=== PATIENT | female | born 1940 | race African-American/Black ===

== ENCOUNTER 2017-11-21 08:14 | Inpatient (IN) | payer MEDICARE, OTHER ==
[~2017-11-21] VITALS: Ht 167.6 cm; Wt 84.0 kg
[~2017-11-21 08:14] MED LIST: 1-ME1LIQ PO; AMLO10 PO; ARIC5TAB PO; ARIP1TAB13 PO; ATOR20TA42 PO; DIPH50TA PO; FLUTI110I INH; K-TA10TA5 PO; LIPI20TA PO; LORA-474 PO; METO25 PO; NAME10TA PO; NOVOLOGSS SQ; PANT20 PO; QUET100 PO; RISPERDAL IM; SERO100T PO; SERT-132 PO; ZOLO50TA PO
[2017-11-21 08:16] VITALS: BP 248/118; PULSE 152; RESP 22; TEMP 98.5; O2SAT 96
[2017-11-21] MEDS ORDERED: LAMO25 PO (08:42)
[2017-11-21] MEDS ORDERED: LORazepam 2 MG/ML VIAL IM ONE ×2 (08:45→10:00)
[2017-11-21] MEDS ORDERED: ZIPRASIDONE MESYLATE 20 MG VIAL IM ONE ×2 (08:45→10:00)
[2017-11-21] MEDS ORDERED: diphenhydrAMINE HCL 50 MG/ML VIAL IM ONE (08:45)
--- NOTE | 2017-11-21 08:59 | PD ---
HPI Chief Complaint: Psychiatric Symptoms Time Seen by Provider: 08:42 Travel History International Travel<30 days: No Contact w/Intl Traveler<30days: No Traveled to known affect area: No History of Present Illness HPI 77-year-old female with a history of schizoaffective disorder, bipolar disorder , who presents today with complaints of severe agitation and aggressive behavior. According to the son she has been like this over the weekend. It is escalated. Report was that she was recently admitted at [facility]. The patient has a history of dementia as well. She reportedly is taking her antipsychotic medication however is extremely agitated. There is been no reported recent illnesses. There are no other complaints. The patient is uncooperative and aggressive toward staff. PFSH Past Medical History Arthritis: Yes (KNEES) Asthma: Yes Depression: Yes Cancer: No (See EMR) Cardiovascular Problems: Yes (See EMR) Cerebrovascular Accident: No Diabetes: No (See EMR) Endocrine: No Genitourinary: No Immune Disorder: No Kidney Stones: No Musculoskeletal: Yes Neurologic: Yes Psychiatric: Yes (Schizoaffective Disorder, See EMR) Reproductive: No Respiratory: Yes Migraines: No Renal Failure: No Seizures: No (See EMR) Thyroid Disease: No Past Surgical History Abdominal Surgery: No Cardiac Surgery: No Ear Surgery: No Endocrine Surgery: No Eye Surgery: Yes (BILAT CATARACT REMOVAL) Genitourinary Surgery: No Gynecologic Surgery: No Joint Replacement: Yes (BI-LAT KNEES) Oral Surgery: No Thoracic Surgery: No Social History Tobacco Use: No Substance Use: No Allergies-Medications (Allergen,Severity, Reaction): Coded Allergies: apple (Unverified Allergy, Severe, Swelling, 03/08/17) Reported Meds & Prescriptions Reported Meds & Active Scripts Active Zoloft (Sertraline HCl) 50 Mg Tab 50 Mg PO DAILY Namenda (Memantine) 10 Mg Tab 10 Mg PO BID Reported Lamictal (Lamotrigine) 25 Mg Tab 25 Mg PO BID Review of Systems ROS Limitations: Psychotic (Unable to obtain review of systems secondary to patient's psychosis.) Physical Exam Narrative GENERAL: Well-nourished, well-developed patient, acutely agitated and psychotic. SKIN: Focused skin assessment warm/dry. HEAD: Normocephalic/atraumatic. EYES: No scleral icterus. No injection or drainage. NECK: Supple, trachea midline. CARDIOVASCULAR: Regular rate and rhythm without murmurs, gallops, or rubs. RESPIRATORY: Breath sounds equal bilaterally. No accessory muscle use. GASTROINTESTINAL: Abdomen soft, non-tender, nondistended. MUSCULOSKELETAL: No cyanosis, or edema. NEUROLOGICAL: Awake and alert and agitated. Cranial nerves II through XII intact. Motor and sensory grossly within normal limits. Five out of 5 muscle strength in all muscle groups. Normal speech. Data Data Last Documented VS Vital Signs Date Time Temp Pulse Resp B/P (MAP) Pulse Ox O2 Delivery O2 Flow Rate FiO2 11/21/17 08:16 98.5 152 22 248/118 (161) 96 Orders Orders Ziprasidone Inj (Geodon Inj) (11/21/17 08:45) Lorazepam Inj (Ativan Inj) (11/21/17 08:45) Diphenhydramine Inj (Benadryl Inj) (11/21/17 08:45) Ziprasidone Inj (Geodon Inj) (11/21/17 10:00) Lorazepam Inj (Ativan Inj) (11/21/17 10:00) Psych Screen (11/21/17 10:45) Admit Order (Ed Use Only) (11/21/17 ) MDM Medical Decision Making Medical Screen Exam Complete: Yes Emergency Medical Condition: Yes Medical Record Reviewed: Yes Differential Diagnosis Acute psychosis versus metabolic derangement versus medication noncompliance Narrative Course 77-year-old female with history of schizoaffective disorder, bipolar disorder, dementia, presents today for an acute psychotic episode. Patient is extremely agitated and threatening to staff and family members. The patient will be medically cleared to be admitted to psychiatry. I discussed the patient with a psychiatrist and until informed him that she would be best served going directly to the floor. He is arranged for her to be admitted directly to the psychiatric unit. Diagnosis Primary Impression: Acute psychosis Additional Impressions: Bipolar disorder, manic Dementia Medically cleared Admitting Information Admitting Physician Requests: Admit Aleksey Henriquez MD Nov 21, 2017 08:58
[2017-11-21 11:39] VITALS: BP 198/98; PULSE 66; RESP 18; O2SAT 96
[2017-11-21] MEDS: REMOVE OLD PATCH T-DERMAL SCH (12:00)
[2017-11-21] MEDS ORDERED: ALUMINUM/MAGNESIUM/SIMETH 30 ML CUP PO PRN (12:00)
[2017-11-21] MEDS ORDERED: NICOTINE 21 MG/24 HR PATCH T-DERMAL PRN (12:00)
[2017-11-21] MEDS ORDERED: MAGNESIUM HYDROXIDE SUSP 30 ML CUP PO PRN (12:00)
[2017-11-21] MEDS ORDERED: HALOPERIDOL LACTATE 5 MG/ML AMP IM STA (12:08)
[2017-11-21] MEDS ORDERED: diphenhydrAMINE HCL 50 MG/ML VIAL IM STA (12:08)
--- NOTE | 2017-11-21 13:36 | HHI.HP ---
Provisional Diagnosis Admission Date Nov 21, 2017 at 11:15 Leary I. 1. Schizoaffective disorder, bipolar type 2. Dementia, rule out with behavioral disturbance Leary II. Deferred Certification of Person's Competence To Provide Express and Informed Consent I have personally examined Jackelyn Gonzalez , a person being served at [facility] [[email or web address]] on, Nov 21, 2017 13:36. Express and informed consent means consent voluntarily given in writing, by a competent person, after sufficient explanation and disclosure of the subject matter involved to enable the person to make a knowing and willful decision without any element of force, fraud, deceit, duress, or other form of constraint or coercion. This person is 18 years of age or older, is not now known to be incompetent to consent to treatment with a guardian advocate, and does not have a health care surrogate or proxy currently making medical treatment decisions. I have found this person to be one of the following: [] Competent to provide express and informed consent, as defined above, for voluntary admission to this facility and is competent to provide express and informed consent for treatment. He/she has the consistent capacity to make well reasoned, willful, and knowing decisions concerning his or her medical or mental health treatment. The person fully and consistently understands the purpose of the admission for examination/placement and is fully capable of personally exercising all rights assured [place] [x] Incompetent to provide express and informed consent to voluntary admission, and this is incompetent to provide express and informed consent to treatment. The person must be transferred to involuntary status and a petition for a guardian advocate filed with the Circuit Court. [] Refusing to provide express and informed consent to voluntary admission but is competent to provide express and informed consent for treatment. The person must be discharged or transferred to involuntary status. Form shall be completed within 24 hours of a person's arrival at the receiving facility and filed in the clinical record of each person: 1. Admitted on a voluntary basis 2. Permitted to provide express and informed consent to his/her own treatment 3. Allowed to transfer from involuntary to voluntary status 4. Prior to permitting a person to consent to his or her own treatment after having been previously found incompetent to consent to treatment. History of Present Illness Capacity: Lacks Capacity Psych Chief Complaint: Agitation HPI Ms. Gonzalez is a 77-year-old female with a history of schizoaffective disorder and dementia who presented to the emergency department, brought in by family for severe agitation. She was evaluated by Dr. Henriquez in the ED who reached out to me to discuss the case. Dr. Henriquez reported that despite receiving ETOs of Geodon and Ativan x 2, patient remained severely agitated and unredirectable. He has placed the patient under a Munson act. He appropriately did not wish to restrain this elderly patient, and I have elected to admit the patient to the inpatient unit for management of her psychiatric symptoms. On arrival on the unit, patient remained aggressive per nursing staff, and I ordered the patient further medicated with Haldol and Benadryl IM ETO. Patient seen and examined. Chart reviewed. Case discussed with nursing staff. Since receiving the Haldol ETO, patient has calmed. She is dozing at the time of my evaluation, and our interaction is limited for this reason. She appears to be in no acute distress and is breathing easily. She does open her eyes briefly to loud verbal stimuli but lapses back into sleep. I do observe her on the unit later, and she is more alert but remains calm. No evident ill effects from ETOs. No physical complaints verbalized. I am unable to obtain any past psychiatric, family, chemical dependency or social history from the patient because of her current mental status. I obtained collateral information from the patient's sister Shaunna Mike at the number listed in the EMR. She notes that the patient has been agitated and has not slept since Tuesday. She notes the patient has been hyperverbal. She believes that the patient has been medication compliant. She refers to the patient's daughter Joanie for further collateral information and for medication consents. Spoke with patient's daughter Joanie Wilde at [phone]. She notes that patient had been having issues with agitation last week and so family took patient to [facility] Tuesday night, at which encounter Lamictal was added to current regimen of Seroquel 200mg BID. Addition of Lamictal did not help and patient continued to be aggressive with family. She did not sleep hardly at all over the weekend. Visiting psychiatric nurse recommended family seek further assistance for patient's behaviors. Joanie also does not suspect med non-adherence as a cause for patient's symptoms. She is willing to serve as HCS. She is in agreement with ongoing hospitalization for psychiatric stabilization, and we did discuss the potential risks of such in someone of patient's age, such as the risk of fall, infection or other misadventure. Daughter likewise is in agreement with treatment plan as outlined below. We reviewed the R/B/A for medications, and I have highlighted the potential antipsychotic side effects as well as the FDA blackbox warning for increased risk of in the demented elderly. We discussed patient's legal status. Review of Systems ROS Limitations: Poor Historian, Other (Sedated) Other Limited ROS secondary to above. Past Family Social History Coded Allergies: apple (Unverified Allergy, Severe, Swelling, 03/08/17) Past Medical History See EMR Active Scripts Sertraline (Zoloft) 50 Mg Tab, 50 MG PO DAILY for health, #30 TAB 0 Refills Prov:Louie Morales MD 06/30/16 Memantine (Namenda) 10 Mg Tab, 10 MG PO BID for health, #60 TAB 0 Refills Prov:Louie Morales MD 06/30/16 Reported Medications Lamotrigine (Lamictal) 25 Mg Tab, 25 MG PO BID for Control Seizures, #60 TAB 0 Refills 11/21/17 Discontinued Scripts Quetiapine (Seroquel) 100 Mg Tab, 150 MG PO 1 1/2 daily for health, #45 TAB 0 Refills Prov:Louie Morales MD 06/30/16 Pantoprazole (Protonix) 20 Mg Tab, 20 MG PO DAILY for health, #30 TAB 0 Refills Prov:Louie Morales MD 06/30/16 Insulin Aspart Inj (Novolog Inj) 100 Unit/Ml Inj, 1 UNITS SQ BID for health, #1 INJECTION 0 Refills Prov:Louie Morales MD 06/30/16 Fluticasone 12 GM Inh (Flovent Hfa 12 GM Inh) 110 Mcg/Act Inh, 2 PUFF INH BID for health, #1 INHALER 0 Refills Prov:Louie Morales MD 06/30/16 Atorvastatin (Lipitor) 20 Mg Tab, 20 MG PO DAILY for health, #30 TAB 0 Refills Prov:Louie Morales MD 06/30/16 Aripiprazole (Aripiprazole) 15 Mg Tab, 15 MG PO DAILY@10,16 for health, #30 TAB 0 Refills Prov:Louie Morales MD 06/30/16 Amlodipine (Norvasc) 10 Mg Tab, 10 MG PO DAILY for blood pressure for 30 Days, TAB 0 Refills Prov:Tequila Dey 06/07/16 Current Medications Medications (Trade) Dose Ordered Sig/Karyna Route Start Time Stop Time Status Last Admin (Tylenol) 650 mg Q4H PRN PO 11/21/17 12:00 (Milk Of Magnesia Liq) 30 ml DAILY PRN PO 11/21/17 12:00 (Mag-Al Plus Susp Liq) 30 ml Q6H PRN PO 11/21/17 12:00 (Habitrol 21 Mg Patch.24 Hr) 1 patch DAILY PRN T-DERMAL 11/21/17 12:00 Miscellaneous Information 1 DAILY T-DERMAL 11/21/17 12:00 Patient's Strengths (min. 2) In a monitored setting. Supportive family. Physical Exam Physical exam completed by ED provider. On my examination today, the patient appears to be in no acute physical distress. No motor abnormalities noted. Vital signs reviewed. Vital Signs Vital Signs Date Time Temp Pulse Resp B/P (MAP) Pulse Ox O2 Delivery O2 Flow Rate FiO2 11/21/17 12:02 11/21/17 11:39 66 18 96 Room Air 11/21/17 08:16 98.5 Lab Results Patient was too agitated in the ED for labs to be obtained and refused laboratories on arrival to the floor. I have obtained permission from patient' s daughter/healthcare surrogate to temporarily restrain the patient in order to obtain needed lab work. EKG reviewed. This reveals sinus rhythm with QTC within normal limits. Mental Status Examination Appearance: Disheveled Consciousness: Asleep Orientation: Person (Arouses to name being called) Motor Activity: Other (No motor abnormalities noted) Speech: Other (Mumbles a few sounds) Language: Other (Sample too limited to assess) Mood: Other (Limited sample) Affect: Flat Thought Process & Associations: Other (Limited sample) Thought Content: Other (Limited sample) Mental Status Exam Remarks No SI or HI verbalized. Insight and judgment are unclear but suspect poor. Assessment & Plan Problem List: (1) Schizoaffective disorder, bipolar type ICD Codes: F25.0 - Schizoaffective disorder, bipolar type Status: Chronic (2) Dementia ICD Codes: F03.90 - Unspecified dementia without behavioral disturbance Status: Acute Assessment & Plan 77-year-old female with psychiatric history as detailed above Munson acted by ED provider for acute agitation. Family gives collateral information to suggest that the patient has been agitated and sleeping poorly over the weekend and had been having problems of less severity last week despite reported medication adherence. Unclear whether the patient is experiencing psychotic decompensation as part of her schizoaffective disorder or an episode of dementia with behavioral disturbance or some other issue. I will plan to admit the patient to the inpatient psychiatric unit for safety, observation and stabilization. Admit inpatient. Involuntary status. I have completed first opinion. Consult for second opinion. Request healthcare surrogate and guardian advocate. Titrate Seroquel to 250 mg twice daily to try to stabilize behavior. Haldol IM as needed for severe agitation, Benadryl as needed for EPS, melatonin as needed for sleep. Blood pressure was quite elevated on initial presentation, possibly secondary in part to agitation, and I will consult the hospitalist for further management. PT eval. Fall precautions. Vitals every shift. Counselor to see. Disposition planning. Estimated length of stay: Presently unclear, >2 days. Discharge Planning Pending psychiatric stabilization Request HC Surrog/Guard Advoc?: Yes Hunter Pérez MD Nov 21, 2017 13:36
[2017-11-21 13:52] VITALS: BP 136/63; PULSE 104
--- NOTE | 2017-11-21 16:29 | EKG ---
Date Performed: 11/21/2017 Time Performed: 15:43:03 PTAGE: 77 years EKG: Sinus rhythm BORDERLINE LEFT AXIS DEVIATION MODERATE VOLTAGE CRITERIA FOR LVH, CONSIDER NORMAL VARIANT NONSPECIFI C T-WAVE ABNORMALITY BORDERLINE ECG No significant change from prior electrocardiogram. PREVIOUS TRACING : 06/04/2016 05.19 DOCTOR: Marcio Hidalgo Interpretating Date/Time 11/21/2017 16:27:51
[2017-11-21] MEDS ORDERED: cloNIDine HCL 0.1 MG TAB PO PRN (16:45)
--- NOTE | 2017-11-21 17:07 | PD.CONS ---
HPI Service [facility] Consult Requested By Primary Care Physician Sky Veras M.D. Diagnoses: History of Present Illness 77-year-old female who was admitted for behavioral disturbances in the context of dementia. On arrival to the ED she had an elevated blood pressure with systolics as high as 248 and diastolic as high as 119. She also exhibited tachycardia with heart rates into the 140s. She is a poor historian due to dementia and hoarse voice. She did not complain of headaches, chest pain or visual changes, but it is unclear whether she would be able to have insight enough to relate that. Review of Systems ROS Limitations: Altered Mental Status, Uncooperative, Poor Historian Constitutional: DENIES: Fever Cardiovascular: DENIES: Chest pain, Palpitations, Syncope Integumentary: DENIES: Abnormal pigmentation, Pruritus, Rash Neurologic: DENIES: Abnormal gait, Localized weakness, Seizures Psychiatric: COMPLAINS OF: Confusion, Mood changes Past Family Social History Allergies: Coded Allergies: apple (Unverified Allergy, Severe, Swelling, 03/08/17) Past Medical History Arthritis, asthma, schizoaffective disorder Past Surgical History Bilateral cataracts, bilateral knee replacement Family History Unknown Social History Denies any substance use Physical Exam Vital Signs Vital Signs Date Time Temp Pulse Resp B/P (MAP) Pulse Ox O2 Delivery O2 Flow Rate FiO2 11/21/17 13:52 104 136/63 (87) 11/21/17 12:02 11/21/17 11:39 66 18 198/98 (131) 96 Room Air 11/21/17 08:16 98.5 152 22 248/118 (161) 96 Physical Exam GENERAL: This is a semi-sedated woman who is sleepy but mostly uncooperative with history and exam SKIN: No rashes, ecchymoses or lesions. Cool and dry. HEAD: Atraumatic. Normocephalic. No temporal or scalp tenderness. EYES: Pupils equal round and reactive. Extraocular motions intact. No scleral icterus. No injection or drainage. ENT: Nose without bleeding, Airway patent. NECK: Trachea midline. No JVD . Supple, nontender, no meningeal signs. CARDIOVASCULAR: Sinus tachycardia without murmurs, gallops, or rubs. RESPIRATORY: Clear to auscultation. Breath sounds equal bilaterally. No wheezes , rales, or rhonchi. GASTROINTESTINAL: Abdomen soft, non-tender, nondistended. No hepato-splenomegaly , or palpable masses. No guarding. MUSCULOSKELETAL: Extremities without clubbing, cyanosis, or edema. No joint tenderness, effusion, or edema noted. NEUROLOGICAL: Awake, not well oriented. Cranial nerves II through XII intact. Motor and sensory grossly within normal limits. Five out of 5 muscle strength in all muscle groups. Hoarse speech. Assessment and Plan Problem List: (1) Hypertension ICD Code: I10 - Essential (primary) hypertension Status: Chronic (2) Schizoaffective disorder, bipolar type ICD Code: F25.0 - Schizoaffective disorder, bipolar type Status: Chronic (3) Dementia ICD Code: F03.90 - Unspecified dementia without behavioral disturbance Status: Acute Assessment and Plan Hypertensive urgency Blood pressure as high as 248/119 in the ER Patient became more calm following Haldol Blood pressure during visit was 136 systolic with heart rate down to 107 Continue with Haldol treatment Clonidine added for as needed use, systolics greater than 165 Behavioral disturbance Patient admitted for abnormal behavior related to dementia and/or schizoaffective disorder She will be managed by psych in this regard Consider possibility of urinary tract infection as exacerbating factor in an elderly woman Urinalysis ordered Norm Del Toro MD Nov 21, 2017 17:07
[2017-11-21] MEDS: HALOPERIDOL LACTATE 5 MG/ML AMP IM PRN (17:48)
[2017-11-21] MEDS: QUEtiapine FUMARATE 25 MG TAB PO SCH (20:56)
[2017-11-21] MEDS: QUEtiapine FUMARATE 200 MG TAB PO SCH (20:56)
[2017-11-22 06:11] VITALS: BP 142/63; PULSE 88; RESP 18; TEMP 98.2; O2SAT 96
[2017-11-22 07:35] LABS: CHOLESTEROL 208 MG/DL (120-200); TRIGLYCERIDES 50 MG/DL (42-150)
[2017-11-22 07:37] LABS: CHOLESTEROL/ HDL RATIO 2.83 RATIO; HDL CHOLESTEROL 73.4 MG/DL (40.0-60.0); LDL CHOLESTEROL 125 MG/DL (0-99)
[2017-11-22] MEDS: REMOVE OLD PATCH T-DERMAL SCH (08:00)
[2017-11-22] MEDS: QUEtiapine FUMARATE 25 MG TAB PO SCH (08:00)
[2017-11-22] MEDS: QUEtiapine FUMARATE 200 MG TAB PO SCH (08:00)
[2017-11-22 08:39] LABS: ALBUMIN 3.9 GM/DL (3.4-5.0); AST (GOT) 28 U/L (15-37); AUTOMATED NEUTROPHIL # 2.5 TH/MM3 (1.8-7.7); BASOPHIL % 0.4 % (0.0-2.0); BLOOD UREA NITROGEN 24 MG/DL (7-18); CALCIUM 9.5 MG/DL (8.5-10.1); CHLORIDE 106 MEQ/L (98-107); CREATININE 1.08 MG/DL (0.50-1.00); EOSINOPHIL # 0.1 TH/MM3 (0-0.4); EOSINOPHIL % 3.1 % (0.0-4.0); GLOMERULAR FILTRATION RATE 59 ML/MIN (>89); GLUCOSE,RANDOM 82 MG/DL (74-106); HEMATOCRIT 35.8 % (35.0-46.0); HEMOGLOBIN 11.8 GM/DL (11.6-15.3); LYMPH % 32.2 % (9.0-44.0); LYMPHOCYTE # 1.5 TH/MM3 (1.0-4.8); MEAN CELL VOLUME 94.4 FL (80.0-100.0); MEAN CORPUSCULAR HEMOGLOBIN 31.1 PG (27.0-34.0); MEAN PLATELET VOLUME 9.8 FL (7.0-11.0); MONO % 11.3 % (0.0-8.0); MONOCYTE # 0.5 TH/MM3 (0-0.9); PLATELET COUNT 206 TH/MM3 (150-450); RED BLOOD COUNT 3.79 MIL/MM3 (4.00-5.30); RED CELL DISTRIBUTION WIDTH 13.5 % (11.6-17.2); SODIUM (NA) 142 MEQ/L (136-145); WHITE BLOOD COUNT 4.7 TH/MM3 (4.0-11.0)
[2017-11-22 08:40] LABS: ALT (GPT) 18 U/L (10-53)
[2017-11-22 08:42] LABS: ALKALINE PHOSPHATASE 115 U/L (45-117); TOTAL BILIRUBIN ADULT 0.7 MG/DL (0.2-1.0); TOTAL PROTEIN 8.6 GM/DL (6.4-8.2)
[2017-11-22] MEDS: diphenhydrAMINE HCL 50 MG/ML VIAL IM PRN (09:15)
[2017-11-22] MEDS: HALOPERIDOL LACTATE 5 MG/ML AMP IM PRN (09:15)
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
[2017-11-22] MEDS ORDERED: HALOPERIDOL LACTATE 5 MG/ML AMP IM STA (10:54)
[2017-11-22] MEDS ORDERED: diphenhydrAMINE HCL 50 MG/ML VIAL IM ONE (11:00)
--- NOTE | 2017-11-22 13:23 | PD.PSY.CON ---
Provisional Diagnosis Admission Date Nov 21, 2017 at 11:15 Moro I. 1. Schizoaffective disorder, bipolar type 2. Dementia, rule out with behavioral disturbance Moro II. Deferred History of Present Illness Service Psychiatry Consult Requested By Psychiatry Reason for Consult Second opinion Primary Care Physician Sky Veras M.D. HPI Ms. Gonzalez is a 77-year-old female with a history of schizoaffective disorder and dementia who presented to the emergency department, brought in by family for severe agitation. She was evaluated by Dr. Henriquez in the ED who reached out to me to discuss the case. Dr. Henriquze reported that despite receiving ETOs of Geodon and Ativan x 2, patient remained severely agitated and unredirectable. He has placed the patient under a [place] act. He appropriately did not wish to restrain this elderly patient, and I have elected to admit the patient to the inpatient unit for management of her psychiatric symptoms. On arrival on the unit, patient remained aggressive per nursing staff, and I ordered the patient further medicated with Haldol and Benadryl IM ETO. The patient is a 77-year-old -[place] woman domiciled in [facility] with her daughter, with psychiatric history of schizoaffective disorder, major neurocognitive disorder, was brought to the hospital by her family due to aggressive behavior and agitation. The patient was consulted to me for second opinion. On psychiatric evaluation the patient is found sitting in the recreational area of the unit. The patient is irritable, oppositional, verbally hostile. The patient says that she is furious "because I have to be in this f.... place with his f.. people". Patient reports that nurses here has been disrespectful with her, "no giving me any food". The patient is fully oriented 3. When I tried to persist in the psychiatric assessment, the patient became quite agitated and stated that she does not have to talk to me and we are over. Past Family Social History Coded Allergies: apple (Unverified Allergy, Severe, Swelling, 03/08/17) Active Scripts Sertraline (Zoloft) 50 Mg Tab, 50 MG PO DAILY for health, #30 TAB 0 Refills Prov:Louie Morales MD 06/30/16 Memantine (Namenda) 10 Mg Tab, 10 MG PO BID for health, #60 TAB 0 Refills Prov:Louie Morales MD 06/30/16 Reported Medications Lamotrigine (Lamictal) 25 Mg Tab, 25 MG PO BID for Control Seizures, #60 TAB 0 Refills 11/21/17 Discontinued Scripts Quetiapine (Seroquel) 100 Mg Tab, 150 MG PO 1 1/2 daily for health, #45 TAB 0 Refills Prov:Louie Morales MD 06/30/16 Pantoprazole (Protonix) 20 Mg Tab, 20 MG PO DAILY for health, #30 TAB 0 Refills Prov:Louie Morales MD 06/30/16 Insulin Aspart Inj (Novolog Inj) 100 Unit/Ml Inj, 1 UNITS SQ BID for health, #1 INJECTION 0 Refills Prov:Louie Morales MD 06/30/16 Fluticasone 12 GM Inh (Flovent Hfa 12 GM Inh) 110 Mcg/Act Inh, 2 PUFF INH BID for health, #1 INHALER 0 Refills Prov:Louie Morales MD 06/30/16 Atorvastatin (Lipitor) 20 Mg Tab, 20 MG PO DAILY for health, #30 TAB 0 Refills Prov:Louie Morales MD 06/30/16 Aripiprazole (Aripiprazole) 15 Mg Tab, 15 MG PO DAILY@10,16 for health, #30 TAB 0 Refills Prov:Luoie Morales MD 06/30/16 Amlodipine (Norvasc) 10 Mg Tab, 10 MG PO DAILY for blood pressure for 30 Days, TAB 0 Refills Prov:Tequila Dey 06/07/16 Current Medications Medications (Trade) Dose Ordered Sig/Karyna Route Start Time Stop Time Status Last Admin (Tylenol) 650 mg Q4H PRN PO 11/21/17 12:00 (Milk Of Magnesia Liq) 30 ml DAILY PRN PO 11/21/17 12:00 (Mag-Al Plus Susp Liq) 30 ml Q6H PRN PO 11/21/17 12:00 (Habitrol 21 Mg Patch.24 Hr) 1 patch DAILY PRN T-DERMAL 11/21/17 12:00 Miscellaneous Information 1 DAILY T-DERMAL 11/21/17 12:00 (Haldol Inj) 5 mg Q6H PRN IM 11/21/17 14:00 5/1/18 09:15 (Benadryl Inj) 25 mg Q6H PRN IM 11/21/17 14:00 11/22/17 09:15 (Benadryl) 25 mg Q6H PRN PO 11/21/17 14:00 (Melatonin) 5 mg HS PRN PO 11/21/17 14:00 (Catapres) 0.1 mg Q6H PRN PO 11/21/17 16:45 (SEROquel) 300 mg BID PO 11/22/17 21:00 UNV Patient's Strengths (min. 2) In a monitored setting. Supportive family. Physical Exam Vital Signs Vital Signs Date Time Temp Pulse Resp B/P (MAP) Pulse Ox O2 Delivery O2 Flow Rate FiO2 11/22/17 06:11 98.2 88 18 142/63 (89) 96 11/21/17 11:39 Room Air Lab Results Test 11/22/17 06:10 White Blood Count 4.7 TH/MM3 Red Blood Count 3.79 MIL/MM3 Hemoglobin 11.8 GM/DL Hematocrit 35.8 % Mean Corpuscular Volume 94.4 FL Mean Corpuscular Hemoglobin 31.1 PG Mean Corpuscular Hemoglobin Concent 33.0 % Red Cell Distribution Width 13.5 % Platelet Count 206 TH/MM3 Mean Platelet Volume 9.8 FL Neutrophils (%) (Auto) 53.0 % Lymphocytes (%) (Auto) 32.2 % Monocytes (%) (Auto) 11.3 % Eosinophils (%) (Auto) 3.1 % Basophils (%) (Auto) 0.4 % Neutrophils # (Auto) 2.5 TH/MM3 Lymphocytes # (Auto) 1.5 TH/MM3 Monocytes # (Auto) 0.5 TH/MM3 Eosinophils # (Auto) 0.1 TH/MM3 Basophils # (Auto) 0.0 TH/MM3 CBC Comment DIFF FINAL Differential Comment Blood Urea Nitrogen 24 MG/DL Creatinine 1.08 MG/DL Random Glucose 82 MG/DL Total Protein 8.6 GM/DL Albumin 3.9 GM/DL Calcium Level 9.5 MG/DL Alkaline Phosphatase 115 U/L Aspartate Amino Transf (AST/SGOT) 28 U/L Alanine Aminotransferase (ALT/SGPT) 18 U/L Total Bilirubin 0.7 MG/DL Sodium Level 142 MEQ/L Potassium Level 3.7 MEQ/L Chloride Level 106 MEQ/L Carbon Dioxide Level 28.0 MEQ/L Anion Gap 8 MEQ/L Estimat Glomerular Filtration Rate 59 ML/MIN Triglycerides Level 50 MG/DL Cholesterol Level 208 MG/DL LDL Cholesterol 125 MG/DL HDL Cholesterol 73.4 MG/DL Cholesterol/HDL Ratio 2.83 RATIO Ethyl Alcohol Level LESS THAN 3 MG/DL Mental Status Examination Appearance: Disheveled Consciousness: Asleep Orientation: Person (Arouses to name being called) Motor Activity: Other (No motor abnormalities noted) Speech: Other (Mumbles a few sounds) Language: Other (Sample too limited to assess) Mood: Other (Limited sample) Affect: Flat Thought Process & Associations: Other (Limited sample) Thought Content: Other (Limited sample) Assessment & Plan Problem List: (1) Schizoaffective disorder, bipolar type ICD Codes: F25.0 - Schizoaffective disorder, bipolar type Status: Chronic (2) Dementia ICD Codes: F03.90 - Unspecified dementia without behavioral disturbance Status: Acute Assessment & Plan: I have seen and examined this patient, reviewed documentation, I agree and concur with Dr. Pérez assessment and plan. Consult appreciated Assessment & Plan Estimated LOS: days Request HC Surrog/Guard Advoc?: Yes Jason Coombs MD November 22, 2017 13:23
[2017-11-22] MEDS ORDERED: OLANZapine IM 10 MG VIAL IM STA (15:12)
[2017-11-22 17:55] VITALS: BP 141/80; PULSE 100; RESP 18; TEMP 98.1; O2SAT 100
[2017-11-22 18:32] LABS: HEMOGLOBIN A1C 4.7 % (4.3-6.0)
[2017-11-22] MEDS: QUEtiapine FUMARATE 300 MG TAB PO SCH (20:46)
[2017-11-23] MEDS: HALOPERIDOL LACTATE 5 MG/ML AMP IM PRN ×2 (00:54→10:23)
[2017-11-23] MEDS: diphenhydrAMINE HCL 25 MG CAP PO PRN (00:54)
[2017-11-23] MEDS: MELATONIN 5 MG TAB PO PRN (00:54)
[2017-11-23 05:54] VITALS: BP 95/51; PULSE 80; RESP 17; TEMP 97.4; O2SAT 97
[2017-11-23] MEDS: REMOVE OLD PATCH T-DERMAL SCH (07:52)
[2017-11-23] MEDS: QUEtiapine FUMARATE 300 MG TAB PO SCH (07:52)
[2017-11-23 09:18] LABS: BICARBONATE 25.1 MEQ/L (21.0-32.0); CALCIUM 9.7 MG/DL (8.5-10.1); CREATININE 0.98 MG/DL (0.50-1.00)
--- NOTE | 2017-11-23 13:32 | HHI.PYPN ---
Subjective Chief Complaint: Agitation Remarks Patient seen and examined. Chart reviewed. Case discussed with nursing staff. Patient noted to have PEG tube but is taking fair PO. Counselor reports family noted patient had had poor PO intake in the past and PEG was utilized then. I have instructed RN to notify hospitalist about PEG tube in case maintenance orders are required. Ongoing issues with agitation. Case discussed in treatment team. For me today, patient is sitting in the day room. She is speaking in a rambling fashion and is difficult to interrupt. No signs of sedation or other side effects from medications. No physical complaints. Following my departure from the unit, nursing notifies me that patient has become acutely agitated and is disrobing on the unit. I have ordered the patient medicated with Zyprexa IM ETO. Review of Systems ROS Limitations: Poor Historian Except as stated in HPI: all other systems reviewed are Neg Mental Status Examination Appearance: Disheveled Consciousness: Asleep Orientation: Person Motor Activity: Other (No hand tremor, no cogwheeling, no dystonias, no dyskinesia is noted.) Speech: Unremarkable Language: Other (Rambling) Fund of Knowledge: Inadequate Attention and Concentration: Inadequate Memory: Impaired Mood: Irritable Affect: Irritable, Labile Thought Process & Associations: Disorganized Thought Content: Preoccupations Hallucination Type: None Delusion Type: None Suicidal Ideation: No Homicidal Ideation: No Insight: Poor Judgment: Poor Results Labs Test 11/23/17 07:44 Blood Urea Nitrogen 17 MG/DL Creatinine 0.98 MG/DL Random Glucose 94 MG/DL Calcium Level 9.7 MG/DL Sodium Level 140 MEQ/L Potassium Level 3.8 MEQ/L Chloride Level 105 MEQ/L Carbon Dioxide Level 25.1 MEQ/L Anion Gap 10 MEQ/L Estimat Glomerular Filtration Rate 66 ML/MIN Labs reviewed. GFR improved. Vitals/IOs Vital Signs Date Time Temp Pulse Resp B/P (MAP) Pulse Ox O2 Delivery O2 Flow Rate FiO2 11/23/17 05:54 97.4 80 17 95/51 (66) 97 11/21/17 11:39 Room Air Intake and Output 11/23/17 11/23/17 11/24/17 08:00 16:00 00:00 Intake Total 75 ml 360 ml Balance 75 ml 360 ml Assessment & Plan Problem List: (1) Schizoaffective disorder, bipolar type ICD Codes: F25.0 - Schizoaffective disorder, bipolar type Status: Chronic (2) Dementia ICD Codes: F03.90 - Unspecified dementia without behavioral disturbance Status: Acute Assessment & Plan Inadequate response to current therapy. Titrate Seroquel to 400 mg twice daily. Continue to monitor on the inpatient unit. Continue other medications and care as ordered. Justification for Cont. Inpt. Impairment in reality construction. Ongoing issues with agitation. Med changes. High risk for decompensation in less restrictive environment. Discharge Planning Pending psychiatric stabilization. [place] tomorrow. Request HC Surrog/Guard Advoc?: Yes Hunter Pérez MD November 23, 2017 13:32
[2017-11-23] MEDS ORDERED: OLANZapine IM 10 MG VIAL IM STA (13:46)
--- NOTE | 2017-11-23 16:25 | PD.TTN ---
Patient Problems 1. Discharge planning 2. Medication compliance 3. Knowledge deficit 4. Lack of coping skills Progress Toward Goals Provider Present: Dr. Mandi Pérez Provider Input: 11/22/17 pt needs med adjustment/increased and further stabilization, still paranoid Psychiatric Counselors Present: Fara Keene LCSW Psych Therapist Input: 11/22/17 no insight, uncooperative, psychotic, has niece can return home when better Group Spec/RT/OT/ORTEGA Present: Juan Shearer OT Group Spec/RT/OT/ORTEGA Input: 11/22/17 new to OT appears not able to engage at this time Fara Keene LCSW November 23, 2017 16:25
[2017-11-23 18:00] VITALS: BP 116/89; PULSE 106; RESP 16; TEMP 97.5; O2SAT 95
[2017-11-23] MEDS: QUEtiapine FUMARATE 200 MG TAB PO SCH (20:37)
[2017-11-24] MEDS: diphenhydrAMINE HCL 25 MG CAP PO PRN (03:42)
[2017-11-24] MEDS: MELATONIN 5 MG TAB PO PRN ×2 (03:42→20:09)
[2017-11-24] MEDS: HALOPERIDOL LACTATE 5 MG/ML AMP IM PRN (03:42)
[2017-11-24 06:09] VITALS: BP 172/59; PULSE 125; RESP 19; TEMP 98; O2SAT 96
[2017-11-24 06:34] VITALS: BP 136/84; PULSE 100; RESP 20
[2017-11-24] MEDS: QUEtiapine FUMARATE 200 MG TAB PO SCH ×2 (08:44→20:09)
[2017-11-24] MEDS: REMOVE OLD PATCH T-DERMAL SCH (08:45)
--- NOTE | 2017-11-24 11:14 | HHI.PYPN ---
Subjective Chief Complaint: Agitation Remarks Patient seen and case discussed with nursing staff. Chart reviewed. Per nursing, patient continues to have episodes of agitation and combativeness. She received Haldol p.r.n. overnight. For me today, patient is hyperverbal. Thought process remains quite disorganized. She appears less disorganized and hostile today, even smiling at times. No evident side effects from medications. No physical complaints. I endeavored to reach patient's health care surrogate Joanie Wilde at the number in EMR but voicemail box was not accepting new messages. Review of Systems ROS Limitations: Poor Historian Other limited ROS Mental Status Examination Appearance: Disheveled Consciousness: Asleep Orientation: Person Motor Activity: Other (No motor abnormalities noted) Speech: Unremarkable Language: Other (Rambling) Fund of Knowledge: Inadequate Attention and Concentration: Inadequate Memory: Impaired Mood: Other (Less dysphoric) Affect: Labile Thought Process & Associations: Disorganized Thought Content: Preoccupations Hallucination Type: None Delusion Type: None Suicidal Ideation: No (No SI voiced) Homicidal Ideation: No (No HI voiced) Insight: Poor Judgment: Poor Results Labs Labs reviewed. Still awaiting UA. D/w nursing, unlikely to get clean catch sample given patient's mental state. I will request catheter sample. Vitals/IOs Vital Signs Date Time Temp Pulse Resp B/P (MAP) Pulse Ox O2 Delivery O2 Flow Rate FiO2 11/24/17 06:34 100 20 136/84 (101) 11/24/17 06:09 98.0 96 11/21/17 11:39 Room Air Intake and Output 11/24/17 11/24/17 11/25/17 08:00 16:00 00:00 Intake Total 240 ml 120 ml Balance 240 ml 120 ml Assessment & Plan Problem List: (1) Schizoaffective disorder, bipolar type ICD Codes: F25.0 - Schizoaffective disorder, bipolar type Status: Chronic (2) Dementia ICD Codes: F03.90 - Unspecified dementia without behavioral disturbance Status: Acute Assessment & Plan Continue Seroquel as ordered for now with plan to discuss med changes with HCS once I can get a hold of her. Patient is already on a robust dose of Seroquel with at most minimal improvement. On the other hand, she is tolerating this agent well without evidence of any sedation or other ill effects. I am inclined therefore to endeavor to titrate Seroquel still further, although we might consider replacing this with a different antipsychotic. The patient might also benefit from a mood stabilizer as there may be some degree of affective component. I will follow up UA. Continue other medications and care as ordered. Justification for Cont. Inpt. Anticipate medication changes. Impairment in reality construction. High risk for decompensation in less restrictive environment. Discharge Planning Pending psychiatric stabilization. Case discussed with counselor. Request HC Surrog/Guard Advoc?: Yes Hunter Pérez MD November 24, 2017 11:14
--- NOTE | 2017-11-24 12:07 | HHI.PR ---
Subjective Remarks Follow-up visit for hypertension and UTI. Patient is seen and examined in the day room eating lunch this afternoon. She is continuously talking but thoughts are very disorganized and she does not make much sense. She denies any pain but I am not able to ask any further questionings as she continues to speak once again without direction or making sense. Spoke with nurse who does not report any acute complaints or concerns per Objective Vitals Vital Signs Date Time Temp Pulse Resp B/P (MAP) Pulse Ox O2 Delivery O2 Flow Rate FiO2 11/24/17 06:34 100 20 136/84 (101) 11/24/17 06:09 98.0 125 19 172/59 (96) 96 11/23/17 18:00 97.5 106 16 116/89 (98) 95 I/O 11/23/17 11/23/17 11/23/17 11/24/17 11/24/17 11/24/17 07:00 15:00 23:00 07:00 15:00 23:00 Intake Total 870 ml 720 ml 240 ml 120 ml Balance 870 ml 720 ml 240 ml 120 ml Intake Oral 870 ml 720 ml 240 ml 120 ml # Voids 1 2 Result Diagram: 11/22/17 0610 11/23/17 0744 Objective Remarks GENERAL: Well-developed female in no acute distress per EYES: Pupils equal round and reactive. No scleral icterus. No injection or drainage. ENT: Nose without bleeding, Airway patent. NECK: Trachea midline. No JVD . CARDIOVASCULAR: Regular rate and rhythm without murmurs, gallops, or rubs. RESPIRATORY: Clear to auscultation. Breath sounds equal bilaterally. No wheezes , rales, or rhonchi. GASTROINTESTINAL: Abdomen soft, non-tender, nondistended. No palpable masses. No guarding. MUSCULOSKELETAL: Extremities without clubbing, cyanosis, or edema. No joint tenderness, effusion, or edema noted. NEUROLOGICAL: Awake and alert. Cranial nerves II through XII grossly intact. Motor and sensory grossly within normal limits. Moves bilateral upper and lower extremities spontaneously. No facial droop, speech is clear but random. A/P Problem List: (1) Hypertension ICD Code: I10 - Essential (primary) hypertension Status: Chronic (2) Schizoaffective disorder, bipolar type ICD Code: F25.0 - Schizoaffective disorder, bipolar type Status: Chronic (3) Dementia ICD Code: F03.90 - Unspecified dementia without behavioral disturbance Status: Acute Assessment and Plan 69-year-old female with behavioral disturbances in the context of dementia with hypertension. Behavioral disturbance - Patient admitted for abnormal behavior related to dementia and/or schizoaffective disorder -Treatment per primary team, greatly appreciated Hypertensive urgency -Blood pressure as high as 248/119 in the ER - Patient became more calm following Haldol -Blood pressure during her stay in inpatient psychiatry will fluctuate however stable - Clonidine added for as needed use, systolics greater than 165 +UA -Difficult to fully assess for symptoms as patient is not a good historian -UA positive protein, leukocytes esterase, and rare bacteria -Afebrile with no leukocytosis -Will await final urine culture results for treatment DVT prophylaxis-ambulation Discussed with nurse. Gail Webster November 24, 2017 12:07
[2017-11-24 13:59] LABS: BACTERIA, URINE RARE /hpf; BILIRUBIN, URINE NEG (NEG); BLOOD, URINE NEG (NEG); GLUCOSE,URINE NEG (NEG); HYALINE CAST, URINE 2 /lpf (RARE); KETONE, URINE NEG (NEG); NITRITE,URINE NEG (NEG); SQUAMOUS EPITHELIAL CELL URINE 21 /hpf (0-5); TRANSITIONAL EPI CELLS, URINE <1 /hpf; URINE COLOR YELLOW (YELLW/STRAW); URINE LEUKOCYTE ESTERASE MOD (NEG)
[2017-11-24 18:17] VITALS: BP 157/85; PULSE 56; RESP 17; TEMP 97.7; O2SAT 98
[2017-11-25 06:00] VITALS: BP 152/84; PULSE 100
[2017-11-25] MEDS: QUEtiapine FUMARATE 200 MG TAB PO SCH ×2 (08:40→21:29)
[2017-11-25] MEDS: REMOVE OLD PATCH T-DERMAL SCH (09:00)
[2017-11-25] MEDS: HALOPERIDOL LACTATE 5 MG/ML AMP IM PRN (09:18)
--- NOTE | 2017-11-25 11:27 | HHI.PYPN ---
Subjective Chief Complaint: Agitation Remarks Patient seen and examined. Chart reviewed. Oral intake somewhat spotty. Case discussed with nursing staff who reports patient is struggling with ongoing high levels of agitation. Shortly before I arrived on the unit, the patient threw her walker. She again threw her walker after my examination. Speech remains fairly disorganized and pressured. No evident sedation or other side effects from medications. No physical complaints. Discussed treatment plan with patient's daughter. She reports that patient has been on Depakote in the past, possibly to good effect and provides consent for this medication. Review of Systems ROS Limitations: Poor Historian Except as stated in HPI: all other systems reviewed are Neg Mental Status Examination Appearance: Disheveled Consciousness: Asleep Orientation: Person Motor Activity: Other (No abnormal motor movements noted) Speech: Pressured Language: Other (Remains quite rambling) Fund of Knowledge: Inadequate Attention and Concentration: Inadequate Memory: Impaired Mood: Oppositional, Irritable Affect: Labile Thought Process & Associations: Disorganized Thought Content: Preoccupations Hallucination Type: None Delusion Type: None Suicidal Ideation: No (No SI voiced) Homicidal Ideation: No (No HI voiced) Insight: Poor Judgment: Poor Results Labs Test 11/24/17 13:35 Urine Color YELLOW Urine Turbidity HAZY Urine pH 5.0 Urine Specific Flushing 1.022 Urine Protein 30 mg/dL Urine Glucose (UA) NEG mg/dL Urine Ketones NEG mg/dL Urine Occult Blood NEG Urine Nitrite NEG Urine Bilirubin NEG Urine Urobilinogen LESS THAN 2.0 MG/DL Urine Leukocyte Esterase MOD Urine RBC 2 /hpf Urine WBC 4 /hpf Urine Squamous Epithelial Cells 21 /hpf Urine Transitional Epithelial Cells <1 /hpf Urine Bacteria RARE /hpf Urine Hyaline Casts 2 /lpf Microscopic Urinalysis Comment CATH-CULTURE IND Date/Time Source Procedure Growth Status 11/24/17 13:35 Urine Catheterized Urine Urine Culture Pending Received Labs reviewed Vitals/IOs Vital Signs Date Time Temp Pulse Resp B/P (MAP) Pulse Ox O2 Delivery O2 Flow Rate FiO2 11/25/17 06:00 100 152/84 (106) 11/24/17 18:17 97.7 17 98 11/21/17 11:39 Room Air Intake and Output 11/25/17 11/25/17 11/26/17 08:00 16:00 00:00 Intake Total 120 ml Balance 120 ml Assessment & Plan Problem List: (1) Schizoaffective disorder, bipolar type ICD Codes: F25.0 - Schizoaffective disorder, bipolar type Status: Chronic (2) Dementia ICD Codes: F03.90 - Unspecified dementia without behavioral disturbance Status: Acute Assessment & Plan Add Depakote 250 mg twice daily to try to control behaviors in the setting of dementia and schizoaffective disorder. LFTs and platelets okay. Plan to check a level after the weekend. Continue Seroquel as ordered. I will titrate the patient's Haldol p.r.n. as current dose seems to be at best marginally helpful with patient's episodic severe agitation. Continue to monitor on the inpatient unit. Continue other medications and care as ordered. Justification for Cont. Inpt. Medication changes. Impairment in safety. High risk for decompensation in less restrictive environment. Discharge Planning Pending psychiatric stabilization Request HC Surrog/Guard Advoc?: Yes Hunter Pérez MD November 25, 2017 11:26
[2017-11-25] MEDS: DIVALPROEX SODIUM DELAYED RELEASE 250 MG TAB PO SCH ×2 (12:00→21:29)
--- NOTE | 2017-11-25 14:42 | HHI.PR ---
Subjective Remarks Follow-up visit for HTN and suspected UTI. Spoke with nursing staff who reports patient has now been moved to 2700 unit as she has been aggressive and was throwing walker when she was in 2600 unit. She is seen and examined in the bird, continues to have pressured speech with disorganized thoughts. She denies any pain or dysuria. Objective Vitals Vital Signs Date Time Temp Pulse Resp B/P (MAP) Pulse Ox O2 Delivery O2 Flow Rate FiO2 11/25/17 06:00 100 152/84 (106) 11/24/17 18:17 97.7 56 17 157/85 (109) 98 I/O 11/24/17 11/24/17 11/24/17 11/25/17 11/25/17 11/25/17 07:00 15:00 23:00 07:00 15:00 23:00 Intake Total 240 ml 240 ml 90 ml 120 ml Balance 240 ml 240 ml 90 ml 120 ml Intake Oral 240 ml 240 ml 90 ml Oral Supplement 120 ml # Voids 2 Result Diagram: 11/22/17 0610 11/23/17 0744 Objective Remarks GENERAL: Well-developed -[place] female in no acute distress per. NECK: Trachea midline. CARDIOVASCULAR: Regular rate and rhythm without murmurs, gallops, or rubs. RESPIRATORY: Clear as far as I can hear although difficult to auscultate properly as patient continues with pressured speech and does not follow instructions appropriately. GASTROINTESTINAL: Abdomen soft. No guarding. MUSCULOSKELETAL: Extremities without clubbing, cyanosis, or edema. NEUROLOGICAL: Awake and alert. Motor and sensory grossly within normal limits. Moves bilateral upper and lower extremities spontaneously. No facial droop, speech is clear but pressured with disorganized thoughts. A/P Problem List: (1) Hypertension ICD Code: I10 - Essential (primary) hypertension Status: Chronic (2) Schizoaffective disorder, bipolar type ICD Code: F25.0 - Schizoaffective disorder, bipolar type Status: Chronic (3) Dementia ICD Code: F03.90 - Unspecified dementia without behavioral disturbance Status: Acute Assessment and Plan 69-year-old female with behavioral disturbances in the context of dementia with hypertension. Behavioral disturbance - Patient admitted for abnormal behavior related to dementia and/or schizoaffective disorder -Treatment per primary team, greatly appreciated Hypertensive urgency, resolved Tachycardia -Blood pressure as high as 248/119 in the ER - Patient became more calm following Haldol -Blood pressure during her stay in inpatient psychiatry will fluctuate however stable - Clonidine added for as needed use, systolics greater than 165 -Suspect tachycardia along with hypertension is due to agitation +UA -Difficult to fully assess for symptoms as patient is not a good historian, today does deny any dysuria. -UA positive protein, leukocytes esterase, and rare bacteria -Afebrile with no leukocytosis -Urine culture and sensitivity positive for 50-100,000 mixed gram tony, likely contaminated -Patient is asymptomatic, no treatment at this moment DVT prophylaxis-ambulation Discussed with nurse. [facility] will sign off, please reconsult if needed. Thank you. Gail Webster November 25, 2017 14:42
[2017-11-25 16:34] VITALS: BP 132/72; PULSE 145; RESP 16; TEMP 97.6; O2SAT 99
[2017-11-25] MEDS: diphenhydrAMINE HCL 25 MG CAP PO PRN (21:29)
[2017-11-26 06:28] VITALS: BP 135/90; PULSE 118; RESP 22; TEMP 97.8; O2SAT 100
[2017-11-26] MEDS: DIVALPROEX SODIUM DELAYED RELEASE 250 MG TAB PO SCH ×2 (08:03→20:41)
[2017-11-26] MEDS: QUEtiapine FUMARATE 200 MG TAB PO SCH ×2 (08:03→20:41)
[2017-11-26] MEDS: REMOVE OLD PATCH T-DERMAL SCH ×2 (09:00→20:41)
--- NOTE | 2017-11-26 16:09 | HHI.PYPN ---
Subjective Chief Complaint: Agitation Remarks Patient was seen and case discussed with nursing. Patient has word salad and cannot participate in the interview appropriately. Internally preoccupied. Sleep is poor. However has not had any oppositional behaviors such as biting or spitting Mental Status Examination Appearance: Disheveled Consciousness: Asleep Orientation: Person Motor Activity: Other (No abnormal motor movements noted) Speech: Pressured Language: Other (Remains quite rambling) Fund of Knowledge: Inadequate Attention and Concentration: Inadequate Memory: Impaired Mood: Oppositional, Irritable Affect: Labile Thought Process & Associations: Disorganized Thought Content: Preoccupations Hallucination Type: None Delusion Type: None Suicidal Ideation: No (No SI voiced) Homicidal Ideation: No (No HI voiced) Insight: Poor Judgment: Poor Results Labs Date/Time Source Procedure Growth Status 11/24/17 13:35 Urine Catheterized Urine Urine Culture - Final 50-100,000 CFU/ML MIXED GRAM POSITIVE... Complete Vitals/IOs Vital Signs Date Time Temp Pulse Resp B/P (MAP) Pulse Ox O2 Delivery O2 Flow Rate FiO2 11/26/17 06:28 97.8 118 22 135/90 (105) 100 Intake and Output 11/26/17 11/26/17 11/27/17 08:00 16:00 00:00 Intake Total 240 ml Balance 240 ml Assessment & Plan Problem List: (1) Schizoaffective disorder, bipolar type ICD Codes: F25.0 - Schizoaffective disorder, bipolar type Status: Chronic (2) Dementia ICD Codes: F03.90 - Unspecified dementia without behavioral disturbance Status: Acute Assessment & Plan Continue current treatment plan Justification for Cont. Inpt. Patient would decompensate in a less restrictive setting Request HC Surrog/Guard Advoc?: Yes Yaakov Moreno DO November 26, 2017 16:09
[2017-11-26 18:00] VITALS: BP 176/77; PULSE 104; RESP 17; TEMP 97.6; O2SAT 97
[2017-11-26] MEDS: MELATONIN 5 MG TAB PO PRN (20:41)
[2017-11-26] MEDS: diphenhydrAMINE HCL 50 MG/ML VIAL IM PRN (22:37)
[2017-11-27 06:00] VITALS: BP 108/52; PULSE 88; RESP 16; TEMP 98.9; O2SAT 100
[2017-11-27] MEDS: DIVALPROEX SODIUM DELAYED RELEASE 250 MG TAB PO SCH ×2 (08:36→20:10)
[2017-11-27] MEDS: QUEtiapine FUMARATE 200 MG TAB PO SCH ×2 (08:36→20:11)
[2017-11-27] MEDS: HALOPERIDOL LACTATE 5 MG/ML AMP IM PRN (11:04)
--- NOTE | 2017-11-27 15:28 | HHI.PYPN ---
Subjective Chief Complaint: Agitation Remarks Patient was seen and case discussed with nursing. For this interview, patient was sleeping. Patient had an outburst this morning where she was oppositional and aggressive and used to get off the floor. She was given an ETO of Haldol. Remains disorganized with very poor insight Mental Status Examination Appearance: Disheveled Consciousness: Asleep Orientation: Person Motor Activity: Other (No abnormal motor movements noted) Speech: Pressured Language: Other (Remains quite rambling) Fund of Knowledge: Inadequate Attention and Concentration: Inadequate Memory: Impaired Mood: Oppositional, Irritable Affect: Labile Thought Process & Associations: Disorganized Thought Content: Preoccupations Hallucination Type: None Delusion Type: None Suicidal Ideation: No (No SI voiced) Homicidal Ideation: No (No HI voiced) Insight: Poor Judgment: Poor Results Labs Date/Time Source Procedure Growth Status 11/24/17 13:35 Urine Catheterized Urine Urine Culture - Final 50-100,000 CFU/ML MIXED GRAM POSITIVE... Complete Vitals/IOs Vital Signs Date Time Temp Pulse Resp B/P (MAP) Pulse Ox O2 Delivery O2 Flow Rate FiO2 11/27/17 06:00 98.9 88 16 108/52 (70) 100 Intake and Output 11/27/17 11/27/17 11/28/17 08:00 16:00 00:00 Intake Total 500 ml Balance 500 ml Assessment & Plan Problem List: (1) Schizoaffective disorder, bipolar type ICD Codes: F25.0 - Schizoaffective disorder, bipolar type Status: Chronic (2) Dementia ICD Codes: F03.90 - Unspecified dementia without behavioral disturbance Status: Acute Assessment & Plan Continue current treatment plan Justification for Cont. Inpt. Patient would decompensate in a less restrictive setting Request HC Surrog/Guard Advoc?: Yes Yaakov Moreno DO November 27, 2017 15:28
[2017-11-27 18:11] VITALS: BP 129/59; PULSE 89; RESP 16; TEMP 97.7; O2SAT 92
[2017-11-28 06:10] VITALS: BP 149/68; PULSE 63; RESP 18; TEMP 97.1
[2017-11-28] MEDS: DIVALPROEX SODIUM DELAYED RELEASE 250 MG TAB PO SCH ×2 (08:19→20:40)
[2017-11-28] MEDS: REMOVE OLD PATCH T-DERMAL SCH ×2 (08:19→20:41)
[2017-11-28] MEDS: QUEtiapine FUMARATE 200 MG TAB PO SCH ×2 (08:19→20:40)
[2017-11-28] MEDS: HALOPERIDOL LACTATE 5 MG/ML AMP IM PRN ×2 (08:36→19:49)
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
[2017-11-28] MEDS: chlorproMAZINE HCL 25 MG TAB PO SCH ×2 (13:28→20:40)
[2017-11-28 17:04] VITALS: BP 130/70; PULSE 74; RESP 20; TEMP 97.4; O2SAT 96
[2017-11-28] MEDS: diphenhydrAMINE HCL 50 MG/ML VIAL IM PRN (21:50)
[2017-11-29] MEDS: HALOPERIDOL LACTATE 5 MG/ML AMP IM PRN (00:58)
[2017-11-29] MEDS: chlorproMAZINE HCL 25 MG TAB PO SCH (05:30)
[2017-11-29 06:08] VITALS: BP 126/73; PULSE 100; RESP 18; TEMP 96.7; O2SAT 95
[2017-11-29 06:29] LABS: BICARBONATE 30.7 MEQ/L (21.0-32.0); CALCIUM 9.9 MG/DL (8.5-10.1); CREATININE 1.16 MG/DL (0.50-1.00); MAGNESIUM 2.3 MG/DL (1.5-2.5)
[2017-11-29 06:30] LABS: PHOSPHORUS 3.2 MG/DL (2.5-4.9)
[2017-11-29] MEDS: DIVALPROEX SODIUM DELAYED RELEASE 250 MG TAB PO SCH ×2 (08:40→21:16)
[2017-11-29] MEDS: QUEtiapine FUMARATE 200 MG TAB PO SCH ×2 (08:40→21:15)
--- NOTE | 2017-11-29 09:45 | HHI.PYPN ---
Subjective Chief Complaint: Agitation Remarks Patient seen and examined with nurse and counselor. Chart reviewed. Oral intake remains poor with patient taking only 25% of dinner last night. I have instructed the nurse to have the dietitian return to assess the patient's oral intake and make further recommendations. Sleep is poor. Case discussed with nursing staff who reports ongoing issues with intermittent severe agitation, and the patient required 2 doses of IM Haldol overnight. On my examination today, the patient is sitting in day area in rica-chair. She remains hyperverbal with rambling speech, essentially word salad. There is no evidence of sedation or other side effects from medications. She has no complaints of pain and does not appear to be in any acute physical distress. Review of Systems ROS Limitations: Psychotic, Poor Historian Except as stated in HPI: all other systems reviewed are Neg Mental Status Examination Appearance: Disheveled Consciousness: Alert Orientation: Person Motor Activity: Other (No abnormal motor movements noted) Speech: Pressured Language: Other (Rambling, word salad) Fund of Knowledge: Inadequate Attention and Concentration: Inadequate Memory: Impaired Mood: Other (Presently,) Affect: Labile Thought Process & Associations: Disorganized Thought Content: Preoccupations Hallucination Type: None Delusion Type: None Suicidal Ideation: No (No SI voiced) Homicidal Ideation: No (No HI voiced) Insight: Poor Judgment: Poor Results Labs Test 11/28/17 11:38 11/29/17 05:42 Ammonia LESS THAN 10 MCMOL/L LESS THAN 10 MCMOL/L Valproic Acid (Depakene) Level 62 MCG/ML 56 MCG/ML Blood Urea Nitrogen 12 MG/DL Creatinine 1.16 MG/DL Random Glucose 96 MG/DL Calcium Level 9.9 MG/DL Phosphorus Level 3.2 MG/DL Magnesium Level 2.3 MG/DL Sodium Level 140 MEQ/L Potassium Level 3.7 MEQ/L Chloride Level 103 MEQ/L Carbon Dioxide Level 30.7 MEQ/L Anion Gap 6 MEQ/L Estimat Glomerular Filtration Rate 55 ML/MIN Date/Time Source Procedure Growth Status 11/24/17 13:35 Urine Catheterized Urine Urine Culture - Final 50-100,000 CFU/ML MIXED GRAM POSITIVE... Complete Labs reviewed. No electrolyte abnormalities noted. GFR slightly decreased and creatinine slightly increased versus previous assessment. Depakote level within the therapeutic range. Ammonia level not elevated. Vitals/IOs Vital Signs Date Time Temp Pulse Resp B/P (MAP) Pulse Ox O2 Delivery O2 Flow Rate FiO2 11/29/17 06:08 96.7 100 18 126/73 (90) 95 Manual Cuff/Auscultation Assessment & Plan Problem List: (1) Schizoaffective disorder, bipolar type ICD Codes: F25.0 - Schizoaffective disorder, bipolar type Status: Chronic (2) Dementia ICD Codes: F03.90 - Unspecified dementia without behavioral disturbance Status: Acute Assessment & Plan Titrate Thorazine to 50 mg every 8 hours to try to manage behaviors. Continue Seroquel as ordered. Continue Depakote as ordered, although we might consider titrating this agent as well to raise the level to the higher end of the therapeutic range. Continue to trend BMP for GFR. Await further input from the dietitian regarding patient's poor oral intake. Continue to monitor on the high acuity unit. Continue other medications and care as ordered. Justification for Cont. Inpt. Medication changes. Impairment in reality construction. High risk for decompensation in less restrictive environment. Discharge Planning Pending psychiatric stabilization. Request HC Surrog/Guard Advoc?: Yes Hunter Pérez MD November 29, 2017 09:45
[2017-11-29 18:28] VITALS: BP 136/82; PULSE 121; RESP 19; TEMP 97; O2SAT 95
[2017-11-29] MEDS: diphenhydrAMINE HCL 25 MG CAP PO PRN (21:14)
[2017-11-29] MEDS: MELATONIN 5 MG TAB PO PRN (21:15)
[2017-11-30 06:17] VITALS: BP 122/76; PULSE 100; RESP 16; TEMP 97.5; O2SAT 100
[2017-11-30] MEDS: REMOVE OLD PATCH T-DERMAL SCH (09:00)
--- NOTE | 2017-11-30 09:19 | HHI.PYPN ---
Subjective Chief Complaint: Agitation Remarks Patient seen and examined. Chart reviewed. Patient did not require any Haldol p.r.n. overnight. Case discussed with nursing staff. Oral intake remains fairly poor, and nurse conjectures that this is because the patient remained so hyperverbal that she cannot stop speaking long enough to eat. She does take her medications well, though. On my exam, patient's speech seems a little less pressured. She is less irritable than in previous evaluations. Thought process remains fairly disorganized. No evident side effects from medications. Mucous membranes look a little dry, and I have tried to encourage her to drink ample fluids. No physical complaints. Review of Systems ROS Limitations: Psychotic, Poor Historian Except as stated in HPI: all other systems reviewed are Neg Mental Status Examination Appearance: Disheveled Consciousness: Alert Orientation: Person Motor Activity: Other (No motor abnormalities noted) Speech: Pressured Language: Other (Rambling, word salad) Fund of Knowledge: Inadequate Attention and Concentration: Inadequate Memory: Impaired Mood: Other (less dysphoric today) Affect: Euthymic Thought Process & Associations: Disorganized Thought Content: Preoccupations Hallucination Type: None Delusion Type: None Suicidal Ideation: No (No SI voiced) Homicidal Ideation: No (No HI voiced) Insight: Poor Judgment: Poor Results Labs Date/Time Source Procedure Growth Status 11/24/17 13:35 Urine Catheterized Urine Urine Culture - Final 50-100,000 CFU/ML MIXED GRAM POSITIVE... Complete Labs reviewed. Vitals/IOs Vital Signs Date Time Temp Pulse Resp B/P (MAP) Pulse Ox O2 Delivery O2 Flow Rate FiO2 11/30/17 06:17 97.5 100 16 122/76 (91) 100 Assessment & Plan Problem List: (1) Schizoaffective disorder, bipolar type ICD Codes: F25.0 - Schizoaffective disorder, bipolar type Status: Chronic (2) Dementia ICD Codes: F03.90 - Unspecified dementia without behavioral disturbance Status: Acute Assessment & Plan Patient does seem a little less agitated and hyperverbal today with titration of Thorazine. I will continue Thorazine titration to 75mg q8h. Continue Seroquel and Depakote as ordered. PO intake remains poor. Dietitian is pursuing calorie count with recs to follow tomorrow. Patient does seem a little dry today, and I will request the hospitalist return to reassess patient in case e.g. IVF or tube feeds are required to maintain hydration and nutrition. Encourage fluids. Oral care. Continue to monitor on inpatient unit. Continue other meds and care as ordered. Justification for Cont. Inpt. Medication changes. Impairment in self-care. High risk for decompensation in less restrictive environment. Discharge Planning Pending psychiatric stabilization Request HC Surrog/Guard Advoc?: Yes Hunter Pérez MD November 30, 2017 09:19
[2017-11-30] MEDS: DIVALPROEX SODIUM DELAYED RELEASE 250 MG TAB PO SCH ×2 (09:31→20:47)
[2017-11-30] MEDS: QUEtiapine FUMARATE 200 MG TAB PO SCH ×2 (09:31→20:47)
[2017-11-30 17:00] VITALS: BP 123/63; PULSE 101; RESP 17; TEMP 96.9; O2SAT 99
--- NOTE | 2017-11-30 18:03 | HHI.PR ---
Subjective Remarks Reconsult for possible displacement of J tube. Patient seen and examined. Patient has unintelligible speech. She will not follow commands. Discussed with nursing staff, concern that patients j tube is dislodged. Patient has had poor oral intake and steam drier tender is following, calorie count is in progress. Objective Vitals Vital Signs Date Time Temp Pulse Resp B/P (MAP) Pulse Ox O2 Delivery O2 Flow Rate FiO2 11/30/17 17:00 96.9 101 17 123/63 (83) 99 11/30/17 06:17 97.5 100 16 122/76 (91) 100 11/29/17 18:28 97.0 121 19 136/82 (100) 95 I/O 11/29/17 11/29/17 11/29/17 11/30/17 11/30/17 11/30/17 07:00 15:00 23:00 07:00 15:00 23:00 Intake Total 265 ml 0 ml Balance 265 ml 0 ml Intake Oral 265 ml Oral Supplement 0 ml # Voids 1 Result Diagram: 11/29/17 0542 Objective Remarks GENERAL: Well-developed -[place] female in no acute distress. Awake and alert. Disorganized thought process, hyperverbal but unintelligible speech. Does not follow commands. HEENT: NC/AT. EOMI. Sclera anicteric. No nasal drainage or bleeding. Airway patent. NECK: Trachea midline. CARDIOVASCULAR: Regular rate and rhythm without murmurs, gallops, or rubs. RESPIRATORY: Nonlabored. CTA bilaterally. GASTROINTESTINAL: Abdomen soft, nontender to palpation. No guarding. J tube appears to be dislodged with excessive amount of tubing between the skin and the hub. MUSCULOSKELETAL: Extremities without clubbing, cyanosis, or edema. NEUROLOGICAL: Awake and alert. Motor and sensory grossly within normal limits. Moves bilateral upper and lower extremities spontaneously. PSYCHIATRIC: Agitated. Medications and IVs Current Medications Medications (Trade) Dose Ordered Sig/Karyna Route Start Time Stop Time Status Last Admin (Tylenol) 650 mg Q4H PRN PO 11/21/17 12:00 (Milk Of Magnesia Liq) 30 ml DAILY PRN PO 11/21/17 12:00 (Mag-Al Plus Susp Liq) 30 ml Q6H PRN PO 11/21/17 12:00 (Habitrol 21 Mg Patch.24 Hr) 1 patch DAILY PRN T-DERMAL 11/21/17 12:00 Miscellaneous Information 1 DAILY T-DERMAL 11/21/17 12:00 (Benadryl Inj) 25 mg Q6H PRN IM 11/21/17 14:00 11/28/17 21:50 (Benadryl) 25 mg Q6H PRN PO 11/21/17 14:00 11/29/17 21:14 (Melatonin) 5 mg HS PRN PO 11/21/17 14:00 11/29/17 21:15 (Catapres) 0.1 mg Q6H PRN PO 11/21/17 16:45 (SEROquel) 400 mg BID PO 11/23/17 21:00 11/30/17 09:31 (Haldol Inj) 7.5 mg Q6H PRN IM 11/25/17 14:00 11/29/17 00:58 (Depakote Dr) 250 mg BID PO 11/25/17 12:00 11/30/17 09:31 (Thorazine) 75 mg Q8HR PO 11/30/17 14:00 11/30/17 15:36 A/P Problem List: (1) Hypertension ICD Code: I10 - Essential (primary) hypertension Status: Chronic (2) Schizoaffective disorder, bipolar type ICD Code: F25.0 - Schizoaffective disorder, bipolar type Status: Chronic (3) Dementia ICD Code: F03.90 - Unspecified dementia without behavioral disturbance Status: Acute Assessment and Plan 69-year-old female with behavioral disturbances in the context of dementia with hypertension. Dementia with behavioral disturbance Schizoaffective disorder - Patient admitted for abnormal behavior related to dementia and/or schizoaffective disorder -Treatment per primary team, greatly appreciated Hypertensive urgency, resolved Tachycardia Blood pressure as high as 248/119 in the ER, much improved -Clonidine added for as needed use, systolics greater than 165 -Suspect tachycardia along with hypertension is due to agitation Poor po intake s/p J tube placement, ?dislodged -steam drier tender following, calorie count in progress -continue with Ensure supplements -Consult GI NITHIN, suspect secondary to poor po intake -encourage fluids -repeat BMP in am -if kidney function worsens, patient may need to be transferred to med/psych for IVF DVT prophylaxis -ambulation Carol Martinez November 30, 2017 18:03
[2017-12-01] MEDS: chlorproMAZINE HCL 25 MG TAB PO SCH ×3 (06:02→22:06)
[2017-12-01 06:09] VITALS: BP 114/57; PULSE 95; RESP 15; TEMP 99.6; O2SAT 97
[2017-12-01 08:46] LABS: BICARBONATE 30.8 MEQ/L (21.0-32.0); CALCIUM 9.6 MG/DL (8.5-10.1); CREATININE 1.05 MG/DL (0.50-1.00); MAGNESIUM 2.3 MG/DL (1.5-2.5); PHOSPHORUS 2.6 MG/DL (2.5-4.9)
[2017-12-01] MEDS: DIVALPROEX SODIUM DELAYED RELEASE 250 MG TAB PO SCH ×2 (09:00→21:02)
[2017-12-01] MEDS: REMOVE OLD PATCH T-DERMAL SCH (09:00)
[2017-12-01] MEDS: QUEtiapine FUMARATE 200 MG TAB PO SCH ×2 (09:00→21:02)
--- NOTE | 2017-12-01 12:27 | PD.CONS ---
HPI History of Present Illness This is a 77 year old female with schizoaffective disorder, dementia who presented with agitation and behavioral disturbances. GI is consulted for possible J tube dislodgement. Review of records yields no notes or info regarding type of tube or who placed it. limited hx, pt noncontributory. (Alyssa Palma) PFSH Past Medical History schizoaffective disorder dementia Past Surgical History feeding tube placement (Alyssa Palma) Coded Allergies: apple (Unverified Allergy, Severe, Swelling, 03/08/17) Family History unk Social History unk (Alyssa Palma) Review of Systems noncontributory (Alyssa Palma) GI Exam Vitals I&O Vital Signs Date Time Temp Pulse Resp B/P (MAP) Pulse Ox O2 Delivery O2 Flow Rate FiO2 12/01/17 06:09 99.6 95 15 114/57 (76) 97 11/30/17 17:00 96.9 101 17 123/63 (83) 99 I/O 11/30/17 11/30/17 11/30/17 12/01/17 12/01/17 12/01/17 07:00 15:00 23:00 07:00 15:00 23:00 Intake Total 240 ml 340 ml Balance 240 ml 340 ml Intake Oral 240 ml 340 ml Laboratory Test 12/01/17 06:58 Blood Urea Nitrogen 20 MG/DL Creatinine 1.05 MG/DL Random Glucose 131 MG/DL Calcium Level 9.6 MG/DL Phosphorus Level 2.6 MG/DL Magnesium Level 2.3 MG/DL Sodium Level 139 MEQ/L Potassium Level 4.0 MEQ/L Chloride Level 100 MEQ/L Carbon Dioxide Level 30.8 MEQ/L Anion Gap 8 MEQ/L Estimat Glomerular Filtration Rate 61 ML/MIN Date/Time Source Procedure Growth Status 11/24/17 13:35 Urine Catheterized Urine Urine Culture - Final 50-100,000 CFU/ML MIXED GRAM POSITIVE... Complete Physical Examination HEENT: PERRL; normocephalic; atraumatic; no jaundice. CHEST: CTA CARDIAC: RRR ABDOMEN: Soft, obese, nontender; no hepatosplenomegaly; bowel sounds are present in all four quadrants. feeding tube present, no blood or drainage EXTREMITIES: No clubbing, cyanosis, or edema. SKIN: Normal; no rash; no jaundice. TRANSIT PLANNING DIRECTOR: cooperative. nonverbal. (Alyssa Palma) Assessment and Plan Plan ASSESSMENT - questionable dislodged j tube - unclear what type tube, is in epigastrium. small caliber. no records in EMR of placement PLAN - PO intake per DIALYSIS CHIEF EQUIPMENT TECHNICIAN - g tube removed by Dr Wiggins pt seen by myself and Dr Wiggins and this note is on his behalf (Alyssa Palma) Physician Comments Seen and examined with SEAN, G tube clogged but has not been used for weeks per nursing staff. Yesterday tried to flush and was found to be clogged. Pt. eating by mouth. G tube removed by traction at the bedside. Site covered with 4 x 4 dressing. Will sign off, reconsult as needed. Thank you (Юлия Wiggins MD) Alyssa Palma December 01, 2017 12:27 Юлия Wiggins MD December 01, 2017 14:48
--- NOTE | 2017-12-01 12:42 | HHI.PYPN ---
Subjective Chief Complaint: Agitation Remarks Patient seen and examined with nurse and counselor. Chart reviewed. Case discussed with nursing staff. On my examination today, patient is noted to be calmer. She is sitting in a [place] chair eating lunch with staff assistance. Speech is significantly less hyperverbal, and she is able to make some sensible remarks. She asks me, "do I know you?" No evident side effects from medications. No physical complaints. Review of Systems ROS Limitations: Poor Historian Except as stated in HPI: all other systems reviewed are Neg Mental Status Examination Appearance: Disheveled Consciousness: Alert Orientation: Person Motor Activity: Other (No abnormal motor movements noted) Speech: Unremarkable Language: Other (More coherent today) Fund of Knowledge: Inadequate Attention and Concentration: Inadequate Memory: Impaired Mood: Other (Calm) Affect: Blunt Thought Process & Associations: Tangential Thought Content: Other (Some poverty of thought) Hallucination Type: None Delusion Type: None Suicidal Ideation: No (No SI voiced) Homicidal Ideation: No (No HI voiced) Insight: Poor Judgment: Poor Results Labs Test 12/01/17 06:58 Blood Urea Nitrogen 20 MG/DL Creatinine 1.05 MG/DL Random Glucose 131 MG/DL Calcium Level 9.6 MG/DL Phosphorus Level 2.6 MG/DL Magnesium Level 2.3 MG/DL Sodium Level 139 MEQ/L Potassium Level 4.0 MEQ/L Chloride Level 100 MEQ/L Carbon Dioxide Level 30.8 MEQ/L Anion Gap 8 MEQ/L Estimat Glomerular Filtration Rate 61 ML/MIN Date/Time Source Procedure Growth Status 11/24/17 13:35 Urine Catheterized Urine Urine Culture - Final 50-100,000 CFU/ML MIXED GRAM POSITIVE... Complete Labs reviewed. Vitals/IOs Vital Signs Date Time Temp Pulse Resp B/P (MAP) Pulse Ox O2 Delivery O2 Flow Rate FiO2 12/01/17 06:09 99.6 95 15 114/57 (76) 97 Intake and Output 12/01/17 12/01/17 12/02/17 08:00 16:00 00:00 Intake Total 340 ml Balance 340 ml Assessment & Plan Problem List: (1) Schizoaffective disorder, bipolar type ICD Codes: F25.0 - Schizoaffective disorder, bipolar type Status: Chronic (2) Dementia ICD Codes: F03.90 - Unspecified dementia without behavioral disturbance Status: Acute Assessment & Plan Patient seems to be much improved with titration of Thorazine. I will hold off on further titration of this agent for now to avoid excessive sedation. To consider ongoing antipsychotic polypharmacy versus cross taper from Seroquel to Thorazine. Hospitalist and GI input noted and appreciated. Speech therapy input noted and appreciated. Continue to monitor on inpatient unit. Continue other medications and care as ordered. Justification for Cont. Inpt. Risk for decompensation in less restrictive environment. Discharge Planning Pending psychiatric stabilization. If behavior remains improved and oral intake improves, we might consider discharge after the weekend. Request HC Surrog/Guard Advoc?: Yes Hunter Pérez MD December 01, 2017 12:42
[2017-12-01 18:25] VITALS: BP 137/65; PULSE 88; RESP 17; TEMP 96.9; O2SAT 97
[2017-12-02] MEDS: chlorproMAZINE HCL 25 MG TAB PO SCH ×2 (06:03→23:43)
[2017-12-02] MEDS: QUEtiapine FUMARATE 200 MG TAB PO SCH ×2 (08:15→20:57)
[2017-12-02] MEDS: DIVALPROEX SODIUM DELAYED RELEASE 250 MG TAB PO SCH ×2 (08:15→20:57)
[2017-12-02] MEDS: REMOVE OLD PATCH T-DERMAL SCH (09:00)
--- NOTE | 2017-12-02 12:25 | HHI.PYPN ---
Subjective Chief Complaint: Agitation Remarks Patient is seen today in coverage for Dr. Pérez, patient seen with nurse Cassidy, chart reviewed, patient compliant medications. Patient seen in [place] chair she is alert and tense agitated slamming on her food tray. At that to reach and grab in a staff or patients that wanders to close. Unable to answer any of my questions intelligibly. I will continue treatment Review of Systems Except as stated in HPI: all other systems reviewed are Neg Mental Status Examination Appearance: Disheveled Consciousness: Alert Orientation: Person Motor Activity: Other (No abnormal motor movements noted) Speech: Unremarkable Language: Other (More coherent today) Fund of Knowledge: Inadequate Attention and Concentration: Inadequate Memory: Impaired Mood: Other (Calm) Affect: Blunt Thought Process & Associations: Tangential Thought Content: Other (Some poverty of thought) Hallucination Type: None Delusion Type: None Suicidal Ideation: No (No SI voiced) Homicidal Ideation: No (No HI voiced) Insight: Poor Judgment: Poor Results Labs Date/Time Source Procedure Growth Status 11/24/17 13:35 Urine Catheterized Urine Urine Culture - Final 50-100,000 CFU/ML MIXED GRAM POSITIVE... Complete Vitals/IOs Vital Signs Date Time Temp Pulse Resp B/P (MAP) Pulse Ox O2 Delivery O2 Flow Rate FiO2 12/01/17 18:25 96.9 88 17 137/65 (89) 97 Intake and Output 12/02/17 12/02/17 12/03/17 08:00 16:00 00:00 Intake Total 100 ml Balance 100 ml Assessment & Plan Problem List: (1) Schizoaffective disorder, bipolar type ICD Codes: F25.0 - Schizoaffective disorder, bipolar type Status: Chronic (2) Dementia ICD Codes: F03.90 - Unspecified dementia without behavioral disturbance Status: Acute Assessment & Plan Estimated LOS: days patient continues confused somewhat psychotic with significant behavioral issues, though complaint medications. He has had no extra Haldol in the past 24 hours. For now continue treatment Justification for Cont. Inpt. At this time patient would decompensate a place to the lower level of care Discharge Planning To be determined Request HC Surrog/Guard Advoc?: Yes Louie Morales MD December 02, 2017 12:25
[2017-12-02] MEDS ORDERED: chlorproMAZINE HCL 10 MG TAB PO STA (13:32)
[2017-12-02] MEDS ORDERED: chlorproMAZINE HCL 25 MG TAB PO ONE (15:15)
[2017-12-03] MEDS: diphenhydrAMINE HCL 25 MG CAP PO PRN (04:01)
[2017-12-03] MEDS: chlorproMAZINE HCL 25 MG TAB PO SCH ×3 (05:54→18:00)
[2017-12-03 06:02] VITALS: BP 147/92; PULSE 125; RESP 16; TEMP 98.4; O2SAT 97
[2017-12-03] MEDS: DIVALPROEX SODIUM DELAYED RELEASE 250 MG TAB PO SCH ×2 (08:27→20:47)
[2017-12-03] MEDS: QUEtiapine FUMARATE 200 MG TAB PO SCH ×2 (08:28→20:46)
[2017-12-03] MEDS: REMOVE OLD PATCH T-DERMAL SCH (09:00)
--- NOTE | 2017-12-03 14:23 | HHI.PYPN ---
Subjective Chief Complaint: Agitation Remarks Patient was seen and case discussed with nursing. Patient remains internally preoccupied. Speech is mumbling and difficult to understand. At times agitated , slamming her tray. Compliant with medications. Mental Status Examination Appearance: Disheveled Consciousness: Alert Orientation: Person Motor Activity: Other (No abnormal motor movements noted) Speech: Unremarkable Language: Other (More coherent today) Fund of Knowledge: Inadequate Attention and Concentration: Inadequate Memory: Impaired Mood: Other (Calm) Affect: Blunt Thought Process & Associations: Tangential Thought Content: Other (Some poverty of thought) Hallucination Type: None Delusion Type: None Suicidal Ideation: No (No SI voiced) Homicidal Ideation: No (No HI voiced) Insight: Poor Judgment: Poor Results Labs Date/Time Source Procedure Growth Status 11/24/17 13:35 Urine Catheterized Urine Urine Culture - Final 50-100,000 CFU/ML MIXED GRAM POSITIVE... Complete Vitals/IOs Vital Signs Date Time Temp Pulse Resp B/P (MAP) Pulse Ox O2 Delivery O2 Flow Rate FiO2 12/03/17 06:02 98.4 125 16 147/92 (110) 97 Intake and Output 12/03/17 12/03/17 12/04/17 08:00 16:00 00:00 Intake Total 250 ml Balance 250 ml Assessment & Plan Problem List: (1) Schizoaffective disorder, bipolar type ICD Codes: F25.0 - Schizoaffective disorder, bipolar type Status: Chronic (2) Dementia ICD Codes: F03.90 - Unspecified dementia without behavioral disturbance Status: Acute Assessment & Plan Continue current treatment plan Justification for Cont. Inpt. Patient would decompensate in a less restrictive setting Request HC Surrog/Guard Advoc?: Yes Yaakov Moreno DO December 03, 2017 14:23
[2017-12-03 18:44] VITALS: BP 134/72; PULSE 82; RESP 17; TEMP 97.2; O2SAT 98
[2017-12-03] MEDS: MELATONIN 5 MG TAB PO PRN (20:46)
[2017-12-04] MEDS: chlorproMAZINE HCL 25 MG TAB PO SCH ×4 (00:02→17:52)
[2017-12-04 05:36] VITALS: BP 113/57; PULSE 88; RESP 20; TEMP 96.5; O2SAT 94
[2017-12-04] MEDS: REMOVE OLD PATCH T-DERMAL SCH (09:00)
[2017-12-04] MEDS: DIVALPROEX SODIUM DELAYED RELEASE 250 MG TAB PO SCH ×2 (09:10→21:00)
[2017-12-04] MEDS: QUEtiapine FUMARATE 200 MG TAB PO SCH ×2 (09:11→21:00)
--- NOTE | 2017-12-04 13:03 | RADRPT ---
EXAM DATE/TIME: 12/04/2017 13:20 [facility] COMPARISON: CHEST SINGLE AP, February 04, 2016, 20:37. INDICATIONS : Cough MEDICAL HISTORY : None. SURGICAL HISTORY : None. ENCOUNTER: Initial ACUITY: 3 days PAIN SCORE: Non-responsive. LOCATION: chest FINDINGS: Minimal new parenchymal changes left base. Right lung clear. The heart and pulmonary vascularity are normal. Degenerative changes right shoulder CONCLUSION: New minimal parenchymal changes left base. Bryce Ortiz MD FACR on December 04, 2017 at 13:00 Board Certified Radiologist. This report was verified electronically.
--- NOTE | 2017-12-04 14:35 | HHI.PYPN ---
Subjective Chief Complaint: Agitation Remarks Patient was seen and case discussed with nursing. Patient is not able to cooperate with the interview. She is disorganized with word salad and garbled speech. The medical team believes she may have pneumonia in her following Mental Status Examination Appearance: Disheveled Consciousness: Alert Orientation: Person Motor Activity: Other (No abnormal motor movements noted) Speech: Unremarkable Language: Other (More coherent today) Fund of Knowledge: Inadequate Attention and Concentration: Inadequate Memory: Impaired Mood: Other (Calm) Affect: Blunt Thought Process & Associations: Tangential Thought Content: Other (Some poverty of thought) Hallucination Type: None Delusion Type: None Suicidal Ideation: No (No SI voiced) Homicidal Ideation: No (No HI voiced) Insight: Poor Judgment: Poor Results Labs Date/Time Source Procedure Growth Status 11/24/17 13:35 Urine Catheterized Urine Urine Culture - Final 50-100,000 CFU/ML MIXED GRAM POSITIVE... Complete Vitals/IOs Vital Signs Date Time Temp Pulse Resp B/P (MAP) Pulse Ox O2 Delivery O2 Flow Rate FiO2 12/04/17 05:36 96.5 88 20 113/57 (75) 94 Intake and Output 12/04/17 12/04/17 12/05/17 08:00 16:00 00:00 Intake Total 240 ml Balance 240 ml Assessment & Plan Problem List: (1) Schizoaffective disorder, bipolar type ICD Codes: F25.0 - Schizoaffective disorder, bipolar type Status: Chronic (2) Dementia ICD Codes: F03.90 - Unspecified dementia without behavioral disturbance Status: Acute Assessment & Plan Continue current treatment plan Justification for Cont. Inpt. Patient would decompensate in a less restrictive setting Request HC Surrog/Guard Advoc?: Yes Yaakov Moreno DO December 04, 2017 14:35
[2017-12-04] MEDS ORDERED: PIPERACIL-TAZO 4.5 GM PREMIX 100 ML IV SCH (15:00)
--- NOTE | 2017-12-04 15:46 | HHI.PR ---
Subjective Remarks Follow up on patient with G tube dislodged. Patient seen and examined. Discussed with Cassidy GUNN - patient with new cough and blood tinged mucus discharge found in brief. Patient coughing occasionally with liquids. No fevers. Patient unable to provide me with any history. Objective Vitals Vital Signs Date Time Temp Pulse Resp B/P (MAP) Pulse Ox O2 Delivery O2 Flow Rate FiO2 12/04/17 05:36 96.5 88 20 113/57 (75) 94 12/03/17 18:44 97.2 82 17 134/72 (92) 98 I/O 12/03/17 12/03/17 12/03/17 12/04/17 12/04/17 12/04/17 07:00 15:00 23:00 07:00 15:00 23:00 Intake Total 250 ml 60 ml 240 ml Balance 250 ml 60 ml 240 ml Intake Oral 150 ml 60 ml 240 ml Oral Supplement 100 ml # Voids 2 Result Diagram: 12/01/17 0658 Imaging Last Impressions Chest X-Ray 12/04/17 0000 Signed Impressions: Service Date/Time: Monday, December 04, 2017 13:20 - CONCLUSION: New minimal parenchymal changes left base. Bryce Ortiz MD FACR Objective Remarks GENERAL: Well-developed -Danish female in no acute distress. Awake and alert. Disorganized thought process, hyperverbal but unintelligible speech. Follow simple commands. HEENT: NC/AT. EOMI. Sclera anicteric. No nasal drainage or bleeding. Airway patent. MMM. NECK: Trachea midline. CARDIOVASCULAR: Regular rate and rhythm without murmurs, gallops, or rubs. RESPIRATORY: Nonlabored. Diminished but poor effort noted. No wheezing or rhonchi noted. GASTROINTESTINAL: Abdomen soft, nontender to palpation. No guarding. G tube removed, site appears to be healing well MUSCULOSKELETAL: Extremities without clubbing, cyanosis, or edema. Bilateral calves supple. NEUROLOGICAL: Awake and alert. Motor and sensory grossly within normal limits. Moves bilateral upper and lower extremities spontaneously. Garbled speech. PSYCHIATRIC: Calm and cooperative A/P Problem List: (1) Hypertension ICD Code: I10 - Essential (primary) hypertension Status: Chronic (2) Schizoaffective disorder, bipolar type ICD Code: F25.0 - Schizoaffective disorder, bipolar type Status: Chronic (3) Dementia ICD Code: F03.90 - Unspecified dementia without behavioral disturbance Status: Acute Assessment and Plan 69-year-old female with behavioral disturbances in the context of dementia with hypertension. Dementia with behavioral disturbance Schizoaffective disorder - Patient admitted for abnormal behavior related to dementia and/or schizoaffective disorder - management per primary team New cough Cough with liquids CXR new parenchymal changes in left base Concern for HAP or aspiration PNA - NPO on IVF - ST swallow evaluation - Begin IV Zosyn, Zyvox and Levaquin - monitor respiratory status - supplemental oxygen as needed to maintain O2 sats>92% - aspiration precautions Hypertensive urgency, resolved Tachycardia Blood pressure as high as 248/119 in the ER, much improved -Clonidine added for as needed use, systolics greater than 165 -Suspect tachycardia along with hypertension is due to agitation Poor po intake s/p G tube placement, ?dislodged. GI removed. -rotary engine assembler following, calorie count in progress NITHIN, suspect secondary to poor po intake -encourage fluids -creatinine trending down -if kidney function worsens, patient may need to be transferred to med/psych for IVF ?blood tinged mucus/discharge in brief -Obtain UA -hemoccult stool ordered DVT prophylaxis -ambulation Discussed with patient, nursing staff and Carol Garay December 04, 2017 15:46
[2017-12-04] MEDS ORDERED: SODIUM CHLOR 0.9% 1000 ML INJ 1,000 ML IV SCH (16:00)
[2017-12-04 16:41] LABS: BILIRUBIN, URINE NEG (NEG); BLOOD, URINE NEG (NEG); GLUCOSE,URINE NEG (NEG); KETONE, URINE NEG (NEG); NITRITE,URINE NEG (NEG); SQUAMOUS EPITHELIAL CELL URINE <1 /hpf (0-5); URINE COLOR YELLOW (YELLW/STRAW); URINE LEUKOCYTE ESTERASE NEG (NEG)
[2017-12-04] MEDS ORDERED: LEVOFLOXACIN 750 MG PREMIX INJ 150 ML IV SCH (17:00)
[2017-12-04] MEDS: LINEZOLID 600 MG PREMIX 300 ML IV SCH (18:00)
[2017-12-04] MEDS: RESP: ALBUTEROL 2.5 MG/IPRATROPIUM 0.5 MG NEB (SCH) NEB (20:00)
[2017-12-04] MEDS: PIPERACIL-TAZO 4.5 GM PREMIX 100 ML IV SCH (20:00)
[2017-12-04 21:33] LABS: AUTOMATED NEUTROPHIL # 3.6 TH/MM3 (1.8-7.7); BASOPHIL % 0.3 % (0.0-2.0); EOSINOPHIL # 0.2 TH/MM3 (0-0.4); EOSINOPHIL % 3.2 % (0.0-4.0); HEMATOCRIT 38.1 % (35.0-46.0); HEMOGLOBIN 12.6 GM/DL (11.6-15.3); LYMPH % 21.4 % (9.0-44.0); LYMPHOCYTE # 1.2 TH/MM3 (1.0-4.8); MEAN CELL VOLUME 93.2 FL (80.0-100.0); MEAN CORPUSCULAR HEMOGLOBIN 30.7 PG (27.0-34.0); MEAN CORPUSCULAR HGB CONC 32.9 % (32.0-36.0); MEAN PLATELET VOLUME 9.6 FL (7.0-11.0); MONO % 8.2 % (0.0-8.0); MONOCYTE # 0.4 TH/MM3 (0-0.9); NEUT % 66.9 % (16.0-70.0); PLATELET COUNT 197 TH/MM3 (150-450); RED BLOOD COUNT 4.09 MIL/MM3 (4.00-5.30); RED CELL DISTRIBUTION WIDTH 13.5 % (11.6-17.2); WHITE BLOOD COUNT 5.4 TH/MM3 (4.0-11.0)
[2017-12-04 21:55] LABS: CALCIUM 9.6 MG/DL (8.5-10.1); CREATININE 0.98 MG/DL (0.50-1.00)
[2017-12-05] MEDS: diphenhydrAMINE HCL 50 MG/ML VIAL IM PRN (00:33)
[2017-12-05] MEDS: HALOPERIDOL LACTATE 5 MG/ML AMP IM PRN ×2 (00:33→21:09)
[2017-12-05] MEDS: PIPERACIL-TAZO 4.5 GM PREMIX 100 ML IV SCH ×2 (01:47→09:17)
[2017-12-05 05:34] VITALS: BP 123/72; PULSE 91; RESP 17
[2017-12-05] MEDS: LINEZOLID 600 MG PREMIX 300 ML IV SCH (05:38)
[2017-12-05] MEDS: chlorproMAZINE HCL 25 MG TAB PO SCH ×4 (05:38→21:00)
[2017-12-05 06:00] VITALS: O2SAT 93
[2017-12-05] MEDS: RESP: ALBUTEROL 2.5 MG/IPRATROPIUM 0.5 MG NEB (SCH) NEB ×5 (08:00→20:56)
[2017-12-05 08:26] VITALS: O2SAT 98
--- NOTE | 2017-12-05 08:28 | HHI.PYPN ---
Subjective Chief Complaint: Agitation Remarks Patient seen and examined with nurse. Chart reviewed. Patient NPO pending swallow eval out of concern for possible aspiration. She is not receiving scheduled psychotropics for this reason. She did require Haldol IM overnight after an almost week-long hiatus from needing p.r.n. Haldol. She is also on IV antibiotics out of concern for possible PNA. Case discussed with nursing staff. On my exam, patient is sitting in her room with eyes closed. She alerts readily to verbal stimuli and begins speaking in a pressured, rambling fashion. She gestures as if praying. She tries to grab the nurse. Thought process is too disorganized for mental status testing. No physical complaints. Review of Systems ROS Limitations: Psychotic, Poor Historian Other ROS limited secondary to above. Mental Status Examination Appearance: Disheveled Consciousness: Alert Orientation: Person Motor Activity: Other (No motor abnormalities noted) Speech: Rapid Language: Other (Rambling) Fund of Knowledge: Inadequate Attention and Concentration: Inadequate Memory: Impaired Mood: Anxious Affect: Blunt Thought Process & Associations: Disorganized Thought Content: Other (Some poverty of thought) Hallucination Type: None Delusion Type: None Suicidal Ideation: No (No SI voiced) Homicidal Ideation: No (No HI voiced) Insight: Poor Judgment: Poor Results Labs Test 12/04/17 16:15 12/04/17 20:42 Urine Color YELLOW Urine Turbidity CLEAR Urine pH 6.0 Urine Specific [place] 1.013 Urine Protein NEG mg/dL Urine Glucose (UA) NEG mg/dL Urine Ketones NEG mg/dL Urine Occult Blood NEG Urine Nitrite NEG Urine Bilirubin NEG Urine Urobilinogen LESS THAN 2.0 MG/DL Urine Leukocyte Esterase NEG Urine RBC 1 /hpf Urine WBC 1 /hpf Urine Squamous Epithelial Cells <1 /hpf Microscopic Urinalysis Comment CULT NOT INDICATED White Blood Count 5.4 TH/MM3 Red Blood Count 4.09 MIL/MM3 Hemoglobin 12.6 GM/DL Hematocrit 38.1 % Mean Corpuscular Volume 93.2 FL Mean Corpuscular Hemoglobin 30.7 PG Mean Corpuscular Hemoglobin Concent 32.9 % Red Cell Distribution Width 13.5 % Platelet Count 197 TH/MM3 Mean Platelet Volume 9.6 FL Neutrophils (%) (Auto) 66.9 % Lymphocytes (%) (Auto) 21.4 % Monocytes (%) (Auto) 8.2 % Eosinophils (%) (Auto) 3.2 % Basophils (%) (Auto) 0.3 % Neutrophils # (Auto) 3.6 TH/MM3 Lymphocytes # (Auto) 1.2 TH/MM3 Monocytes # (Auto) 0.4 TH/MM3 Eosinophils # (Auto) 0.2 TH/MM3 Basophils # (Auto) 0.0 TH/MM3 CBC Comment DIFF FINAL Differential Comment Blood Urea Nitrogen 14 MG/DL Creatinine 0.98 MG/DL Random Glucose 111 MG/DL Calcium Level 9.6 MG/DL Sodium Level 137 MEQ/L Potassium Level 3.9 MEQ/L Chloride Level 99 MEQ/L Carbon Dioxide Level 31.0 MEQ/L Anion Gap 7 MEQ/L Estimat Glomerular Filtration Rate 66 ML/MIN Date/Time Source Procedure Growth Status 11/24/17 13:35 Urine Catheterized Urine Urine Culture - Final 50-100,000 CFU/ML MIXED GRAM POSITIVE... Complete Labs reviewed Last Impressions Chest X-Ray 12/04/17 0000 Signed Impressions: Service Date/Time: Monday, December 04, 2017 13:20 - CONCLUSION: New minimal parenchymal changes left base. Bryce Ortiz MD FACR Vitals/IOs Vital Signs Date Time Temp Pulse Resp B/P (MAP) Pulse Ox O2 Delivery O2 Flow Rate FiO2 12/05/17 06:00 93 12/05/17 05:34 91 17 123/72 (89) 12/04/17 05:36 96.5 Intake and Output 12/05/17 12/05/17 12/06/17 08:00 16:00 00:00 Intake Total 300 ml Balance 300 ml Assessment & Plan Problem List: (1) Schizoaffective disorder, bipolar type ICD Codes: F25.0 - Schizoaffective disorder, bipolar type Status: Chronic (2) Dementia ICD Codes: F03.90 - Unspecified dementia without behavioral disturbance Status: Acute Assessment & Plan Thought disorder worse today with holding of psychotropics secondary to NPO status. ST has evaluated patient and cleared her for a diet. Psychotropics have been resumed. I will adjust Thorazine dosing to 100mg TID. Continue other psychotropics as ordered. Hospitalist input noted and appreciated. Continue other meds and care as ordered. Justification for Cont. Inpt. Risk for decompensation in less restrictive environment Discharge Planning Pending psychiatric stabilization Request HC Surrog/Guard Advoc?: Yes Hunter Pérez MD December 05, 2017 08:28
[2017-12-05] MEDS: REMOVE OLD PATCH T-DERMAL SCH (09:00)
[2017-12-05] MEDS: DIVALPROEX SODIUM DELAYED RELEASE 250 MG TAB PO SCH ×2 (09:17→21:00)
[2017-12-05] MEDS: QUEtiapine FUMARATE 200 MG TAB PO SCH ×2 (09:17→21:00)
--- NOTE | 2017-12-05 11:05 | HHI.PR ---
Subjective Remarks Follow up on patient with G tube dislodged, cough. Patient seen and examined. Discussed with nursing staff. No acute issues noted. Patient passed swallow evaluation with recommendations for pured consistency and thin liquids. Patient is afebrile. Vital signs are stable. Objective Vitals Vital Signs Date Time Temp Pulse Resp B/P (MAP) Pulse Ox O2 Delivery O2 Flow Rate FiO2 12/05/17 08:26 98 12/05/17 06:00 93 12/05/17 05:34 91 17 123/72 (89) I/O 12/04/17 12/04/17 12/04/17 12/05/17 12/05/17 12/05/17 07:00 15:00 23:00 07:00 15:00 23:00 Intake Total 240 ml 120 ml 0 ml 400 ml Balance 240 ml 120 ml 0 ml 400 ml Intake Oral 240 ml 120 ml 0 ml IV Total 400 ml # Voids 2 3 Result Diagram: 12/04/17204112/04/172041 Imaging Last Impressions Chest X-Ray 12/04/17 0000 Signed Impressions: Service Date/Time: Monday, December 04, 2017 13:20 - CONCLUSION: New minimal parenchymal changes left base. Bryce Ortiz MD FACR Objective Remarks GENERAL: Well-developed -Guyanese female in no acute distress. Sleeping in bedside recliner. Easily awakens to voice. Appears comfortable. Follows simple commands. Extremely hard of hearing. HEENT: NC/AT. EOMI. Sclera anicteric. No nasal drainage or bleeding. Airway patent. MMM. NECK: Trachea midline. CARDIOVASCULAR: Regular rate and rhythm without murmurs, gallops, or rubs. RESPIRATORY: Nonlabored. Diminished but poor effort noted. No wheezing or rhonchi noted. GASTROINTESTINAL: Abdomen soft, nontender to palpation. No guarding. G tube removed, site appears to be healing well MUSCULOSKELETAL: Extremities without clubbing, cyanosis, or edema. Bilateral calves supple. NEUROLOGICAL: Awake and alert. Motor and sensory grossly within normal limits. Moves bilateral upper and lower extremities spontaneously. Garbled speech. PSYCHIATRIC: Calm and cooperative A/P Problem List: (1) Hypertension ICD Code: I10 - Essential (primary) hypertension Status: Chronic (2) Schizoaffective disorder, bipolar type ICD Code: F25.0 - Schizoaffective disorder, bipolar type Status: Chronic (3) Dementia ICD Code: F03.90 - Unspecified dementia without behavioral disturbance Status: Acute Assessment and Plan 69-year-old female with behavioral disturbances in the context of dementia with hypertension. Dementia with behavioral disturbance Schizoaffective disorder - Patient admitted for abnormal behavior related to dementia and/or schizoaffective disorder - management per primary team New cough Cough with liquids CXR new parenchymal changes in left base Concern for HAP or aspiration PNA Past swallow evaluation with recommendations for pured diet with thin liquids - Patient is afebrile. No leukocytosis. Satting well on room air. De- escalate antibiotics, DC IV antibiotic treatment, continue with oral Levaquin. - monitor respiratory status - supplemental oxygen as needed to maintain O2 sats>92% - aspiration precautions Hypertensive urgency, resolved Tachycardia Blood pressure as high as 248/119 in the ER, much improved - Clonidine added for as needed use, systolics greater than 165 - Suspect tachycardia along with hypertension is due to agitation Poor po intake s/p G tube placement, ?dislodged. GI removed. - nerve specialist following, calorie count in progress NITHIN, suspect secondary to poor po intake. Creatinine improved, now 0.98 - encourage fluids - avoid nephrotoxic agents - Monitor kidney function as indicated ?blood tinged mucus/discharge in brief. Discussed with LEAD LEVEL DESIGNER today, no evidence of blood with brief changes this morning. - UA unremarkable - hemoccult stool ordered - monitor DVT prophylaxis -ambulation Discussed with patient, nursing staff and Carol Maurer December 05, 2017 11:05
[2017-12-05] MEDS ORDERED: chlorproMAZINE HCL 25 MG TAB PO SCH ×2 (15:00→16:00)
[2017-12-05 18:20] VITALS: BP 126/82; PULSE 94; RESP 18
--- NOTE | 2017-12-05 18:41 | EKG ---
Date Performed: 12/04/2017 Time Performed: 17:17:03 PTAGE: 77 years EKG: SINUS TACHYCARDIA WITH OCCASIONAL VENTRICULAR PREMATURE COMPLEXES WITH FREQUENT SUPRAVENTRI CULAR PREMATURE COMPLEXES NONSPECIFIC T-WAVE ABNORMALITY ABNORMAL ECG Since the PREVIOUS TRACING , no significant change noted PREVIOUS TRACIN11/21/2017 15.43 DOCTOR: Ankur Castaneda Interpretating Date/Time 12/05/2017 18:41:13
[2017-12-06 05:43] VITALS: BP 140/84; PULSE 92; RESP 17
--- NOTE | 2017-12-06 08:08 | HHI.PR ---
Subjective Remarks Follow-up for dislodged G-tube, HTN, and pneumonia. Patient seen and examined sitting up in geriatric chair in her room in no acute distress. She is awake, alert, talkative with disorganized thought process. She will follow simple commands, discussed with nurse who does not report any acute concerns. Objective Vitals Vital Signs Date Time Temp Pulse Resp B/P (MAP) Pulse Ox O2 Delivery O2 Flow Rate FiO2 12/06/17 05:43 92 17 140/84 (102) 12/05/17 18:20 94 18 126/82 (97) 12/05/17 08:26 98 I/O 12/05/17 12/05/17 12/05/17 12/06/17 12/06/17 12/06/17 07:00 15:00 23:00 07:00 15:00 23:00 Intake Total 0 ml 570 ml 300 ml 120 ml Balance 0 ml 570 ml 300 ml 120 ml Intake Oral 0 ml 300 ml 120 ml IV Total 570 ml # Voids 3 3 3 Result Diagram: 12/04/17204112/04/172041 Imaging Last Impressions Chest X-Ray 12/04/17 0000 Signed Impressions: Service Date/Time: Monday, December 04, 2017 13:20 - CONCLUSION: New minimal parenchymal changes left base. Bryce Ortiz MD FACR Objective Remarks GENERAL: Well-developed -French female in no acute distress. NECK: Trachea midline. CARDIOVASCULAR: Regular rate and rhythm without murmurs, gallops, or rubs. RESPIRATORY: Nonlabored breathing, clear lung sounds although difficult to assess secondary to poor effort. No wheezing or rhonchi noted. GASTROINTESTINAL: Abdomen soft. No guarding. G-tube site healing. Normal active bowel sounds. MUSCULOSKELETAL: Extremities without clubbing, cyanosis, or edema. NEUROLOGICAL: Awake and alert. Motor and sensory grossly within normal limits. Moves bilateral upper and lower extremities spontaneously. No facial droop, speech is garbled/pressured with disorganized thoughts. A/P Problem List: (1) Hypertension ICD Code: I10 - Essential (primary) hypertension Status: Chronic (2) Schizoaffective disorder, bipolar type ICD Code: F25.0 - Schizoaffective disorder, bipolar type Status: Chronic (3) Dementia ICD Code: F03.90 - Unspecified dementia without behavioral disturbance Status: Acute Assessment and Plan 69-year-old female with behavioral disturbances in the context of dementia with hypertension. Dementia with behavioral disturbance Schizoaffective disorder - Patient admitted for abnormal behavior related to dementia and/or schizoaffective disorder - management per primary team New cough Cough with liquids CXR new parenchymal changes in left base Concern for HAP or aspiration PNA Past swallow evaluation with recommendations for pured diet with thin liquids - Patient is afebrile. No leukocytosis. Satting well on room air. De- escalate antibiotics, DC IV antibiotic treatment, continue with oral Levaquin. - monitor respiratory status - supplemental oxygen as needed to maintain O2 sats>92% - aspiration precautions Hypertensive urgency, resolved Tachycardia Blood pressure as high as 248/119 in the ER, much improved - Clonidine added for as needed use, systolics greater than 165 - Suspect tachycardia along with hypertension is due to agitation -Heart rate and BP have been stable, continue monitoring. Poor po intake s/p G tube placement, ?dislodged. GI removed. -Diet downgraded to pure per speech therapy recommendations. -Evaluated by dietitian with inadequate p.o. intake, ongoing inadequate intake. Recommendations 12/06 for NGT or new feeding tube for TF'ings. - Discussed with , NTG will likely be challenging to keep in and will be temporary. She has continued to have poor PO intake. - GI consulted for Peg tube placement. - Once peg in urban sociologist recommends Jevity 1.5@25ml/hr increase 10ml/hr Q4hrs until goal rate 45ml/hr - Will also try Megace for appetite stimulant -Continue Ensure Enlive TID, add Ensure pudding TID - Need actual weight, order placed to be recorded by nurse. NITHIN, suspect secondary to poor po intake. Creatinine improved, now 0.98 - encourage fluids - avoid nephrotoxic agents - Monitor kidney function as indicated ?blood tinged mucus/discharge in brief. - UA unremarkable - hemoccult stool ordered, yet to be collected - monitor DVT prophylaxis -ambulation Discussed with nurse and Gail Sargent December 06, 2017 08:08
[2017-12-06] MEDS: RESP: ALBUTEROL 2.5 MG/IPRATROPIUM 0.5 MG NEB (SCH) NEB ×5 (08:26→23:00)
[2017-12-06] MEDS: chlorproMAZINE HCL 25 MG TAB PO SCH ×3 (09:00→21:00)
[2017-12-06] MEDS: REMOVE OLD PATCH T-DERMAL SCH (09:00)
[2017-12-06] MEDS: QUEtiapine FUMARATE 200 MG TAB PO SCH ×2 (09:37→21:00)
[2017-12-06] MEDS: DIVALPROEX SODIUM DELAYED RELEASE 250 MG TAB PO SCH (09:37)
[2017-12-06] MEDS: LEVOFLOXACIN 750 MG TAB PO SCH (09:37)
--- NOTE | 2017-12-06 12:26 | HHI.PYPN ---
Subjective Chief Complaint: Agitation Remarks Patient seen and examined. Chart reviewed. Dietitian recs to consider resumption of tube feeds. Case discussed with nursing staff. Case discussed in treatment team. On my exam, patient is disorganized. Speech is rapid and rambling, essentially word salad. She has disrobed and is naked except for a diaper. She is oppositional and negativistic and shakes her head 'no' when I ask her to follow a simple command. No sign of sedation or other side effects from medications. No physical complaints. Review of Systems ROS Limitations: Psychotic, Poor Historian Except as stated in HPI: all other systems reviewed are Neg Mental Status Examination Appearance: Disheveled Consciousness: Alert Orientation: Person Motor Activity: Other (No abnormal motor movements noted) Speech: Rapid Language: Other (Rambling) Fund of Knowledge: Inadequate Attention and Concentration: Inadequate Memory: Impaired Mood: Oppositional Affect: Irritable Thought Process & Associations: Disorganized Thought Content: Other (Poverty of thought) Hallucination Type: None Delusion Type: None Suicidal Ideation: No (No SI voiced) Homicidal Ideation: No (No HI voiced) Insight: Poor Judgment: Poor Results Labs Date/Time Source Procedure Growth Status 11/24/17 13:35 Urine Catheterized Urine Urine Culture - Final 50-100,000 CFU/ML MIXED GRAM POSITIVE... Complete Labs reviewed Vitals/IOs Vital Signs Date Time Temp Pulse Resp B/P (MAP) Pulse Ox O2 Delivery O2 Flow Rate FiO2 12/06/17 05:43 92 17 140/84 (102) 12/05/17 08:26 98 12/04/17 05:36 96.5 Intake and Output 12/06/17 12/06/17 12/06/17 07:59 15:59 23:59 Intake Total 120 ml 120 ml Balance 120 ml 120 ml Assessment & Plan Problem List: (1) Schizoaffective disorder, bipolar type ICD Codes: F25.0 - Schizoaffective disorder, bipolar type Status: Chronic (2) Dementia ICD Codes: F03.90 - Unspecified dementia without behavioral disturbance Status: Acute Assessment & Plan Titrate Depakote to 325mg BID for additional mood stabilization. Plan to check a Depakote level later in the week. Continue other psychotropics as ordered. Case d/w CELINA Webster from the hospitalist service. I will reconsult GI to re- insert feeding tube to provide patient with adequate nutrition. Continue to monitor on the medical psychiatric unit. Continue other medications and care as ordered. Justification for Cont. Inpt. Risk for decompensation in less restrictive environment. Discharge Planning Pending psychiatric stabilization. Request HC Surrog/Guard Advoc?: Yes Hunter Pérez MD December 06, 2017 12:26
--- NOTE | 2017-12-06 15:38 | PD.TTN ---
Patient Problems 1. Discharge planning 2. Medication compliance 3. Knowledge deficit 4. Lack of coping skills Progress Toward Goals Provider Present: Dr. Mandi Pérez Provider Input: 12/06/2017; patient medication has been restarted, with some improvement with her mood/behavior 11/22/17 pt needs med adjustment/increased and further stabilization, still paranoid Nurse(s) Present: VELIA Castro Nurse(s) Input: 12/06/2017 Patient is eating and taking her medication, requires coaching and redirection Psychiatric Counselors Present: Fara Keene LCSW, Meg Spencer [facility] Psych Therapist Input: 12/06/2017; counselor will contact family to discuss dc needs 11/22/17 no insight, uncooperative, psychotic, has niece can return home when better Group Spec/RT/OT/ORTEGA Present: Juan Shearer OT Group Spec/RT/OT/ORTEGA Input: 12/06/2017; patient is unable to attend or participate with groups 11/22/17 new to OT appears not able to engage at this time Documentation Scribe: Meg Del Rio [facility] December 06, 2017 15:38
--- NOTE | 2017-12-06 17:05 | PD.CONS ---
HPI History of Present Illness This is a 77 year old F who is currently admitted on the inpatient psych unit at [facility]. Pt has schizoaffective disorder and dementia and is unable to provide any history for us, therefore all history has been obtained through chart review and by the nurses. Patient seen by our service on December 01 and G- tube was discontinued at bedside by Dr. Wiggins because it was reportedly clogged. Per RN G-tube has not been used since admission. RN states that patients PO intake is dependent on her psych status, states that when patient is more stabilized she eats more of her meals. No previous GI records, unsure of who placed this or where it was placed. (Kamala Steele) PFSH Past Medical History schizoaffective disorder dementia Past Surgical History feeding tube placement (Kamala Steele) Coded Allergies: apple (Unverified Allergy, Severe, Swelling, 03/08/17) Family History unk Social History unk (Kamala Steele) Review of Systems Unable to obtain (Kamala Steele) GI Exam Vitals I&O Vital Signs Date Time Temp Pulse Resp B/P (MAP) Pulse Ox O2 Delivery O2 Flow Rate FiO2 12/06/17 05:43 92 17 140/84 (102) 12/05/17 18:20 94 18 126/82 (97) I/O 12/05/17 12/05/17 12/05/17 12/06/17 12/06/17 12/06/17 07:00 15:00 23:00 07:00 15:00 23:00 Intake Total 0 ml 570 ml 300 ml 120 ml 120 ml Balance 0 ml 570 ml 300 ml 120 ml 120 ml Intake Oral 0 ml 300 ml 120 ml 120 ml IV Total 570 ml # Voids 3 3 3 Imaging Last Impressions Chest X-Ray 12/04/17 0000 Signed Impressions: Service Date/Time: Monday, December 04, 2017 13:20 - CONCLUSION: New minimal parenchymal changes left base. Bryce Ortiz MD FACR Laboratory Date/Time Source Procedure Growth Status 11/24/17 13:35 Urine Catheterized Urine Urine Culture - Final 50-100,000 CFU/ML MIXED GRAM POSITIVE... Complete Physical Examination HEENT: Normocephalic; atraumatic CHEST: Even/unlabored ABDOMEN: Unable to examined PRINCIPAL STRATEGIST: Awake, not oriented (Kamala Steele) Assessment and Plan Plan ASSESSMENT - PEG tube removed by our service on December 01. Unsure who placed initial G tube or when it was placed. Per record pts G tube was clogged at that time, and was discontinued at bedside by Dr. Wiggins, pt has recently failed calorie count. According to RN her PO intake is dependent on her psych status states she is able to eat OK when her mentation is better. Plan: Nutrition following Recommend Ensure shakes TID Will continue to follow- no plans for PEG at this time Further recommendations based on clinical course Pt has been seen and examined by myself and Dr. Ching and this note is written on her behalf (Kamala Steele) Physician Comments seen agree with above we will monitor for the next few days if no improvement we will schedule peg (Chayito Ching MD) Kamala Steele December 06, 2017 17:05 Chayito Ching MD December 06, 2017 17:31
[2017-12-06] MEDS: DIVALPROEX SODIUM DELAYED RELEASE 125 MG TAB PO SCH (21:00)
[2017-12-06] MEDS: diphenhydrAMINE HCL 50 MG/ML VIAL IM PRN (21:13)
[2017-12-06] MEDS: HALOPERIDOL LACTATE 5 MG/ML AMP IM PRN (21:17)
[2017-12-07 06:00] VITALS: BP 161/76; PULSE 130; RESP 20; O2SAT 97
[2017-12-07] MEDS: RESP: ALBUTEROL 2.5 MG/IPRATROPIUM 0.5 MG NEB (SCH) NEB ×4 (08:00→20:33)
[2017-12-07 08:11] VITALS: O2SAT 100
--- NOTE | 2017-12-07 08:46 | HHI.PR ---
Subjective Remarks Follow-up visit for dislodged G-tube, poor p.o. intake, HTN and pneumonia. Spoke with nurse who reports patient refused medications last night, increased agitation this morning. Patient is also not been ambulating for the past 2 days. Nurse has also noted that patient's p.o. intake will depend on whether she is compliant with psychiatric medications or level of agitation. Patient is seen and examined sitting up in geriatric chair in her room, visibly agitated this morning. Continuous nonsensical speech, following simple directions on and off. Objective Vitals Vital Signs Date Time Temp Pulse Resp B/P (MAP) Pulse Ox O2 Delivery O2 Flow Rate FiO2 12/07/17 08:11 100 12/07/17 06:00 130 20 161/76 (104) 97 I/O 12/06/17 12/06/17 12/06/17 12/07/17 12/07/17 12/07/17 07:00 15:00 23:00 07:00 15:00 23:00 Intake Total 120 ml 120 ml 480 ml Balance 120 ml 120 ml 480 ml Intake Oral 120 ml 120 ml 480 ml # Voids 3 4 0 Result Diagram: 12/04/17204112/04/172041 Imaging Last Impressions Chest X-Ray 12/04/17 0000 Signed Impressions: Service Date/Time: Monday, December 04, 2017 13:20 - CONCLUSION: New minimal parenchymal changes left base. Bryce Ortiz MD FACR Objective Remarks GENERAL: Well-developed -[place]ian female in no acute distress. Visible agitation. NECK: Trachea midline. CARDIOVASCULAR: Tachycardia noted, no murmurs, gallops, or rubs. RESPIRATORY: Nonlabored breathing, clear lung sounds. No wheezing or rhonchi noted. GASTROINTESTINAL: Abdomen soft. No guarding. G-tube site healing. Normal active bowel sounds. MUSCULOSKELETAL: Extremities without clubbing, cyanosis, or edema. NEUROLOGICAL: Awake and alert. Motor and sensory grossly within normal limits. Moves bilateral upper and lower extremities spontaneously. No facial droop, speech is garbled/pressured with disorganized thoughts. A/P Problem List: (1) Hypertension ICD Code: I10 - Essential (primary) hypertension Status: Chronic (2) Schizoaffective disorder, bipolar type ICD Code: F25.0 - Schizoaffective disorder, bipolar type Status: Chronic (3) Dementia ICD Code: F03.90 - Unspecified dementia without behavioral disturbance Status: Acute Assessment and Plan 69-year-old female with behavioral disturbances in the context of dementia with hypertension. Dementia with behavioral disturbance Schizoaffective disorder - Patient admitted for abnormal behavior related to dementia and/or schizoaffective disorder - management per primary team - Decreased ambulation PT eval. and treat ordered by primary New cough Cough with liquids CXR new parenchymal changes in left base Concern for HAP or aspiration PNA Past swallow evaluation with recommendations for pured diet with thin liquids - Patient is afebrile. No leukocytosis. Satting well on room air. De- escalate antibiotics, DC IV antibiotic treatment, continue with oral Levaquin, end date 12/11 to complete 7 day course - monitor respiratory status - supplemental oxygen as needed to maintain O2 sats>92% - aspiration precautions Hypertensive urgency, resolved Tachycardia Blood pressure as high as 248/119 in the ER, much improved - Clonidine added for as needed use, systolics greater than 165 - Suspect tachycardia along with hypertension is due to agitation -Heart rate and BP elevated this AM she is agitated today. Poor po intake s/p G tube placement, ?dislodged. GI removed. -Diet downgraded to pure per speech therapy recommendations. -Evaluated by dietitian with inadequate p.o. intake, ongoing inadequate intake. Recommendations 12/06 for NGT or new feeding tube for TF'ings ( recommendations for Jevity 1.5@25ml/hr increase 10ml/hr Q4hrs until goal rate 45ml/hr). - GI saw for possible peg placement, will hold off for the moment. - Started on Megace for appetite stimulant -Continue Ensure Enlive TID, add Ensure pudding TID - Need actual weight, order placed to be recorded by nurse. - PO intake may fluctuate due to refusal of agitation and refusal of psych medications. - Will continue to follow by locomotive firer and if no improvement on Megace consider peg once again. NITHIN, suspect secondary to poor po intake. Creatinine improved, now 0.98 - encourage fluids - avoid nephrotoxic agents - Monitor kidney function as indicated ?blood tinged mucus/discharge in brief. - UA unremarkable - hemoccult stool ordered, not collected - No further repots of blood DVT prophylaxis -Start Subq heparin due to poor mobility. Discussed with nurse. Gail Webster December 07, 2017 08:45
[2017-12-07] MEDS: MEGESTROL ACETATE SUSP 400 MG/10 ML CUP PO SCH (09:00)
[2017-12-07] MEDS: REMOVE OLD PATCH T-DERMAL SCH (09:00)
[2017-12-07] MEDS: QUEtiapine FUMARATE 200 MG TAB PO SCH ×2 (09:49→21:00)
[2017-12-07] MEDS: LEVOFLOXACIN 750 MG TAB PO SCH (09:49)
[2017-12-07] MEDS: DIVALPROEX SODIUM DELAYED RELEASE 125 MG TAB PO SCH ×2 (09:50→21:00)
--- NOTE | 2017-12-07 13:51 | HHI.GIFU ---
Subjective Remarks Pt OOB to chair, speaking unintelligibly. Per aide she ate alot today. Most of her breakfast and an entire ensure. (Alyssa Palma) Objective Vitals I&O Vital Signs Date Time Temp Pulse Resp B/P (MAP) Pulse Ox O2 Delivery O2 Flow Rate FiO2 12/07/17 08:11 100 12/07/17 06:00 130 20 161/76 (104) 97 I/O 12/06/17 12/06/17 12/06/17 12/07/17 12/07/17 12/07/17 06:59 14:59 22:59 06:59 14:59 22:59 Intake Total 120 ml 120 ml 480 ml 600 ml Balance 120 ml 120 ml 480 ml 600 ml Intake Oral 120 ml 120 ml 480 ml 600 ml # Voids 3 4 0 Laboratory Date/Time Source Procedure Growth Status 11/24/17 13:35 Urine Catheterized Urine Urine Culture - Final 50-100,000 CFU/ML MIXED GRAM POSITIVE... Complete Imaging Last Impressions Chest X-Ray 12/04/17 0000 Signed Impressions: Service Date/Time: Monday, December 04, 2017 13:20 - CONCLUSION: New minimal parenchymal changes left base. Bryce Ortiz MD FACR Physical Exam HEENT: normocephalic; atraumatic; no jaundice. CHEST: CTA CARDIAC: RRR ABDOMEN: Soft, obese, nontender; no hepatosplenomegaly; bowel sounds are present in all four quadrants. old peg site no bleeding or purulence EXTREMITIES: No clubbing, cyanosis, or edema. SKIN: Normal; no rash; no jaundice. HVAC TECHNICIAN: alert, pleasantly confused, unintellible speech (Alyssa Palma) Assessment and Plan Plan ASSESSMENT - PEG tube removed by our service on December 01. Unsure who placed initial G tube or when it was placed. Per record pts G tube was clogged at that time, and was discontinued at bedside by Dr. Wiggins, pt has recently failed calorie count. According to RN her PO intake is dependent on her psych status states she is able to eat OK when her mentation is better. 12/07/17 pt eating well today. Plan: Nutrition following continue ensure if she stops eating will consider PEG supportive care Pt has been seen and examined by myself and Dr. Ching and this note is written on her behalf (Alyssa Palma) Alyssa Palma December 07, 2017 13:51 Chayito Ching MD December 07, 2017 15:30
--- NOTE | 2017-12-07 13:57 | HHI.PYPN ---
Subjective Chief Complaint: Agitation Remarks Patient seen and examined with nurse. Chart reviewed. Oral intake remains poor. Case discussed with nursing staff. Patient medication compliant but remains quite labile. On my examination today, now that the patient is back on her psychotropics, she seems less agitated and marginally more organized. Although her speech remains extremely rambling, I can discern small bits of coherent material. She remains oppositional and negativistic and will not follow commands. No evident sedation or other side effects from medications. No physical complaints. Review of Systems ROS Limitations: Uncooperative, Psychotic, Poor Historian Other Limited ROS secondary to above Mental Status Examination Appearance: Disheveled Consciousness: Alert Orientation: Person Motor Activity: Other (No motor abnormalities noted) Speech: Rapid Language: Other (Remains fairly rambling) Fund of Knowledge: Inadequate Attention and Concentration: Inadequate Memory: Impaired Mood: Oppositional Affect: Irritable Thought Process & Associations: Disorganized Thought Content: Other (Ongoing poverty of thought) Hallucination Type: None Delusion Type: None Suicidal Ideation: No (No SI voiced) Homicidal Ideation: No (No HI voiced) Insight: Poor Judgment: Poor Results Labs Date/Time Source Procedure Growth Status 11/24/17 13:35 Urine Catheterized Urine Urine Culture - Final 50-100,000 CFU/ML MIXED GRAM POSITIVE... Complete Labs reviewed Vitals/IOs Vital Signs Date Time Temp Pulse Resp B/P (MAP) Pulse Ox O2 Delivery O2 Flow Rate FiO2 12/07/17 08:11 100 12/07/17 06:00 130 20 161/76 (104) 12/04/17 05:36 96.5 Intake and Output 12/07/17 12/07/17 12/08/17 08:00 16:00 00:00 Intake Total 600 ml Balance 600 ml Assessment & Plan Problem List: (1) Schizoaffective disorder, bipolar type ICD Codes: F25.0 - Schizoaffective disorder, bipolar type Status: Chronic (2) Dementia ICD Codes: F03.90 - Unspecified dementia without behavioral disturbance Status: Acute Assessment & Plan Titrate Thorazine to 125mg TID to target psychosis. Continue Seroquel as ordered. Continue Depakote as ordered with plans for a Depakote level later in the week. Hospitalist and GI input noted and appreciated. Nurse expresses concern that the patient is not mobilizing much, and I will ask PT to return to work with patient. Continue to monitor on the medical psychiatric unit. Continue other medications and care as ordered. Justification for Cont. Inpt. Medication changes. Impairment in self-care. Risk for decompensation in less restrictive environment. Discharge Planning Pending psychiatric stabilization Request HC Surrog/Guard Advoc?: Yes Hunter Pérez MD December 07, 2017 13:57
[2017-12-07] MEDS: chlorproMAZINE HCL 25 MG TAB PO SCH ×2 (16:10→21:00)
[2017-12-07 16:51] VITALS: BP 119/85; PULSE 64; RESP 18; O2SAT 98
[2017-12-07] MEDS: HEPARIN SODIUM - SQ 10,000 UNITS/ML VIAL SQ SCH (21:00)
[2017-12-08 06:00] VITALS: BP 156/63; PULSE 54; RESP 18; TEMP 98.1; O2SAT 98
[2017-12-08] MEDS: RESP: ALBUTEROL 2.5 MG/IPRATROPIUM 0.5 MG NEB (SCH) NEB ×4 (08:00→19:43)
--- NOTE | 2017-12-08 08:19 | HHI.PR ---
Subjective Remarks Follow-up visit for dislodged G-tube, poor p.o. intake, HTN and pneumonia. Spoke with nurse who reports patient did ambulate with physical therapy yesterday and did well but continues to need frequent redirection. She is also mostly eating just one of her meals, did not have breakfast yesterday or this morning. Uneventful night per nursing. Patient is seen and examined this morning in her room washing her face with the assistance of tach at side. She is able to ambulate from the bathroom to the chair without assistive devices with supervision. She is more calm today but continues to have nonsensical speech. Objective Vitals Vital Signs Date Time Temp Pulse Resp B/P (MAP) Pulse Ox O2 Delivery O2 Flow Rate FiO2 12/08/17 06:00 98.1 54 18 156/63 (94) 98 12/07/17 16:51 64 18 119/85 (96) 98 I/O 12/07/17 12/07/17 12/07/17 12/08/17 12/08/17 12/08/17 07:00 15:00 23:00 07:00 15:00 23:00 Intake Total 240 ml 840 ml 1080 ml 360 ml Balance 240 ml 840 ml 1080 ml 360 ml Intake Oral 240 ml 840 ml 1080 ml Oral Supplement 360 ml # Voids 0 2 Result Diagram: 12/04/17204112/04/172041 Imaging Last Impressions Chest X-Ray 12/04/17 0000 Signed Impressions: Service Date/Time: Monday, December 04, 2017 13:20 - CONCLUSION: New minimal parenchymal changes left base. Bryce Ortiz MD FACR Objective Remarks GENERAL: Well-developed -[place]arshallese female in no acute distress. Visible agitation. NECK: Trachea midline. ENT: No nasal drainage noted. White patches noted on tongue, no throat erythema or exudate. CARDIOVASCULAR: Regular rhythm and rate, no murmurs, gallops, or rubs. RESPIRATORY: Nonlabored breathing, clear lung sounds. No wheezing or rhonchi noted. GASTROINTESTINAL: Abdomen soft. No guarding. G-tube site healing. Normal active bowel sounds. MUSCULOSKELETAL: Extremities without clubbing, cyanosis, or edema. NEUROLOGICAL: Awake and alert. Motor and sensory grossly within normal limits. Moves bilateral upper and lower extremities spontaneously. No facial droop, speech is garbled/pressured with disorganized thoughts. A/P Problem List: (1) Hypertension ICD Code: I10 - Essential (primary) hypertension Status: Chronic (2) Schizoaffective disorder, bipolar type ICD Code: F25.0 - Schizoaffective disorder, bipolar type Status: Chronic (3) Dementia ICD Code: F03.90 - Unspecified dementia without behavioral disturbance Status: Acute Assessment and Plan 69-year-old female with behavioral disturbances in the context of dementia with hypertension. Dementia with behavioral disturbance Schizoaffective disorder - Patient admitted for abnormal behavior related to dementia and/or schizoaffective disorder - management per primary team - Decreased ambulation PT cell and evaluated patient on 12/07. No assistive devices recommended, functioning at optimal status. Continued skilled physical therapy services not indicated. Will ask OT to follow patient. Discussed with nursing staff as well as techs, patient is to be helped out of chair to ambulate daily. New cough Cough with liquids CXR new parenchymal changes in left base Concern for HAP or aspiration PNA Past swallow evaluation with recommendations for pured diet with thin liquids - Patient is afebrile. No leukocytosis. Satting well on room air. De- escalate antibiotics, DC IV antibiotic treatment, continue with oral Levaquin, end date 12/11 to complete 7 day course - monitor respiratory status - supplemental oxygen as needed to maintain O2 sats>92% - aspiration precautions Hypertensive urgency, resolved Tachycardia Blood pressure as high as 248/119 in the ER, much improved - Clonidine added for as needed use, systolics greater than 165 - Suspect tachycardia along with hypertension is due to agitation Poor po intake s/p G tube placement, ?dislodged. GI removed. -Diet downgraded to pure per speech therapy recommendations. -Evaluated by dietitian with inadequate p.o. intake, ongoing inadequate intake. Recommendations 12/06 for NGT or new feeding tube for TF'ings ( recommendations for Jevity 1.5@25ml/hr increase 10ml/hr Q4hrs until goal rate 45ml/hr). - GI saw for possible peg placement, will hold off for the moment. -Continue Megace for appetite stimulant -Continue Ensure Enlive TID, add Ensure pudding TID -Actual documented weight today 84 kg, prior weight to compare from was in 2010 -Patient is really only eating one whole meal a day, and as noted by dietary with inadequate intake. Discussed with , GI with plans for peg possibly Tuesday or Tuesday. NITHIN, suspect secondary to poor po intake. - Worsening renal function likely secondary to dehydration from poor PO intake. Creatinine 1.44, BUN 25, GFR 43 - No history of CHF documented. Nurse with concerns for pedal edema previously. Discussed likely dependent, discussed TIFFANIE vancee, monitor for fluid overload. - start IV hydration NS@84/hr, recheck BMP in the AM - avoid nephrotoxic agents, discussed with pharmacist, hold off on adjusting Levaquin, recheck BMP in the am Oral Leonor -Magic mouthwash 4 times daily, frequent oral care, discussed with nurse. ?blood tinged mucus/discharge in brief. - UA unremarkable - hemoccult stool ordered, not collected - No further repots of blood DVT prophylaxis -Start Subq heparin due to poor mobility. Discussed with nurse, and . Gail Webster December 08, 2017 08:19
--- NOTE | 2017-12-08 08:46 | HHI.PYPN ---
Subjective Chief Complaint: Agitation Remarks Patient seen and examined with nurse. Chart reviewed. Patient did eat all of her breakfast this morning. Case discussed with nursing staff. On my exam, patient is sitting calmly in her room. She appears to be praying. She remains oppositional in our interaction, for example actively opposing my efforts to examine her for EPS. Speech remains rambling, but as with yesterday there are bits of speech that are more coherent. No evident side effects from medications. No physical complaints. Review of Systems ROS Limitations: Poor Historian Except as stated in HPI: all other systems reviewed are Neg Mental Status Examination Appearance: Disheveled Consciousness: Alert Orientation: Person Motor Activity: Other (No motor abnormalities noted) Speech: Rapid Language: Other (Somewhat rambling) Fund of Knowledge: Inadequate Attention and Concentration: Inadequate Memory: Impaired Mood: Oppositional Affect: Irritable Thought Process & Associations: Disorganized Thought Content: Other (Ongoing poverty of thought) Hallucination Type: None Delusion Type: None Suicidal Ideation: No (No SI voiced) Homicidal Ideation: No (No HI voiced) Insight: Poor Judgment: Poor Results Labs Item Value Date Time Sodium Level 138 MEQ/L 12/08/17 0930 Potassium Level 3.8 MEQ/L 12/08/17 0930 Chloride Level 100 MEQ/L 12/08/17 0930 Carbon Dioxide Level 28.9 MEQ/L 12/08/17 0930 Blood Urea Nitrogen 25 MG/DL H # 12/08/17 0930 Creatinine 1.44 MG/DL H 12/08/17 0930 Estimat Glomerular Filtration Rate 43 ML/MIN L 12/08/17 09 Random Glucose 99 MG/DL 12/08/17 09 Labs reviewed. Decreased GFR noted. Vitals/IOs Vital Signs Date Time Temp Pulse Resp B/P (MAP) Pulse Ox O2 Delivery O2 Flow Rate FiO2 12/08/17 06:00 98.1 54 18 156/63 (94) 98 Intake and Output 12/08/17 12/08/17 12/09/17 08:00 16:00 00:00 Intake Total 360 ml Balance 360 ml Assessment & Plan Problem List: (1) Schizoaffective disorder, bipolar type ICD Codes: F25.0 - Schizoaffective disorder, bipolar type Status: Chronic (2) Dementia ICD Codes: F03.90 - Unspecified dementia without behavioral disturbance Status: Acute Assessment & Plan Patient seems to be improving with increased dose of Thorazine. I will continue titration of this agent to 150mg TID. Continue other psychotropics as ordered. Continue to monitor on the inpatient unit. Case discussed with hospitalist. Continue other meds and care as ordered. Justification for Cont. Inpt. Med changes. Risk for decompensation in less restrictive setting. Impairment in self-care. Discharge Planning I have instructed the counselor to have the family come out of make a visit to apprise us of their sense of patient's progress. I also want to make sure that family is still committed to taking the patient home, especially if she is at or near her new baseline Request HC Surrog/Guard Advoc?: Yes Hunter Pérez MD December 08, 2017 08:45
[2017-12-08] MEDS: DIVALPROEX SODIUM DELAYED RELEASE 125 MG TAB PO SCH ×2 (10:18→20:57)
[2017-12-08] MEDS: LEVOFLOXACIN 750 MG TAB PO SCH (10:18)
[2017-12-08] MEDS: chlorproMAZINE HCL 25 MG TAB PO SCH (10:18)
[2017-12-08] MEDS: QUEtiapine FUMARATE 200 MG TAB PO SCH ×2 (10:19→20:57)
[2017-12-08] MEDS: MEGESTROL ACETATE SUSP 400 MG/10 ML CUP PO SCH (10:19)
[2017-12-08] MEDS: HEPARIN SODIUM - SQ 10,000 UNITS/ML VIAL SQ SCH ×2 (10:21→20:57)
[2017-12-08] MEDS: REMOVE OLD PATCH T-DERMAL SCH (10:21)
[2017-12-08] MEDS: NYSTAT/DIPHENHY/LIDO MOUTHWASH (Adult) 120ML SWISH-SWAL SCH ×4 (10:32→20:58)
[2017-12-08 11:10] LABS: BICARBONATE 28.9 MEQ/L (21.0-32.0); CALCIUM 9.8 MG/DL (8.5-10.1); CREATININE 1.44 MG/DL (0.50-1.00)
--- NOTE | 2017-12-08 11:26 | HHI.GIFU ---
Subjective Remarks Pt OOB to chair. She appears to be eating well during certain meals. Ate all lunch yesterday, part of a snack, and all breakfast today. (Alyssa Palma) Objective Vitals I&O Vital Signs Date Time Temp Pulse Resp B/P (MAP) Pulse Ox O2 Delivery O2 Flow Rate FiO2 12/08/17 06:00 98.1 54 18 156/63 (94) 98 12/07/17 16:51 64 18 119/85 (96) 98 I/O 12/07/17 12/07/17 12/07/17 12/08/17 12/08/17 12/08/17 07:00 15:00 23:00 07:00 15:00 23:00 Intake Total 240 ml 840 ml 1080 ml 360 ml 360 ml Balance 240 ml 840 ml 1080 ml 360 ml 360 ml Intake Oral 240 ml 840 ml 1080 ml 360 ml Oral Supplement 360 ml # Voids 0 2 Laboratory Laboratory Tests Test 12/08/17 09:30 Blood Urea Nitrogen 25 Creatinine 1.44 Random Glucose 99 Calcium Level 9.8 Sodium Level 138 Potassium Level 3.8 Chloride Level 100 Carbon Dioxide Level 28.9 Anion Gap 9 Estimat Glomerular Filtration Rate 43 Date/Time Source Procedure Growth Status 11/24/17 13:35 Urine Catheterized Urine Urine Culture - Final 50-100,000 CFU/ML MIXED GRAM POSITIVE... Complete Imaging Last Impressions Chest X-Ray 12/04/17 0000 Signed Impressions: Service Date/Time: Monday, December 04, 2017 13:20 - CONCLUSION: New minimal parenchymal changes left base. Bryce Ortiz MD FACR Physical Exam HEENT: normocephalic; atraumatic; no jaundice. CHEST: CTA CARDIAC: RRR ABDOMEN: Soft, obese, nontender; no hepatosplenomegaly; bowel sounds are present in all four quadrants. old peg site no bleeding or purulence EXTREMITIES: No clubbing, cyanosis, or edema. SKIN: Normal; no rash; no jaundice. 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 Unsure who placed initial G tube or when it was placed. Per record pts G tube was clogged at that time, and was discontinued at bedside by Dr. Wiggins, pt has recently failed calorie count. According to RN her PO intake is dependent on her psych status states she is able to eat OK when her mentation is better. 12/07/17 pt eating well today per [employer] 12/08/17 pt ate lunch yesterday, ate breakfast today. prior to dietary intake was insufficient and they recommended Jevity 1.5 @ 25ml/hr, increase 10ml/hr Q 4-hr to goal rate 45ml/hr. Plan: consider PEG tuesday vs Tuesday Nutrition following continue ensure, pudding supportive care Pt has been seen and examined by myself and Dr. Ching and this note is written on her behalf (Alyssa Palma) Physician Comments we will observe over weekend if not better-peg Tuesday (Chayito Ching MD) Alyssa Palma December 08, 2017 11:26 Chayito Ching MD December 08, 2017 16:01
[2017-12-08] MEDS: SODIUM CHLOR 0.9% 1000 ML INJ 1,000 ML IV SCH ×2 (17:19→17:41)
[2017-12-08 18:12] VITALS: BP 105/60; PULSE 64; RESP 16; TEMP 97.3; O2SAT 98
[2017-12-09] MEDS: SODIUM CHLOR 0.9% 1000 ML INJ 1,000 ML IV SCH (01:40)
[2017-12-09 06:19] VITALS: BP 129/68; PULSE 102; RESP 16; TEMP 97.2; O2SAT 99
--- NOTE | 2017-12-09 08:07 | HHI.PR ---
Subjective Remarks Follow-up visit for dislodged G-tube, poor p.o. intake, HTN, pneumonia, and NITHIN. Spoke with nurse reports patient has been sleepy this morning and slept throughout the night. Patient is seen and examined in her room asleep in bed, arouses easily to light touch but goes right back to sleep. Nurse called me later around 1020 regarding concerns for patient's ability to swallow. Patient coughing with sip of Ensure. Objective Vitals Vital Signs Date Time Temp Pulse Resp B/P (MAP) Pulse Ox O2 Delivery O2 Flow Rate FiO2 12/09/17 06:19 97.2 102 16 129/68 (88) 99 12/08/17 18:12 97.3 64 16 105/60 (75) 98 I/O 12/08/17 12/08/17 12/08/17 12/09/17 12/09/17 12/09/17 07:00 15:00 23:00 07:00 15:00 23:00 Intake Total 360 ml 360 ml 2280 ml 0 ml Balance 360 ml 360 ml 2280 ml 0 ml Intake Oral 360 ml 2280 ml 0 ml Oral Supplement 360 ml # Voids 0 2 Result Diagram: 12/08/17 0930 Imaging Last Impressions Chest X-Ray 12/04/17 0000 Signed Impressions: Service Date/Time: Monday, December 04, 2017 13:20 - CONCLUSION: New minimal parenchymal changes left base. Bryce Ortiz MD FACR Objective Remarks GENERAL: Well-developed -[place] female in no acute distress. Asleep in bed. NECK: Trachea midline. ENT: No nasal drainage noted. Airway patent. CARDIOVASCULAR: Regular rhythm and rate, no murmurs, gallops, or rubs. RESPIRATORY: Nonlabored breathing, clear lung sounds. No wheezing or rhonchi noted. GASTROINTESTINAL: Abdomen soft. No guarding. G-tube site healing. Normal active bowel sounds. MUSCULOSKELETAL: Extremities without clubbing, cyanosis, or edema. NEUROLOGICAL: Awake and alert. Motor and sensory grossly within normal limits. Moves bilateral upper and lower extremities spontaneously. No facial droop. A/P Problem List: (1) Hypertension ICD Code: I10 - Essential (primary) hypertension Status: Chronic (2) Schizoaffective disorder, bipolar type ICD Code: F25.0 - Schizoaffective disorder, bipolar type Status: Chronic (3) Dementia ICD Code: F03.90 - Unspecified dementia without behavioral disturbance Status: Acute Assessment and Plan 69-year-old female with behavioral disturbances in the context of dementia with hypertension. Dementia with behavioral disturbance Schizoaffective disorder - Patient admitted for abnormal behavior related to dementia and/or schizoaffective disorder - management per primary team - Decreased ambulation PT cell and evaluated patient on 12/07. No assistive devices recommended, functioning at optimal status. Continued skilled physical therapy services not indicated, consult OT. Staff to help patient OOB to for mobilization. -Patient more sleepy this morning, ? Possibly due to Thorazine. New cough Cough with liquids CXR new parenchymal changes in left base Concern for HAP or aspiration PNA Past swallow evaluation with recommendations for pured diet with thin liquids - Patient is afebrile. No leukocytosis. Satting well on room air. De- escalate antibiotics, DC IV antibiotic treatment, continue with oral Levaquin, end date 12/11 to complete 7 day course - monitor respiratory status - supplemental oxygen as needed to maintain O2 sats>92% - aspiration precautions -Concern for dysphasia, speech evaluation ordered. Hypertensive urgency, resolved Tachycardia Blood pressure as high as 248/119 in the ER, much improved - Clonidine added for as needed use, systolics greater than 165 - Suspect tachycardia along with hypertension is due to agitation -Blood pressure stable. Poor po intake s/p G tube placement, ?dislodged. GI removed. -Diet downgraded to pure per speech therapy recommendations. -Evaluated by dietitian with inadequate p.o. intake, ongoing inadequate intake. Recommendations 12/06 for NGT or new feeding tube for TF'ings ( recommendations for Jevity 1.5@25ml/hr increase 10ml/hr Q4hrs until goal rate 45ml/hr). - GI saw for possible peg placement, will hold off for the moment. -Continue Megace for appetite stimulant -Continue Ensure Enlive TID, add Ensure pudding TID -Actual documented weight today 84 kg, prior weight to compare from was in 2010 -Continue IV hydration for the moment due to poor p.o. intake. GI with plans for peg possibly Tuesday or Tuesday. NITHIN, suspect secondary to poor po intake. - Worsening renal function likely secondary to dehydration from poor PO intake. Creatinine 1.44, BUN 25, GFR 43 - No history of CHF documented. - started on IV hydration NS@84/hr, renal from this morning improved. BUN 16, creatinine 0.86, GFR 77 -Although renal function has improved patient is very sleepy and with poor p.o. intake, will continue IV hydration fluids changed to D5 NS. Monitor closely for fluid overload. TIFFANIE hose in place, no leg edema noted, lungs clear. Oral Leonor -Magic mouthwash 4 times daily, frequent oral care. Low BS -Blood sugar with labs this morning 74, likely due to poor p.o. intake. -Accu-Cheks, change IV fluids to D5NS, swallow evaluation ordered. DVT prophylaxis -Start Subq heparin due to poor mobility. Discussed with nurse. Gail Webster December 09, 2017 08:07
[2017-12-09 09:00] LABS: BICARBONATE 26.8 MEQ/L (21.0-32.0); CALCIUM 9.2 MG/DL (8.5-10.1); CREATININE 0.86 MG/DL (0.50-1.00)
[2017-12-09] MEDS: REMOVE OLD PATCH T-DERMAL SCH (09:00)
[2017-12-09] MEDS: NYSTAT/DIPHENHY/LIDO MOUTHWASH (Adult) 120ML SWISH-SWAL SCH ×4 (09:00→21:00)
[2017-12-09] MEDS: DIVALPROEX SODIUM DELAYED RELEASE 125 MG TAB PO SCH ×4 (09:00→21:12)
[2017-12-09] MEDS: QUEtiapine FUMARATE 200 MG TAB PO SCH ×4 (09:00→21:12)
[2017-12-09] MEDS: MEGESTROL ACETATE SUSP 400 MG/10 ML CUP PO SCH ×2 (09:00→09:36)
[2017-12-09] MEDS: LEVOFLOXACIN 750 MG TAB PO SCH ×2 (09:00→09:36)
--- NOTE | 2017-12-09 09:35 | PD.TTN ---
Patient Problems 1. Discharge planning 2. Medication compliance 3. Knowledge deficit 4. Lack of coping skills Progress Toward Goals Provider Present: Dr. Mandi Pérez Provider Input: 12/09/2017; Patient's medication contiues to be adjusted, to increase her meals, and manage her mood. Patient is less anxious and agitated, medical is being consulted about whether or not the feeding tube is neccessary 12/06/2017; patient medication has been restarted, with some improvement with her mood/behavior 11/22/17 pt needs med adjustment/increased and further stabilization, still paranoid Nurse(s) Present: VELIA Canada Nurse(s) Input: 12/09/2017; patient is eating better, taking her medication and is less anxious with fewer verbal outburst. 12/06/2017 Patient is eating and taking her medication, requires coaching and redirection Psychiatric Counselors Present: Fara Keene LCSW, ALEXANDER Wells Psych Therapist Input: 12/09/2017; counselor will continue trying to notify patient's family regarding treatment, and dc planning 12/06/2017; counselor will contact family to discuss dc needs 11/22/17 no insight, uncooperative, psychotic, has niece can return home when better Group Spec/RT/OT/ORTEGA Present: Juan Shearer, KAMI Group Spec/RT/OT/ORTEGA Input: 12/09/2017; patient is unable to attend or participate with groups 12/06/2017; patient is unable to attend or participate with groups 11/22/17 new to OT appears not able to engage at this time Documentation Scribe: Meg Del Rio December 09, 2017 09:35
[2017-12-09] MEDS: HEPARIN SODIUM - SQ 10,000 UNITS/ML VIAL SQ SCH ×3 (09:37→21:13)
[2017-12-09] MEDS ORDERED: DEXT 5%-NACL 0.9% 1000 ML INJ 1,000 ML IV SCH (11:00)
--- NOTE | 2017-12-09 11:18 | HHI.GIFU ---
Subjective Remarks Pt resting in bed No complaints Spoke with RN he states pts eating fluctuates She did not eat breakfast and refused snack last night but ate 100% of her dinner last night (Kamala Steele) Objective Vitals I&O Vital Signs Date Time Temp Pulse Resp B/P (MAP) Pulse Ox O2 Delivery O2 Flow Rate FiO2 12/09/17 06:19 97.2 102 16 129/68 (88) 99 12/08/17 18:12 97.3 64 16 105/60 (75) 98 I/O 12/08/17 12/08/17 12/08/17 12/09/17 12/09/17 12/09/17 07:00 15:00 23:00 07:00 15:00 23:00 Intake Total 360 ml 360 ml 2280 ml 0 ml 0 ml Balance 360 ml 360 ml 2280 ml 0 ml 0 ml Intake Oral 360 ml 2280 ml 0 ml 0 ml Oral Supplement 360 ml # Voids 0 2 Laboratory Laboratory Tests Test 12/09/17 07:40 Blood Urea Nitrogen 16 Creatinine 0.86 Random Glucose 74 Calcium Level 9.2 Sodium Level 140 Potassium Level 4.1 Chloride Level 106 Carbon Dioxide Level 26.8 Anion Gap 7 Estimat Glomerular Filtration Rate 77 Valproic Acid (Depakene) Level 34 Date/Time Source Procedure Growth Status 11/24/17 13:35 Urine Catheterized Urine Urine Culture - Final 50-100,000 CFU/ML MIXED GRAM POSITIVE... Complete Imaging Last Impressions Chest X-Ray 12/04/17 0000 Signed Impressions: Service Date/Time: Monday, December 04, 2017 13:20 - CONCLUSION: New minimal parenchymal changes left base. Bryce Ortiz MD FACR Physical Exam HEENT: Normocephalic; atraumatic CHEST: Even/unlabored CARDIAC: RRR ABDOMEN: Soft, nontender, bowel sounds active EXTREMITIES: No clubbing, cyanosis, or edema. SKIN: Normal; no rash; no jaundice. SADDLE STITCHER: Sleeping (Kamala Steele) Assessment and Plan Plan ASSESSMENT - PEG tube removed by our service on December 01. Unsure who placed initial G tube or when it was placed. Per record pts G tube was clogged at that time, and was discontinued at bedside by Dr. Wiggins, pt has recently failed calorie count. According to RN her PO intake is dependent on her psych status states she is able to eat OK when her mentation is better. (12/09) Spoke with RN who states that pts eating has fluctuated. She did not eat breakfast this morning or snack last night, ate 100% of dinner and breakfast yesterday but only 10% of lunch. Would likely benefit from PEG to supplement meals that pt will not eat. Plan: EGD with PEG Tuesday Obtain consent NPO after MN Tuesday Hold Heparin Tuesday morning Nutrition following Further recommendations based on clinical course Pt has been seen and examined by myself and Dr. Ching and this note is written on her behalf (Kamala Steele) Kamala Steele December 09, 2017 11:18 Chayito Ching MD December 09, 2017 17:58
--- NOTE | 2017-12-09 12:24 | HHI.PYPN ---
Subjective Chief Complaint: Agitation Remarks Patient seen and examined with nurse. Chart reviewed. Case discussed with nursing staff. Oral intake remains fairly poor, although she did eat somewhat better yesterday. Plan is for PEG after the weekend. Diet was held as were medications this morning out of concern for ongoing aspiration and follow-up speech therapy consultation has been ordered. Case discussed in treatment team. On my examination today, the patient is calm and lying in her bed. She is much more lucid than in previous days and tells me "I am ready to go home now." When I try to ask her follow-up questions she will only repeat "I had like something in my stomach." No side effects from medications. No physical complaints. Review of Systems ROS Limitations: Poor Historian Except as stated in HPI: all other systems reviewed are Neg Mental Status Examination Appearance: Disheveled Consciousness: Alert Orientation: Person Motor Activity: Other (No abnormal motor movements noted) Speech: Unremarkable Language: Other (Much more coherent today) Fund of Knowledge: Inadequate Attention and Concentration: Inadequate Memory: Impaired Mood: Appropriate Affect: Appropriate Thought Process & Associations: Circumstantial Thought Content: Other (Ongoing poverty of thought) Hallucination Type: None Delusion Type: None Suicidal Ideation: No (No SI voiced) Homicidal Ideation: No (No HI voiced) Insight: Poor Judgment: Poor Results Labs Test 12/09/17 07:40 Blood Urea Nitrogen 16 MG/DL Creatinine 0.86 MG/DL Random Glucose 74 MG/DL Calcium Level 9.2 MG/DL Sodium Level 140 MEQ/L Potassium Level 4.1 MEQ/L Chloride Level 106 MEQ/L Carbon Dioxide Level 26.8 MEQ/L Anion Gap 7 MEQ/L Estimat Glomerular Filtration Rate 77 ML/MIN Valproic Acid (Depakene) Level 34 MCG/ML Date/Time Source Procedure Growth Status 11/24/17 13:35 Urine Catheterized Urine Urine Culture - Final 50-100,000 CFU/ML MIXED GRAM POSITIVE... Complete Labs reviewed. Renal function improved. Depakote level subtherapeutic. Vitals/IOs Vital Signs Date Time Temp Pulse Resp B/P (MAP) Pulse Ox O2 Delivery O2 Flow Rate FiO2 12/09/17 06:19 97.2 102 16 129/68 (88) 99 Intake and Output 12/09/17 12/09/17 12/10/17 08:00 16:00 00:00 Intake Total 0 ml 0 ml Balance 0 ml 0 ml Assessment & Plan Problem List: (1) Schizoaffective disorder, bipolar type ICD Codes: F25.0 - Schizoaffective disorder, bipolar type Status: Chronic (2) Dementia ICD Codes: F03.90 - Unspecified dementia without behavioral disturbance Status: Acute Assessment & Plan Patient's mental status is very much improved today. Continue current psychotropics as ordered. We could consider titrating patient's Depakote to bring the level into the therapeutic range, although it is unclear if this is spuriously low. Probably the best course of action is to recheck a level after several days of adherence, once patient is again taking PO. Operations Plant Attendant input noted and appreciated. Continue to monitor on inpatient unit. Continue other medications and care as ordered. Justification for Cont. Inpt. Risk for decompensation in less restrictive environment. Discharge Planning Plan is for discharge home into family's care. Request HC Surrog/Guard Advoc?: Yes Hunter Pérez MD December 09, 2017 12:24
[2017-12-09 18:10] VITALS: BP 116/56; PULSE 99; RESP 16; TEMP 98.1; O2SAT 97
[2017-12-09] MEDS: diphenhydrAMINE HCL 50 MG/ML VIAL IM PRN (21:49)
[2017-12-09] MEDS: HALOPERIDOL LACTATE 5 MG/ML AMP IM PRN (21:49)
[2017-12-10] MEDS ORDERED: HALOPERIDOL LACTATE 5 MG/ML AMP IM ONE ×2 (03:15→15:00)
[2017-12-10] MEDS ORDERED: diphenhydrAMINE HCL 50 MG/ML VIAL IM ONE (03:15)
[2017-12-10 06:00] VITALS: BP 124/71; PULSE 99; RESP 18; O2SAT 94
--- NOTE | 2017-12-10 08:19 | HHI.PR ---
Subjective Remarks Follow-up visit for poor p.o. intake, HTN, pneumonia, and NITHIN. Spoke with nurse reports patient did not get much sleep overnight, has been refusing medications on and off as well as refusing Accu-Cheks on and off. She is seen and examined sitting up in geriatric chair in her room. She is awake, alert, with nonsensical speech. Not following simple commands, becomes agitated at moments during my visit. Objective Vitals Vital Signs Date Time Temp Pulse Resp B/P (MAP) Pulse Ox O2 Delivery O2 Flow Rate FiO2 12/10/17 06:00 99 18 124/71 (88) 94 12/09/17 18:10 98.1 99 16 116/56 (76) 97 I/O 12/09/17 12/09/17 12/09/17 12/10/17 12/10/17 12/10/17 07:00 15:00 23:00 07:00 15:00 23:00 Intake Total 0 ml 600 ml 720 ml Balance 0 ml 600 ml 720 ml Intake Oral 0 ml 600 ml 720 ml # Voids 2 Result Diagram: 12/09/17 0740 Imaging Last Impressions Chest X-Ray 12/04/17 0000 Signed Impressions: Service Date/Time: Monday, December 04, 2017 13:20 - CONCLUSION: New minimal parenchymal changes left base. Bryce Ortiz MD FACR Objective Remarks GENERAL: Well-developed -[place] female in no acute distress. Awake, alert. NECK: Trachea midline. ENT: No nasal drainage noted. Airway patent. CARDIOVASCULAR: Regular rhythm and rate, no murmurs, gallops, or rubs. RESPIRATORY: Nonlabored breathing, clear lung sounds. No wheezing or rhonchi noted. GASTROINTESTINAL: Abdomen soft. No guarding. G-tube site healing. Normal active bowel sounds. MUSCULOSKELETAL: Extremities without clubbing, cyanosis, or edema. NEUROLOGICAL: Awake and alert. Motor and sensory grossly within normal limits. Moves bilateral upper and lower extremities spontaneously. No facial droop. Nonsensical speech. A/P Problem List: (1) Hypertension ICD Code: I10 - Essential (primary) hypertension Status: Chronic (2) Schizoaffective disorder, bipolar type ICD Code: F25.0 - Schizoaffective disorder, bipolar type Status: Chronic (3) Dementia ICD Code: F03.90 - Unspecified dementia without behavioral disturbance Status: Acute Assessment and Plan 69-year-old female with behavioral disturbances in the context of dementia with hypertension. Dementia with behavioral disturbance Schizoaffective disorder - Patient admitted for abnormal behavior related to dementia and/or schizoaffective disorder - management per primary team - Decreased ambulation PT cell and evaluated patient on 12/07. No assistive devices recommended, functioning at optimal status. Continued skilled physical therapy services not indicated, consult OT. Staff to help patient OOB to for mobilization. -Patient did not sleep overnight per nursing, awake, alert, somewhat agitated at moments. Refusing medications on and off. New cough Cough with liquids CXR new parenchymal changes in left base Concern for HAP or aspiration PNA Past swallow evaluation with recommendations for pured diet with thin liquids - Patient is afebrile. No leukocytosis. Satting well on room air. De- escalate antibiotics, DC IV antibiotic treatment, continue with oral Levaquin, end date 12/11 to complete 7 day course - monitor respiratory status - supplemental oxygen as needed to maintain O2 sats>92% - aspiration precautions -Concern for aspiration from nurse on 12/09 due to coughing with food and fluid. Speech evaluated patient on 12/09 and recommendations to continue pure with thin liquids. Patient is much more awake today. Hypertensive urgency, resolved Tachycardia Blood pressure as high as 248/119 in the ER, much improved - Clonidine added for as needed use, systolics greater than 165 - Suspect tachycardia along with hypertension is due to agitation - Blood pressure stable. Poor po intake s/p G tube placement, ?dislodged. GI removed. -Diet downgraded to pure per speech therapy recommendations. -Evaluated by dietitian with inadequate p.o. intake, ongoing inadequate intake. Recommendations 12/06 for NGT or new feeding tube for TF'ings ( recommendations for Jevity 1.5@25ml/hr increase 10ml/hr Q4hrs until goal rate 45ml/hr). - GI saw for possible peg placement, will hold off for the moment. -Continue Megace for appetite stimulant -Continue Ensure Enlive TID, add Ensure pudding TID -Last recorded weight 84 kg -Patient much more awake overnight and this morning, pulled out IV. Discontinue IV fluids, continue encouraging p.o. intake, Accu-Cheks every 4 hours to monitor for hypoglycemia. GI with plans for peg possibly Tuesday. -N.p.o. tomorrow after midnight, hold morning dose of heparin. NITHIN, suspect secondary to poor po intake, resolved - Worsening renal function likely secondary to dehydration from poor PO intake. Creatinine 1.44, BUN 25, GFR 43 - No history of CHF documented. -s/p IV hydration renal function improved. BUN 16, creatinine 0.86, GFR 77 -Continue encouraging p.o. and Oral Leonor -Magic mouthwash 4 times daily, frequent oral care. Low BS -Secondary to poor p.o. intake. Patient is more awake and alert today, pulled out IV. IV fluids discontinued, discussed with nurse to continue encouraging p.o. intake. Accu-Cheks every 4 hours with hypoglycemic protocol. DVT prophylaxis -Subcu heparin Discussed with Dr. Munoz and nurse. Gail Webster December 10, 2017 08:19
[2017-12-10] MEDS ORDERED: GLUCAGON 1 MG/ML VIAL IM PRN (08:30)
[2017-12-10] MEDS ORDERED: DEXTROSE 50% IN WATER 50 ML VIAL(D50) IV PUSH PRN (08:30)
[2017-12-10] MEDS: NYSTAT/DIPHENHY/LIDO MOUTHWASH (Adult) 120ML SWISH-SWAL SCH ×4 (09:00→20:23)
[2017-12-10] MEDS: HEPARIN SODIUM - SQ 10,000 UNITS/ML VIAL SQ SCH ×2 (09:00→21:45)
[2017-12-10] MEDS: REMOVE OLD PATCH T-DERMAL SCH (09:00)
[2017-12-10] MEDS: DIVALPROEX SODIUM DELAYED RELEASE 125 MG TAB PO SCH ×3 (09:00→20:23)
[2017-12-10] MEDS: QUEtiapine FUMARATE 200 MG TAB PO SCH ×3 (09:00→20:23)
[2017-12-10] MEDS: MEGESTROL ACETATE SUSP 400 MG/10 ML CUP PO SCH (09:00)
[2017-12-10] MEDS: LEVOFLOXACIN 750 MG TAB PO SCH (09:00)
[2017-12-10 14:22] LABS: BICARBONATE 27.7 MEQ/L (21.0-32.0); CALCIUM 9.1 MG/DL (8.5-10.1); CREATININE 1.02 MG/DL (0.50-1.00)
--- NOTE | 2017-12-10 15:20 | HHI.PYPN ---
Subjective Chief Complaint: Agitation Remarks Reviewed electronic medical records and discussed case with staff. Follow-up was conducted in the hallway with staff present. Nurse reports patient has been aggressive with material handler 2nd shift and had to receive 2 emergency treatment orders last night to manage her behaviors. She states that they reported she did not sleep and wondered the halls. She kept letting herself into the nurses station. She advises that the patient has been refusing some of her medications in particular her Depakote every approximately 2 out of 3 doses. Upon examination she appears extremely confused and disorganized. Her speech is nonsensical and disorganized. While I was on the unit patient became agitated and began throwing the trash can on the bird. She became aggressive with staff. I ordered another ETO of Haldol 10 mg IM. Mental Status Examination Appearance: Disheveled Consciousness: Alert Orientation: Person Motor Activity: Other (No abnormal motor movements noted) Speech: Unremarkable Language: Other (Much more coherent today) Fund of Knowledge: Inadequate Attention and Concentration: Inadequate Memory: Impaired Mood: Appropriate Affect: Appropriate Thought Process & Associations: Circumstantial Thought Content: Other (Ongoing poverty of thought) Hallucination Type: None Delusion Type: None Suicidal Ideation: No (No SI voiced) Homicidal Ideation: No (No HI voiced) Insight: Poor Judgment: Poor Results Labs Test 12/10/17 12:53 Blood Urea Nitrogen 12 MG/DL Creatinine 1.02 MG/DL Random Glucose 73 MG/DL Calcium Level 9.1 MG/DL Sodium Level 141 MEQ/L Potassium Level 3.9 MEQ/L Chloride Level 106 MEQ/L Carbon Dioxide Level 27.7 MEQ/L Anion Gap 7 MEQ/L Estimat Glomerular Filtration Rate 63 ML/MIN Date/Time Source Procedure Growth Status 11/24/17 13:35 Urine Catheterized Urine Urine Culture - Final 50-100,000 CFU/ML MIXED GRAM POSITIVE... Complete Vitals/IOs Vital Signs Date Time Temp Pulse Resp B/P (MAP) Pulse Ox O2 Delivery O2 Flow Rate FiO2 12/10/17 06:00 99 18 124/71 (88) 94 12/09/17 18:10 98.1 Intake and Output 12/10/17 12/10/17 12/11/17 08:00 16:00 00:00 Intake Total 1200 ml Balance 1200 ml Assessment & Plan Problem List: (1) Schizoaffective disorder, bipolar type ICD Codes: F25.0 - Schizoaffective disorder, bipolar type Status: Chronic (2) Dementia ICD Codes: F03.90 - Unspecified dementia without behavioral disturbance Status: Acute Assessment & Plan Estimated LOS: Continue with treatment plan as directed. Discussed patient's ongoing behaviors with her attending. He advised to continue with the medication as ordered at this time. Patient has been made n.p.o. on several occasions and has not had a respectable trial of the medications in which to reach therapeutic level as of yet. Days Justification for Cont. Inpt. Moving this patient to a lower level of care would result in decompensation. Request HC Surrog/Guard Advoc?: Yes Antoinette Arauz December 10, 2017 15:20
[2017-12-10 17:47] VITALS: BP 118/58; PULSE 97; RESP 20
[2017-12-10 18:10] VITALS: TEMP 97.9
[2017-12-10] MEDS: diphenhydrAMINE HCL 25 MG CAP PO PRN (20:11)
[2017-12-10] MEDS: diphenhydrAMINE HCL 50 MG/ML VIAL IM PRN (21:45)
[2017-12-10] MEDS: HALOPERIDOL LACTATE 5 MG/ML AMP IM PRN (21:45)
[2017-12-11 06:00] VITALS: BP 135/86; PULSE 86; RESP 19
[2017-12-11] MEDS ORDERED: ceFAZolin 2 GM PREMIX 50 ML IV SCH (06:00)
[2017-12-11] MEDS: QUEtiapine FUMARATE 200 MG TAB PO SCH ×2 (07:30→21:14)
[2017-12-11] MEDS: LEVOFLOXACIN 750 MG TAB PO SCH (07:30)
[2017-12-11] MEDS: DIVALPROEX SODIUM DELAYED RELEASE 125 MG TAB PO SCH ×2 (07:30→21:00)
[2017-12-11] MEDS: NYSTAT/DIPHENHY/LIDO MOUTHWASH (Adult) 120ML SWISH-SWAL SCH ×4 (07:31→21:00)
[2017-12-11] MEDS: MEGESTROL ACETATE SUSP 400 MG/10 ML CUP PO SCH (07:31)
[2017-12-11] MEDS: HEPARIN SODIUM - SQ 10,000 UNITS/ML VIAL SQ SCH ×2 (07:33→21:14)
[2017-12-11] MEDS: REMOVE OLD PATCH T-DERMAL SCH (08:04)
--- NOTE | 2017-12-11 08:30 | HHI.PR ---
Subjective Remarks Follow-up visit for poor p.o. intake, HTN, pneumonia, and NITHIN. Spoke with nurse reports that patient was very agitated yesterday walking around the nurses station and ended up going inside of the nurses station throwing a trash can and spilling drinks. Nurse also reports that patient has not slept for the past 2 days. She has been refusing medications on and off, not eating much but is drinking. Patient is seen and examined in the bird in geriatric chair, appears very agitated with nonsensical speech. Objective Vitals Vital Signs Date Time Temp Pulse Resp B/P (MAP) Pulse Ox O2 Delivery O2 Flow Rate FiO2 12/11/17 06:00 86 19 135/86 (102) 12/10/17 18:10 97.9 12/10/17 17:47 97 20 118/58 (78) I/O 12/10/17 12/10/17 12/10/17 12/11/17 12/11/17 12/11/17 07:00 15:00 23:00 07:00 15:00 23:00 Intake Total 1200 ml 0 ml Balance 1200 ml 0 ml Intake Oral 1200 ml 0 ml # Voids 0 Result Diagram: 12/10/17 1253 Imaging Last Impressions Chest X-Ray 12/04/17 0000 Signed Impressions: Service Date/Time: Monday, December 04, 2017 13:20 - CONCLUSION: New minimal parenchymal changes left base. Bryce Ortiz MD FACR Objective Remarks GENERAL: Well-developed -Honduran female. Awake, alert, agitated but in no acute distress.. NECK: Trachea midline. ENT: No nasal drainage noted. Airway patent. CARDIOVASCULAR: Regular rhythm and rate, no murmurs, gallops, or rubs. RESPIRATORY: Nonlabored breathing, clear lung sounds. No wheezing or rhonchi noted. GASTROINTESTINAL: Abdomen soft. No guarding. Normal active bowel sounds. MUSCULOSKELETAL: Extremities without clubbing, cyanosis, or edema. NEUROLOGICAL: Awake and alert. Motor and sensory grossly within normal limits. Moves bilateral upper and lower extremities spontaneously, not following directions. No facial droop. Nonsensical speech. A/P Problem List: (1) Hypertension ICD Code: I10 - Essential (primary) hypertension Status: Chronic (2) Schizoaffective disorder, bipolar type ICD Code: F25.0 - Schizoaffective disorder, bipolar type Status: Chronic (3) Dementia ICD Code: F03.90 - Unspecified dementia without behavioral disturbance Status: Acute Assessment and Plan 69-year-old female with behavioral disturbances in the context of dementia with hypertension. Dementia with behavioral disturbance Schizoaffective disorder - Patient admitted for abnormal behavior related to dementia and/or schizoaffective disorder - management per primary team - Decreased ambulation PT cell and evaluated patient on 12/07. No assistive devices recommended, functioning at optimal status. Continued skilled physical therapy services not indicated, consult OT. Staff to help patient OOB to for mobilization. -Continues to refuse medications on and off, has not slept in 2 days. New cough Cough with liquids CXR new parenchymal changes in left base Concern for HAP or aspiration PNA Past swallow evaluation with recommendations for pured diet with thin liquids - Patient is afebrile. No leukocytosis. Satting well on room air. De- escalate antibiotics, DC IV antibiotic treatment, continue with oral Levaquin, end date 12/11 to complete 7 day course - monitor respiratory status - supplemental oxygen as needed to maintain O2 sats>92% - aspiration precautions -Concern for aspiration from nurse on 12/09 due to coughing with food and fluid. Speech evaluated patient on 12/09 and recommendations to continue pure with thin liquids. -Patient afebrile appears to be in no acute respiratory distress. Hypertensive urgency, resolved Tachycardia Blood pressure as high as 248/119 in the ER, much improved - Clonidine added for as needed use, systolics greater than 165 - Suspect tachycardia along with hypertension is due to agitation - Blood pressure stable. Poor po intake s/p G tube placement, ?dislodged. GI removed. -Diet downgraded to pure per speech therapy recommendations. -Evaluated by dietitian with inadequate p.o. intake, ongoing inadequate intake. Recommendations 12/06 for NGT or new feeding tube for TF'ings ( recommendations for Jevity 1.5@25ml/hr increase 10ml/hr Q4hrs until goal rate 45ml/hr). - GI saw for possible peg placement, will hold off for the moment. -Continue Megace for appetite stimulant -Continue Ensure Enlive TID, add Ensure pudding TID -Last recorded weight 84 kg -Patient much more awake overnight and this morning, pulled out IV. Discontinue IV fluids, continue encouraging p.o. intake, Accu-Cheks every 4 hours to monitor for hypoglycemia. GI plans for PEG tomorrow. -N.p.o. tonight after midnight, hold morning dose of heparin. NITHIN, suspect secondary to poor po intake, resolved - Worsening renal function likely secondary to dehydration from poor PO intake. Creatinine 1.44, BUN 25, GFR 43 - No history of CHF documented. -s/p IV hydration IV hydration, creatinine--> 1.02 -Continue encouraging p.o., peg placement tomorrow Oral Leonor -Magic mouthwash 4 times daily, frequent oral care. Low BS -Secondary to poor p.o. intake, nurse reports patient is drinking fluids. -One episode of hypoglycemia 12/10, blood sugar 59 with recheck 78. -Continue Accu-Cheks every 4 hours with hypoglycemic protocol. DVT prophylaxis -Subcu heparin Discussed with nurse. Gail Webster December 11, 2017 08:30
[2017-12-11 08:51] VITALS: TEMP 96.9
--- NOTE | 2017-12-11 09:35 | HHI.PYPN ---
Subjective Chief Complaint: Agitation Remarks Chart reviewed and discussed with VELIA Brooks. Patient is in the hallway in a chair by the nurse's station. Patient has been awake all night , very agitated and keeping other patients awake. Staff reports that she gained access to the nurse's station and threw a garbage can. Staff reports that she refuses to eat and therefore has missed some of her medications. Cecilia was able to get her to take her morning medications in yogurt. Case discussed with Dr. Pérez and will change her Thorazine from 150 mg tid to Thorazine 100 mg at 0800 & noon and 300 mg qhs. Mental Status Examination Appearance: Appropriate Consciousness: Alert, Other (loud and anxious ) Orientation: Person Motor Activity: Other (No abnormal motor movements noted) Speech: Unremarkable Language: Perseveration Fund of Knowledge: Inadequate Attention and Concentration: Inadequate Memory: Impaired Mood: Anxious Affect: Irritable Thought Process & Associations: Disorganized Thought Content: Other (Ongoing poverty of thought) Hallucination Type: None Delusion Type: None Suicidal Ideation: No Homicidal Ideation: No Insight: Poor Judgment: Poor Results Labs Test 12/10/17 12:53 Blood Urea Nitrogen 12 MG/DL Creatinine 1.02 MG/DL Random Glucose 73 MG/DL Calcium Level 9.1 MG/DL Sodium Level 141 MEQ/L Potassium Level 3.9 MEQ/L Chloride Level 106 MEQ/L Carbon Dioxide Level 27.7 MEQ/L Anion Gap 7 MEQ/L Estimat Glomerular Filtration Rate 63 ML/MIN Date/Time Source Procedure Growth Status 11/24/17 13:35 Urine Catheterized Urine Urine Culture - Final 50-100,000 CFU/ML MIXED GRAM POSITIVE... Complete Vitals/IOs Vital Signs Date Time Temp Pulse Resp B/P (MAP) Pulse Ox O2 Delivery O2 Flow Rate FiO2 12/11/17 08:51 96.9 12/11/17 06:00 86 19 135/86 (102) 12/10/17 06:00 94 Intake and Output 12/11/17 12/11/17 12/12/17 08:00 16:00 00:00 Intake Total 240 ml Balance 240 ml Assessment & Plan Problem List: (1) Schizoaffective disorder, bipolar type ICD Codes: F25.0 - Schizoaffective disorder, bipolar type Status: Chronic (2) Dementia ICD Codes: F03.90 - Unspecified dementia without behavioral disturbance Status: Acute Assessment & Plan Estimated LOS: days Justification for Cont. Inpt. Moving this patient to a lower level of care may result in decompensation. Discharge planning in progress. Request HC Surrog/Guard Advoc?: Yes Clarisa Hopper December 11, 2017 09:35
[2017-12-11 12:18] LABS: INTERNATIONAL NORMALIZED RATIO 1.1 RATIO; PROTHROMBIN TIME - PATIENT 10.9 SEC (9.8-11.6)
[2017-12-11 17:33] VITALS: BP 129/87; PULSE 110; RESP 18; TEMP 96.4; O2SAT 97
[2017-12-11] MEDS: diphenhydrAMINE HCL 25 MG CAP PO PRN (21:13)
[2017-12-11] MEDS: MELATONIN 5 MG TAB PO PRN (21:14)
[2017-12-12] MEDS ORDERED: LACTATED RINGER'S 1000 ML IV PRN (02:30)
[2017-12-12] MEDS ORDERED: POVIDONE IODINE 5% (ANTISEPSIS KIT) 4 APPLICATIONS EACH NARE PRN (02:30)
[2017-12-12] MEDS ORDERED: CHLORHEXIDINE GLUCONATE 2 % 1 PACK (2 CLOTHS) TOPICAL PRN (02:30)
[2017-12-12] MEDS ORDERED: SODIUM CHLORID 0.9% 500 ML IV PRN (02:30)
[2017-12-12 06:25] VITALS: BP 157/94; PULSE 92; RESP 20; TEMP 96; O2SAT 97
[2017-12-12] MEDS: DIVALPROEX SODIUM DELAYED RELEASE 125 MG TAB PO SCH (07:33)
[2017-12-12] MEDS: QUEtiapine FUMARATE 200 MG TAB PO SCH (07:35)
[2017-12-12] MEDS: MEGESTROL ACETATE SUSP 400 MG/10 ML CUP PO SCH (07:37)
[2017-12-12] MEDS: NYSTAT/DIPHENHY/LIDO MOUTHWASH (Adult) 120ML SWISH-SWAL SCH ×4 (07:37→21:56)
[2017-12-12] MEDS: REMOVE OLD PATCH T-DERMAL SCH (07:56)
--- NOTE | 2017-12-12 08:06 | HHI.PR ---
Subjective Remarks Follow-up visit for poor p.o. intake, HTN, pneumonia, and NITHIN. Spoke with nurse who reports patient has continued to be agitated. Patient is seen and examined sitting up in geriatric chair in her room with nurse and tech at bedside. Nonsensical speech continues however no understandable words. She is agitated and difficult to follow directions or commands. PEG planned for today. Objective Vitals Vital Signs Date Time Temp Pulse Resp B/P (MAP) Pulse Ox O2 Delivery O2 Flow Rate FiO2 12/12/17 06:25 96.0 92 20 157/94 (115) 97 12/11/17 17:33 96.4 110 18 129/87 (101) 97 12/11/17 08:51 96.9 I/O 12/11/17 12/11/17 12/11/17 12/12/17 12/12/17 12/12/17 07:00 15:00 23:00 07:00 15:00 23:00 Intake Total 240 ml 720 ml 0 ml Balance 240 ml 720 ml 0 ml Intake Oral 240 ml 720 ml Oral Supplement 0 ml # Voids 2 2 Result Diagram: 12/10/17 1253 Imaging Last Impressions Chest X-Ray 12/04/17 0000 Signed Impressions: Service Date/Time: Monday, December 04, 2017 13:20 - CONCLUSION: New minimal parenchymal changes left base. Bryce Ortiz MD FACR Objective Remarks GENERAL: Well-developed -Turkish female. Awake, alert, agitated but in no acute distress.. NECK: Trachea midline. ENT: No nasal drainage noted. Airway patent. CARDIOVASCULAR: Regular rhythm and rate, no murmurs, gallops, or rubs. RESPIRATORY: Nonlabored breathing, clear lung sounds. No wheezing or rhonchi noted. GASTROINTESTINAL: Abdomen soft. No guarding. Normal active bowel sounds. MUSCULOSKELETAL: Extremities without clubbing, cyanosis, or edema. NEUROLOGICAL: Awake and alert. Motor and sensory grossly within normal limits. Moves bilateral upper and lower extremities spontaneously, not following directions. No facial droop. Nonsensical speech. A/P Problem List: (1) Hypertension ICD Code: I10 - Essential (primary) hypertension Status: Chronic (2) Schizoaffective disorder, bipolar type ICD Code: F25.0 - Schizoaffective disorder, bipolar type Status: Chronic (3) Dementia ICD Code: F03.90 - Unspecified dementia without behavioral disturbance Status: Acute Assessment and Plan 69-year-old female with behavioral disturbances in the context of dementia with hypertension. Dementia with behavioral disturbance Schizoaffective disorder - Patient admitted for abnormal behavior related to dementia and/or schizoaffective disorder - management per primary team - Decreased ambulation, PT has evaluated patient on 12/07. No assistive devices recommended, functioning at optimal status. Continued skilled physical therapy services not indicated, consult OT. Staff to help patient OOB to for mobilization. -PEG planned for today, hopefully will be able to consistently administer medications. New cough Cough with liquids CXR new parenchymal changes in left base Concern for HAP or aspiration PNA Past swallow evaluation with recommendations for pured diet with thin liquids - Patient is afebrile. No leukocytosis. Satting well on room air. De- escalate antibiotics, DC IV antibiotic treatment, continue with oral Levaquin, end date 12/11 to complete 7 day course - monitor respiratory status - supplemental oxygen as needed to maintain O2 sats>92% - aspiration precautions -Concern for aspiration from nurse on 12/09 due to coughing with food and fluid. Speech evaluated patient on 12/09 and recommendations to continue pure with thin liquids. -Patient afebrile appears to be in no acute respiratory distress. Hypertensive urgency, resolved Tachycardia Blood pressure as high as 248/119 in the ER, much improved - Clonidine added for as needed use, systolics greater than 165 - Suspect tachycardia along with hypertension is due to agitation - Blood pressure stable fluctuates, likely secondary to agitation however stable. Poor po intake s/p G tube placement, ?dislodged. GI removed. -Diet downgraded to pure per speech therapy recommendations. -Evaluated by dietitian with inadequate p.o. intake, ongoing inadequate intake. Recommendations 12/06 for NGT or new feeding tube for TF'ings ( recommendations for Jevity 1.5@25ml/hr increase 10ml/hr Q4hrs until goal rate 45ml/hr). - GI saw for possible peg placement, will hold off for the moment. -Continue Megace for appetite stimulant -Continue Ensure Enlive TID, add Ensure pudding TID -Last recorded weight 84 kg -Patient much more awake overnight and this morning, pulled out IV. Discontinue IV fluids, continue encouraging p.o. intake, Accu-Cheks every 4 hours to monitor for hypoglycemia. GI plans for PEG tomorrow. -N.p.o. tonight after midnight, hold morning dose of heparin. NITHIN, suspect secondary to poor po intake, resolved - Worsening renal function likely secondary to dehydration from poor PO intake. Creatinine 1.44, BUN 25, GFR 43 - No history of CHF documented. -s/p IV hydration IV hydration, creatinine--> 1.02 -PEG placement for today Oral Leonor -Magic mouthwash 4 times daily, frequent oral care. Low BS -Secondary to poor p.o. intake, nurse reports patient is drinking fluids. -One episode of hypoglycemia 12/10, blood sugar 59 with recheck 78. -Continue Accu-Cheks every 4 hours with hypoglycemic protocol, blood sugar stable. DVT prophylaxis -Subcu heparin Discussed with nurse. Gail Webster December 12, 2017 08:06
--- NOTE | 2017-12-12 08:54 | HHI.PYPN ---
Subjective Chief Complaint: Agitation Remarks Patient seen and examined. Chart reviewed. Case discussed with nursing staff. Ongoing issues with medication adherence and poor PO intake. Plan is for PEG today. On my exam, patient is disorganized. She is banging on the tray in front of her chair saying "[id number]" and concluding a string of these verbalizations with an inspiratory whoop. Affect is labile. No physical complaints. No evident side effects from medications. Review of Systems ROS Limitations: Uncooperative, Psychotic, Poor Historian Other Limited ROS Mental Status Examination Appearance: Appropriate Consciousness: Alert, Other (loud and anxious ) Orientation: Person Motor Activity: Other (No abnormal motor movements noted) Speech: Unremarkable Language: Perseveration Fund of Knowledge: Inadequate Attention and Concentration: Inadequate Memory: Impaired Mood: Anxious Affect: Irritable Thought Process & Associations: Disorganized Thought Content: Other (Ongoing poverty of thought) Hallucination Type: None Delusion Type: None Suicidal Ideation: No Homicidal Ideation: No Insight: Poor Judgment: Poor Results Labs Test 12/11/17 11:49 Prothrombin Time 10.9 SEC Prothromb Time International Ratio 1.1 RATIO Date/Time Source Procedure Growth Status 11/24/17 13:35 Urine Catheterized Urine Urine Culture - Final 50-100,000 CFU/ML MIXED GRAM POSITIVE... Complete Vitals/IOs Vital Signs Date Time Temp Pulse Resp B/P (MAP) Pulse Ox O2 Delivery O2 Flow Rate FiO2 12/12/17 06:25 96.0 92 20 157/94 (115) 97 Assessment & Plan Problem List: (1) Schizoaffective disorder, bipolar type ICD Codes: F25.0 - Schizoaffective disorder, bipolar type Status: Chronic (2) Dementia ICD Codes: F03.90 - Unspecified dementia without behavioral disturbance Status: Acute Assessment & Plan Continue psychotropics as ordered for now. Once PEG is in place and functioning , will administer these per PEG as able. Patient seemed to be doing well on current doses of meds when she was receiving them consistently, and hopefully we will be able to administer them consistently per PEG. Continue to monitor on the inpatient unit. Continue other medications and care as ordered. Justification for Cont. Inpt. High risk for decompensation in less restrictive environment. Discharge Planning Pending psychiatric stabilization. Plan is for home with family with outpatient follow-up. Request HC Surrog/Guard Advoc?: Yes Hunter Pérez MD December 12, 2017 08:54
[2017-12-12] MEDS ORDERED: PROPOFOL 200 MG/20 ML AMP IV ONE (12:00)
[2017-12-12] MEDS ORDERED: LIDOCAINE HCL 1% PF 5 ML SYRINGE OTHER ONE (12:00)
[2017-12-12] MEDS ORDERED: MIDAZOLAM HCL 2 MG/2 ML VIAL ONE (15:05)
[2017-12-12] MEDS ORDERED: DO NOT ADM ANY ANTICOAGULANT DRUGS PRN (15:10)
--- NOTE | 2017-12-12 15:10 | PD.PROCEDR ---
GI Procedure PROCEDURE PERFORMED EGD with PEG placement INDICATION FOR PROCEDURE Poor oral intake PROCEDURE: The procedure, risks and benefits were discussed with Patient/POA and informed consent was obtained. Anesthesia sedated Patient with Diprivan. Patient was placed in the left lateral decubitus position. EGD: The Pentax videoscope was introduced through the oropharynx and advanced to the second portion of the duodenum under direct visualization. Retroflexion was performed in the stomach. FINDINGS: The esophagus this was normal The stomach there was patchy erythema in the antrum but no ulcerations no erosions no blood or bleeding the rest of the stomach was unremarkable the old PEG site was noted The duodenum this was normal Following the evaluation of the stomach and the duodenum the stomach was insufflated with air and the area of PEG placement was identified through indentation and transillumination the area was prepped and draped in usual fashion 5 cc of lidocaine were injected locally a small incision was made then an Angiocath was passed into the stomach through which a guidewire was passed this was retrieved with the scope into that a PEG tube was attached and pulled into place and thereafter secured in usual fashion we used the old PEG site as an entrance point The patient tolerated procedure well and there are no immediate complications ESTIMATED BLOOD LOSS: None SPECIMENS REMOVED: None COMPLICATIONS: None IMPRESSION: Mild gastritis Successful PEG placement PLAN: 1. May use PEG tube for medications today 2. May start feeding tomorrow 3. May obtain nutritional consult for tube feeding 4. Flush tube with 50 cc of water every 4-6 hours 5. Always flush tube after feedings 6. Apply abdominal binder as necessary 7. Clamp G-tube after use and flush. No much to add from a GI standpoint we will sign off Stan Carter MD December 12, 2017 15:10
[2017-12-12] MEDS ORDERED: cloNIDine HCL 0.1 MG TAB PEG PRN (16:45)
[2017-12-12 17:41] VITALS: BP 141/65; PULSE 75; RESP 16; TEMP 97.4; O2SAT 97
[2017-12-12] MEDS: MELATONIN 5 MG TAB PO PRN (21:43)
[2017-12-12] MEDS: QUEtiapine FUMARATE 200 MG TAB PEG SCH (21:43)
[2017-12-12] MEDS: VALPROIC ACID SYRUP 250 MG/5 ML UDC PEG SCH (21:56)
[2017-12-13 06:00] VITALS: BP 166/77; PULSE 85; RESP 19; O2SAT 97
--- NOTE | 2017-12-13 08:14 | HHI.PYPN ---
Subjective Chief Complaint: Agitation Remarks Patient seen and examined. Chart reviewed. Case discussed with nursing staff. We are now giving meds by PEG. Per RN, patient is calmer since we have begun giving meds by this route. She slept better overnight (6hrs) and has been no behavioral problem this morning. On my exam, patient is sitting calmly in her room. She does get somewhat animated when I engage her in conversation, and her speech remains largely incomprehensible. She tries to grab at my hand and ID badge, perhaps representing utilization behavior. No sedation or other evident side effects from medications. No physical distress noted. Review of Systems ROS Limitations: Poor Historian Other Limited ROS because of above. Mental Status Examination Appearance: Disheveled Consciousness: Alert Orientation: Person Motor Activity: Other (No motor abnormalities noted) Speech: Incoherent Language: Other (Rambling) Fund of Knowledge: Inadequate Attention and Concentration: Inadequate Memory: Impaired Mood: Other (Calm) Affect: Other (Much less labile today) Thought Process & Associations: Disorganized Thought Content: Other (Unable to assess due to thought process) Hallucination Type: Other (Unable to assess due to thought process) Delusion Type: Other (Unable to assess due to thought process) Suicidal Ideation: No (No SI voiced) Homicidal Ideation: No (No HI voiced) Insight: Poor Judgment: Poor Results Labs Date/Time Source Procedure Growth Status 11/24/17 13:35 Urine Catheterized Urine Urine Culture - Final 50-100,000 CFU/ML MIXED GRAM POSITIVE... Complete Labs reviewed. Vitals/IOs Vital Signs Date Time Temp Pulse Resp B/P (MAP) Pulse Ox O2 Delivery O2 Flow Rate FiO2 12/13/17 06:00 85 19 166/77 (106) 97 12/12/17 17:41 97.4 12/12/17 15:42 Room Air 12/12/17 15:15 4 Assessment & Plan Problem List: (1) Schizoaffective disorder, bipolar type ICD Codes: F25.0 - Schizoaffective disorder, bipolar type Status: Chronic (2) Dementia ICD Codes: F03.90 - Unspecified dementia without behavioral disturbance Status: Acute Assessment & Plan Patient calmer today now that meds can be reliably given per PEG. I will continue meds as ordered and have cautioned nurse to remain vigilant for possible sedation or medication side effects. It is possible that current doses of meds are too high as they were titrated when adherence was poor. Continue to monitor on inpatient unit. Continue other meds and care as ordered. Justification for Cont. Inpt. Risk for decompensation in less restrictive environment. Discharge Planning Home with family once stable. Request HC Surrog/Guard Advoc?: Yes Hunter Pérez MD December 13, 2017 08:14
[2017-12-13] MEDS: NYSTAT/DIPHENHY/LIDO MOUTHWASH (Adult) 120ML SWISH-SWAL SCH ×4 (09:00→21:00)
[2017-12-13] MEDS: REMOVE OLD PATCH T-DERMAL SCH (09:00)
--- NOTE | 2017-12-13 09:05 | PD.TTN ---
Patient Problems 1. Discharge planning 2. Medication compliance 3. Knowledge deficit 4. Lack of coping skills Progress Toward Goals Provider Present: Dr. Mandi Pérez Provider Input: 12/09/2017; Patient's medication contiues to be adjusted, to increase her meals, and manage her mood. Patient is less anxious and agitated, medical is being consulted about whether or not the feeding tube is neccessary 12/06/2017; patient medication has been restarted, with some improvement with her mood/behavior 11/22/17 pt needs med adjustment/increased and further stabilization, still paranoid Nurse(s) Present: VELIA Canada Nurse(s) Input: 12/09/2017; patient is eating better, taking her medication and is less anxious with fewer verbal outburst. 12/06/2017 Patient is eating and taking her medication, requires coaching and redirection Psychiatric Counselors Present: Fara Keene LCSW, eMg Spencer, [facility] Psych Therapist Input: 12/09/2017; counselor will continue trying to notify patient's family regarding treatment, and dc planning 12/06/2017; counselor will contact family to discuss dc needs 11/22/17 no insight, uncooperative, psychotic, has niece can return home when better Group Spec/RT/OT/ORTEGA Present: Juan Shearer OT Group Spec/RT/OT/ORTEGA Input: 12/09/2017; patient is unable to attend or participate with groups 12/06/2017; patient is unable to attend or participate with groups 11/22/17 new to OT appears not able to engage at this time Documentation Scribe: Juan Johnson OTR December 13, 2017 09:05
--- NOTE | 2017-12-13 09:16 | PD.TTN ---
Patient Problems 1. Discharge planning 2. Medication compliance 3. Knowledge deficit 4. Lack of coping skills Progress Toward Goals Provider Present: Dr. Mandi Pérez Provider Input: 12/13/17; Pt has PEG tube placed, medication and pt behaviors/responses continue to be monitored, expected discharge end of week based on pt progress. 12/09/2017; Patient's medication contiues to be adjusted, to increase her meals, and manage her mood. Patient is less anxious and agitated, medical is being consulted about whether or not the feeding tube is neccessary 12/06/2017; patient medication has been restarted, with some improvement with her mood/behavior 11/22/17 pt needs med adjustment/increased and further stabilization, still paranoid Nurse(s) Present: VELIA Canada Nurse(s) Input: 12/09/2017; patient is eating better, taking her medication and is less anxious with fewer verbal outburst. 12/06/2017 Patient is eating and taking her medication, requires coaching and redirection Psychiatric Counselors Present: Fara Keene LCSW, Meg Spencer, [facility] Psych Therapist Input: 12/09/2017; counselor will continue trying to notify patient's family regarding treatment, and dc planning 12/06/2017; counselor will contact family to discuss dc needs 12/13/17; plan to return pt to family when pt is stable. 11/22/17 no insight, uncooperative, psychotic, has niece can return home when better Group Spec/RT/OT/ORTEGA Present: Juan Shearer OT, JORDAN Dempsey Group Spec/RT/OT/ORTEGA Input: 12/13/17; pt is unable to tolerate groups. 12/09/2017; patient is unable to attend or participate with groups 12/06/2017; patient is unable to attend or participate with groups 11/22/17 new to OT appears not able to engage at this time Occupational Therapist Input: 12/13/17; pt has made minimal progress as of contact by OTR as of 12/12. Documentation Scribe: Meg Spencer & Juan Shearer, MS, OTR Juan Shearer OTR December 13, 2017 09:16
[2017-12-13] MEDS: QUEtiapine FUMARATE 200 MG TAB PEG SCH ×2 (09:28→21:00)
[2017-12-13] MEDS: HEPARIN SODIUM - SQ 10,000 UNITS/ML VIAL SQ SCH ×2 (09:28→21:01)
[2017-12-13] MEDS: VALPROIC ACID SYRUP 250 MG/5 ML UDC PEG SCH ×2 (09:29→21:00)
[2017-12-13] MEDS: MEGESTROL ACETATE SUSP 400 MG/10 ML CUP PEG SCH (09:30)
--- NOTE | 2017-12-13 11:16 | HHI.PR ---
Subjective Remarks Follow-up visit for poor p.o. intake, HTN, pneumonia, and NITHIN. Spoke with nurse who reports patient has continued to be agitated. Patient is seen and examined sitting up in chair. Nonsensical speech continues however no understandable words. She is agitated and difficult to follow directions or commands. S/P PEG placement 12/12 Objective Vitals Vital Signs Date Time Temp Pulse Resp B/P (MAP) Pulse Ox O2 Delivery O2 Flow Rate FiO2 12/13/17 06:00 85 19 166/77 (106) 97 12/12/17 17:41 97.4 75 16 141/65 (90) 97 12/12/17 15:42 97.2 75 12 96 Room Air 12/12/17 15:40 97.2 12/12/17 15:30 76 14 118/57 (77) 95 Room Air 12/12/17 15:15 77 15 162/70 (100) 96 Nasal Cannula 4 12/12/17 15:09 96.0 12/12/17 15:09 96.0 78 18 134/72 (92) 95 Nasal Cannula 4 I/O 12/12/17 12/12/17 12/12/17 12/13/17 12/13/17 12/13/17 07:00 15:00 23:00 07:00 15:00 23:00 Intake Total 0 ml 300 ml 50 ml Balance 0 ml 300 ml 50 ml Intake Oral 0 ml Oral Supplement 0 ml IV Total 50 ml Other 300 ml # Voids 2 Result Diagram: 12/10/17 1253 Other Results Laboratory Tests Test 12/10/17 12:53 12/11/17 11:49 Blood Urea Nitrogen 12 MG/DL Creatinine 1.02 MG/DL Random Glucose 73 MG/DL Calcium Level 9.1 MG/DL Sodium Level 141 MEQ/L Potassium Level 3.9 MEQ/L Chloride Level 106 MEQ/L Carbon Dioxide Level 27.7 MEQ/L Anion Gap 7 MEQ/L Estimat Glomerular Filtration Rate 63 ML/MIN Prothrombin Time 10.9 SEC Prothromb Time International Ratio 1.1 RATIO Imaging Last Impressions Chest X-Ray 12/04/17 0000 Signed Impressions: Service Date/Time: Monday, December 04, 2017 13:20 - CONCLUSION: New minimal parenchymal changes left base. Bryce Ortiz MD FACR Objective Remarks GENERAL: Well-developed -[place] female. Awake, alert, agitated but in no acute distress.. CARDIOVASCULAR: Regular rhythm and rate RESPIRATORY: Nonlabored breathing, clear lung sounds. GASTROINTESTINAL: Abdomen soft. No guarding. Normal active bowel sounds. PEG tube present MUSCULOSKELETAL: Extremities without clubbing, cyanosis, or edema. NEUROLOGICAL: Awake and alert. Motor and sensory grossly within normal limits. Moves bilateral upper and lower extremities spontaneously, not following directions. No facial droop. Nonsensical speech. A/P Problem List: (1) Hypertension ICD Code: I10 - Essential (primary) hypertension Status: Chronic (2) Schizoaffective disorder, bipolar type ICD Code: F25.0 - Schizoaffective disorder, bipolar type Status: Chronic (3) Dementia ICD Code: F03.90 - Unspecified dementia without behavioral disturbance Status: Acute Assessment and Plan 69-year-old female with behavioral disturbances in the context of dementia with hypertension. Dementia with behavioral disturbance Schizoaffective disorder - Patient admitted for abnormal behavior related to dementia and/or schizoaffective disorder - management per primary team - Decreased ambulation, PT has evaluated patient on 12/07. No assistive devices recommended, functioning at optimal status. Continued skilled physical therapy services not indicated, consult OT. Staff to help patient OOB to for mobilization. -PEG placed 12/12/17 by GI, hopefully will be able to consistently administer medications. New cough Cough with liquids CXR new parenchymal changes in left base Concern for HAP or aspiration PNA Past swallow evaluation with recommendations for pured diet with thin liquids - Patient is afebrile. No leukocytosis. Sating well on room air. De- escalate antibiotics, DC IV antibiotic treatment,patient has completed oral Levaquin, end date 12/11 to completed 7 day course - monitor respiratory status - supplemental oxygen as needed to maintain O2 sats>92% - aspiration precautions -Concern for aspiration from nurse on 12/09 due to coughing with food and fluid. Speech evaluated patient on 12/09 and recommendations to continue pure with thin liquids. -Patient afebrile appears to be in no acute respiratory distress. Hypertensive urgency, resolved Tachycardia Blood pressure as high as 248/119 in the ER, much improved - Clonidine added for as needed use, systolics greater than 165 - Suspect tachycardia along with hypertension is due to agitation - Blood pressure stable fluctuates, likely secondary to agitation however stable. Poor po intake s/p G tube placement, ?dislodged. GI removed. -Diet pure per speech therapy recommendations. -Evaluated by dietitian with inadequate p.o. intake, ongoing inadequate intake. Recommendations 12/06 for NGT or new feeding tube for TF'ings - GI placed peg 12/12/17 - start Jevity 1.5@10ml/hr increase 10ml/hr Q4hrs until goal rate 45ml/hr - water flush 40 ml Q6H - BMP in AM -reconsult hand blocker for further monitoring of nutritional status and tube feeding recommendations -Continue Megace for appetite stimulant -Continue Ensure Enlive TID, add Ensure pudding TID -Last recorded weight 84 kg -Accu-Cheks every 4 hours to monitor for hypoglycemia. NITHIN, suspect secondary to poor po intake, resolved - Worsening renal function likely secondary to dehydration from poor PO intake. Creatinine 1.44, BUN 25, GFR 43 - No history of CHF documented. -s/p IV hydration IV hydration, creatinine--> 1.02 -PEG placed Oral Leonor -Magic mouthwash 4 times daily, frequent oral care. Low BS -Secondary to poor p.o. intake, nurse reports patient is drinking fluids. -One episode of hypoglycemia 12/10, blood sugar 59 with recheck 78. -Continue Accu-Cheks every 4 hours with hypoglycemic protocol, blood sugar stable. DVT prophylaxis -Subcu heparin resumed 12/13 Discussed with nurse. Supervising physician Tequila Black December 13, 2017 11:16
[2017-12-13 18:23] VITALS: BP 109/56; PULSE 91; RESP 18; O2SAT 95
[2017-12-13] MEDS: diphenhydrAMINE HCL 25 MG CAP PEG PRN (21:00)
--- NOTE | 2017-12-14 08:28 | HHI.PR ---
Subjective Remarks Follow-up visit for poor p.o. intake, HTN, pneumonia, and NITHIN. Discussed with nurse reports patient has not allowed for continuous tube feedings, disruptive and tampering with tubing. Patient is seen ambulating in the bird by the nurses station trying to open door. She is examined in her room with nurse at bedside. She is very agitated and does not allow for examination of PEG tube, nonsensical speech with no understandable words. Objective Vitals Vital Signs Date Time Temp Pulse Resp B/P (MAP) Pulse Ox O2 Delivery O2 Flow Rate FiO2 12/13/17 18:23 91 18 109/56 (73) 95 I/O 12/13/17 12/13/17 12/13/17 12/14/17 12/14/17 12/14/17 07:00 15:00 23:00 07:00 15:00 23:00 Intake Total 240 ml 120 ml Balance 240 ml 120 ml Intake Oral 240 ml 120 ml # Voids 2 2 2 # Bowel Movements 1 Result Diagram: 12/10/17 1253 Imaging Last Impressions Chest X-Ray 12/04/17 0000 Signed Impressions: Service Date/Time: Monday, December 04, 2017 13:20 - CONCLUSION: New minimal parenchymal changes left base. Bryce Ortiz MD FACR Objective Remarks GENERAL: Well-developed -French female. Awake, alert, agitated but in no acute distress.. NECK: Trachea midline. ENT: No nasal drainage noted. Airway patent. CARDIOVASCULAR: Regular rhythm and rate, no murmurs, gallops, or rubs. RESPIRATORY: Nonlabored breathing, clear lung sounds. No wheezing or rhonchi noted. GASTROINTESTINAL: Abdomen soft. No guarding. Abdominal binder in place, unable to assess PEG tube site due to patient agitation. MUSCULOSKELETAL: Extremities without clubbing, cyanosis, or edema. NEUROLOGICAL: Awake and alert. Motor and sensory grossly within normal limits. Moves bilateral upper and lower extremities spontaneously, not following directions. No facial droop. Nonsensical speech. A/P Problem List: (1) Hypertension ICD Code: I10 - Essential (primary) hypertension Status: Chronic (2) Schizoaffective disorder, bipolar type ICD Code: F25.0 - Schizoaffective disorder, bipolar type Status: Chronic (3) Dementia ICD Code: F03.90 - Unspecified dementia without behavioral disturbance Status: Acute Assessment and Plan 69-year-old female with behavioral disturbances in the context of dementia with hypertension. Dementia with behavioral disturbance Schizoaffective disorder - Patient admitted for abnormal behavior related to dementia and/or schizoaffective disorder - management per primary team - Decreased ambulation, PT has evaluated patient on 12/07. No assistive devices recommended, functioning at optimal status. Continued skilled physical therapy services not indicated, consult OT. Staff to help patient OOB to for mobilization. -s/p PEG tube placement, and administering medications now on a consistent basis. New cough Cough with liquids CXR new parenchymal changes in left base Concern for HAP or aspiration PNA Past swallow evaluation with recommendations for pured diet with thin liquids - Patient is afebrile. No leukocytosis. Satting well on room air. De- escalate antibiotics, DC IV antibiotic treatment, continue with oral Levaquin, end date 12/11 to complete 7 day course - monitor respiratory status - supplemental oxygen as needed to maintain O2 sats>92% - aspiration precautions -Concern for aspiration from nurse on 12/09 due to coughing with food and fluid. Speech evaluated patient on 12/09 and recommendations to continue pure with thin liquids. -Patient afebrile appears to be in no acute respiratory distress. Hypertensive urgency, resolved Tachycardia Blood pressure as high as 248/119 in the ER, much improved - Clonidine added for as needed use, systolics greater than 165 - Suspect tachycardia along with hypertension is due to agitation - Blood pressure stable fluctuates, likely secondary to agitation however stable. Poor po intake s/p G tube placement, ?dislodged. GI removed. -Diet downgraded to pure per speech therapy recommendations. -Evaluated by dietitian with inadequate p.o. intake, ongoing inadequate intake. Recommendations 12/06 for NGT or new feeding tube for TF'ings ( recommendations for Jevity 1.5@25ml/hr increase 10ml/hr Q4hrs until goal rate 45ml/hr). - GI saw for possible peg placement, will hold off for the moment. -Continue Megace for appetite stimulant -Continue Ensure Enlive TID, add Ensure pudding TID -Last recorded weight 84 kg -PEG tube now in place, left message for dietitian to make recommendations for bolus feeding. Patient tampering with PEG tube and feeding tubing. - Reviewed fruit sorter recommendations for bolus feedings, Jevity 1.5 240ml can @ 8am, 12pm, 4pm, and 8pm. NITHIN, suspect secondary to poor po intake, resolved - Worsening renal function likely secondary to dehydration from poor PO intake. Creatinine 1.44, BUN 25, GFR 43 - No history of CHF documented. -s/p IV hydration IV hydration, creatinine--> 1.02 -Monitor renal function periodically Oral Leonor -Magic mouthwash 4 times daily, frequent oral care. Low BS -Secondary to poor p.o. intake, nurse reports patient is drinking fluids. -One episode of hypoglycemia 12/10, blood sugar 59 with recheck 78. -Continue Accu-Cheks every 4 hours with hypoglycemic protocol, blood sugar stable. DVT prophylaxis -Subcu heparin Discussed with nurse. Gail Webster December 14, 2017 08:28
[2017-12-14] MEDS: MEGESTROL ACETATE SUSP 400 MG/10 ML CUP PEG SCH (08:51)
[2017-12-14] MEDS: QUEtiapine FUMARATE 200 MG TAB PEG SCH ×2 (08:52→13:58)
[2017-12-14] MEDS: VALPROIC ACID SYRUP 250 MG/5 ML UDC PEG SCH ×2 (08:52→21:00)
[2017-12-14] MEDS: REMOVE OLD PATCH T-DERMAL SCH (09:00)
[2017-12-14] MEDS: HEPARIN SODIUM - SQ 10,000 UNITS/ML VIAL SQ SCH ×2 (09:00→21:00)
[2017-12-14] MEDS: NYSTAT/DIPHENHY/LIDO MOUTHWASH (Adult) 120ML SWISH-SWAL SCH ×3 (09:00→21:00)
[2017-12-14 10:33] LABS: BICARBONATE 25.4 MEQ/L (21.0-32.0); CALCIUM 9.4 MG/DL (8.5-10.1); CREATININE 0.89 MG/DL (0.50-1.00)
--- NOTE | 2017-12-14 10:42 | HHI.PYPN ---
Subjective Chief Complaint: Agitation Remarks Patient seen and examined with nurse. Chart reviewed. Case discussed with nursing staff. Patient was combative this morning and staff was unable to provide her with her morning medications. Tube feeding is also proving difficult as the patient is pulling the tube feed line out from her PEG, spilling formula on the floor. I have ordered the patient moved to a room within view of nursing station and have also ordered that patient have a 1:1 for behavioral redirection. On my exam, patient is calm and not agitated. She exhibits utilization behavior. She smiles placidly at intervals. She remains quite confused. No evident physical distress, nor any evidence of side effects from medications. Review of Systems ROS Limitations: Poor Historian Other Limited ROS because of above. Mental Status Examination Appearance: Disheveled Consciousness: Alert Orientation: Person Motor Activity: Other (No motoric abnormalities noted) Speech: Incoherent Language: Other (Rambling) Fund of Knowledge: Inadequate Attention and Concentration: Inadequate Memory: Impaired Mood: Other (Remains calm) Affect: Blunt (Smiles at intervals) Thought Process & Associations: Disorganized Thought Content: Other (Unable to assess due to thought process) Hallucination Type: Other (Unable to assess due to thought process) Delusion Type: Other (Unable to assess due to thought process) Suicidal Ideation: No (No SI voiced) Homicidal Ideation: No (No HI voiced) Insight: Poor Judgment: Poor Results Labs Test 12/14/17 09:48 Blood Urea Nitrogen 13 MG/DL Creatinine 0.89 MG/DL Random Glucose 108 MG/DL Calcium Level 9.4 MG/DL Sodium Level 141 MEQ/L Potassium Level 3.6 MEQ/L Chloride Level 106 MEQ/L Carbon Dioxide Level 25.4 MEQ/L Anion Gap 10 MEQ/L Estimat Glomerular Filtration Rate 74 ML/MIN Date/Time Source Procedure Growth Status 11/24/17 13:35 Urine Catheterized Urine Urine Culture - Final 50-100,000 CFU/ML MIXED GRAM POSITIVE... Complete Labs reviewed. GFR improved. Vitals/IOs Vital Signs Date Time Temp Pulse Resp B/P (MAP) Pulse Ox O2 Delivery O2 Flow Rate FiO2 12/13/17 18:23 91 18 109/56 (73) 95 12/12/17 17:41 97.4 12/12/17 15:42 Room Air 12/12/17 15:15 4 Intake and Output 12/14/17 12/14/17 12/15/17 08:00 16:00 00:00 Intake Total 120 ml Balance 120 ml Assessment & Plan Problem List: (1) Schizoaffective disorder, bipolar type ICD Codes: F25.0 - Schizoaffective disorder, bipolar type Status: Chronic (2) Dementia ICD Codes: F03.90 - Unspecified dementia without behavioral disturbance Status: Acute Assessment & Plan Titrate Thorazine to 150/150/300mg. Continue Seroquel and Depakote as ordered. Plan for follow up Depakote level once we have a solid 4 days of adherence; might be able to try for Tuesday morning of this week depending on compliance tomorrow. Room change and 1:1 as noted above. Hospitalist input noted and appreciated. Continue to monitor on medical psychiatric unit. Continue other medications and care as ordered. Justification for Cont. Inpt. Medication changes. Risk for decompensation in less restrictive environment. Impairment in self-care and reality construction. Discharge Planning Pending psychiatric stabilization. Home with family. Request HC Surrog/Guard Advoc?: Yes Hunter Pérez MD December 14, 2017 10:42
[2017-12-14] MEDS ORDERED: PILL SPLITTER OTHER PRN (12:00)
[2017-12-14 18:00] VITALS: BP 138/73; PULSE 100; RESP 17
[2017-12-15 06:18] VITALS: BP 96/57; PULSE 98; RESP 16; TEMP 97.4; O2SAT 96
[2017-12-15] MEDS: MEGESTROL ACETATE SUSP 400 MG/10 ML CUP PEG SCH (08:10)
[2017-12-15] MEDS: VALPROIC ACID SYRUP 250 MG/5 ML UDC PEG SCH ×2 (08:10→21:00)
[2017-12-15] MEDS: QUEtiapine FUMARATE 200 MG TAB PEG SCH ×2 (08:11→21:00)
[2017-12-15] MEDS: HEPARIN SODIUM - SQ 10,000 UNITS/ML VIAL SQ SCH ×2 (08:15→22:46)
[2017-12-15] MEDS: NYSTAT/DIPHENHY/LIDO MOUTHWASH (Adult) 120ML SWISH-SWAL SCH ×4 (08:18→21:00)
[2017-12-15] MEDS: REMOVE OLD PATCH T-DERMAL SCH (08:54)
[2017-12-15] MEDS: ACETAMINOPHEN 325 MG TAB PO PRN ×3 (10:14→18:51)
--- NOTE | 2017-12-15 11:02 | HHI.PR ---
Subjective Remarks Follow-up visit poor p.o. intake, HTN, pneumonia, UTI, dementia. Patient seen and examined today. Agitated and restless. Appears to have pain in the abdomen and was drooling. As per nursing, patient had pulse tube feeds and possibly have been for and her abdominal binder was tight overnight. Patient has aphasia, incomprehensible speech. Objective Vitals Vital Signs Date Time Temp Pulse Resp B/P (MAP) Pulse Ox O2 Delivery O2 Flow Rate FiO2 12/15/17 06:18 97.4 98 16 96/57 (70) 96 12/14/17 18:00 100 17 138/73 (94) I/O 12/14/17 12/14/17 12/14/17 12/15/17 12/15/17 12/15/17 07:00 15:00 23:00 07:00 15:00 23:00 Intake Total 240 ml 240 ml 240 ml Balance 240 ml 240 ml 240 ml Intake Oral 240 ml 0 ml 240 ml Tube Feeding 240 ml # Voids 2 1 0 # Bowel Movements 1 Result Diagram: 12/14/17 0948 Imaging Last Impressions Chest X-Ray 12/04/17 0000 Signed Impressions: Service Date/Time: Monday, December 04, 2017 13:20 - CONCLUSION: New minimal parenchymal changes left base. Bryce Ortiz MD FACR Objective Remarks GENERAL: This is a well-nourished, well-developed patient, in no apparent distress. SKIN: Warm and dry. HEENT: Normocephalic. Pupils equal round and reactive. Nose without bleeding. Airway patent. NECK: Trachea midline. CARDIOVASCULAR: Regular rate and rhythm without murmurs, gallops, or rubs. RESPIRATORY: Diminished bases. No wheezes, rales, or rhonchi. GASTROINTESTINAL: Abdomen soft, non-tender, nondistended. Bowel Sounds normoactive x4. MUSCULOSKELETAL: Extremities without clubbing, cyanosis, or edema. NEUROLOGICAL: Awake and alert. Moves all extremities. Aphasia. A/P Problem List: (1) Hypertension ICD Code: I10 - Essential (primary) hypertension Status: Chronic (2) Schizoaffective disorder, bipolar type ICD Code: F25.0 - Schizoaffective disorder, bipolar type Status: Chronic (3) Dementia ICD Code: F03.90 - Unspecified dementia without behavioral disturbance Status: Acute Assessment and Plan 69-year-old female with behavioral disturbances in the context of dementia with hypertension. Dementia with behavioral disturbance Schizoaffective disorder -Patient admitted for abnormal behavior related to dementia and/or schizoaffective disorder -management per primary team -Decreased ambulation, PT has evaluated patient on 12/07. No assistive devices recommended, functioning at optimal status. Continued skilled physical therapy services not indicated, consult OT. Staff to help patient OOB to for mobilization. -PEG tube placement, and administering medications now on a consistent basis. TF provided. Eats at home with family. CXR new parenchymal changes in left base Concern for HAP or aspiration PNA Past swallow evaluation with recommendations for pured diet with thin liquids - Bacilio completed 12/11/17 - monitor respiratory status -Concern for aspiration from nurse on 12/09 due to coughing with food and fluid. Speech evaluated patient on 12/09 and recommendations to continue pure with thin liquids. -No respiratory distress Hypertensive urgency, resolved Tachycardia Blood pressure as high as 248/119 in the ER, much improved - Clonidine added for as needed use, systolics greater than 165 - Suspect tachycardia along with hypertension is due to agitation - Blood pressure stable fluctuates, likely secondary to agitation however stable. Poor po intake s/p G tube placement Abdominal Pain -Diet downgraded to pure per speech therapy recommendations. -Evaluated by dietitian with inadequate p.o. intake, ongoing inadequate intake. Recommendations 12/06 for NGT or new feeding tube for TF'ings ( recommendations for Jevity 1.5@25ml/hr increase 10ml/hr Q4hrs until goal rate 45ml/hr). -Continue Megace for appetite stimulant -Continue Ensure Enlive TID, add Ensure pudding TID -PEG tube now in place, left message for dietitian to make recommendations for bolus feeding. Patient tampering with PEG tube and feeding tubing. -Reviewed box office manager recommendations for bolus feedings, Jevity 1.5 240ml can @ 8am, 12pm, 4pm, and 8pm. -Zofran for nausea. Pain related to PEG insertion discomfort, tender to palpate only within PEG site NITHIN, suspect secondary to poor po intake, resolved - No history of CHF documented. -s/p IV hydration IV hydration, creatinine--> 1.02--> 0.89 -Monitor renal function periodically Oral Leonor -Magic mouthwash 4 times daily, frequent oral care. DVT prophylaxis heparin Discharge Planning November DC home to family Jonathan Cunha December 15, 2017 11:02
[2017-12-15] MEDS ORDERED: ONDANSETRON ODT 4 MG TAB PO PRN (11:15)
--- NOTE | 2017-12-15 12:32 | HHI.PYPN ---
Subjective Chief Complaint: Agitation Remarks Patient seen and examined. Chart reviewed. Case discussed with nursing staff. Some agitation this morning, likely related to abdominal binder. Once binder was replaced, patient has calmed. She slept well overnight. Patient remains with one-to-one for behavioral redirection. She is calm at the time of my evaluation. Speech remains largely nonsensical. She does not follow commands. She appears to be in no acute distress. There is no evidence of medication side effects. Review of Systems ROS Limitations: Psychotic, Poor Historian Other Limited ROS secondary to above Mental Status Examination Appearance: Disheveled Consciousness: Other (Dozing but easily arousable) Orientation: Person Motor Activity: Other (No abnormal motor movements noted) Speech: Incoherent Language: Other (Rambling) Fund of Knowledge: Inadequate Attention and Concentration: Inadequate Memory: Impaired Mood: Other (Calm) Affect: Blunt Thought Process & Associations: Disorganized Thought Content: Other (Unable to assess due to thought process) Hallucination Type: Other (Unable to assess due to thought process) Delusion Type: Other (Unable to assess due to thought process) Suicidal Ideation: No (No SI voiced) Homicidal Ideation: No (No HI voiced) Insight: Poor Judgment: Poor Results Labs Date/Time Source Procedure Growth Status 11/24/17 13:35 Urine Catheterized Urine Urine Culture - Final 50-100,000 CFU/ML MIXED GRAM POSITIVE... Complete Labs reviewed Vitals/IOs Vital Signs Date Time Temp Pulse Resp B/P (MAP) Pulse Ox O2 Delivery O2 Flow Rate FiO2 12/15/17 06:18 97.4 98 16 96/57 (70) 96 12/12/17 15:42 Room Air 12/12/17 15:15 4 Intake and Output 12/15/17 12/15/17 12/16/17 08:00 16:00 00:00 Intake Total 240 ml Balance 240 ml Assessment & Plan Problem List: (1) Schizoaffective disorder, bipolar type ICD Codes: F25.0 - Schizoaffective disorder, bipolar type Status: Chronic (2) Dementia ICD Codes: F03.90 - Unspecified dementia without behavioral disturbance Status: Acute Assessment & Plan Patient has calmed now that medications are being administered reliably through PEG. Continue current psychotropics as ordered. Check a Depakote level in the morning. Continue one-to-one for behavioral redirection, but if behaviors remain improved we could consider discontinuing one-to-one tomorrow. Continue other medications and care as ordered. Justification for Cont. Inpt. Risk for decompensation in less restrictive environment. Discharge Planning If behaviors remain improved, could consider discharge home with family over the weekend or beginning of next week. Case discussed with counselor who has confirmed that family wishes to have the patient home still. Request HC Surrog/Guard Advoc?: Yes Hunter Pérez MD December 15, 2017 12:32
[2017-12-15 18:30] VITALS: BP 126/70; PULSE 88; RESP 16; TEMP 96.8; O2SAT 100
[2017-12-15] MEDS: ACETAMINOPHEN/HYDROcodone 325 MG/5 MG TAB PO PRN (18:39)
[2017-12-16 05:46] VITALS: BP 160/72; PULSE 91; RESP 15; TEMP 97.6; O2SAT 94
[2017-12-16] MEDS: HEPARIN SODIUM - SQ 10,000 UNITS/ML VIAL SQ SCH ×2 (09:00→21:06)
[2017-12-16] MEDS: QUEtiapine FUMARATE 200 MG TAB PEG SCH ×2 (09:00→21:06)
[2017-12-16] MEDS: NYSTAT/DIPHENHY/LIDO MOUTHWASH (Adult) 120ML SWISH-SWAL SCH ×4 (09:00→21:00)
[2017-12-16] MEDS: REMOVE OLD PATCH T-DERMAL SCH (09:00)
[2017-12-16] MEDS: VALPROIC ACID SYRUP 250 MG/5 ML UDC PEG SCH ×2 (09:00→21:06)
[2017-12-16] MEDS: MEGESTROL ACETATE SUSP 400 MG/10 ML CUP PEG SCH (09:00)
[2017-12-16] MEDS: ACETAMINOPHEN 325 MG TAB PO PRN (10:00)
[2017-12-16] MEDS: ACETAMINOPHEN/HYDROcodone 325 MG/5 MG TAB PO PRN (11:22)
--- NOTE | 2017-12-16 15:31 | HHI.PYPN ---
Subjective Chief Complaint: Agitation Remarks Patient seen for follow, chart reviewed. Discussion nursing staff reported the patient was somewhat somnolent last evening but this morning has been awake and active continue with disorganized behavior. Patient was seen lying hospital bed attempting to move her covers but redirectable. Patient has not been having nutritional intake by mouth and continues with PEG tube feedings. Patient continues with disorganization at times saying belligerent curse words but not agitated nor aggressive. Review of Systems Except as stated in HPI: all other systems reviewed are Neg Mental Status Examination Appearance: Disheveled Consciousness: Other (Dozing but easily arousable) Orientation: Person Motor Activity: Other (No abnormal motor movements noted) Speech: Incoherent Language: Other (Rambling) Fund of Knowledge: Inadequate Attention and Concentration: Inadequate Memory: Impaired Mood: Other (Calm) Affect: Blunt Thought Process & Associations: Disorganized Thought Content: Other (Unable to assess due to thought process) Hallucination Type: Other (Unable to assess due to thought process) Delusion Type: Other (Unable to assess due to thought process) Suicidal Ideation: No (No SI voiced) Homicidal Ideation: No (No HI voiced) Insight: Poor Judgment: Poor Results Labs Labs reviewed. Test 12/16/17 09:40 Valproic Acid (Depakene) Level 27 MCG/ML Date/Time Source Procedure Growth Status 11/24/17 13:35 Urine Catheterized Urine Urine Culture - Final 50-100,000 CFU/ML MIXED GRAM POSITIVE... Complete Vitals/IOs Vital Signs Date Time Temp Pulse Resp B/P (MAP) Pulse Ox O2 Delivery O2 Flow Rate FiO2 12/16/17 05:46 97.6 91 15 160/72 (101) 94 12/12/17 15:42 Room Air 12/12/17 15:15 4 Intake and Output 12/16/17 12/16/17 12/17/17 08:00 16:00 00:00 Intake Total 0 ml 360 ml Balance 0 ml 360 ml Assessment & Plan Problem List: (1) Schizoaffective disorder, bipolar type ICD Codes: F25.0 - Schizoaffective disorder, bipolar type Status: Chronic (2) Dementia ICD Codes: F03.90 - Unspecified dementia without behavioral disturbance Status: Acute Assessment & Plan Patient recently has been noted to be very sedated and somnolent after receiving Thorazine and have been held due to the same. We will decrease twice daily dosing of Thorazine to 100 mg, will continue rest of medications will continue to monitor mood and behavior. Discharge planning in progress. Patient 's recent Depakote level was subtherapeutic at 27. The patient is receiving medications via PEG tube perhaps limited effect of medication regimen in the past was due to compliance. Discharge planning in progress. Justification for Cont. Inpt. At risk of further decompensation a lower level of care. Discharge Planning To be determined. Request HC Surrog/Guard Advoc?: Yes Milton Strickland MD December 16, 2017 15:31
[2017-12-16 18:44] VITALS: BP 114/59; PULSE 98; RESP 16; TEMP 97.8; O2SAT 96
[2017-12-17 06:00] VITALS: BP 125/69; PULSE 80; RESP 19; TEMP 97.1; O2SAT 97
[2017-12-17] MEDS: HEPARIN SODIUM - SQ 10,000 UNITS/ML VIAL SQ SCH ×2 (09:00→21:00)
[2017-12-17] MEDS: REMOVE OLD PATCH T-DERMAL SCH (09:00)
[2017-12-17] MEDS: VALPROIC ACID SYRUP 250 MG/5 ML UDC PEG SCH ×2 (09:00→21:00)
[2017-12-17] MEDS: NYSTAT/DIPHENHY/LIDO MOUTHWASH (Adult) 120ML SWISH-SWAL SCH ×4 (09:00→21:00)
[2017-12-17] MEDS: MEGESTROL ACETATE SUSP 400 MG/10 ML CUP PEG SCH (09:00)
[2017-12-17] MEDS: QUEtiapine FUMARATE 200 MG TAB PEG SCH ×2 (09:00→21:00)
--- NOTE | 2017-12-17 15:28 | HHI.PYPN ---
Subjective Chief Complaint: Agitation Remarks The patient was seen today for psychiatric reevaluation. Documentation was reviewed. Vital signs are stable. Case discussed with nurse in charge. On the evaluation the patient is disorganized, incoherent, very perseverant. She reports good mood, denies suicidal enemas ideation, she denies visual and auditory hallucinations. No agitation or aggressive behavior reported. The patient has been compliant with her medications, no significant side effects reported. Review of Systems Except as stated in HPI: all other systems reviewed are Neg Mental Status Examination Appearance: Disheveled Consciousness: Other (Dozing but easily arousable) Orientation: Person Motor Activity: Other (No abnormal motor movements noted) Speech: Incoherent Language: Other (Rambling) Fund of Knowledge: Inadequate Attention and Concentration: Inadequate Memory: Impaired Mood: Other (Calm) Affect: Blunt Thought Process & Associations: Disorganized Thought Content: Other (Unable to assess due to thought process) Hallucination Type: Other (Unable to assess due to thought process) Delusion Type: Other (Unable to assess due to thought process) Suicidal Ideation: No (No SI voiced) Homicidal Ideation: No (No HI voiced) Insight: Poor Judgment: Poor Results Labs Date/Time Source Procedure Growth Status 11/24/17 13:35 Urine Catheterized Urine Urine Culture - Final 50-100,000 CFU/ML MIXED GRAM POSITIVE... Complete Vitals/IOs Vital Signs Date Time Temp Pulse Resp B/P (MAP) Pulse Ox O2 Delivery O2 Flow Rate FiO2 12/17/17 06:00 97.1 80 19 125/69 (87) 97 Intake and Output 12/17/17 12/17/17 12/18/17 08:00 16:00 00:00 Intake Total 60 ml Balance 60 ml Assessment & Plan Problem List: (1) Schizoaffective disorder, bipolar type ICD Codes: F25.0 - Schizoaffective disorder, bipolar type Status: Chronic Assessment & Plan: Continue current psychotropic regimen. Continue hospitalization for stabilization (2) Dementia ICD Codes: F03.90 - Unspecified dementia without behavioral disturbance Status: Acute Assessment & Plan Estimated LOS: days Justification for Cont. Inpt. Patient is acutely psychotic, disorganized, needs to continue psychiatric hospitalization for stabilization Request HC Surrog/Guard Advoc?: Yes Jason Coombs MD December 17, 2017 15:28
[2017-12-17 18:34] VITALS: BP 130/85; PULSE 102; RESP 18; TEMP 97.8; O2SAT 98
[2017-12-18 06:15] VITALS: BP 149/85; PULSE 86; RESP 18; TEMP 97
--- NOTE | 2017-12-18 08:32 | HHI.PYPN ---
Subjective Chief Complaint: Agitation Remarks Patient seen and examined with nurse. Chart reviewed. Case discussed with nursing staff. No significant agitation noted. Sitter remains at bedside. Sitter reports no significant agitation. On my examination today, the patient is once again speaking nonsensically. Speech is rapid and consists of verbalization of "ba-ba-ba-ba" followed by an inspiratory whoop. Patient is able to follow commands today. No evident sedation or other side effects from medications. No physical complaints. Review of Systems ROS Limitations: Poor Historian Other Limited ROS secondary to above Mental Status Examination Appearance: Disheveled Consciousness: Alert Orientation: Person Motor Activity: Other (No abnormal motor movements noted) Speech: Incoherent Language: Other (Rambling) Fund of Knowledge: Inadequate Attention and Concentration: Inadequate Memory: Impaired Mood: Other (Calm) Affect: Blunt Thought Process & Associations: Disorganized Thought Content: Other (Unable to assess due to thought process) Hallucination Type: Other (Unable to assess due to thought process) Delusion Type: Other (Unable to assess due to thought process) Suicidal Ideation: No (None voiced) Homicidal Ideation: No (none voiced) Insight: Poor Judgment: Poor Results Labs Date/Time Source Procedure Growth Status 11/24/17 13:35 Urine Catheterized Urine Urine Culture - Final 50-100,000 CFU/ML MIXED GRAM POSITIVE... Complete Labs reviewed. Depakote level low at 27. Vitals/IOs Vital Signs Date Time Temp Pulse Resp B/P (MAP) Pulse Ox O2 Delivery O2 Flow Rate FiO2 12/18/17 06:15 97.0 86 18 149/85 (106) 12/17/17 18:34 98 Intake and Output 12/18/17 12/18/17 12/19/17 08:00 16:00 00:00 Intake Total 0 ml Balance 0 ml Assessment & Plan Problem List: (1) Schizoaffective disorder, bipolar type ICD Codes: F25.0 - Schizoaffective disorder, bipolar type Status: Chronic (2) Dementia ICD Codes: F03.90 - Unspecified dementia without behavioral disturbance Status: Acute Assessment & Plan Titrate valproate to 500 mg twice daily with plans for follow-up level later in the week. No significant agitation reported. Discontinue one-to-one. Continue other medications and care as ordered. Justification for Cont. Inpt. Med changes Discharge Planning Home with family Request HC Surrog/Guard Advoc?: Yes Hunter Pérez MD December 18, 2017 08:32
[2017-12-18] MEDS: VALPROIC ACID SYRUP 250 MG/5 ML UDC PEG SCH ×2 (09:35→20:31)
[2017-12-18] MEDS: NYSTAT/DIPHENHY/LIDO MOUTHWASH (Adult) 120ML SWISH-SWAL SCH ×4 (09:35→20:32)
[2017-12-18] MEDS: HEPARIN SODIUM - SQ 10,000 UNITS/ML VIAL SQ SCH ×2 (09:35→20:28)
[2017-12-18] MEDS: MEGESTROL ACETATE SUSP 400 MG/10 ML CUP PEG SCH (09:35)
[2017-12-18] MEDS: QUEtiapine FUMARATE 200 MG TAB PEG SCH ×2 (09:35→20:32)
[2017-12-18] MEDS: REMOVE OLD PATCH T-DERMAL SCH (09:36)
[2017-12-18] MEDS: HALOPERIDOL LACTATE 5 MG/ML AMP IM PRN (14:27)
[2017-12-18 18:02] VITALS: BP 149/86; PULSE 112; RESP 18; TEMP 96
[2017-12-19] MEDS: HALOPERIDOL LACTATE 5 MG/ML AMP IM PRN (00:10)
[2017-12-19 06:31] VITALS: BP 160/95; PULSE 56; RESP 17; TEMP 97.6; O2SAT 98
[2017-12-19] MEDS: NYSTAT/DIPHENHY/LIDO MOUTHWASH (Adult) 120ML SWISH-SWAL SCH ×4 (07:47→21:00)
[2017-12-19] MEDS: MEGESTROL ACETATE SUSP 400 MG/10 ML CUP PEG SCH (07:47)
[2017-12-19] MEDS: REMOVE OLD PATCH T-DERMAL SCH (07:47)
[2017-12-19] MEDS: VALPROIC ACID SYRUP 250 MG/5 ML UDC PEG SCH ×2 (07:47→21:27)
[2017-12-19] MEDS: QUEtiapine FUMARATE 200 MG TAB PEG SCH ×2 (07:47→21:27)
[2017-12-19] MEDS: HEPARIN SODIUM - SQ 10,000 UNITS/ML VIAL SQ SCH ×2 (07:48→21:28)
[2017-12-19] MEDS: diphenhydrAMINE HCL 25 MG CAP PEG PRN ×2 (11:35→21:27)
--- NOTE | 2017-12-19 11:58 | HHI.PYPN ---
Subjective Chief Complaint: Agitation Remarks Patient seen and examined. Chart reviewed. Case discussed with nursing staff. Some agitation overnight, required Haldol IM. Since then, patient has been calm. On my examination today, the patient is sitting in a [place] chair. She is calm and able to follow some simple commands. She exhibits utilization behavior but no aggression. No side effects from medications. No physical complaints. Review of Systems ROS Limitations: Poor Historian Other Limited ROS Mental Status Examination Appearance: Disheveled Consciousness: Alert Orientation: Person Motor Activity: Other (No motoric abnormalities noted) Speech: Incoherent Language: Other (Rambling) Fund of Knowledge: Inadequate Attention and Concentration: Inadequate Memory: Impaired Mood: Other (Calm) Affect: Blunt Thought Process & Associations: Disorganized Thought Content: Other (Unable to assess secondary to disorganization of thought process) Hallucination Type: Other (Unable to assess due to thought process) Delusion Type: Other (Unable to assess due to thought process) Suicidal Ideation: No (None voiced) Homicidal Ideation: No (none voiced) Insight: Poor Judgment: Poor Results Labs Date/Time Source Procedure Growth Status 11/24/17 13:35 Urine Catheterized Urine Urine Culture - Final 50-100,000 CFU/ML MIXED GRAM POSITIVE... Complete Labs reviewed Vitals/IOs Vital Signs Date Time Temp Pulse Resp B/P (MAP) Pulse Ox O2 Delivery O2 Flow Rate FiO2 12/19/17 06:31 97.6 56 17 160/95 (116) 98 Assessment & Plan Problem List: (1) Schizoaffective disorder, bipolar type ICD Codes: F25.0 - Schizoaffective disorder, bipolar type Status: Chronic (2) Dementia ICD Codes: F03.90 - Unspecified dementia without behavioral disturbance Status: Acute Assessment & Plan Titrate nighttime dose of Thorazine to 325 mg. Continue other psychotropics as ordered. Continue to monitor on inpatient unit. Continue other meds and care as ordered. Justification for Cont. Inpt. Med change Discharge Planning Patient seems to be reaching a plateau regarding her psychiatric symptoms, and it seems likely that she is approaching baseline. Anticipate discharge tomorrow. Request HC Surrog/Guard Advoc?: Yes Hunter Pérez MD December 19, 2017 11:58
[2017-12-19 18:12] VITALS: BP 124/78; PULSE 107; RESP 18; TEMP 96.2
[2017-12-19] MEDS: MELATONIN 5 MG TAB PO PRN (21:27)
[2017-12-20 06:00] VITALS: BP 175/85; PULSE 86; RESP 18; TEMP 97.4
[2017-12-20] MEDS: NYSTAT/DIPHENHY/LIDO MOUTHWASH (Adult) 120ML SWISH-SWAL SCH ×3 (09:00→13:23)
[2017-12-20] MEDS: REMOVE OLD PATCH T-DERMAL SCH (09:00)
[2017-12-20] MEDS: VALPROIC ACID SYRUP 250 MG/5 ML UDC PEG SCH (09:02)
[2017-12-20] MEDS: QUEtiapine FUMARATE 200 MG TAB PEG SCH (09:02)
[2017-12-20] MEDS: MEGESTROL ACETATE SUSP 400 MG/10 ML CUP PEG SCH (09:02)
[2017-12-20] MEDS: HEPARIN SODIUM - SQ 10,000 UNITS/ML VIAL SQ SCH (09:03)
[2017-12-20 11:30] VITALS: BP 149/74; PULSE 98
[2017-12-20] MEDS ORDERED: MAGICADU2 SWISH-SWAL (11:38)
[2017-12-20] MEDS ORDERED: chlorproMAZINE PEG (11:38)
[2017-12-20] MEDS ORDERED: Chlorpromazine PEG (11:38)
[2017-12-20] MEDS ORDERED: Megestrol Liq PEG (11:38)
[2017-12-20] MEDS ORDERED: QUET1TAB9 PEG (11:38)
[2017-12-20] MEDS ORDERED: VALP250UDC PEG (11:38)
--- NOTE | 2017-12-20 11:38 | HHI.DS ---
Psychiatry Discharge Summary Inpatient Psychiatric care?: Yes Advance Directive: No Reason Not Provided: Due to Patient Condition Mental Health AdvanceDirective: No Health Care Proxy: No Admission Admission Date Nov 21, 2017 at 11:15 Admission Diagnosis: (1) Schizoaffective disorder, bipolar type ICD Code: F25.0 - Schizoaffective disorder, bipolar type (2) Dementia ICD Code: F03.90 - Unspecified dementia without behavioral disturbance Brief History Ms. Gonzalez is a 77-year-old female with a history of schizoaffective disorder and dementia who presented to the emergency department, brought in by family for severe agitation. She was evaluated by Dr. Henriquez in the ED who reached out to me to discuss the case. Dr. Henriquez reported that despite receiving ETOs of Geodon and Ativan x 2, patient remained severely agitated and unredirectable. He has placed the patient under a [place] act. He appropriately did not wish to restrain this elderly patient, and I have elected to admit the patient to the inpatient unit for management of her psychiatric symptoms. On arrival on the unit, patient remained aggressive per nursing staff, and I ordered the patient further medicated with Haldol and Benadryl IM ETO. Tobacco Use In Past 30 Days: Cognitive Impairment Alcohol Use: Monthly or Less Hospital Course Patient was admitted to a locked, inpatient psychiatric unit. A general medical consultation was obtained. A GI consultation was obtained and a PEG tube was placed to provide tube feeds secondary to poor oral intake. Appropriate precautions were in place throughout patient's hospital stay. Patient was seen and examined on the unit by psychiatry and also visited by counselor. Psychotropic medications were adjusted. Patient tolerated medication changes well without side effects. Patient had improvement in presenting psychiatric symptomatology during the course of her hospital stay. Patient's behavior improved with the benefit of psychopharmacologic treatment. Patient's psychiatric condition has stabilized, and it is suspected that she has reached her current chronic baseline. We did recommend that family allow us to place patient in a facility as it is feared that her case may prove too involved for family to manage, but family declines placement and wishes to take patient home, and we will arrange to resume home health care on discharge. On the day of discharge: Patient seen and examined. Chart reviewed. Patient has not required any p.r.n. Haldol or ETO medications in >24 hours. Case discussed with nursing staff. Case discussed with counselor. On my exam, I find the patient has just returned from activity off the floor, which she tolerated well. She is in good spirits. She is calm and is not engaging in any aggressive or disruptive behaviors. She continues to exhibit some utilization behaviors. She does not verbalize any suicidal or homicidal ideation. She remains confused as at recent baseline but is able to verbalize some comprehensible sentences. When I ask if she is ready to go home, she tells me "well, I'd like to go home." No mood or psychotic symptoms in evidence. No side effects from medications, nor is there any evidence of sedation. No physical complaints. Patient has reached maximal benefit from this inpatient psychiatric hospital stay. She will be discharged home today with family with home health. Psychiatric follow-up as arranged by counselor. Patient is also to follow up with primary care. Patient to return to psychiatric emergency room for any concerning psychiatric symptoms as part of a general safety plan. Results Blood Pressure 175 / 85 Vital Signs Date Time Temp Pulse Resp B/P (MAP) Pulse Ox O2 Delivery O2 Flow Rate FiO2 12/20/17 06:00 97.4 86 18 175/85 (115) 12/19/17 06:31 98 Laboratory Results Test 11/22/17 06:10 12/16/17 09:40 Cholesterol Level 208 MG/DL (120-200) HDL Cholesterol 73.4 MG/DL (40.0-60.0) Hemoglobin A1c 4.7 % (4.3-6.0) LDL Cholesterol 125 MG/DL (0-99) Triglycerides Level 50 MG/DL (42-150) Valproic Acid (Depakene) Level 27 MCG/ML (50-100) Summary of Procedures PEG tube placed 12/12/2017. Imaging Last Impressions Chest X-Ray 12/04/17 0000 Signed Impressions: Service Date/Time: Monday, December 04, 2017 13:20 - CONCLUSION: New minimal parenchymal changes left base. Bryce Ortiz MD FACR Pending results at discharge: No Medications # of Antipsychotic meds at D/C: 2 Appropriate >1 Antipsych meds?: 4 Approp Antipsych med options 1 - Minimum of three failed multiple trials of monotherapy. 2 - Documented plan to taper to monotherapy due to previous use of multiple meds OR cross-taper in progress at D/C. 3 - Documentation of augmentation of Clozapine. 4 - Justification other than those listed in allowable values 1-3, document here : Required multiple antipsychotics for stabilization Discharge Discharge Date: December 20, 2017 Discharge Diagnosis: (1) Dementia Diagnosis: Principal (Behavioral disturbance improved) ICD Code: F03.90 - Unspecified dementia without behavioral disturbance Status: Acute (2) Schizoaffective disorder, bipolar type Diagnosis: Secondary (Stable) ICD Code: F25.0 - Schizoaffective disorder, bipolar type Status: Chronic Pt Condition on Discharge: Stable Discharge Disposition: Disch w/ Home Health Serv Discharge Instructions Diet Instructions: Heart Healthy Diet, On Tube Feeding Additional Diet Instructions: Tube feed: Jevity 1.5 nicol, 240mL at 08:00, 12:00, 16:00 and 20:00 with 6 x 60mL free water flushes daily. Activities you can perform: Weight Bearing as Federico Scheduled Appointment: As per counselors notes New Orders: AMMONIA - 2-3 Days BASIC METABOLIC PROF - 2-3 Days DEPAKENE - 2-3 Days New Medications: Iwvujqgt-Htcgbanpslkwtue-Kizolhxmm Liq (Magic Mouthwash Adult Liq) 120 Ml Susp 5 ML SWISH-SWAL QID for Health for 15 Days, ML 1 Refill Quetiapine (Quetiapine) 200 Mg Tab 400 MG PEG BID for Mental Health for 15 Days, #60 TAB 1 Refill Valproic Acid (Valproic Acid) 250 Mg/5 Ml (5 Ml) Solution 500 MG PEG BID for Mental Health for 15 Days, ML 1 Refill [chlorproMAZINE] () 50 MG TAB 325 MG PEG HS for Mental Health for 15 Days, 1 Refill [Chlorpromazine] () 100 MG TAB 100 MG PEG BID@0800,1200 for Mental Health for 15 Days, 1 Refill [Megestrol Liq] () 400 MG/10 ML SUSP 400 MG PEG DAILY for Health for 15 Days, 1 Refill Discontinued Medications: Lamotrigine (Lamictal) 25 Mg Tab 25 MG PO BID for Control Seizures, #60 TAB 0 Refills Memantine (Namenda) 10 Mg Tab 10 MG PO BID for health, #60 TAB 0 Refills Sertraline (Zoloft) 50 Mg Tab 50 MG PO DAILY for health, #30 TAB 0 Refills Discharge Time <= 30 minutes Mental Status Examination Appearance: Disheveled Consciousness: Alert Orientation: Person Motor Activity: Other (No hand tremor, no cogwheeling, no dystonia, no dyskinesia, no other motor abnormalities noted) Speech: Other (Speech is more comprehensible today) Language: Other (Rambling) Fund of Knowledge: Inadequate Attention and Concentration: Inadequate Memory: Impaired Mood: Other (calm) Affect: Euthymic Thought Process & Associations: Tangential Thought Content: Other (No delusions or hallucinations) Hallucination Type: None Delusion Type: None Suicidal Ideation: No Homicidal Ideation: No Insight: Poor (chronic) Judgment: Poor (chronic) Discharge/Advance Care Plan Health Problems: (1) Schizoaffective disorder, bipolar type (2) Dementia Goals to promote your health * To prevent worsening of your condition and complications * To maintain your health at the optimal level Directions to meet your goals Take your medications as prescribed Follow your dietary instruction Follow activity as directed Keep your appointments as scheduled Take your immunizations and boosters as scheduled If your symptoms worsen call your PCP, if no PCP go to Urgent Care Center or Emergency Room For 14/02 questions related to your inpatient stay or results of tests pending at discharge, please contact Dr. Hunter Pérez at Smoking is Dangerous to Your Health. Avoid second hand smoking Problem Qualifiers (1) Dementia: Qualified Codes: F03.91 - Unspecified dementia with behavioral disturbance Hunter Pérez MD December 20, 2017 11:38
== END 2017-12-20 18:05 | disposition home health service (06) | DRG 884 ==
LOC: NEPC 08:14 → NEDA 11:15 → H250 12:10 → H260 11-25 12:00 → H270 11-25 13:00 → H4EA 11-26 10:41 → H270 11-28 11:00 → H4EA 12-04 17:35
PROVIDERS: ADMIT Psychiatry & Neurology Psychiatry; ATTEND Psychiatry & Neurology Psychiatry
PROC: 0DP6XUZ Removal of Feeding Device from Stomach, External Approach (ICD-10-PCS; 2017-12-01)
PROC: 0DH63UZ Insertion of Feeding Device into Stomach, Percutaneous Approach (ICD-10-PCS; principal; 2017-12-12 14:35)
DX: F03.91 Unspecified dementia, unspecified severity, with behavioral disturbance (principal); J18.9 Pneumonia, unspecified organism; N17.9 Acute kidney failure, unspecified; B37.0 Candidal stomatitis; N39.0 Urinary tract infection, site not specified; E86.0 Dehydration; K94.23 Gastrostomy malfunction; F25.0 Schizoaffective disorder, bipolar type; F32.9 Major depressive disorder, single episode, unspecified; J45.909 Unspecified asthma, uncomplicated; Z96.653 Presence of artificial knee joint, bilateral; R00.0 Tachycardia, unspecified; I10 Essential (primary) hypertension; I16.0 Hypertensive urgency; K29.70 Gastritis, unspecified, without bleeding; E16.2 Hypoglycemia, unspecified
CPT/HCPCS: 71045; 76937; 80048; 80053; 80061; 80164; 80307; 81001; 82140; 82948; 83036; 83735; 84100; 85025; 85610; 87086; 93005; 94640; 94664; 94667; 94668; 96372; J0690; J1200; J1630; J1644; J1956; J2020; J2060; J2250; J2543; J3486; J7030; J7042

== ENCOUNTER 2017-12-23 12:06 | Inpatient (IN) | payer OTHER, MEDICARE ==
[~2017-12-23] VITALS: Ht 162.6 cm; Wt 81.6 kg
[~2017-12-23 12:06] MED LIST changes: -1-ME1LIQ PO; -AMLO10 PO; -ARIC5TAB PO; -ARIP1TAB13 PO; -ATOR20TA42 PO; +Chlorpromazine PEG; -DIPH50TA PO; -FLUTI110I INH; -K-TA10TA5 PO; -LIPI20TA PO; -LORA-474 PO; +MAGICADU2 SWISH-SWAL; -METO25 PO; +Megestrol Liq PEG; -NAME10TA PO; -NOVOLOGSS SQ; -PANT20 PO; -QUET100 PO; +QUET1TAB9 PEG; -RISPERDAL IM; -SERO100T PO; -SERT-132 PO; +VALP250UDC PEG; -ZOLO50TA PO; +chlorproMAZINE PEG
[2017-12-23] MEDS ORDERED: HALOPERIDOL LACTATE 5 MG/ML AMP IM ONE (12:30)
[2017-12-23] MEDS ORDERED: LORazepam 2 MG/ML VIAL IV PUSH ONE (12:30)
[2017-12-23] MEDS ORDERED: diphenhydrAMINE HCL 50 MG/ML VIAL IM ONE (12:30)
[2017-12-23] MEDS ORDERED: LORazepam 2 MG/ML VIAL IM ONE (12:30)
[2017-12-23] MEDS ORDERED: OLANZapine IM 10 MG VIAL IM ONE (12:30)
[2017-12-23 12:36] VITALS: BP 144/88; PULSE 133; RESP 18; TEMP 97.5; O2SAT 98
[2017-12-23 12:44] VITALS: BP 144/88; PULSE 133; RESP 26; O2SAT 98
[2017-12-23 13:15] LABS: AUTOMATED NEUTROPHIL # 2.7 TH/MM3 (1.8-7.7); BASOPHIL % 0.4 % (0.0-2.0); EOSINOPHIL # 0.1 TH/MM3 (0-0.4); EOSINOPHIL % 1.8 % (0.0-4.0); HEMATOCRIT 35.6 % (35.0-46.0); HEMOGLOBIN 11.8 GM/DL (11.6-15.3); LYMPH % 37.7 % (9.0-44.0); LYMPHOCYTE # 2.3 TH/MM3 (1.0-4.8); MEAN CELL VOLUME 92.6 FL (80.0-100.0); MEAN CORPUSCULAR HEMOGLOBIN 30.8 PG (27.0-34.0); MEAN CORPUSCULAR HGB CONC 33.3 % (32.0-36.0); MEAN PLATELET VOLUME 10.1 FL (7.0-11.0); MONO % 15.6 % (0.0-8.0); NEUT % 44.5 % (16.0-70.0); PLATELET COUNT 316 TH/MM3 (150-450); RED BLOOD COUNT 3.84 MIL/MM3 (4.00-5.30); RED CELL DISTRIBUTION WIDTH 14.6 % (11.6-17.2); WHITE BLOOD COUNT 6.2 TH/MM3 (4.0-11.0)
--- NOTE | 2017-12-23 13:22 | PD ---
Data Data Last Documented VS Vital Signs Date Time Temp Pulse Resp B/P (MAP) Pulse Ox O2 Delivery O2 Flow Rate FiO2 12/23/17 12:36 133 18 98 Orders Orders Complete Blood Count With Diff (12/23/17 12:18) Comprehensive Metabolic Panel (12/23/17 12:18) Thyroid Stimulating Hormone (12/23/17 12:18) Urinalysis - C+S If Indicated (12/23/17 12:18) Iv Access Insert/Monitor (12/23/17 12:18) Valproic Acid (Depakene) (12/23/17 12:18) Psych Screen (12/23/17 12:18) Drug Screen, Random Urine (12/23/17 12:18) Alcohol (Ethanol) (12/23/17 12:18) Lorazepam Inj (Ativan Inj) (12/23/17 12:30) ^ Sitter (12/23/17 12:19) Olanzapine Inj (Zyprexa Inj) (12/23/17 12:30) Lorazepam Inj (Ativan Inj) (12/23/17 12:30) Haloperidol Inj (Haldol Inj) (12/23/17 12:30) Diphenhydramine Inj (Benadryl Inj) (12/23/17 12:30) Restraints Violent (12/23/17 12:28) Labs Laboratory Tests Test 12/23/17 13:00 White Blood Count 6.2 TH/MM3 Red Blood Count 3.84 MIL/MM3 Hemoglobin 11.8 GM/DL Hematocrit 35.6 % Mean Corpuscular Volume 92.6 FL Mean Corpuscular Hemoglobin 30.8 PG Mean Corpuscular Hemoglobin Concent 33.3 % Red Cell Distribution Width 14.6 % Platelet Count 316 TH/MM3 Mean Platelet Volume 10.1 FL Neutrophils (%) (Auto) 44.5 % Lymphocytes (%) (Auto) 37.7 % Monocytes (%) (Auto) 15.6 % Eosinophils (%) (Auto) 1.8 % Basophils (%) (Auto) 0.4 % Neutrophils # (Auto) 2.7 TH/MM3 Lymphocytes # (Auto) 2.3 TH/MM3 Monocytes # (Auto) 1.0 TH/MM3 Eosinophils # (Auto) 0.1 TH/MM3 Basophils # (Auto) 0.0 TH/MM3 CBC Comment DIFF FINAL Differential Comment [facility] Medical Record Reviewed: Yes Supervised Visit with SEDA: Yes Narrative Course I, Dr. Pinto, have reviewed the advance practice practitioner's documentation and am in agreement, met with the patient face to face, made the diagnosis, and the medical decision making was done by me. *My assessment and Findings: Patient is a 77 year old female who presents to the ER under a Munson Act for evaluation. She has history of schizoaffective disorder as well as dementia, she was recently seen and admitted to the hospital and discharged on November 20, 2017 from our psychiatric unit. Patient returns to the ER as there are concerns for suicidal thoughts , family are unable to keep her away from knives which patient appears to be fixated on at home - concern that she will hurt herself with a knife. Patient arrives combative with staff - she required chemical and physical restraints for her safety as well as for safety of staff Critical Care Narrative Aggregate critical care time was 30 minutes. Time to perform other separately billable procedures was not included in the critical care time. My time did not include minutes spent treating any other patients simultaneously or on activities that did not directly contribute to the patient's treatment. The services I provided to this patient were to treat and/or prevent clinically significant deterioration that could result in: decompensation, deterioration I provided critical care services requiring my management, as noted below: Chart data review, documentation time, medication orders and management, vital sign assessments/reviewing monitor data, ordering and reviewing lab tests, ordering and interpreting/reviewing x-rays and diagnostic studies, care of the patient and discussion of the patient with the admitting physicians. Myesha Pinto DO Dec 23, 2017 13:22
[2017-12-23 13:45] LABS: ALKALINE PHOSPHATASE 117 U/L (45-117); TOTAL BILIRUBIN ADULT 0.4 MG/DL (0.2-1.0); TOTAL PROTEIN 8.6 GM/DL (6.4-8.2)
[2017-12-23 14:01] LABS: ALBUMIN 3.4 GM/DL (3.4-5.0); ALT (GPT) 27 U/L (10-53); AST (GOT) 30 U/L (15-37); BICARBONATE 23.8 MEQ/L (21.0-32.0); BLOOD UREA NITROGEN 19 MG/DL (7-18); CALCIUM 9.1 MG/DL (8.5-10.1); CHLORIDE 106 MEQ/L (98-107); CREATININE 1.31 MG/DL (0.50-1.00); GLOMERULAR FILTRATION RATE 48 ML/MIN (>89); GLUCOSE,RANDOM 98 MG/DL (74-106); SODIUM (NA) 139 MEQ/L (136-145)
--- NOTE | 2017-12-23 14:38 | PD ---
HPI Chief Complaint: Psychiatric Symptoms Time Seen by Provider: 12:18 Travel History International Travel<30 days: No Contact w/Intl Traveler<30days: No Traveled to known affect area: No History of Present Illness HPI 77-year-old female that presents to the ED for evaluation of BA. Patient was Munson acted by police after family contacted them on regards to aggressive behavior from the patient. She does have a history of dementia, schizoaffective disorder, bipolar disorder and was recently admitted to the hospital and released few weeks ago. She apparently has decompensated since being outside. She denies any complaints and the history is very limited as patient herself is not a good historian and will not really provide any information. She is very aggressive. She does appear to be somewhat psychotic. Cannot really asses if patient has any suicidal or homicidal ideation. PFSH Past Medical History Arthritis: Yes (KNEES) Asthma: Yes Depression: Yes Cerebrovascular Accident: No Endocrine: No Genitourinary: No Hypertension: Yes Immune Disorder: No Implanted Vascular Access Dvce: Yes Kidney Stones: No Musculoskeletal: Yes Neurologic: Yes Reproductive: No Respiratory: Yes Migraines: No Renal Failure: No Thyroid Disease: No Tetanus Vaccination: Unknown ?: Unknown Past Surgical History Surgical History: Unable to Obtain Abdominal Surgery: No Cardiac Surgery: No Ear Surgery: No Endocrine Surgery: No Eye Surgery: Yes (BILAT CATARACT REMOVAL) Genitourinary Surgery: No Gynecologic Surgery: No Joint Replacement: Yes (BI-LAT KNEES) Oral Surgery: No Thoracic Surgery: No Other Surgery: Yes Social History Alcohol Use: No Tobacco Use: No Substance Use: No Allergies-Medications (Allergen,Severity, Reaction): Coded Allergies: apple (Unverified Allergy, Severe, Swelling, 03/08/17) Reported Meds & Prescriptions Reported Meds & Active Scripts Active [Megestrol Liq] 400 MG/10 ML Susp 400 Mg PEG DAILY 15 Days Magic Mouthwash Adult Liq (Multi-Ingredient Mouthwash/Gargle) 120 Ml Susp 5 Ml SWISH-SWAL QID 15 Days Quetiapine (Quetiapine Fumarate) 200 Mg Tab 400 Mg PEG BID 15 Days [Chlorpromazine] 100 MG Tab 100 Mg PEG BID@0800,1200 15 Days [chlorproMAZINE] 50 MG Tab 325 Mg PEG HS 15 Days Valproic Acid 250 Mg/5 Ml (5 Ml) Solution 500 Mg PEG BID 15 Days Review of Systems ROS Limitations: Combative, Psychotic, Poor Historian Except as stated in HPI: all other systems reviewed are Neg Physical Exam Exam Limitations: Poor Historian, Combative, Psychotic Narrative GENERAL: SKIN: Warm and dry. HEAD: Atraumatic. Normocephalic. EYES: Pupils equal and round. No scleral icterus. No injection or drainage. ENT: No nasal bleeding or discharge. Mucous membranes pink and moist. Tongue is midline. No uvula deviation NECK: Trachea midline. No JVD. CARDIOVASCULAR: Regular rate and rhythm. No murmurs, S3, S4. RESPIRATORY: No accessory muscle use. Clear to auscultation. Breath sounds equal bilaterally. GASTROINTESTINAL: Abdomen soft, non-tender, nondistended. Hepatic and splenic margins not palpable. MUSCULOSKELETAL: Extremities without clubbing, cyanosis, or edema. No obvious deformities. Full range of motion of the upper and lower extremities bilaterally. NEUROLOGICAL: Awake and alert. No obvious cranial nerve deficits. Motor grossly within normal limits. Five out of 5 muscle strength in the arms and legs. Normal speech. PSYCHIATRIC: Aggresive and altered mood and affect; insight and judgment cannot asses Data Data Last Documented VS Vital Signs Date Time Temp Pulse Resp B/P (MAP) Pulse Ox O2 Delivery O2 Flow Rate FiO2 12/23/17 12:36 133 18 98 Orders Orders Complete Blood Count With Diff (12/23/17 12:18) Comprehensive Metabolic Panel (12/23/17 12:18) Thyroid Stimulating Hormone (12/23/17 12:18) Urinalysis - C+S If Indicated (12/23/17 12:18) Iv Access Insert/Monitor (12/23/17 12:18) Valproic Acid (Depakene) (12/23/17 12:18) Psych Screen (12/23/17 12:18) Drug Screen, Random Urine (12/23/17 12:18) Alcohol (Ethanol) (12/23/17 12:18) Lorazepam Inj (Ativan Inj) (12/23/17 12:30) ^ Sitter (12/23/17 12:19) Olanzapine Inj (Zyprexa Inj) (12/23/17 12:30) Lorazepam Inj (Ativan Inj) (12/23/17 12:30) Haloperidol Inj (Haldol Inj) (12/23/17 12:30) Diphenhydramine Inj (Benadryl Inj) (12/23/17 12:30) Restraints Violent (12/23/17 12:28) Labs Laboratory Tests Test 12/23/17 13:00 White Blood Count 6.2 TH/MM3 Red Blood Count 3.84 MIL/MM3 Hemoglobin 11.8 GM/DL Hematocrit 35.6 % Mean Corpuscular Volume 92.6 FL Mean Corpuscular Hemoglobin 30.8 PG Mean Corpuscular Hemoglobin Concent 33.3 % Red Cell Distribution Width 14.6 % Platelet Count 316 TH/MM3 Mean Platelet Volume 10.1 FL Neutrophils (%) (Auto) 44.5 % Lymphocytes (%) (Auto) 37.7 % Monocytes (%) (Auto) 15.6 % Eosinophils (%) (Auto) 1.8 % Basophils (%) (Auto) 0.4 % Neutrophils # (Auto) 2.7 TH/MM3 Lymphocytes # (Auto) 2.3 TH/MM3 Monocytes # (Auto) 1.0 TH/MM3 Eosinophils # (Auto) 0.1 TH/MM3 Basophils # (Auto) 0.0 TH/MM3 CBC Comment DIFF FINAL Differential Comment Blood Urea Nitrogen 19 MG/DL Creatinine 1.31 MG/DL Random Glucose 98 MG/DL Total Protein 8.6 GM/DL Albumin 3.4 GM/DL Calcium Level 9.1 MG/DL Alkaline Phosphatase 117 U/L Aspartate Amino Transf (AST/SGOT) 30 U/L Alanine Aminotransferase (ALT/SGPT) 27 U/L Total Bilirubin 0.4 MG/DL Sodium Level 139 MEQ/L Potassium Level 4.3 MEQ/L Chloride Level 106 MEQ/L Carbon Dioxide Level 23.8 MEQ/L Anion Gap 9 MEQ/L Estimat Glomerular Filtration Rate 48 ML/MIN Thyroid Stimulating Hormone 3rd Gen 5.190 uIU/ML Valproic Acid (Depakene) Level 8 MCG/ML Ethyl Alcohol Level LESS THAN 3 MG/DL MDM Medical Decision Making Medical Screen Exam Complete: Yes Emergency Medical Condition: Yes Medical Record Reviewed: Yes Interpretation(s) CBC & BMP Diagram 12/23/17 13:00 Total Protein 8.6 H, Albumin 3.4, Calcium Level 9.1, Alkaline Phosphatase 117, Aspartate Amino Transf (AST/SGOT) 30, Alanine Aminotransferase (ALT/SGPT) 27, Total Bilirubin 0.4 Differential Diagnosis Depression versus suicidal ideation versus anxiety versus adjustment disorder versus mood disorder versus bipolar disorder versus schizophrenia versus paranoid disorder versus psychosis versus substance abuse versus alcohol abuse versus alcohol induced psychosis versus homicidality addition versus cutting versus personality disorder Narrative Course 77-year-old female that presents to the ED for evaluation of Munson act. Patient was properly examined and was found to have signs and symptoms consistent with appears to be psychiatric in nature. Labs were ordered. Patient was medically clear. Okay to be seen by psych. Patient had to be medicated as well as restrained for safety of staff and patient. Sitter was ordered by me. Mental health screening was discussed with the patient. Diagnosis Primary Impression: Schizoaffective disorder, bipolar type Additional Impression: Dementia Qualified Codes: F03.91 - Unspecified dementia with behavioral disturbance Reji Phelps Dec 23, 2017 14:37
[2017-12-23 14:44] VITALS: BP 131/60; PULSE 105; RESP 18
[2017-12-23] MEDS ORDERED: MAGNESIUM HYDROXIDE SUSP 30 ML CUP PO PRN (18:30)
[2017-12-23] MEDS ORDERED: LORazepam 1 MG TAB PO PRN (18:30)
[2017-12-23] MEDS ORDERED: ALUMINUM/MAGNESIUM/SIMETH 30 ML CUP PO PRN (18:30)
[2017-12-23] MEDS ORDERED: LORazepam 2 MG/ML VIAL IM PRN (18:30)
[2017-12-23 21:37] VITALS: BP 146/74; PULSE 76; RESP 20; TEMP 98.6; O2SAT 99
[2017-12-24 06:18] VITALS: BP 146/70; PULSE 85; RESP 20; TEMP 97.3; O2SAT 95
[2017-12-24 07:00] VITALS: BP 146/70; PULSE 85; RESP 20; TEMP 97.3; O2SAT 94
[2017-12-24] MEDS ORDERED: hydrOXYzine HCL 50 MG TAB PO PRN (08:15)
--- NOTE | 2017-12-24 08:22 | HHI.HP ---
Provisional Diagnosis Admission Date Dec 23, 2017 at 18:27 [place] I. Dementia with behavioral disturbances, schizoaffective disorder bipolar type Certification of Person's Competence To Provide Express and Informed Consent I have personally examined Jackelyn Gonzalez , a person being served at [facility] on, Dec 24, 2017 08:11. Express and informed consent means consent voluntarily given in writing, by a competent person, after sufficient explanation and disclosure of the subject matter involved to enable the person to make a knowing and willful decision without any element of force, fraud, deceit, duress, or other form of constraint or coercion. This person is 18 years of age or older, is not now known to be incompetent to consent to treatment with a guardian advocate, and does not have a health care surrogate or proxy currently making medical treatment decisions. I have found this person to be one of the following: [] Competent to provide express and informed consent, as defined above, for voluntary admission to this facility and is competent to provide express and informed consent for treatment. He/she has the consistent capacity to make well reasoned, willful, and knowing decisions concerning his or her medical or mental health treatment. The person fully and consistently understands the purpose of the admission for examination/placement and is fully capable of personally exercising all rights assured [place]] Incompetent to provide express and informed consent to voluntary admission , and this is incompetent to provide express and informed consent to treatment. The person must be transferred to involuntary status and a petition for a guardian advocate filed with the Circuit Court. [] Refusing to provide express and informed consent to voluntary admission but is competent to provide express and informed consent for treatment. The person must be discharged or transferred to involuntary status. Form shall be completed within 24 hours of a person's arrival at the receiving facility and filed in the clinical record of each person: 1. Admitted on a voluntary basis 2. Permitted to provide express and informed consent to his/her own treatment 3. Allowed to transfer from involuntary to voluntary status 4. Prior to permitting a person to consent to his or her own treatment after having been previously found incompetent to consent to treatment. History of Present Illness Capacity: Lacks Capacity HPI Patient is a 77-year-old female lung to us from multiple prior contacts comes here under a Munson act by the [facility]'s office dated 12/23/2017 at 10:57 AM that document reviewed essentially is stating 1 2017 sarahchanelle Dl responded to actively drive health on a reference to a suicidal female upon arrival contact was made with Swetha Gonzalez who appear to have an altered mental status and was unable to answer questions family members advised Swetha suffers from dementia and has been trying to hurt herself with knives that Arianna Dl was also advised she had been continuously trying to walk away from the resident's based on her family members statements sarahchanelle dent believes there is a substantial likelihood that without care or treatment Swetha will cause serious bodily harm to herself family members advised we will has a history of mental health issues and has been Munson acted in the past but was taken into protective custody under the Munson act. Patient seen screen in the ED urine toxicology negative Depakote blood level was 0.1 negative alcohol level. Patient behavior in the ED necessitated and DTO of Haldol. At the present time patient sitting quietly in [place] chair in the dayroom nurse [place] present throughout session. Patient is alert diffusely disoriented in all 4 spheres basically clapping her hands smiling and laughing and babbling nonsensical sounds. She reaches out somewhat towards other people coming by but is redirectable at this time. At this time patient does meet criteria for inpatient psychiatric hospitalization under the Munson act I will do first opinion request second opinion F patient does not have capacity I will ask for health care surrogate and guardian advocate. We will continue medications per the med reconciliation form. I will also completed the initial psychiatric template orders. It appears this placement of the family home was not successful we may need to assess more restrictive placements for this lady Review of Systems ROS Limitations: Clinical Condition, Altered Mental Status Past Psych History Psychological trauma history Unknown at this time Violence risk - others (6 mos) Patient has been hostile towards her family members Violence risk - self (6 mos) Moderate Substance Abuse History Drugs/Alcohol past 12 months Unknown Past Family Social History Coded Allergies: apple (Unverified Allergy, Severe, Swelling, 03/08/17) Active Scripts [Megestrol Liq] 400 MG/10 ML SUSP No Conflict Check, 400 MG PEG DAILY for Health for 15 Days, 1 Refill Prov:Hunter Pérez MD 12/20/17 Rahzbgyl-Rtlmvgeiordwuyb-Dbhxwnlcc Liq (Magic Mouthwash Adult Liq) 120 Ml Susp, 5 ML SWISH-SWAL QID for Health for 15 Days, ML 1 Refill Prov:Hunter Pérez MD 12/20/17 Quetiapine (Quetiapine) 200 Mg Tab, 400 MG PEG BID for Mental Health for 15 Days , #60 TAB 1 Refill Prov:Hunter Pérez MD 12/20/17 [Chlorpromazine] 100 MG TAB No Conflict Check, 100 MG PEG BID@0800,1200 for Mental Health for 15 Days, 1 Refill Prov:Hunter Pérez MD 12/20/17 [chlorproMAZINE] 50 MG TAB No Conflict Check, 325 MG PEG HS for Mental Health for 15 Days, 1 Refill Prov:Hunter Pérez MD 12/20/17 Valproic Acid (Valproic Acid) 250 Mg/5 Ml (5 Ml) Solution, 500 MG PEG BID for Mental Health for 15 Days, ML 1 Refill Prov:Hunter Pérez MD 12/20/17 Discontinued Reported Medications Lamotrigine (Lamictal) 25 Mg Tab, 25 MG PO BID for Control Seizures, #60 TAB 0 Refills 11/21/17 Discontinued Scripts Sertraline (Zoloft) 50 Mg Tab, 50 MG PO DAILY for health, #30 TAB 0 Refills Prov:Louie Morales MD 06/30/16 Memantine (Namenda) 10 Mg Tab, 10 MG PO BID for health, #60 TAB 0 Refills Prov:Louie Morales MD 06/30/16 Current Medications Medications (Trade) Dose Ordered Sig/Karyna Route Start Time Stop Time Status Last Admin (SEROquel) 400 mg BID PEG 12/23/17 21:00 (Depakene Liq) 500 mg BID PEG 12/23/17 21:00 (Ativan) 0.5 mg Q12H PRN PO 12/23/17 18:30 (Ativan Inj) 0.5 mg Q12H PRN IM 12/23/17 18:30 (Tylenol) 650 mg Q4H PRN PO 12/23/17 18:30 (Milk Of Magnesia Liq) 30 ml DAILY PRN PO 12/23/17 18:30 (Mag-Al Plus Susp Liq) 30 ml Q6H PRN PO 12/23/17 18:30 (Habitrol 21 Mg Patch.24 Hr) 1 patch DAILY T-DERMAL 12/24/17 09:00 Miscellaneous Information 1 DAILY T-DERMAL 12/24/17 09:00 (Atarax) 50 mg Q6H PRN PO 12/24/17 08:15 UNV Family Psych History Unknown at this time Social History Patient living with family Patient's Strengths (min. 2) Patient has supportive family patient able access healthcare Physical Exam Patient medically cleared ED at the present time patient sitting quietly in [place] chair she is in no acute distress, she is in no respiratory distress, no complaints of abdominal pain, patient appears to move all 4 extremities without difficulty Vital Signs Vital Signs Date Time Temp Pulse Resp B/P (MAP) Pulse Ox O2 Delivery O2 Flow Rate FiO2 12/24/17 06:18 97.3 85 20 146/70 (95) 95 12/23/17 12:44 Room Air Lab Results Test 12/23/17 13:00 12/24/17 06:50 White Blood Count 6.2 TH/MM3 Red Blood Count 3.84 MIL/MM3 Hemoglobin 11.8 GM/DL Hematocrit 35.6 % Mean Corpuscular Volume 92.6 FL Mean Corpuscular Hemoglobin 30.8 PG Mean Corpuscular Hemoglobin Concent 33.3 % Red Cell Distribution Width 14.6 % Platelet Count 316 TH/MM3 Mean Platelet Volume 10.1 FL Neutrophils (%) (Auto) 44.5 % Lymphocytes (%) (Auto) 37.7 % Monocytes (%) (Auto) 15.6 % Eosinophils (%) (Auto) 1.8 % Basophils (%) (Auto) 0.4 % Neutrophils # (Auto) 2.7 TH/MM3 Lymphocytes # (Auto) 2.3 TH/MM3 Monocytes # (Auto) 1.0 TH/MM3 Eosinophils # (Auto) 0.1 TH/MM3 Basophils # (Auto) 0.0 TH/MM3 CBC Comment DIFF FINAL Differential Comment Blood Urea Nitrogen 19 MG/DL Creatinine 1.31 MG/DL Random Glucose 98 MG/DL Total Protein 8.6 GM/DL Albumin 3.4 GM/DL Calcium Level 9.1 MG/DL Alkaline Phosphatase 117 U/L Aspartate Amino Transf (AST/SGOT) 30 U/L Alanine Aminotransferase (ALT/SGPT) 27 U/L Total Bilirubin 0.4 MG/DL Sodium Level 139 MEQ/L Potassium Level 4.3 MEQ/L Chloride Level 106 MEQ/L Carbon Dioxide Level 23.8 MEQ/L Anion Gap 9 MEQ/L Estimat Glomerular Filtration Rate 48 ML/MIN Thyroid Stimulating Hormone 3rd Gen 5.190 uIU/ML Valproic Acid (Depakene) Level 8 MCG/ML Ethyl Alcohol Level LESS THAN 3 MG/DL Mental Status Examination Appearance: Appropriate Consciousness: Alert Orientation: Person (Vaguely) Motor Activity: Other (Patient sitting in [place] chair) Speech: Other (Quite garbled) Language: Other (Verbal) Fund of Knowledge: Poor Attention and Concentration: Easily Distracted Memory: Impaired Mood: Other (To mildly irritable) Affect: Other (Decreased range and intensity) Thought Process & Associations: Disorganized Thought Content: Other (Difficult to ascertain speech is undecipherable) Hallucination Type: None Delusion Type: None Suicidal Ideation: No Suicidal Plan: No Suicidal Intention: No Homicidal Ideation: No Homicidal Plan: No Homicidal Intention: No Insight: Poor Judgment: Poor Assessment & Plan Problem List: (1) Schizoaffective disorder, bipolar type ICD Codes: F25.0 - Schizoaffective disorder, bipolar type Status: Chronic (2) Dementia ICD Codes: F03.90 - Unspecified dementia without behavioral disturbance Status: Acute Assessment & Plan Estimated LOS: 7 days patient remains quite demented labile at this time redirectable however we need to get further information about her behavior after recent prior discharge. Patient may become more problematic Discharge Planning We need to work with patient's family related to placement issues Request HC Surrog/Guard Advoc?: Yes Problem Qualifiers (1) Dementia: Qualified Codes: G30.1 - Alzheimer's disease with late onset; F02.81 - Dementia in other diseases classified elsewhere with behavioral disturbance Louie Morales MD Dec 24, 2017 08:22
[2017-12-24 08:41] LABS: BICARBONATE 23.4 MEQ/L (21.0-32.0); BLOOD UREA NITROGEN 13 MG/DL (7-18); CALCIUM 8.9 MG/DL (8.5-10.1); CHLORIDE 106 MEQ/L (98-107); CHOLESTEROL 196 MG/DL (120-200); CREATININE 0.83 MG/DL (0.50-1.00); GLOMERULAR FILTRATION RATE 80 ML/MIN (>89); GLUCOSE,RANDOM 65 MG/DL (74-106); SODIUM (NA) 141 MEQ/L (136-145); TRIGLYCERIDES 59 MG/DL (42-150)
[2017-12-24 08:43] LABS: CHOLESTEROL/ HDL RATIO 4.55 RATIO; LDL CHOLESTEROL 141 MG/DL (0-99)
[2017-12-24] MEDS: REMOVE OLD NICOTINE PATCH T-DERMAL SCH (09:00)
[2017-12-24] MEDS: NICOTINE 21 MG/24 HR PATCH T-DERMAL SCH (09:00)
[2017-12-24] MEDS: MEGESTROL ACETATE SUSP 400 MG/10 ML CUP PEG SCH (11:52)
[2017-12-24] MEDS: VALPROIC ACID SYRUP 250 MG/5 ML UDC PEG SCH ×2 (12:35→21:03)
[2017-12-24] MEDS: QUEtiapine FUMARATE 200 MG TAB PEG SCH ×2 (12:35→21:04)
[2017-12-24 17:46] VITALS: BP 134/68; PULSE 70; RESP 22; TEMP 98.4; O2SAT 99
[2017-12-24] MEDS ORDERED: CHLORPROMAZINE PEG SCH (21:00)
[2017-12-24] MEDS: chlorproMAZINE HCL 25 MG TAB PEG SCH (21:04)
[2017-12-25] MEDS: LORazepam 2 MG/ML VIAL IM PRN (08:48)
[2017-12-25] MEDS: NICOTINE 21 MG/24 HR PATCH T-DERMAL SCH (09:00)
[2017-12-25] MEDS: REMOVE OLD NICOTINE PATCH T-DERMAL SCH (09:00)
[2017-12-25 10:12] LABS: HEMOGLOBIN A1C 5.5 % (4.3-6.0)
[2017-12-25] MEDS: QUEtiapine FUMARATE 200 MG TAB PEG SCH ×2 (10:42→19:55)
[2017-12-25] MEDS: VALPROIC ACID SYRUP 250 MG/5 ML UDC PEG SCH ×2 (10:42→19:55)
[2017-12-25] MEDS: MEGESTROL ACETATE SUSP 400 MG/10 ML CUP PEG SCH (10:43)
--- NOTE | 2017-12-25 12:03 | HHI.PYPN ---
Subjective Remarks This is a request for second opinion. Admission note was reviewed and I agree with the history. Patient was seen and case was discussed with nursing. Patient is nonsensical. She is loud with profound auto lalia. Responding to internal stimuli. Combative with care Mental Status Examination Appearance: Appropriate Consciousness: Alert Orientation: Person (Vaguely) Motor Activity: Other (Patient sitting in [place] chair) Speech: Pressured, Other (Quite garbled) Language: Other (Verbal) Fund of Knowledge: Poor Attention and Concentration: Easily Distracted Memory: Impaired Mood: Other (To mildly irritable) Affect: Other (Decreased range and intensity) Thought Process & Associations: Disorganized Thought Content: Other (Difficult to ascertain speech is undecipherable) Hallucination Type: None Delusion Type: None Suicidal Ideation: No Suicidal Plan: No Suicidal Intention: No Homicidal Ideation: No Homicidal Plan: No Homicidal Intention: No Insight: Poor Judgment: Poor Results Vitals/IOs Vital Signs Date Time Temp Pulse Resp B/P (MAP) Pulse Ox O2 Delivery O2 Flow Rate FiO2 12/24/17 17:46 98.4 70 22 134/68 (90) 99 12/23/17 12:44 Room Air Intake and Output 12/25/17 12/25/17 12/26/17 08:00 16:00 00:00 Intake Total 0 ml Balance 0 ml Assessment & Plan Problem List: (1) Schizoaffective disorder, bipolar type ICD Codes: F25.0 - Schizoaffective disorder, bipolar type Status: Chronic (2) Dementia ICD Codes: F03.90 - Unspecified dementia without behavioral disturbance Status: Acute Assessment & Plan I agree with the first opinion to continue petition. Criteria include aggressive behavior and acute psychosis Justification for Cont. Inpt. Patient would decompensate in a less restrictive setting Request HC Surrog/Guard Advoc?: Yes Problem Qualifiers (1) Dementia: Qualified Codes: G30.1 - Alzheimer's disease with late onset; F02.81 - Dementia in other diseases classified elsewhere with behavioral disturbance Yaakov Moreno DO Dec 25, 2017 12:03
[2017-12-25] MEDS: chlorproMAZINE HCL 25 MG TAB PEG SCH (19:55)
[2017-12-26 05:32] VITALS: BP 151/94; PULSE 107; RESP 18; O2SAT 97
[2017-12-26] MEDS: NICOTINE 21 MG/24 HR PATCH T-DERMAL SCH (09:00)
[2017-12-26] MEDS: REMOVE OLD NICOTINE PATCH T-DERMAL SCH (09:00)
[2017-12-26] MEDS: MEGESTROL ACETATE SUSP 400 MG/10 ML CUP PEG SCH (09:18)
[2017-12-26] MEDS: QUEtiapine FUMARATE 200 MG TAB PEG SCH ×2 (09:18→21:10)
[2017-12-26] MEDS: VALPROIC ACID SYRUP 250 MG/5 ML UDC PEG SCH ×2 (09:18→21:09)
--- NOTE | 2017-12-26 14:07 | HHI.PYPN ---
Subjective Remarks Patient seen and bird with nurse Gloria, chart reviewed, patient complaint medications, patient discussed with nurse. Patient sitting quietly in chair in day room she is alert she continues to babbling nonsensical though she is not quite as hyperactive and agitated. For now continue treatment Review of Systems Except as stated in HPI: all other systems reviewed are Neg Mental Status Examination Appearance: Appropriate Consciousness: Alert Orientation: Person (Vaguely) Motor Activity: Other (Patient sitting in [place] chair) Speech: Pressured, Other (Quite garbled) Language: Other (Verbal) Fund of Knowledge: Poor Attention and Concentration: Easily Distracted Memory: Impaired Mood: Other (To mildly irritable) Affect: Other (Decreased range and intensity) Thought Process & Associations: Disorganized Thought Content: Other (Difficult to ascertain speech is undecipherable) Hallucination Type: None Delusion Type: None Suicidal Ideation: No Suicidal Plan: No Suicidal Intention: No Homicidal Ideation: No Homicidal Plan: No Homicidal Intention: No Insight: Poor Judgment: Poor Results Vitals/IOs Vital Signs Date Time Temp Pulse Resp B/P (MAP) Pulse Ox O2 Delivery O2 Flow Rate FiO2 12/26/17 05:32 107 18 151/94 (113) 97 12/24/17 17:46 98.4 12/23/17 12:44 Room Air Intake and Output 12/26/17 12/26/17 12/27/17 08:00 16:00 00:00 Intake Total 0 ml Balance 0 ml Assessment & Plan Problem List: (1) Schizoaffective disorder, bipolar type ICD Codes: F25.0 - Schizoaffective disorder, bipolar type Status: Chronic (2) Dementia ICD Codes: F03.90 - Unspecified dementia without behavioral disturbance Status: Acute Assessment & Plan Estimated LOS: days patient continues confused demented needing frequent redirections but at this time is not quite as agitated or irritable. Justification for Cont. Inpt. At this time patient would decompensate a place to a lower level of care Discharge Planning To be determined Request HC Surrog/Guard Advoc?: Yes Problem Qualifiers (1) Dementia: Qualified Codes: G30.1 - Alzheimer's disease with late onset; F02.81 - Dementia in other diseases classified elsewhere with behavioral disturbance Louie Morales MD Dec 26, 2017 14:07
[2017-12-26 17:45] VITALS: BP 152/57; PULSE 112; RESP 18
[2017-12-26] MEDS: chlorproMAZINE HCL 25 MG TAB PEG SCH (21:10)
[2017-12-27 06:08] VITALS: BP 126/68; PULSE 88; RESP 15; TEMP 97.8; O2SAT 93
[2017-12-27] MEDS: NICOTINE 21 MG/24 HR PATCH T-DERMAL SCH (09:00)
[2017-12-27] MEDS: VALPROIC ACID SYRUP 250 MG/5 ML UDC PEG SCH ×2 (09:00→19:49)
[2017-12-27] MEDS: REMOVE OLD NICOTINE PATCH T-DERMAL SCH (09:00)
[2017-12-27] MEDS: QUEtiapine FUMARATE 200 MG TAB PEG SCH ×2 (09:00→19:49)
[2017-12-27] MEDS: MEGESTROL ACETATE SUSP 400 MG/10 ML CUP PEG SCH (09:00)
[2017-12-27] MEDS: ACETAMINOPHEN 325 MG TAB PO PRN (09:13)
--- NOTE | 2017-12-27 12:12 | HHI.PYPN ---
Subjective Remarks Patient seen in day room with nurse Vikki, medical student Mercedes, chart reviewed, patient compliant medication with encouragement. Patient alert, diffusely confused all 4 spheres, markedly disorganized babbling incoherently continue his loud at times somewhat agitated at times reaching out for staff or other patients. For now continue treatment Review of Systems Except as stated in HPI: all other systems reviewed are Neg Mental Status Examination Appearance: Appropriate Consciousness: Alert Orientation: Person (Vaguely) Motor Activity: Other (Patient sitting in [place] chair) Speech: Pressured, Other (Quite garbled) Language: Other (Verbal) Fund of Knowledge: Poor Attention and Concentration: Easily Distracted Memory: Impaired Mood: Other (To mildly irritable) Affect: Other (Decreased range and intensity) Thought Process & Associations: Disorganized Thought Content: Other (Difficult to ascertain speech is undecipherable) Hallucination Type: None Delusion Type: None Suicidal Ideation: No Suicidal Plan: No Suicidal Intention: No Homicidal Ideation: No Homicidal Plan: No Homicidal Intention: No Insight: Poor Judgment: Poor Results Vitals/IOs Vital Signs Date Time Temp Pulse Resp B/P (MAP) Pulse Ox O2 Delivery O2 Flow Rate FiO2 12/27/17 06:08 97.8 88 15 126/68 (87) 93 12/23/17 12:44 Room Air Assessment & Plan Problem List: (1) Schizoaffective disorder, bipolar type ICD Codes: F25.0 - Schizoaffective disorder, bipolar type Status: Chronic (2) Dementia ICD Codes: F03.90 - Unspecified dementia without behavioral disturbance Status: Acute Assessment & Plan Estimated LOS: days patient continues diffusely confused disoriented at times somewhat intrusive moving intervention and redirection. Continues to speak nonsense Justification for Cont. Inpt. At this time patient would decompensate a place to the lower level of care Discharge Planning To be determined Request HC Surrog/Guard Advoc?: Yes Problem Qualifiers (1) Dementia: Qualified Codes: G30.1 - Alzheimer's disease with late onset; F02.81 - Dementia in other diseases classified elsewhere with behavioral disturbance Louie Morales MD Dec 27, 2017 12:12
[2017-12-27] MEDS: LORazepam 2 MG/ML VIAL IM PRN (16:33)
[2017-12-27] MEDS: chlorproMAZINE HCL 25 MG TAB PEG SCH (19:48)
[2017-12-27 22:00] VITALS: BP 153/94; PULSE 110; RESP 18
[2017-12-27] MEDS ORDERED: LORazepam 2 MG/ML VIAL IM ONE ×2 (22:15)
[2017-12-28 06:03] VITALS: BP 109/56; PULSE 86; RESP 16; O2SAT 92
[2017-12-28] MEDS: MEGESTROL ACETATE SUSP 400 MG/10 ML CUP PEG SCH (09:00)
[2017-12-28] MEDS: REMOVE OLD NICOTINE PATCH T-DERMAL SCH (09:00)
[2017-12-28] MEDS: NICOTINE 21 MG/24 HR PATCH T-DERMAL SCH ×2 (09:00→11:00)
[2017-12-28] MEDS: QUEtiapine FUMARATE 200 MG TAB PEG SCH ×2 (09:30→20:03)
[2017-12-28] MEDS: VALPROIC ACID SYRUP 250 MG/5 ML UDC PEG SCH ×2 (09:30→20:03)
--- NOTE | 2017-12-28 14:04 | HHI.PYPN ---
Subjective Remarks Patient seen in day room with RN, chart reviewed, patient Chika compliance with medication. Though patient behavior continues somewhat out of control she was diffusely confused all 4 spheres basically speaking in unintelligible babbling sounds. She is intrusive grabbing and reaching at people passing her by. Steps also somewhat concerned about her swallowing ability we will get swallow study. He also concerned with the length of patient's fingernails and they getting injured when she grabs with them will have nails trimmed. Also because of difficulty with full we will get a CMP and a CBC Review of Systems Except as stated in HPI: all other systems reviewed are Neg Mental Status Examination Appearance: Appropriate Consciousness: Alert Orientation: Person (Vaguely) Motor Activity: Other (Patient sitting in [place] chair) Speech: Pressured, Other (Quite garbled) Language: Other (Verbal) Fund of Knowledge: Poor Attention and Concentration: Easily Distracted Memory: Impaired Mood: Other (To mildly irritable) Affect: Other (Decreased range and intensity) Thought Process & Associations: Disorganized Thought Content: Other (Difficult to ascertain speech is undecipherable) Hallucination Type: None Delusion Type: None Suicidal Ideation: No Suicidal Plan: No Suicidal Intention: No Homicidal Ideation: No Homicidal Plan: No Homicidal Intention: No Insight: Poor Judgment: Poor Results Vitals/IOs Vital Signs Date Time Temp Pulse Resp B/P (MAP) Pulse Ox O2 Delivery O2 Flow Rate FiO2 12/28/17 06:03 86 16 109/56 (73) 92 12/27/17 06:08 97.8 Assessment & Plan Problem List: (1) Schizoaffective disorder, bipolar type ICD Codes: F25.0 - Schizoaffective disorder, bipolar type Status: Chronic (2) Dementia ICD Codes: F03.90 - Unspecified dementia without behavioral disturbance Status: Acute Assessment & Plan Estimated LOS: days patient continues diffusely confused and demented, with some difficulty swallowing we will get swallow study, her oral intake has been poor we will check CBC and CMP, we will also have her nails trimmed by staff Justification for Cont. Inpt. At this time patient would decompensate if placed to the lower level of care Discharge Planning To be determined Request HC Surrog/Guard Advoc?: Yes Problem Qualifiers (1) Dementia: Qualified Codes: G30.1 - Alzheimer's disease with late onset; F02.81 - Dementia in other diseases classified elsewhere with behavioral disturbance Louie Morales MD Dec 28, 2017 14:04
[2017-12-28 17:53] VITALS: BP 136/88; PULSE 87; RESP 16
[2017-12-28] MEDS: chlorproMAZINE HCL 25 MG TAB PEG SCH (20:04)
[2017-12-29 07:49] LABS: BASOPHIL % 0.8 % (0.0-2.0); EOSINOPHIL # 0.1 TH/MM3 (0-0.4); EOSINOPHIL % 5.8 % (0.0-4.0); HEMATOCRIT 32.6 % (35.0-46.0); HEMOGLOBIN 10.8 GM/DL (11.6-15.3); LYMPH % 43.2 % (9.0-44.0); LYMPHOCYTE # 1.1 TH/MM3 (1.0-4.8); MEAN CELL VOLUME 93.2 FL (80.0-100.0); MEAN CORPUSCULAR HGB CONC 33.2 % (32.0-36.0); MEAN PLATELET VOLUME 9.7 FL (7.0-11.0); MONO % 7.8 % (0.0-8.0); MONOCYTE # 0.2 TH/MM3 (0-0.9); NEUT % 42.4 % (16.0-70.0); PLATELET COUNT 255 TH/MM3 (150-450); RED BLOOD COUNT 3.49 MIL/MM3 (4.00-5.30); RED CELL DISTRIBUTION WIDTH 14.2 % (11.6-17.2); WHITE BLOOD COUNT 2.4 TH/MM3 (4.0-11.0)
[2017-12-29 08:19] LABS: ALBUMIN 3.2 GM/DL (3.4-5.0); AST (GOT) 16 U/L (15-37); BICARBONATE 25.5 MEQ/L (21.0-32.0); BLOOD UREA NITROGEN 17 MG/DL (7-18); CALCIUM 9.1 MG/DL (8.5-10.1); CHLORIDE 104 MEQ/L (98-107); GLOMERULAR FILTRATION RATE 73 ML/MIN (>89); GLUCOSE,RANDOM 92 MG/DL (74-106); SODIUM (NA) 139 MEQ/L (136-145)
[2017-12-29 08:22] LABS: ALKALINE PHOSPHATASE 112 U/L (45-117); ALT (GPT) 22 U/L (10-53); TOTAL BILIRUBIN ADULT 0.3 MG/DL (0.2-1.0)
[2017-12-29] MEDS: MEGESTROL ACETATE SUSP 400 MG/10 ML CUP PEG SCH (08:22)
[2017-12-29] MEDS: QUEtiapine FUMARATE 200 MG TAB PEG SCH ×2 (08:22→20:23)
[2017-12-29] MEDS: VALPROIC ACID SYRUP 250 MG/5 ML UDC PEG SCH ×2 (08:22→20:23)
[2017-12-29] MEDS: REMOVE OLD NICOTINE PATCH T-DERMAL SCH (08:22)
--- NOTE | 2017-12-29 11:35 | HHI.PYPN ---
Subjective Remarks Patient seen in [place] today we will continue 4 week by Fam Davey with healthcare surrogate appointed. Patient also seen by me prior to court she continues to be confused babbling nonsensical. Patient's response to questions by Fam Davey were also nonsensical babbling at times slipping hard the conference room table. She medication adjustment above will increase daytime trazodone to 125 mg twice a day Review of Systems Except as stated in HPI: all other systems reviewed are Neg Mental Status Examination Appearance: Appropriate Consciousness: Alert Orientation: Person (Vaguely) Motor Activity: Other (Patient sitting in [place] chair) Speech: Pressured, Other (Quite garbled) Language: Other (Verbal) Fund of Knowledge: Poor Attention and Concentration: Easily Distracted Memory: Impaired Mood: Other (To mildly irritable) Affect: Other (Decreased range and intensity) Thought Process & Associations: Disorganized Thought Content: Other (Difficult to ascertain speech is undecipherable) Hallucination Type: None Delusion Type: None Suicidal Ideation: No Suicidal Plan: No Suicidal Intention: No Homicidal Ideation: No Homicidal Plan: No Homicidal Intention: No Insight: Poor Judgment: Poor Results Labs Test 12/29/17 07:00 White Blood Count 2.4 TH/MM3 Red Blood Count 3.49 MIL/MM3 Hemoglobin 10.8 GM/DL Hematocrit 32.6 % Mean Corpuscular Volume 93.2 FL Mean Corpuscular Hemoglobin 31.0 PG Mean Corpuscular Hemoglobin Concent 33.2 % Red Cell Distribution Width 14.2 % Platelet Count 255 TH/MM3 Mean Platelet Volume 9.7 FL Neutrophils (%) (Auto) 42.4 % Lymphocytes (%) (Auto) 43.2 % Monocytes (%) (Auto) 7.8 % Eosinophils (%) (Auto) 5.8 % Basophils (%) (Auto) 0.8 % Neutrophils # (Auto) 1.0 TH/MM3 Lymphocytes # (Auto) 1.1 TH/MM3 Monocytes # (Auto) 0.2 TH/MM3 Eosinophils # (Auto) 0.1 TH/MM3 Basophils # (Auto) 0.0 TH/MM3 CBC Comment DIFF FINAL Differential Comment Blood Urea Nitrogen 17 MG/DL Creatinine 0.90 MG/DL Random Glucose 92 MG/DL Total Protein 8.0 GM/DL Albumin 3.2 GM/DL Calcium Level 9.1 MG/DL Alkaline Phosphatase 112 U/L Aspartate Amino Transf (AST/SGOT) 16 U/L Alanine Aminotransferase (ALT/SGPT) 22 U/L Total Bilirubin 0.3 MG/DL Sodium Level 139 MEQ/L Potassium Level 3.4 MEQ/L Chloride Level 104 MEQ/L Carbon Dioxide Level 25.5 MEQ/L Anion Gap 10 MEQ/L Estimat Glomerular Filtration Rate 73 ML/MIN Vitals/IOs Vital Signs Date Time Temp Pulse Resp B/P (MAP) Pulse Ox O2 Delivery O2 Flow Rate FiO2 12/28/17 17:53 87 16 136/88 (104) 12/28/17 06:03 92 12/27/17 06:08 97.8 Intake and Output 12/29/17 12/29/17 12/30/17 08:00 16:00 00:00 Intake Total 120 ml Balance 120 ml Assessment & Plan Problem List: (1) Schizoaffective disorder, bipolar type ICD Codes: F25.0 - Schizoaffective disorder, bipolar type Status: Chronic (2) Dementia ICD Codes: F03.90 - Unspecified dementia without behavioral disturbance Status: Acute Assessment & Plan Estimated LOS: days patient continues confused and disoriented somewhat psychotic with behavioral issues. Please see medication adjustment above. Patient also seen in [place] case continued 4 weeks Justification for Cont. Inpt. At this time patient would decompensate a place to a lower level of care Discharge Planning To be determined Request HC Surrog/Guard Advoc?: Yes Problem Qualifiers (1) Dementia: Qualified Codes: G30.1 - Alzheimer's disease with late onset; F02.81 - Dementia in other diseases classified elsewhere with behavioral disturbance Louie Morales MD Dec 29, 2017 11:35
[2017-12-29] MEDS ORDERED: PILL SPLITTER OTHER PRN (12:45)
[2017-12-29 18:22] VITALS: BP 154/76; PULSE 74; RESP 17; TEMP 98.6
[2017-12-29] MEDS: chlorproMAZINE HCL 25 MG TAB PEG SCH (20:23)
[2017-12-30] MEDS: ACETAMINOPHEN 325 MG TAB PO PRN (01:43)
[2017-12-30 06:00] VITALS: BP 164/84; PULSE 70; RESP 16; O2SAT 100
[2017-12-30] MEDS: QUEtiapine FUMARATE 200 MG TAB PEG SCH ×2 (08:19→21:00)
[2017-12-30] MEDS: REMOVE OLD NICOTINE PATCH T-DERMAL SCH (08:19)
[2017-12-30] MEDS: VALPROIC ACID SYRUP 250 MG/5 ML UDC PEG SCH ×2 (08:19→21:00)
[2017-12-30] MEDS: MEGESTROL ACETATE SUSP 400 MG/10 ML CUP PEG SCH (08:19)
[2017-12-30] MEDS: NICOTINE 21 MG/24 HR PATCH T-DERMAL SCH (08:20)
--- NOTE | 2017-12-30 11:28 | HHI.PYPN ---
Subjective Remarks Patient seen in day room with nurse Nell and medical student Alley, chart reviewed, patient compliant medication patient continues diffusely confused disoriented at times mildly intrusive but overall redirectable. For now continue treatment Review of Systems Except as stated in HPI: all other systems reviewed are Neg Mental Status Examination Appearance: Appropriate Consciousness: Alert Orientation: Person (Vaguely) Motor Activity: Other (Patient sitting in [place] chair) Speech: Pressured, Other (Quite garbled) Language: Other (Verbal) Fund of Knowledge: Poor Attention and Concentration: Easily Distracted Memory: Impaired Mood: Other (To mildly irritable) Affect: Other (Decreased range and intensity) Thought Process & Associations: Disorganized Thought Content: Other (Difficult to ascertain speech is undecipherable) Hallucination Type: None Delusion Type: None Suicidal Ideation: No Suicidal Plan: No Suicidal Intention: No Homicidal Ideation: No Homicidal Plan: No Homicidal Intention: No Insight: Poor Judgment: Poor Results Vitals/IOs Vital Signs Date Time Temp Pulse Resp B/P (MAP) Pulse Ox O2 Delivery O2 Flow Rate FiO2 12/30/17 06:00 70 16 164/84 (110) 100 12/29/17 18:22 98.6 Intake and Output 12/30/17 12/30/17 12/31/17 08:00 16:00 00:00 Intake Total 0 ml Balance 0 ml Assessment & Plan Problem List: (1) Schizoaffective disorder, bipolar type ICD Codes: F25.0 - Schizoaffective disorder, bipolar type Status: Chronic (2) Dementia ICD Codes: F03.90 - Unspecified dementia without behavioral disturbance Status: Acute Assessment & Plan Estimated LOS: days patient continues confused and demented, so times somewhat labile and feisty but overall redirectable Justification for Cont. Inpt. At this time patient would decompensate if not placed in an appropriate level of care Discharge Planning To be determined Request HC Surrog/Guard Advoc?: Yes Problem Qualifiers (1) Dementia: Qualified Codes: G30.1 - Alzheimer's disease with late onset; F02.81 - Dementia in other diseases classified elsewhere with behavioral disturbance Louie Morales MD Dec 30, 2017 11:28
[2017-12-30] MEDS: chlorproMAZINE HCL 25 MG TAB PEG SCH (21:00)
[2017-12-31 06:00] VITALS: BP 127/62; PULSE 70; RESP 16; O2SAT 100
[2017-12-31] MEDS: NICOTINE 21 MG/24 HR PATCH T-DERMAL SCH (09:00)
[2017-12-31] MEDS: REMOVE OLD NICOTINE PATCH T-DERMAL SCH (09:00)
[2017-12-31] MEDS: MEGESTROL ACETATE SUSP 400 MG/10 ML CUP PEG SCH (10:25)
[2017-12-31] MEDS: VALPROIC ACID SYRUP 250 MG/5 ML UDC PEG SCH ×2 (10:26→20:54)
[2017-12-31] MEDS: QUEtiapine FUMARATE 200 MG TAB PEG SCH ×2 (10:26→20:54)
--- NOTE | 2017-12-31 15:22 | HHI.PYPN ---
Subjective Remarks Pt seen and discussed with nursing staff and chart reviewed. Staff report that she has been tired for most of the day and has not been disruptive on unit. She has been compliant with treatment. No SI/HI Mental Status Examination Appearance: Appropriate Consciousness: Alert Orientation: Person (Vaguely) Motor Activity: Other (Patient sitting in [place] chair) Speech: Pressured, Other (Quite garbled) Language: Other (Verbal) Fund of Knowledge: Poor Attention and Concentration: Easily Distracted Memory: Impaired Mood: Other (To mildly irritable) Affect: Other (Decreased range and intensity) Thought Process & Associations: Disorganized Thought Content: Other (Difficult to ascertain speech is undecipherable) Hallucination Type: None Delusion Type: None Suicidal Ideation: No Suicidal Plan: No Suicidal Intention: No Homicidal Ideation: No Homicidal Plan: No Homicidal Intention: No Insight: Poor Judgment: Poor Results Vitals/IOs Vital Signs Date Time Temp Pulse Resp B/P (MAP) Pulse Ox O2 Delivery O2 Flow Rate FiO2 12/31/17 06:00 70 16 127/62 (83) 100 12/29/17 18:22 98.6 Assessment & Plan Problem List: (1) Schizoaffective disorder, bipolar type ICD Codes: F25.0 - Schizoaffective disorder, bipolar type Status: Chronic (2) Dementia ICD Codes: F03.90 - Unspecified dementia without behavioral disturbance Status: Acute Assessment & Plan Continue current tx plan. Estimated LOS: days Justification for Cont. Inpt. psychosis Request HC Surrog/Guard Advoc?: Yes Problem Qualifiers (1) Dementia: Qualified Codes: G30.1 - Alzheimer's disease with late onset; F02.81 - Dementia in other diseases classified elsewhere with behavioral disturbance Mel Chang MD Dec 31, 2017 15:22
[2017-12-31 17:36] VITALS: BP 124/68; PULSE 78; RESP 20; O2SAT 99
[2017-12-31] MEDS: chlorproMAZINE HCL 25 MG TAB PEG SCH (20:54)
[2018-01-01] MEDS: LORazepam 2 MG/ML VIAL IM PRN (03:15)
[2018-01-01 06:06] VITALS: BP 152/90; PULSE 60; RESP 16; TEMP 98.9; O2SAT 98
[2018-01-01] MEDS: REMOVE OLD NICOTINE PATCH T-DERMAL SCH (09:00)
[2018-01-01] MEDS: VALPROIC ACID SYRUP 250 MG/5 ML UDC PEG SCH ×2 (09:00→20:40)
[2018-01-01] MEDS: NICOTINE 21 MG/24 HR PATCH T-DERMAL SCH (09:00)
[2018-01-01] MEDS: MEGESTROL ACETATE SUSP 400 MG/10 ML CUP PEG SCH (09:00)
[2018-01-01] MEDS: QUEtiapine FUMARATE 200 MG TAB PEG SCH ×2 (09:00→20:43)
--- NOTE | 2018-01-01 11:49 | HHI.PYPN ---
Subjective Remarks Pt seen and discussed with nursing staff. She was agitated this morning, but calmed later this afternoon and has been more cooperative with care. She has been resting in rica-chair for most of the morning. Mental Status Examination Appearance: Appropriate Consciousness: Alert Orientation: Person (Vaguely) Motor Activity: Other (Patient sitting in [place] chair) Speech: Pressured, Other (Quite garbled) Language: Other (Verbal) Fund of Knowledge: Poor Attention and Concentration: Easily Distracted Memory: Impaired Mood: Other (To mildly irritable) Affect: Other (Decreased range and intensity) Thought Process & Associations: Disorganized Thought Content: Other (Difficult to ascertain speech is undecipherable) Hallucination Type: None Delusion Type: None Suicidal Ideation: No Suicidal Plan: No Suicidal Intention: No Homicidal Ideation: No Homicidal Plan: No Homicidal Intention: No Insight: Poor Judgment: Poor Results Vitals/IOs Vital Signs Date Time Temp Pulse Resp B/P (MAP) Pulse Ox O2 Delivery O2 Flow Rate FiO2 01/01/18 06:06 98.9 60 16 152/90 (110) 98 Assessment & Plan Problem List: (1) Schizoaffective disorder, bipolar type ICD Codes: F25.0 - Schizoaffective disorder, bipolar type Status: Chronic (2) Dementia ICD Codes: F03.90 - Unspecified dementia without behavioral disturbance Status: Acute Assessment & Plan Continue current tx plan. Justification for Cont. Inpt. risk of decompensation Request HC Surrog/Guard Advoc?: Yes Problem Qualifiers (1) Dementia: Qualified Codes: G30.1 - Alzheimer's disease with late onset; F02.81 - Dementia in other diseases classified elsewhere with behavioral disturbance Mel Chang MD Jan 01, 2018 11:49
[2018-01-01] MEDS: chlorproMAZINE HCL 25 MG TAB PEG SCH (20:40)
[2018-01-02] MEDS: ACETAMINOPHEN 325 MG TAB PO PRN (01:48)
[2018-01-02] MEDS: LORazepam 0.5 MG TAB PO PRN (01:48)
[2018-01-02 06:09] VITALS: BP 145/73; PULSE 67; RESP 17; O2SAT 97
[2018-01-02] MEDS: REMOVE OLD NICOTINE PATCH T-DERMAL SCH (09:00)
[2018-01-02] MEDS: NICOTINE 21 MG/24 HR PATCH T-DERMAL SCH (09:00)
[2018-01-02] MEDS: MEGESTROL ACETATE SUSP 400 MG/10 ML CUP PEG SCH (10:23)
[2018-01-02] MEDS: QUEtiapine FUMARATE 200 MG TAB PEG SCH ×2 (10:23→20:28)
[2018-01-02] MEDS: VALPROIC ACID SYRUP 250 MG/5 ML UDC PEG SCH ×2 (10:24→20:28)
--- NOTE | 2018-01-02 12:40 | HHI.PYPN ---
Subjective Remarks Patient seen in day room with nurse Everton, and medical student Helen, chart reviewed, patient complaint medications. Patient is somewhat sedated today to arousable to diffusely confused with marked decrease in intensity and lability. We will decrease at bedtime Thorazine by 25 mg. Review of Systems Except as stated in HPI: all other systems reviewed are Neg Mental Status Examination Appearance: Appropriate Consciousness: Alert Orientation: Person (Vaguely) Motor Activity: Other (Patient sitting in [place] chair) Speech: Pressured, Other (Quite garbled) Language: Other (Verbal) Fund of Knowledge: Poor Attention and Concentration: Easily Distracted Memory: Impaired Mood: Other (To mildly irritable) Affect: Other (Decreased range and intensity) Thought Process & Associations: Disorganized Thought Content: Other (Difficult to ascertain speech is undecipherable) Hallucination Type: None Delusion Type: None Suicidal Ideation: No Suicidal Plan: No Suicidal Intention: No Homicidal Ideation: No Homicidal Plan: No Homicidal Intention: No Insight: Poor Judgment: Poor Results Vitals/IOs Vital Signs Date Time Temp Pulse Resp B/P (MAP) Pulse Ox O2 Delivery O2 Flow Rate FiO2 01/02/18 06:09 67 17 145/73 (97) 97 01/01/18 06:06 98.9 Intake and Output 01/02/18 01/02/18 01/03/18 08:00 16:00 00:00 Intake Total 240 ml Balance 240 ml Assessment & Plan Problem List: (1) Schizoaffective disorder, bipolar type ICD Codes: F25.0 - Schizoaffective disorder, bipolar type Status: Chronic (2) Dementia ICD Codes: F03.90 - Unspecified dementia without behavioral disturbance Status: Acute Assessment & Plan Estimated LOS: days patient continues confused and demented, somewhat sedated this morning we will decrease at bedtime Thorazine by 25 mg. Justification for Cont. Inpt. At this time patient would decompensate the place to a lower level of care Discharge Planning To be determined Request HC Surrog/Guard Advoc?: Yes Problem Qualifiers (1) Dementia: Qualified Codes: G30.1 - Alzheimer's disease with late onset; F02.81 - Dementia in other diseases classified elsewhere with behavioral disturbance Louie Morales MD Jan 02, 2018 12:40
--- NOTE | 2018-01-02 15:12 | PD.TTN ---
Patient Problems 1. Discharge planning 2. Medication compliance 3. Knowledge deficit 4. Lack of coping skills Progress Toward Goals Provider Present: Dr. Janusz Morales Provider Input: 01/02/18 patient appearing to be baseline and medications were increased last week Nurse(s) Input: 01/02/18 Everton not ambulatory today - she was sleeping and was not walking yesterday either Psychiatric Counselors Present: Fara Keene LCSW Psych Therapist Input: 01/02/18Tuesday spoke with daugther and family by phone and the would like her to be placed per her decline they can no longer can take care of her in her home faxed referrals Tuesday and awaiting a responds. Patient was in [place] Chair and very sleepy and not walking over weekend. Group Spec/RT/OT/ORTEGA Present: Juan Shearer OT Group Spec/RT/OT/ORTEGA Input: 01/02/18 she is not attending any groups Fara Keene LCSW Jan 02, 2018 15:12
[2018-01-02 17:27] VITALS: BP 138/92; PULSE 61; RESP 17; O2SAT 100
[2018-01-03] MEDS: LORazepam 0.5 MG TAB PO PRN (04:18)
[2018-01-03 06:05] VITALS: BP 152/80; PULSE 65; RESP 19; O2SAT 94
[2018-01-03] MEDS: REMOVE OLD NICOTINE PATCH T-DERMAL SCH (09:00)
[2018-01-03] MEDS: NICOTINE 21 MG/24 HR PATCH T-DERMAL SCH (09:00)
[2018-01-03] MEDS: QUEtiapine FUMARATE 200 MG TAB PEG SCH ×2 (09:00→21:00)
[2018-01-03] MEDS: MEGESTROL ACETATE SUSP 400 MG/10 ML CUP PEG SCH (09:28)
[2018-01-03] MEDS: VALPROIC ACID SYRUP 250 MG/5 ML UDC PEG SCH ×2 (09:28→21:00)
--- NOTE | 2018-01-03 12:30 | HHI.PYPN ---
Subjective Remarks Patient is seen in the day room with nurse Zoila, and medical student Mercedes, chart review, dietitian's report reviewed they are recommending tube feeding since patient's oral intake is so poor. I have reconsulted hospitalist's to arrange for appropriate feeding. We will also repeat CBC, CMP, and UA on this patient she is otherwise no significant behavioral problems remains diffusely confused at times somewhat labile Review of Systems Except as stated in HPI: all other systems reviewed are Neg Mental Status Examination Appearance: Appropriate Consciousness: Alert Orientation: Person (Vaguely) Motor Activity: Other (Patient sitting in [place]z [place] chair) Speech: Pressured, Other (Quite garbled) Language: Other (Verbal) Fund of Knowledge: Poor Attention and Concentration: Easily Distracted Memory: Impaired Mood: Other (To mildly irritable) Affect: Other (Decreased range and intensity) Thought Process & Associations: Disorganized Thought Content: Other (Difficult to ascertain speech is undecipherable) Hallucination Type: None Delusion Type: None Suicidal Ideation: No Suicidal Plan: No Suicidal Intention: No Homicidal Ideation: No Homicidal Plan: No Homicidal Intention: No Insight: Poor Judgment: Poor Results Vitals/IOs Vital Signs Date Time Temp Pulse Resp B/P (MAP) Pulse Ox O2 Delivery O2 Flow Rate FiO2 01/03/18 06:05 65 19 152/80 (104) 94 01/01/18 06:06 98.9 Intake and Output 01/03/18 01/03/18 01/03/18 07:59 15:59 23:59 Intake Total 0 ml Balance 0 ml Assessment & Plan Problem List: (1) Schizoaffective disorder, bipolar type ICD Codes: F25.0 - Schizoaffective disorder, bipolar type Status: Chronic (2) Dementia ICD Codes: F03.90 - Unspecified dementia without behavioral disturbance Status: Acute Assessment & Plan Estimated LOS: days patient remains confused demented and at times somewhat labile, please see reconsultation of hospitalist above with labs ordered Justification for Cont. Inpt. At this time patient with decompensated placed at a lower level of care Discharge Planning To be determined Request HC Surrog/Guard Advoc?: Yes Problem Qualifiers (1) Dementia: Qualified Codes: G30.1 - Alzheimer's disease with late onset; F02.81 - Dementia in other diseases classified elsewhere with behavioral disturbance Louie Morales MD Jan 03, 2018 12:30
--- NOTE | 2018-01-03 13:07 | PD.CONS ---
HPI Service [facility] Hospitalists Consult Requested By Reason for Consult Tube feedings Primary Care Physician Unknown Diagnoses: History of Present Illness Ms. Gonzalez is a 77-year-old female with a past medical history significant for arthritis, asthma, schizophrenia, and poor p.o. intake requiring tube feedings in the past who presented to the emergency department on 12/23 after patient was [place] acted by police department after family contacted them with concerns of aggressive behavior. Patient was admitted to inpatient psychiatry for further evaluation regarding history of dementia, schizophrenia and bipolar disorder recently discharged from [facility]. [facility] has been consulted to assist with management of tube feedings. Patient was seen and evaluated by dietitian who has made recommendations for bolus tube feedings along with meal trays. Nursing does not report any acute concerns or events overnight with this morning , requires encouragement for meals, with poor p.o. intake. Patient is seen and examined in the day room sitting up in geriatric chair in no acute distress. She is somewhat somnolent and lethargic but does open her eyes and track. She does not participate in any strength training however does move all extremities spontaneously. Review of Systems Except as stated in HPI: all other systems reviewed are Neg Past Family Social History Allergies: Coded Allergies: apple (Unverified Allergy, Severe, Swelling, 03/08/17) Past Medical History Arthritis Asthma Schizophrenia Past Surgical History Bilateral cataracts Bilateral knee replacements PEG tube placement Reported Medications Reported Meds & Active Scripts Active [Megestrol Liq] 400 MG/10 ML Susp 400 Mg PEG DAILY 15 Days Magic Mouthwash Adult Liq (Multi-Ingredient Mouthwash/Gargle) 120 Ml Susp 5 Ml SWISH-SWAL QID 15 Days Quetiapine (Quetiapine Fumarate) 200 Mg Tab 400 Mg PEG BID 15 Days [Chlorpromazine] 100 MG Tab 100 Mg PEG BID@0800,1200 15 Days [chlorproMAZINE] 50 MG Tab 325 Mg PEG HS 15 Days Valproic Acid 250 Mg/5 Ml (5 Ml) Solution 500 Mg PEG BID 15 Days Active Ordered Medications Current Medications Medications (Trade) Dose Ordered Sig/Karyna Route Start Time Stop Time Status Last Admin (SEROquel) 400 mg BID PEG 12/23/17 21:00 01/02/18 20:28 (Depakene Liq) 500 mg BID PEG 6/1/18 21:00 01/03/18 09:28 (Ativan) 0.5 mg Q12H PRN PO 12/23/17 18:30 01/03/18 04:18 (Ativan Inj) 0.5 mg Q12H PRN IM 12/23/17 18:30 01/01/18 03:15 (Tylenol) 650 mg Q4H PRN PO 12/23/17 18:30 01/02/18 01:48 (Milk Of Magnesia Liq) 30 ml DAILY PRN PO 12/23/17 18:30 (Mag-Al Plus Susp Liq) 30 ml Q6H PRN PO 12/23/17 18:30 (Habitrol 21 Mg Patch.24 Hr) 1 patch DAILY T-DERMAL 12/24/17 09:00 Miscellaneous Information 1 DAILY T-DERMAL 12/24/17 09:00 (Atarax) 50 mg Q6H PRN PO 12/24/17 08:15 (Megace Liq) 400 mg DAILY PEG 12/24/17 09:00 01/03/18 09:28 (Thorazine) 300 mg HS PEG 12/24/17 21:00 01/02/18 20:28 (Thorazine) 125 mg BID@0800,1200 PEG 12/29/17 12:45 01/03/18 09:31 (Pill Splitter) 1 ea UNSCH PRN OTHER 12/29/17 12:45 Family History Unable to obtain Social History Unable to obtain Physical Exam Vital Signs Vital Signs Date Time Temp Pulse Resp B/P (MAP) Pulse Ox O2 Delivery O2 Flow Rate FiO2 01/03/18 06:05 65 19 152/80 (104) 94 01/02/18 17:27 61 17 138/92 (107) 100 Physical Exam GENERAL: This is a well-nourished, well-developed patient, -Citizen Of [place] female in no acute distress. SKIN: No rashes. Cool and dry. HEAD: Atraumatic. Normocephalic. EYES: Pupils equal round and reactive. Extraocular motions intact. No scleral icterus. No injection or drainage. ENT: Nose without bleeding, purulent drainage. Airway patent. NECK: Trachea midline. No JVD. Supple. CARDIOVASCULAR: Regular rate and rhythm without murmurs, gallops, or rubs. RESPIRATORY: Clear to auscultation, poor effort. Breath sounds equal bilaterally. No wheezes, rales, or rhonchi. GASTROINTESTINAL: Abdomen soft, non-tender, nondistended. No guarding. + peg- tube MUSCULOSKELETAL: Extremities without clubbing, cyanosis, or edema. No joint tenderness, effusion, or edema noted. No calf tenderness. NEUROLOGICAL: Somnambulant with awakes and makes eye contact, nonverbal. Tracks with eyes and smiles. Moves all extremities spontaneously. Assessment and Plan Assessment and Plan Ms. Gonzalez is a 77-year-old female with a past medical history significant for arthritis, asthma, schizophrenia, dementia, schizophrenia, and bipolar disorder with poor p.o. intake requiring tube feedings in the past who presented to the emergency department on 12/23 on [place] act due to aggressive behavior. [facility] has been consulted to assist with management of tube feedings. Schizophrenia/bipolar disorder/dementia -Treatment plan per psychiatry team, greatly appreciated -Patient is currently on Thorazine 125 mg at 8 AM and noon, 300 mg at bedtime , valproic acid 500 mg twice daily, Seroquel 400 mg twice daily, as needed Ativan and Atarax -Somewhat sleepy and some normal and at the time of my evaluation although patient's mood and behavior can be labile -UA reordered Poor p.o. intake Anemia Hypokalemia -Patient is already on Megace 400 mg daily -CBC collected today reviewed with noted leukopenia and anemia. Will monitor leukopenia, start oral multivitamin -CMP with potassium level 3.4, will replace with p.o. -Tube feedings with Jevity 1.51 can (240 mL's) bolus feedings at 8 AM, 12 PM , 4 PM, and 8 PM followed by 135 mL's of free water flush. Patient to continue to receive food tray with nectar consistency liquids. Speech therapy has been following. -Modified barium swallow evaluation ordered however patient unable to participate in test. DVT prophylaxis-encourage ambulation, start subcu heparin. Discussed with nursing staff. Thank you for this consultation, will continue to follow along. Gail Webster Jan 03, 2018 13:07
[2018-01-03] MEDS ORDERED: POTASSIUM CHLORIDE 25 MEQ EFFERVESCENT TAB PEG ONE (18:00)
[2018-01-03 18:48] VITALS: BP 120/71; PULSE 60; RESP 16; TEMP 98; O2SAT 98
[2018-01-03] MEDS: HEPARIN SODIUM - SQ 10,000 UNITS/ML VIAL SQ SCH (21:00)
[2018-01-04 05:16] VITALS: BP 109/56; PULSE 62; RESP 16; TEMP 98.2; O2SAT 98
--- NOTE | 2018-01-04 07:48 | HHI.PR ---
Subjective Remarks Follow-up visit for low p.o. intake, hypokalemia. Nursing staff does not report any acute events overnight or this morning. Patient is seen and examined resting in bed in no acute distress, arouses easily to voice and light touch. She is nonverbal and is not following commands but will track with her eyes and attempts to smile from time to time. Call from nurse regarding patients low BP, patient seen and evaluated at 18:35 with nurse at bedside. IV established, will start IV bolus now. Patient lethargic but will awaken momentarily with stimuli, nonverbal, not following commands. Does not appear to be in acute distress. Will order bolus, labs and recheck VS once bolus completed. Will also check abg. Objective Vitals Vital Signs Date Time Temp Pulse Resp B/P (MAP) Pulse Ox O2 Delivery O2 Flow Rate FiO2 01/04/18 05:16 98.2 62 16 109/56 (73) 98 01/03/18 18:48 98.0 60 16 120/71 (87) 98 I/O 01/03/18 01/03/18 01/03/18 01/04/18 01/04/18 01/04/18 07:00 15:00 23:00 07:00 15:00 23:00 Intake Total 60 ml 430 ml 375 ml Balance 60 ml 430 ml 375 ml Intake Oral 60 ml 430 ml Tube Feeding 375 ml # Voids 3 Objective Remarks GENERAL: Well-developed patient, -[place] Citizen female in no acute distress. SKIN: Cool and dry. HEAD: Normocephalic. EYES: Pupils equal round. Extraocular motions intact. No scleral icterus. No injection or drainage. ENT: Nose without bleeding, purulent drainage. Airway patent. NECK: Trachea midline. CARDIOVASCULAR: Regular rate and rhythm without murmurs, gallops, or rubs. RESPIRATORY: Clear to auscultation, poor effort. Breath sounds equal bilaterally. No wheezes, rales, or rhonchi. GASTROINTESTINAL: Abdomen soft, non-tender, nondistended. No guarding. + peg- tube MUSCULOSKELETAL: Extremities without clubbing, cyanosis, or edema. NEUROLOGICAL: Appears sleepy, makes eye contact, nonverbal. Tracks with eyes and smiles. Moves all extremities spontaneously. A/P Assessment and Plan Ms. Gonzalez is a 77-year-old female with a past medical history significant for arthritis, asthma, schizophrenia, dementia, schizophrenia, and bipolar disorder with poor p.o. intake requiring tube feedings in the past who presented to the emergency department on 12/23 on [place] act due to aggressive behavior. [facility] has been consulted to assist with management of tube feedings. Schizophrenia/bipolar disorder/dementia -Treatment plan per psychiatry team, greatly appreciated -Patient is currently on Thorazine 125 mg at 8 AM and noon, 300 mg at bedtime , valproic acid 500 mg twice daily, Seroquel 400 mg twice daily, as needed Ativan and Atarax -Somewhat sleepy and some normal and at the time of my evaluation although patient's mood and behavior can be labile -UA reordered, yet to be collected Poor p.o. intake Anemia Hypokalemia -Patient is already on Megace 400 mg daily -CBC this morning with improved leukopenia and anemia. -K level this morning 3.6. -Continue tube feedings with Jevity 1.51 can (240 mL's) bolus feedings at 8 AM, 12 PM, 4 PM, and 8 PM followed by 135 mL's of free water flush. Continue food tray with nectar consistency liquids. Speech therapy has been following. -Modified barium swallow evaluation ordered however patient unable to participate in test. -Patient is tolerating bolus tube feedings well. DVT prophylaxis-subcu heparin Discussed with nursing staff. Gail Webster Jan 04, 2018 07:48
[2018-01-04 07:53] LABS: AUTOMATED NEUTROPHIL # 3.6 TH/MM3 (1.8-7.7); BASOPHIL % 0.2 % (0.0-2.0); EOSINOPHIL % 0.2 % (0.0-4.0); HEMATOCRIT 32.8 % (35.0-46.0); HEMOGLOBIN 11.1 GM/DL (11.6-15.3); LYMPH % 8.2 % (9.0-44.0); LYMPHOCYTE # 0.4 TH/MM3 (1.0-4.8); MEAN CELL VOLUME 91.5 FL (80.0-100.0); MEAN CORPUSCULAR HGB CONC 33.8 % (32.0-36.0); MEAN PLATELET VOLUME 9.5 FL (7.0-11.0); MONO % 5.9 % (0.0-8.0); MONOCYTE # 0.3 TH/MM3 (0-0.9); NEUT % 85.5 % (16.0-70.0); PLATELET COUNT 204 TH/MM3 (150-450); RED BLOOD COUNT 3.59 MIL/MM3 (4.00-5.30); RED CELL DISTRIBUTION WIDTH 14.5 % (11.6-17.2); WHITE BLOOD COUNT 4.3 TH/MM3 (4.0-11.0)
[2018-01-04 08:14] LABS: ALBUMIN 2.8 GM/DL (3.4-5.0); AST (GOT) 11 U/L (15-37); BLOOD UREA NITROGEN 14 MG/DL (7-18); CALCIUM 9.4 MG/DL (8.5-10.1); CREATININE 1.13 MG/DL (0.50-1.00); GLOMERULAR FILTRATION RATE 56 ML/MIN (>89); GLUCOSE,RANDOM 89 MG/DL (74-106)
[2018-01-04] MEDS: HEPARIN SODIUM - SQ 10,000 UNITS/ML VIAL SQ SCH ×2 (08:20→21:00)
[2018-01-04] MEDS: MEGESTROL ACETATE SUSP 400 MG/10 ML CUP PEG SCH (08:20)
[2018-01-04] MEDS: VALPROIC ACID SYRUP 250 MG/5 ML UDC PEG SCH ×2 (08:20→21:00)
[2018-01-04] MEDS: MULTIVITAMIN TAB PEG SCH (08:20)
[2018-01-04] MEDS: NICOTINE 21 MG/24 HR PATCH T-DERMAL SCH (08:21)
[2018-01-04] MEDS: REMOVE OLD NICOTINE PATCH T-DERMAL SCH (08:21)
[2018-01-04] MEDS: QUEtiapine FUMARATE 200 MG TAB PEG SCH ×2 (08:21→21:00)
[2018-01-04 08:37] LABS: ALKALINE PHOSPHATASE 107 U/L (45-117); ALT (GPT) 21 U/L (10-53); TOTAL BILIRUBIN ADULT 0.1 MG/DL (0.2-1.0)
[2018-01-04 08:54] LABS: CHLORIDE 105 MEQ/L (98-107); SODIUM (NA) 141 MEQ/L (136-145)
[2018-01-04] MEDS ORDERED: MULTIVITAMIN TAB PO SCH (09:00)
--- NOTE | 2018-01-04 10:58 | HHI.PYPN ---
Subjective Remarks Patient is seen in her room with nurse Sapna, patient napping, chart reviewed, patient compliant medications. Patient compliant with PEG tube feeding. Patient arousable to diffusely confused but calm. We will decrease daily Thorazine to 100 mg in a.m. and 2 PM. Continue at bedtime dose no change. It appears to may be a bed available for this patient and [facility] and rehab on Tuesday Review of Systems Except as stated in HPI: all other systems reviewed are Neg Mental Status Examination Appearance: Appropriate Consciousness: Alert Orientation: Person (Vaguely) Motor Activity: Other (Patient sitting in [place] chair) Speech: Pressured, Other (Quite garbled) Language: Other (Verbal) Fund of Knowledge: Poor Attention and Concentration: Easily Distracted Memory: Impaired Mood: Other (To mildly irritable) Affect: Other (Decreased range and intensity) Thought Process & Associations: Disorganized Thought Content: Other (Difficult to ascertain speech is undecipherable) Hallucination Type: None Delusion Type: None Suicidal Ideation: No Suicidal Plan: No Suicidal Intention: No Homicidal Ideation: No Homicidal Plan: No Homicidal Intention: No Insight: Poor Judgment: Poor Results Labs Test 01/04/18 07:02 White Blood Count 4.3 TH/MM3 Red Blood Count 3.59 MIL/MM3 Hemoglobin 11.1 GM/DL Hematocrit 32.8 % Mean Corpuscular Volume 91.5 FL Mean Corpuscular Hemoglobin 31.0 PG Mean Corpuscular Hemoglobin Concent 33.8 % Red Cell Distribution Width 14.5 % Platelet Count 204 TH/MM3 Mean Platelet Volume 9.5 FL Neutrophils (%) (Auto) 85.5 % Lymphocytes (%) (Auto) 8.2 % Monocytes (%) (Auto) 5.9 % Eosinophils (%) (Auto) 0.2 % Basophils (%) (Auto) 0.2 % Neutrophils # (Auto) 3.6 TH/MM3 Lymphocytes # (Auto) 0.4 TH/MM3 Monocytes # (Auto) 0.3 TH/MM3 Eosinophils # (Auto) 0.0 TH/MM3 Basophils # (Auto) 0.0 TH/MM3 CBC Comment DIFF FINAL Differential Comment Blood Urea Nitrogen 14 MG/DL Creatinine 1.13 MG/DL Random Glucose 89 MG/DL Total Protein 7.0 GM/DL Albumin 2.8 GM/DL Calcium Level 9.4 MG/DL Alkaline Phosphatase 107 U/L Aspartate Amino Transf (AST/SGOT) 11 U/L Alanine Aminotransferase (ALT/SGPT) 21 U/L Total Bilirubin 0.1 MG/DL Sodium Level 141 MEQ/L Potassium Level 3.6 MEQ/L Chloride Level 105 MEQ/L Carbon Dioxide Level 27.0 MEQ/L Anion Gap 9 MEQ/L Estimat Glomerular Filtration Rate 56 ML/MIN Vitals/IOs Vital Signs Date Time Temp Pulse Resp B/P (MAP) Pulse Ox O2 Delivery O2 Flow Rate FiO2 01/04/18 05:16 98.2 62 16 109/56 (73) 98 Assessment & Plan Problem List: (1) Schizoaffective disorder, bipolar type ICD Codes: F25.0 - Schizoaffective disorder, bipolar type Status: Chronic (2) Dementia ICD Codes: F03.90 - Unspecified dementia without behavioral disturbance Status: Acute Assessment & Plan Estimated LOS: days patient continues confused Justification for Cont. Inpt. Possible discharge to [facility] and rehab on Discharge Planning See above Request HC Surrog/Guard Advoc?: Yes Problem Qualifiers (1) Dementia: Qualified Codes: G30.1 - Alzheimer's disease with late onset; F02.81 - Dementia in other diseases classified elsewhere with behavioral disturbance Louie Morales MD Jan 04, 2018 10:57
[2018-01-04] MEDS: SODIUM CHLOR 0.9% 1000 ML INJ 1,000 ML IV SCH (18:30)
[2018-01-04] MEDS ORDERED: SODIUM CHLOR 0.9% 1000 ML INJ 1,000 ML IV ONE ×2 (18:30→23:45)
[2018-01-04 19:17] LABS: HEMATOCRIT 32.1 % (35.0-46.0); HEMOGLOBIN 10.5 GM/DL (11.6-15.3); MEAN CORPUSCULAR HEMOGLOBIN 30.2 PG (27.0-34.0); MEAN CORPUSCULAR HGB CONC 32.8 % (32.0-36.0); MEAN PLATELET VOLUME 9.9 FL (7.0-11.0); PLATELET COUNT 209 TH/MM3 (150-450); RED BLOOD COUNT 3.49 MIL/MM3 (4.00-5.30); RED CELL DISTRIBUTION WIDTH 14.8 % (11.6-17.2); WHITE BLOOD COUNT 3.8 TH/MM3 (4.0-11.0)
[2018-01-04 19:42] LABS: BICARBONATE 21.6 MEQ/L (21.0-32.0); CALCIUM 9.7 MG/DL (8.5-10.1); CREATININE 1.46 MG/DL (0.50-1.00)
[2018-01-04] MEDS: FREE WATER G-TUBE SCH (20:00)
[2018-01-04 23:17] VITALS: BP 85/47
[2018-01-05] VITALS (9 sets, daily range): BP systolic 73–107; BP diastolic 34–55; PULSE 57–60; RESP 22; O2SAT 91–100
[2018-01-05] MEDS ORDERED: RESP: ALBUTEROL 2.5 MG/IPRATROPIUM 0.5 MG NEB (PRN) NEB
[2018-01-05] MEDS ORDERED: VANCOMYCIN INJ 1,000 MG in SODIUM CHLOR 0.9% 250 ML INJ 250 ML IV ONE ×2
--- NOTE | 2018-01-05 02:29 | RADRPT ---
EXAM DATE: 01/05/2018 2:20 AM EDT AGE/SEX: 77 years / Female INDICATIONS: Cough, congestion, and shortness of breath. CLINICAL DATA: This is the patient's initial encounter. Patient reports that signs and symptoms have been present for 1 day and indicates a pain score of Nonresponsive. MEDICAL/SURGICAL HISTORY: Non-responsive. Non-responsive. COMPARISON: [facility] [place], CHEST SINGLE AP, 12/04/2017. . FINDINGS: Single AP view the chest. Persistent patchy opacity in the left lung base. Right lung clear. Cardiome diastinal silhouette within normal limits. No evidence of pleural effusion or pneumothorax. CONCLUSION: Patchy opacity left lung base indicating atelectasis versus mild consolidation. Appearance is similar to prior study of 12/04/2017. Electronically signed by: Franco Lucas MD 01/05/2018 2:28 AM EDT
[2018-01-05] MEDS: FREE WATER G-TUBE SCH ×5 (04:00→16:15)
[2018-01-05] MEDS: SODIUM CHLOR 0.9% 1000 ML INJ 1,000 ML IV SCH ×2 (04:30→14:50)
[2018-01-05] MEDS: PIPERACIL-TAZO 4.5 GM PREMIX 100 ML IV SCH ×3 (05:44→12:00)
[2018-01-05] MEDS ORDERED: SODIUM CHLOR 0.9% 1000 ML INJ 1,000 ML IV ONE ×2 (05:45→12:00)
[2018-01-05] MEDS ORDERED: RESP: ALBUTEROL 2.5 MG/IPRATROPIUM 0.5 MG NEB (SCH) NEB ONE (05:45)
[2018-01-05] MEDS ORDERED: Vancomycin Consult Pharmacy 1 EA OTHER SCH (05:45)
[2018-01-05 07:28] LABS: HEMATOCRIT 33.2 % (35.0-46.0); HEMOGLOBIN 11.1 GM/DL (11.6-15.3); MEAN CELL VOLUME 91.6 FL (80.0-100.0); MEAN CORPUSCULAR HEMOGLOBIN 30.6 PG (27.0-34.0); MEAN CORPUSCULAR HGB CONC 33.4 % (32.0-36.0); MEAN PLATELET VOLUME 9.4 FL (7.0-11.0); PLATELET COUNT 163 TH/MM3 (150-450); RED BLOOD COUNT 3.63 MIL/MM3 (4.00-5.30); RED CELL DISTRIBUTION WIDTH 14.8 % (11.6-17.2); WHITE BLOOD COUNT 4.7 TH/MM3 (4.0-11.0)
--- NOTE | 2018-01-05 07:29 | HHI.PR ---
Subjective Remarks Follow-up visit for poor p.o. intake, hypotension. [facility] called this morning due to patient's hypotension and low oxygen saturation. Patient had received fluid bolus yesterday afternoon 1L, 1L overnight and started on broad spectrum antibiotics, this am receiving third liter of IV bolus. BP did improve , RT at bedside, patient was suctioned for mucus plug, sputum set for gram stain and culture. Discussed with nursing staff and at bedside. Patient is lethargic, but awakens with stimuli. Nonverbal, not following commands. Spoke with niece Saravanan Wilde with is court appointed guardian at 7:30am to give an update regarding patient. She will be up to see patient and we briefly discussed code status. She would like aggressive care for patient at this point. [facility] called once again at 4:30 BP 67/42, spoke with nursing and [facility] team. Call placed to to discuss, patient will be transferred to critical care with labor crew supervisor consult. Objective Vitals Vital Signs Date Time Temp Pulse Resp B/P (MAP) Pulse Ox O2 Delivery O2 Flow Rate FiO2 01/05/18 06:31 57 76/52 (60) 92 01/05/18 01:49 101/55 (70) 95 01/04/18 23:17 85/47 (60) I/O 01/04/18 01/04/18 01/04/18 01/05/18 01/05/18 01/05/18 07:00 15:00 23:00 07:00 15:00 23:00 Intake Total 375 ml 2350 ml Balance 375 ml 2350 ml Intake Oral 0 ml IV Total 2350 ml Tube Feeding 375 ml Bladder Scan Volume Amount 500 ml 500 ml # Voids 3 # Bowel Movements 3 Result Diagram: 01/05/18 0710 01/04/18 1846 Imaging Last Impressions Chest X-Ray 01/05/18 0000 Signed Impressions: CONCLUSION: Patchy opacity left lung base indicating atelectasis versus mild consolidation. Appearance is similar to prior study of 12/04/2017. Objective Remarks GENERAL: Well-developed patient, -[place] female in no acute distress. SKIN: Cool and dry. HEAD: Normocephalic. EYES: Pupils equal round. Extraocular motions intact. No scleral icterus. No injection or drainage. ENT: Nose without bleeding, purulent drainage. Airway patent. NECK: Trachea midline. CARDIOVASCULAR: Regular rate and rhythm without murmurs, gallops, or rubs. RESPIRATORY: Clear to auscultation, poor effort. Breath sounds equal bilaterally. No wheezes, rales, or rhonchi. GASTROINTESTINAL: Abdomen soft, non-tender, nondistended. No guarding. + peg- tube MUSCULOSKELETAL: Extremities without clubbing, cyanosis, or edema. NEUROLOGICAL: Lethargic will awaken with stimuli, nonverbal. Tracks with eyes. Moves all extremities spontaneously. A/P Assessment and Plan Ms. Gonzalez is a 77-year-old female with a past medical history significant for arthritis, asthma, schizophrenia, dementia, schizophrenia, and bipolar disorder with poor p.o. intake requiring tube feedings in the past who presented to the emergency department on 12/23 on [place] act due to aggressive behavior. [facility] has been consulted to assist with management of tube feedings. Hypotension Low O2 sats - Likely related to dehydration, patient with poor p.o. intake requiring TF - [facility] called this a.m total of 3L IV bolus given, BP improved, suctioned for mucus plug - Stated on broad spectrum antibiotics overnight, ABG check essentially stable, chest x-ray with patchy opacities left lung base indicating atelectasis versus mild consolidation, similar to prior study from 12/04. -CBC this morning with no leukocytosis, mild anemia. CMP with improved renal function, lactic acid 1.1 -Continue IV fluids for hydration NS at 100, sputum culture sent to lab, continue antibiotics for the moment pending sputum culture results, scheduled breathing treatments with oxygen via facemask. check ammonia level - Aspiration precautions, psychotropics would likely need to be held as patient is lethargic. -Discussed with court appointed guardian niece over the phone regarding CODE STATUS, would like to continue aggressive care. Discussed with [facility] team and nursing staff. - Once again hypotensive around noon today, discussed with nurse, and . 1L of NS now, continue IVF, start midodrine 5mg TID, DC antibiotics. Patient has been afebrile, no leukocytosis, chest x-ray reviewed with with no acute findings. Hold Thorazine as this can cause hypotension and drowsiness, this was discussed with [facility]. Schizophrenia/bipolar disorder/dementia -Treatment plan per psychiatry team, greatly appreciated -Patient is currently on Thorazine 125 mg at 8 AM and noon, 300 mg at bedtime , valproic acid 500 mg twice daily, Seroquel 400 mg twice daily, as needed Ativan and Atarax Poor p.o. intake Anemia -Patient is already on Megace 400 mg daily -Continue tube feedings with Jevity 1.51 can (240 mL's) bolus feedings at 8 AM, 12 PM, 4 PM, and 8 PM followed by 135 mL's of free water flush. Continue food tray with nectar consistency liquids. Speech therapy has been following. -Modified barium swallow evaluation ordered however patient unable to participate in test. -Patient is tolerating bolus tube feedings well. DVT prophylaxis-subcu heparin Discussed with nursing staff, [facility] team, and . Gail Webster Jan 05, 2018 07:29
--- NOTE | 2018-01-05 07:32 | HHI.PR ---
Addendum to Inpatient Note Addendum Reason: Additional Documentation Additional Information WILDAT NOTE Patient is a 77-year-old female on the med psych unit for whom Angelica was called ~7am for hypotension and O2 sats in the low 90s% on 3 L nasal cannula. She is followed by [facility] service and Rosalba Garcias has been in communication with nursing staff overnight per report. Patient is on NC 3L rate upon my arrival with tachypnea ~20 and mildly labored breathing without intercostal retractions. She is noted to be status post 3 L boluses overnight with recent ABG essentially normal. CXR overnight showing stable left lower infiltrate, patient was previously treated for pneumonia and currently receiving vancomycin and Zosyn. Patient has with blood pressure of 89/60s upon my arrival with pulse in the 50s. Respiratory team has made the decision to suction her upper airways given coarse breath sounds and exceptionally large mucous plug is removed. Specimen was sent for analysis. Immediately thereafter blood pressure is 110s/70s with O2 sat 99% on 3L. Lung auscultation is clear after mucous plug removal. She is noted to have a G-tube placement in the last few weeks and is on the med psych floor due to acute psychosis among her chronic medical conditions, possible aspiration playing a role. Darin SEAN covering [facility] today is at bedside at the end of evaluation and sign out was given to her verbally. Roxy Rangel MD R2 Jan 05, 2018 07:32
[2018-01-05 07:44] LABS: ALBUMIN 2.4 GM/DL (3.4-5.0); ALT (GPT) 18 U/L (10-53); AST (GOT) 17 U/L (15-37); BICARBONATE 21.7 MEQ/L (21.0-32.0); BLOOD UREA NITROGEN 18 MG/DL (7-18); CALCIUM 8.7 MG/DL (8.5-10.1); CHLORIDE 108 MEQ/L (98-107); CREATININE 1.08 MG/DL (0.50-1.00); GLOMERULAR FILTRATION RATE 59 ML/MIN (>89); GLUCOSE,RANDOM 119 MG/DL (74-106); SODIUM (NA) 140 MEQ/L (136-145)
[2018-01-05 07:49] LABS: ALKALINE PHOSPHATASE 102 U/L (45-117); TOTAL BILIRUBIN ADULT 0.2 MG/DL (0.2-1.0); TOTAL PROTEIN 6.5 GM/DL (6.4-8.2)
[2018-01-05] MEDS: MULTIVITAMIN TAB PEG SCH (09:18)
[2018-01-05] MEDS: HEPARIN SODIUM - SQ 10,000 UNITS/ML VIAL SQ SCH (09:18)
[2018-01-05] MEDS: MEGESTROL ACETATE SUSP 400 MG/10 ML CUP PEG SCH (09:18)
[2018-01-05] MEDS: REMOVE OLD NICOTINE PATCH T-DERMAL SCH (09:28)
[2018-01-05] MEDS: QUEtiapine FUMARATE 200 MG TAB PEG SCH (09:28)
[2018-01-05] MEDS: NICOTINE 21 MG/24 HR PATCH T-DERMAL SCH (09:28)
[2018-01-05] MEDS: VALPROIC ACID SYRUP 250 MG/5 ML UDC PEG SCH (09:28)
[2018-01-05] MEDS: RESP: ALBUTEROL 2.5 MG/IPRATROPIUM 0.5 MG NEB (SCH) NEB ×2 (10:08→16:09)
--- NOTE | 2018-01-05 11:00 | HHI.PYPN ---
Subjective Remarks Patient is seen in her room with nurse Dread, patient [place] , Chart reviewed, patient continues somewhat sedated sleeping at this time. Medicine services notes assessments treatment reviewed and agreed with that appreciated. I have reviewed patient's medications we will decrease twice daily Seroquel to 300 mg, decrease at bedtime Thorazine to 200 mg at bedtime. Review of Systems Except as stated in HPI: all other systems reviewed are Neg Mental Status Examination Appearance: Appropriate Consciousness: Alert Orientation: Person (Vaguely) Motor Activity: Other (Patient sitting in [place] chair) Speech: Pressured, Other (Quite garbled) Language: Other (Verbal) Fund of Knowledge: Poor Attention and Concentration: Easily Distracted Memory: Impaired Mood: Other (To mildly irritable) Affect: Other (Decreased range and intensity) Thought Process & Associations: Disorganized Thought Content: Other (Difficult to ascertain speech is undecipherable) Hallucination Type: None Delusion Type: None Suicidal Ideation: No Suicidal Plan: No Suicidal Intention: No Homicidal Ideation: No Homicidal Plan: No Homicidal Intention: No Insight: Poor Judgment: Poor Results Labs Test 01/04/18 18:46 01/04/18 20:10 01/05/18 05:55 01/05/18 07:10 White Blood Count 3.8 TH/MM3 4.7 TH/MM3 Red Blood Count 3.49 MIL/MM3 3.63 MIL/MM3 Hemoglobin 10.5 GM/DL 11.1 GM/DL Hematocrit 32.1 % 33.2 % Mean Corpuscular Volume 92.0 FL 91.6 FL Mean Corpuscular Hemoglobin 30.2 PG 30.6 PG Mean Corpuscular Hemoglobin Concent 32.8 % 33.4 % Red Cell Distribution Width 14.8 % 14.8 % Platelet Count 209 TH/MM3 163 TH/MM3 Mean Platelet Volume 9.9 FL 9.4 FL Blood Urea Nitrogen 18 MG/DL 18 MG/DL Creatinine 1.46 MG/DL 1.08 MG/DL Random Glucose 99 MG/DL 119 MG/DL Calcium Level 9.7 MG/DL 8.7 MG/DL Sodium Level 139 MEQ/L 140 MEQ/L Potassium Level 3.5 MEQ/L 3.8 MEQ/L Chloride Level 105 MEQ/L 108 MEQ/L Carbon Dioxide Level 21.6 MEQ/L 21.7 MEQ/L Anion Gap 12 MEQ/L 10 MEQ/L Estimat Glomerular Filtration Rate 42 ML/MIN 59 ML/MIN Blood Gas Puncture Site LT RADIAL RT RADIAL Blood Gas Patient Temperature 98.6 98.6 Blood Gas HCO3 24 mmol/L 24 mmol/L Blood Gas Base Excess 0.1 mmol/L -1.0 mmol/L Blood Gas Oxygen Saturation 89 % 91 % Arterial Blood pH 7.39 7.35 Arterial Blood Partial Pressure CO2 41 mmHg 45 mmHg Arterial Blood Partial Pressure O2 65 mmHg 73 mmHg Arterial Blood Oxygen Content 13.0 Vol % 14.1 Vol % Arterial Blood Carboxyhemoglobin 0.5 % 0.4 % Arterial Blood Methemoglobin 1.4 % 1.4 % Blood Gas Hemoglobin 10.4 G/DL 11.0 G/DL Oxygen Delivery Device RA NASAL CANNULA Blood Gas Inspired Oxygen 21 % 94 % Blood Gas Liter Flow 3 L/M Total Protein 6.5 GM/DL Albumin 2.4 GM/DL Alkaline Phosphatase 102 U/L Aspartate Amino Transf (AST/SGOT) 17 U/L Alanine Aminotransferase (ALT/SGPT) 18 U/L Total Bilirubin 0.2 MG/DL Lactic Acid Level 1.1 mmol/L Date/Time Source Procedure Growth Status 01/05/18 07:15 Sputum Oral Tracheal Aspirate Gram Stain Pending Received 01/05/18 07:15 Sputum Oral Tracheal Aspirate Sputum Culture Pending Received Vitals/IOs Vital Signs Date Time Temp Pulse Resp B/P (MAP) Pulse Ox O2 Delivery O2 Flow Rate FiO2 01/05/18 10:12 98 Nasal Cannula 3.00 01/05/18 07:42 107/51 (69) 01/05/18 06:31 57 01/04/18 05:16 98.2 16 Intake and Output 01/05/18 01/05/18 01/06/18 08:00 16:00 00:00 Intake Total 1350 ml 0 ml Balance 1350 ml 0 ml Assessment & Plan Problem List: (1) Schizoaffective disorder, bipolar type ICD Codes: F25.0 - Schizoaffective disorder, bipolar type Status: Chronic (2) Dementia ICD Codes: F03.90 - Unspecified dementia without behavioral disturbance Status: Acute Assessment & Plan Estimated LOS: days at this time patient sleeping with difficulty to arouse, medicine service monitoring patient's medical status treating it. She medication adjustments the Thorazine and Seroquel Justification for Cont. Inpt. At this time patient would decompensate a place to a lower level of care Discharge Planning To be determined Request HC Surrog/Guard Advoc?: Yes Problem Qualifiers (1) Dementia: Qualified Codes: G30.1 - Alzheimer's disease with late onset; F02.81 - Dementia in other diseases classified elsewhere with behavioral disturbance Louie Morales MD Jan 05, 2018 11:00
[2018-01-05] MEDS ORDERED: MIDODRINE 5 MG TAB PO ONE (13:15)
--- NOTE | 2018-01-05 16:43 | HHI.DS ---
Psychiatry Discharge Summary Inpatient Psychiatric care?: Yes Advance Directive: No Reason Not Provided: Due to Patient Condition Mental Health AdvanceDirective: No Health Care Proxy: No Admission Admission Date Dec 23, 2017 at 18:27 Admission Diagnosis: (1) Schizoaffective disorder, bipolar type ICD Code: F25.0 - Schizoaffective disorder, bipolar type Brief History Patient is a 77-year-old female lung to us from multiple prior contacts comes here under a Munson act by the [facility]'s office dated 12/23/2017 at 10:57 AM that document reviewed essentially is stating 1 2017 depbroderick Lizama responded to actively drive health on a reference to a suicidal female upon arrival contact was made with Swetha Gonzalez who appear to have an altered mental status and was unable to answer questions family members advised Swetha suffers from dementia and has been trying to hurt herself with knives that Arianna Lizama was also advised she had been continuously trying to walk away from the resident's based on her family members statements deputy dent believes there is a substantial likelihood that without care or treatment Swetha will cause serious bodily harm to herself family members advised we will has a history of mental health issues and has been Munson acted in the past but was taken into protective custody under the Munson act. Patient seen screen in the ED urine toxicology negative Depakote blood level was 0.1 negative alcohol level. Patient behavior in the ED necessitated and DTO of Haldol. At the present time patient sitting quietly in [place] chair in the dayroom nurse [place] present throughout session. Patient is alert diffusely disoriented in all 4 spheres basically clapping her hands smiling and laughing and babbling nonsensical sounds. She reaches out somewhat towards other people coming by but is redirectable at this time. At this time patient does meet criteria for inpatient psychiatric hospitalization under the Munson act I will do first opinion request second opinion F patient does not have capacity I will ask for health care surrogate and guardian advocate. We will continue medications per the med reconciliation form. I will also completed the initial psychiatric template orders. It appears this placement of the family home was not successful we may need to assess more restrictive placements for this lady Tobacco Use In Past 30 Days: No Tobacco Past 30 Days Alcohol Use: Never Hospital Course Patient was seen by our halicat response team. This is the second visit by them within 36 hours. Patient to be transferred to the medical unit per [facility] staff Results Blood Pressure 73 / 34 Vital Signs Date Time Temp Pulse Resp B/P (MAP) Pulse Ox O2 Delivery O2 Flow Rate FiO2 01/05/18 16:13 59 22 73/34 (47) 100 01/05/18 16:09 Nasal Cannula 3.00 01/04/18 05:16 98.2 Laboratory Tests Test 01/04/18 07:02 01/04/18 18:46 01/04/18 20:10 01/05/18 05:55 Red Blood Count 3.59 MIL/MM3 (4.00-5.30) 3.49 MIL/MM3 (4.00-5.30) Hemoglobin 11.1 GM/DL (11.6-15.3) 10.5 GM/DL (11.6-15.3) Hematocrit 32.8 % (35.0-46.0) 32.1 % (35.0-46.0) Neutrophils (%) (Auto) 85.5 % (16.0-70.0) Lymphocytes (%) (Auto) 8.2 % (9.0-44.0) Lymphocytes # (Auto) 0.4 TH/MM3 (1.0-4.8) Creatinine 1.13 MG/DL (0.50-1.00) 1.46 MG/DL (0.50-1.00) Albumin 2.8 GM/DL (3.4-5.0) Aspartate Amino Transf (AST/SGOT) 11 U/L (15-37) Total Bilirubin 0.1 MG/DL (0.2-1.0) Estimat Glomerular Filtration Rate 56 ML/MIN (>89) 42 ML/MIN (>89) White Blood Count 3.8 TH/MM3 (4.0-11.0) Blood Gas Oxygen Saturation 89 % (90-100) Blood Gas Hemoglobin 10.4 G/DL (12.0-16.0) 11.0 G/DL (12.0-16.0) Arterial Blood pH 7.35 (7.380-7.420) Arterial Blood Partial Pressure CO2 45 mmHg (38-42) Test 01/05/18 07:10 01/05/18 10:53 Red Blood Count 3.63 MIL/MM3 (4.00-5.30) Hemoglobin 11.1 GM/DL (11.6-15.3) Hematocrit 33.2 % (35.0-46.0) Creatinine 1.08 MG/DL (0.50-1.00) Random Glucose 119 MG/DL (74-106) Albumin 2.4 GM/DL (3.4-5.0) Chloride Level 108 MEQ/L (98-107) Estimat Glomerular Filtration Rate 59 ML/MIN (>89) Valproic Acid (Depakene) Level 29 MCG/ML (50-100) Laboratory Results Test 12/24/17 06:50 01/05/18 07:10 Cholesterol Level 196 MG/DL (120-200) HDL Cholesterol 43.0 MG/DL (40.0-60.0) Hemoglobin A1c 5.5 % (4.3-6.0) LDL Cholesterol 141 MG/DL (0-99) Triglycerides Level 59 MG/DL (42-150) Valproic Acid (Depakene) Level 29 MCG/ML (50-100) Summary of Procedures None done Imaging Last Impressions Chest X-Ray 01/05/18 0000 Signed Impressions: CONCLUSION: Patchy opacity left lung base indicating atelectasis versus mild consolidation. Appearance is similar to prior study of 12/04/2017. Pending results at discharge: No Medications # of Antipsychotic meds at D/C: 0 Approp Antipsych med options 1 - Minimum of three failed multiple trials of monotherapy. 2 - Documented plan to taper to monotherapy due to previous use of multiple meds OR cross-taper in progress at D/C. 3 - Documentation of augmentation of Clozapine. 4 - Justification other than those listed in allowable values 1-3, document here : Discharge Discharge Date: Jan 05, 2018 Discharge Diagnosis: (1) Schizoaffective disorder, bipolar type Diagnosis: Principal ICD Code: F25.0 - Schizoaffective disorder, bipolar type Status: Chronic Pt Condition on Discharge: Guarded Discharge Disposition: Hospice/Med Facility Discharge Instructions Diet Instructions: As Tolerated, No Restrictions Activities you can perform: Regular-No Restrictions Scheduled Appointment: Discharge 4 E. directly admitted to medical unit per halshirat team Discharge Time > 30 minutes Mental Status Examination Appearance: Appropriate Consciousness: Alert Orientation: Person (Vaguely) Motor Activity: Other (Patient sitting in [place] chair) Speech: Pressured, Other (Quite garbled) Language: Other (Verbal) Fund of Knowledge: Poor Attention and Concentration: Easily Distracted Memory: Impaired Mood: Other (To mildly irritable) Affect: Other (Decreased range and intensity) Thought Process & Associations: Disorganized Thought Content: Other (Difficult to ascertain speech is undecipherable) Hallucination Type: None Delusion Type: None Suicidal Ideation: No Suicidal Plan: No Suicidal Intention: No Homicidal Ideation: No Homicidal Plan: No Homicidal Intention: No Insight: Poor Judgment: Poor Discharge/Advance Care Plan Health Problems: (1) Schizoaffective disorder, bipolar type (2) Dementia Goals to promote your health * To prevent worsening of your condition and complications * To maintain your health at the optimal level Directions to meet your goals Take your medications as prescribed Follow your dietary instruction Follow activity as directed Keep your appointments as scheduled Take your immunizations and boosters as scheduled If your symptoms worsen call your PCP, if no PCP go to Urgent Care Center or Emergency Room For 14/02 questions related to your inpatient stay or results of tests pending at discharge, please contact Dr. Louie Morales at Smoking is Dangerous to Your Health. Avoid second hand smoking Louie Morales MD Jan 05, 2018 16:43
[2018-01-05] MEDS ORDERED: MIDODRINE 5 MG TAB PO SCH (17:00)
[2018-01-05] MEDS ORDERED: QUEtiapine FUMARATE 200 MG TAB PEG SCH (21:00)
[2018-01-06] MEDS ORDERED: VANCOMYCIN 1,000 MG/NS 250 ML IV SCH ×2
[2018-01-07] MEDS ORDERED: PHARMACY ORDERED LAB ONE (23:45)
== END 2018-01-05 16:35 | disposition hospice, inpatient (51) | DRG 885 ==
LOC: NEPC 12:06 → NEDA 18:27 → H250 19:26 → H4EA 01-03 15:10
PROVIDERS: ADMIT Psychiatry & Neurology Psychiatry; ATTEND Psychiatry & Neurology Psychiatry
DX: F25.0 Schizoaffective disorder, bipolar type (principal); I95.9 Hypotension, unspecified; E86.0 Dehydration; D64.9 Anemia, unspecified; G30.1 Alzheimer's disease with late onset; F02.81 Dementia in other diseases classified elsewhere, unspecified severity, with behavioral disturbance; E87.6 Hypokalemia
CPT/HCPCS: 36600; 71045; 80048; 80053; 80061; 80164; 80307; 82140; 82805; 83036; 83605; 84443; 85025; 85027; 87070; 87205; 94640; 94664; 99291; J1200; J1630; J1644; J2060; J2543; J3370; J7030; J7050

== ENCOUNTER 2018-01-05 16:47 | Inpatient (IN) | payer MEDICARE ==
[2018-01-05] VITALS (36 sets, daily range): BP systolic 64–96; BP diastolic 36–54; PULSE 62–96; RESP 11–44; O2SAT 80–100
[~2018-01-05] VITALS: Ht 172.7 cm; Wt 102.6 kg
[2018-01-05] MEDS ORDERED: POTASSIUM PHOSPHATE MONOBASIC 500 MG TAB PO PRN ×2 (17:00→19:45)
[2018-01-05] MEDS ORDERED: MAGNESIUM HYDROXIDE SUSP 30 ML CUP PO PRN (17:00)
[2018-01-05] MEDS ORDERED: ONDANSETRON ODT 4 MG TAB PO PRN (17:00)
[2018-01-05] MEDS ORDERED: LABETALOL HCL 100 MG/20 ML VIAL IV PUSH PRN (17:00)
[2018-01-05] MEDS ORDERED: RESP: ALBUTEROL 2.5 MG/IPRATROPIUM 0.5 MG NEB (PRN) INH (17:00)
[2018-01-05] MEDS ORDERED: LACTULOSE SYRUP 20 GM/30 ML CUP PO PRN (17:00)
[2018-01-05] MEDS ORDERED: MAGNESIUM OXIDE 400 MG TAB PO PRN ×2 (17:00→19:45)
[2018-01-05] MEDS ORDERED: LACTATED RINGER'S 1000 ML INJ 1,000 ML IV ONE ×6 (17:00→23:30)
[2018-01-05] MEDS ORDERED: POTASSIUM PHOSPHATE INJ 30 MMOL in SODIUM CHLOR 0.9% 250 ML INJ 250 ML IV PRN ×2 (17:00→19:45)
[2018-01-05] MEDS ORDERED: BISACODYL 10 MG SUPP RECTAL PRN (17:00)
[2018-01-05] MEDS ORDERED: POTASSIUM CHLOR 40 MEQ PREMIX 100 ML IV PRN ×2 (17:00)
[2018-01-05] MEDS ORDERED: POTASSIUM PHOSPHATE MONOBASIC 500 MG TAB PO/TUBE PRN ×2 (17:00→19:45)
[2018-01-05] MEDS ORDERED: NURSING INFORMATION XX SCH (17:00)
[2018-01-05] MEDS ORDERED: ACETAMINOPHEN 325 MG TAB PO PRN (17:00)
[2018-01-05] MEDS ORDERED: SENNOSIDES 8.6 MG TAB PO PRN (17:00)
[2018-01-05] MEDS ORDERED: CHLORHEXIDINE GLUCONATE 2 % 1 PACK (2 CLOTHS) TOP PRN (17:00)
[2018-01-05] MEDS ORDERED: DEXTROSE 50% IN WATER 50 ML VIAL(D50) IV PUSH PRN (17:00)
[2018-01-05] MEDS ORDERED: POTASSIUM CHLORIDE 25 MEQ EFFERVESCENT TAB PO PRN ×2 (17:00→19:45)
[2018-01-05] MEDS ORDERED: POTASSIUM CHLOR 20 MEQ PREMIX 100 ML IV PRN ×3 (17:00→19:45)
[2018-01-05] MEDS ORDERED: SODIUM PHOSPHATE INJ 30 MMOL in SODIUM CHLOR 0.9% 250 ML INJ 240 ML IV PRN (17:00)
[2018-01-05] MEDS ORDERED: MAGNESIUM SULFATE INJ 4 GM in SODIUM CHLORIDE 0.9% INJ 92 ML IV PRN ×2 (17:00→19:45)
[2018-01-05] MEDS ORDERED: hydrALAZINE HCL 20 MG/ML VIAL IV PUSH PRN (17:00)
[2018-01-05] MEDS ORDERED: MAGNESIUM SULFATE INJ 2 GM in SODIUM CHLORIDE 0.9% INJ 96 ML IV PRN ×2 (17:00→19:45)
--- NOTE | 2018-01-05 17:02 | HHI.HP ---
[facility] Service Critical Care Medicine Primary Care Physician Unknown Admission Diagnosis Undifferentiated shock Diagnosis: Chief Complaint: hypotension Travel History International Travel<30 Days: No Contact w/Intl Traveler <30 Da: No Traveled to Known Affected Are: No Sepsis Criteria SIRS Criteria (2 or more): Temp > 100.9 or < 96.8, WBC > 34412, < 4000 or > 10 % bands Severe Sepsis (+one): Organ Dysfunction, Hypotension, Hypoperfusion Septic Shock Criteria: Unresponsive to 30ml/kg fluid bolus, Lactic acid >=4 Multiple Organ Dysfunction Syn: Evidence -2 organs failing Criteria Outcome: Meets septic shock criteria History of Present Illness This is a 77-year-old female with a past medical history significant for schizophrenia and dementia who was residing in the inpatient med/psych unit and being actively treated for failure to thrive and unanticipated weight loss as well as ongoing psychosis. Today she was noted to be acutely hypotensive. She was given 4 L of crystalloid IV fluids which did not improve her blood pressure. Rapid response was called and first blood pressure recorded was 60 systolic. She was emergently transferred to the ICU where I evaluated the patient on arrival. On arrival she had an improving blood pressure 100 systolic , however she was profoundly hypothermic with a core temperature of 29C. I performed bedside critical care echocardiography which demonstrated grossly preserved biventricular function, very collapsible IVC, no pericardial effusion. In addition, the patient appears to have a PEG tube in place. On palpation of her abdomen, the patient grimaces in pain. The patient is quite somnolent and although she is protecting her airway, no additional information is available from the patient. Review systems is unobtainable. The remainder of the history is obtained from prior medical records that we have at our institution, however those records are sparse with past medical history evidence given her degree of dementia and schizophrenia. Laboratory data that we collected once in the ICU demonstrates leukopenia, acute kidney injury. Septic shock would be high in the differential, and given her severe apparent abdominal tenderness, abdominal source of her sepsis would be the highest on the differential. Review of Systems ROS Limitations: Clinical Condition, Altered Mental Status, Psychotic Past Family Social History Allergies: Coded Allergies: apple (Unverified Allergy, Severe, Swelling, 03/08/17) Past Medical History Due to the patient's clinical condition, no additional history is obtainable from her. Per her past documented records: Arthritis Asthma Schizophrenia Past Surgical History Bilateral cataracts Bilateral knee replacements PEG tube placement Reported Medications [Megestrol Liq] 400 MG/10 ML Susp 400 Mg PEG DAILY 15 Days Magic Mouthwash Adult Liq (Multi-Ingredient Mouthwash/Gargle) 120 Ml Susp 5 Ml SWISH-SWAL QID 15 Days Quetiapine (Quetiapine Fumarate) 200 Mg Tab 400 Mg PEG BID 15 Days [Chlorpromazine] 100 MG Tab 100 Mg PEG BID@0800,1200 15 Days [chlorproMAZINE] 50 MG Tab 325 Mg PEG HS 15 Days Valproic Acid 250 Mg/5 Ml (5 Ml) Solution 500 Mg PEG BID 15 Days Active Ordered Medications see MAR Family History Unknown and unobtainable secondary to clinical condition the patient Social History Unknown and unobtainable secondary clinical condition the patient Physical Exam Vital Signs Vital Signs Date Time Temp Pulse Resp B/P (MAP) Pulse Ox O2 Delivery O2 Flow Rate FiO2 01/05/18 18:00 62 Laboratory Tests Test 01/05/18 17:49 01/05/18 18:10 White Blood Count 3.8 TH/MM3 Red Blood Count 3.35 MIL/MM3 Hemoglobin 10.3 GM/DL Hematocrit 31.5 % Mean Corpuscular Volume 93.9 FL Mean Corpuscular Hemoglobin 30.7 PG Mean Corpuscular Hemoglobin Concent 32.7 % Red Cell Distribution Width 15.1 % Platelet Count 152 TH/MM3 Mean Platelet Volume 9.7 FL Neutrophils (%) (Auto) 93.9 % Lymphocytes (%) (Auto) 4.2 % Monocytes (%) (Auto) 1.8 % Eosinophils (%) (Auto) 0.0 % Basophils (%) (Auto) 0.1 % Neutrophils # (Auto) 3.6 TH/MM3 Lymphocytes # (Auto) 0.2 TH/MM3 Monocytes # (Auto) 0.1 TH/MM3 Eosinophils # (Auto) 0.0 TH/MM3 Basophils # (Auto) 0.0 TH/MM3 CBC Comment DIFF FINAL Differential Comment Prothrombin Time 11.5 SEC Prothromb Time International Ratio 1.1 RATIO Activated Partial Thromboplast Time 37.6 SEC Blood Urea Nitrogen 18 MG/DL Creatinine 1.15 MG/DL Random Glucose 158 MG/DL Total Protein 6.0 GM/DL Albumin 2.2 GM/DL Calcium Level 8.1 MG/DL Alkaline Phosphatase 100 U/L Aspartate Amino Transf (AST/SGOT) 11 U/L Alanine Aminotransferase (ALT/SGPT) 16 U/L Total Bilirubin 0.2 MG/DL Sodium Level 141 MEQ/L Potassium Level 3.0 MEQ/L Chloride Level 110 MEQ/L Carbon Dioxide Level 17.9 MEQ/L Anion Gap 13 MEQ/L Estimat Glomerular Filtration Rate 55 ML/MIN Lactic Acid Level 5.1 mmol/L INTAKE & OUTPUT 01/05/18 01/05/18 01/05/18 06:59 14:59 22:59 Output Total 50 ml Balance -50 ml Current Medications Medications (Trade) Dose Ordered Sig/Karyna Route PRN Reason Start Time Stop Time Status Last Admin Dose Admin Potassium Chloride 100 ml @ 50 mls/hr Q2H PRN IV For Potassium 2.8 - 3.2 mEq/L 01/05/18 17:00 Potassium Chloride 100 ml @ 50 mls/hr Q2H PRN IV For Potassium 2.8 - 3.2 mEq/L 01/05/18 17:00 Potassium Bicarb/ Potassium Chloride (K-Lyte Cl Eff) 50 meq UNSCH PRN PO For Potassium 3.3 - 3.5 mEq/L 01/05/18 17:00 Potassium Chloride 100 ml @ 25 mls/hr UNSCH PRN IV For Potassium 3.3 - 3.5 mEq/L 01/05/18 17:00 Potassium Chloride 100 ml @ 50 mls/hr Q2H PRN IV For Potassium 3.3 - 3.5 mEq/L 01/05/18 17:00 Magnesium Sulfate 4 gm/Sodium Chloride 100 ml @ 50 mls/hr UNSCH PRN IV For Magnesium 0.9 - 1.1 mg/dL 01/05/18 17:00 Magnesium Oxide (Mag-Ox) 800 mg UNSCH PRN PO For Magnesium 1.2 - 1.6 mg/dL 01/05/18 17:00 Magnesium Sulfate 2 gm/Sodium Chloride 100 ml @ 50 mls/hr UNSCH PRN IV For Magnesium 1.2 - 1.6 mg/dL 01/05/18 17:00 Potassium Phosphate (K-Phos) 2,000 mg Q4H PRN PO For Phosphorus < 2.5 mg/dL 01/05/18 17:00 Sodium Phosphate 30 mmol/Sodium Chloride 250 ml @ 42 mls/hr UNSCH PRN IV For Phosphorus < 2.5 mg/dL 01/05/18 17:00 Potassium Phosphate (K-Phos) 2,000 mg UNSCH PRN PO/TUBE SEE LABEL COMMENTS 01/05/18 17:00 Potassium Phosphate 30 mmol/ Sodium Chloride 260 ml @ 42 mls/hr UNSCH PRN IV SEE LABEL COMMENTS 01/05/18 17:00 Labetalol HCl (Trandate Inj) 20 mg Q15M PRN IV PUSH sbp > 160 01/05/18 17:00 Hydralazine HCl (Apresoline Inj) 10 mg Q30M PRN IV PUSH sbp > 160 01/05/18 17:00 Dextrose (D50w (Vial) Inj) 25 ml UNSCH PRN IV PUSH HYPOGLYCEMIA-SEE COMMENTS 01/05/18 17:00 Insulin Human Regular (NovoLIN R SUPPLEMENTAL SCALE) 1 Q6HR SQ 01/05/18 18:00 Sodium Chloride 1,000 ml @ 84 mls/hr [id number] IV 01/05/18 17:45 Acetaminophen (Tylenol) 650 mg Q6H PRN PO PAIN 1-10 AND/OR FEVER >101F 01/05/18 17:00 Famotidine (Pepcid) 20 mg Q12HR PO 01/05/18 21:00 Ondansetron HCl (Zofran Odt) 4 mg Q6H PRN PO NAUSEA OR VOMITING 01/05/18 17:00 Albuterol/ Ipratropium (Duoneb Neb) 1 ampule Q2HR NEB PRN INH WHEEZING 01/05/18 17:00 Enoxaparin Sodium (Lovenox Inj) 40 mg Q24H SQ 01/05/18 17:00 01/05/18 18:12 Miscellaneous Information ([facility] Information) 1 Q361D XX 01/05/18 17:00 01/05/18 17:00 Chlorhexidine Gluconate (Chlorhexidine 2% Cloth) 3 pack Taper DAILY@04 TOP 01/06/18 04:00 01/02/19 03:59 Chlorhexidine Gluconate (Chlorhexidine 2% Cloth) 3 pack UNSCH PRN TOP HYGIENIC CARE 01/05/18 17:00 Senna/Docusate Sodium (Ana-Colace) 1 tab BID PO 01/05/18 21:00 Magnesium Hydroxide (Milk Of Magnesia Liq) 30 ml Q12H PRN PO Mild constipation 01/05/18 17:00 Sennosides (Senokot) 17.2 mg Q12H PRN PO Moderate constipation 01/05/18 17:00 Bisacodyl (Dulcolax Supp) 10 mg DAILY PRN RECTAL SEVERE CONSITIPATION 01/05/18 17:00 Lactulose (Lactulose Liq) 30 ml DAILY PRN PO SEVERE CONSITIPATION 01/05/18 17:00 Lactated Ringer's 1,000 ml @ 999 mls/hr BOLUS ONCE IV 01/05/18 17:00 01/05/18 18:00 DC 01/05/18 17:00 Diatrizoate Meglum/ Diatrizoate Sod ( Gastroview Liq) 18 ml ONCE ONCE PO 01/05/18 18:00 01/05/18 18:01 DC 01/05/18 18:12 Pharmacy Profile Note 0 ml @ 0 mls/hr UNSCH OTHER 01/05/18 19:30 UNV Vancomycin HCl 1250 mg/Sodium Chloride 262.5 ml @ 250 mls/hr ONCE ONCE IV 01/05/18 19:30 01/05/18 20:32 UNV Cefepime HCl 1000 mg/Sodium Chloride 100 ml @ 200 mls/hr Q8H IV 01/05/18 19:30 UNV Metronidazole 100 ml @ 100 mls/hr Q6H IV 01/05/18 19:30 UNV Physical Exam GENERAL: elderly cachectic female, lying in bed, moaning, altered HEENT: Normocephalic. Atraumatic. Pupils equal, round, reactive, conjugate. Mucous membranes are dry NECK: Trachea is midline. There is no JVD. CHEST: nc o2. equal chest rise. CARDIOVASCULAR: normal rate, regular rhythm. sinus. ABDOMEN: Soft, apparently tender to palpation as patient grimaces with light touch to the abdomen, nondistended. no overt guarding or rebound. MUSCULOSKELETAL: Pulses 2+. No peripheral edema. NEUROLOGICAL: RASS -3. unclear neurologic baseline. moves all extremities spontaneously. does not follow commands. Laboratory Laboratory Tests Test 01/05/18 17:49 01/05/18 18:10 White Blood Count 3.8 TH/MM3 Red Blood Count 3.35 MIL/MM3 Hemoglobin 10.3 GM/DL Hematocrit 31.5 % Mean Corpuscular Volume 93.9 FL Mean Corpuscular Hemoglobin 30.7 PG Mean Corpuscular Hemoglobin Concent 32.7 % Red Cell Distribution Width 15.1 % Platelet Count 152 TH/MM3 Mean Platelet Volume 9.7 FL Neutrophils (%) (Auto) 93.9 % Lymphocytes (%) (Auto) 4.2 % Monocytes (%) (Auto) 1.8 % Eosinophils (%) (Auto) 0.0 % Basophils (%) (Auto) 0.1 % Neutrophils # (Auto) 3.6 TH/MM3 Lymphocytes # (Auto) 0.2 TH/MM3 Monocytes # (Auto) 0.1 TH/MM3 Eosinophils # (Auto) 0.0 TH/MM3 Basophils # (Auto) 0.0 TH/MM3 CBC Comment DIFF FINAL Differential Comment Prothrombin Time 11.5 SEC Prothromb Time International Ratio 1.1 RATIO Activated Partial Thromboplast Time 37.6 SEC Blood Urea Nitrogen 18 MG/DL Creatinine 1.15 MG/DL Random Glucose 158 MG/DL Total Protein 6.0 GM/DL Albumin 2.2 GM/DL Calcium Level 8.1 MG/DL Alkaline Phosphatase 100 U/L Aspartate Amino Transf (AST/SGOT) 11 U/L Alanine Aminotransferase (ALT/SGPT) 16 U/L Total Bilirubin 0.2 MG/DL Sodium Level 141 MEQ/L Potassium Level 3.0 MEQ/L Chloride Level 110 MEQ/L Carbon Dioxide Level 17.9 MEQ/L Anion Gap 13 MEQ/L Estimat Glomerular Filtration Rate 55 ML/MIN Lactic Acid Level 5.1 mmol/L Imaging CT abd/pelvis pending. Septic Shock Reassessment Septic shock perfusion: reassessment completed Caprini VTE Risk Assessment Caprini VTE Risk Assessment: Mod/High Risk (score >= 2) Caprini Risk Assessment Model Point Value = 1 Point Value = 2 Point Value = 3 Point Value = 5 Age 41-60 Minor surgery BMI > 25 kg/m2 Swollen legs Varicose veins or History of unexplained or recurrent spontaneous Oral contraceptives or hormone replacement Sepsis (< 1 month) Serious lung disease, including pneumonia (< 1 month) Abnormal pulmonary function Acute myocardial infarction Congestive heart failure (< 1 month) History of inflammatory bowel disease Medical patient at bed rest Age 61-74 Arthroscopic surgery Major open surgery (> 45 min) Laparoscopic surgery (> 45 min) Malignancy Confined to bed (> 72 hours) Immobilizing plaster cast Central venous access Age >= 75 History of VTE Family history of VTE Factor V Leiden Prothrombin 24150P Lupus anticoagulant Anticardiolipin antibodies Elevated serum homocysteine Heparin-induced thrombocytopenia Other congenital or acquired thrombophilia Stroke (< 1 month) Elective arthroplasty Hip, pelvis, or leg fracture Acute spinal cord injury (< 1 month) Prophylaxis Regimen Total Risk Factor Score Risk Level Prophylaxis Regimen 0-1 Low Early ambulation 2 Moderate Order ONE of the following: *Sequential Compression Device (SCD) *Heparin 5000 units SQ BID 3-4 Higher Order ONE of the following medications: *Heparin 5000 units SQ TID *Enoxaparin/Lovenox 40 mg SQ daily (WT < 150 kg, CrCl > 30 mL/min) *Enoxaparin/Lovenox 30 mg SQ daily (WT < 150 kg, CrCl > 10-29 mL/min) *Enoxaparin/Lovenox 30 mg SQ BID (WT < 150 kg, CrCl > 30 mL/min) AND/OR *Sequential Compression Device (SCD) 5 or more Highest Order ONE of the following medications: *Heparin 5000 units SQ TID (Preferred with Epidurals) *Enoxaparin/Lovenox 40 mg SQ daily (WT < 150 kg, CrCl > 30 mL/min) *Enoxaparin/Lovenox 30 mg SQ daily (WT < 150 kg, CrCl > 10-29 mL/min) *Enoxaparin/Lovenox 30 mg SQ BID (WT < 150 kg, CrCl > 30 mL/min) AND *Sequential Compression Device (SCD) Assessment and Plan Assessment and Plan Assessment: 77yF with history of schizophrenia and dementia presents with what clinically appears to be septic shock with severe hypothermia and hypotension of unclear source, but suspect intra-abdominal pathology. critically ill. will obtain CT abd/pelvis with iv and po contrast. cover empirically with antibiotics. kelley culture. ivf resuscitate and may need vasopressors. discussed with psych staff: per her family, she remains with aggressive goals and full code status. Plan by systems: Neurologic: Schizophrenia Dementia Acute metabolic encephalopathy Frequent neurochecks Avoid long-acting sedatives Restraints for patient safety Respiratory: Nasal cannula for goal SPO2 greater than 90% As needed nebs Cardiovascular: Septic shock Status post 4 L crystalloid resuscitation. Add additional 2 L crystalloid resuscitation now. IVC remains collapsible and likely could use more volume resuscitation Warmed IV fluids Renal: Acute kidney injury -- Strict I/Os Place Ross Daily BMP FEN/GI: Abdominal pain Acute intravascular volume depletion Failure to thrive Severe acute protein calorie malnutrition Possible intra-abdominal sepsis Stat CT abdomen pelvis with IV and p.o. contrast IC electrolyte protocol CMP now Daily BMP Heme/ID: Anemia, unclear etiology Septic shock Suspected intra-abdominal sepsis Vancomycin with pharmacy dosing Cefepime Flagyl Blood cultures UA with urine culture CT abdomen pelvis No diarrhea to suggest C. difficile colitis as a cause Endocrine: Profound hypothermia Aggressive warming measures Warmed IV fluids -- SSI Prophylaxis: GI Prophylaxis Pepcid DVT Prophylaxis -- SCDs Lovenox Lines: Peripheral IV Insert Ross Dispo: Admit to ICU. Very critically ill. This patient remains critically ill with one or more organ systems which are or may become a threat to life. I have spent in excess of 57 minutes discontinuously in the care and management of this patient. This time is exclusive of procedures, and includes, but is not limited to, evaluation of the patient, review of the medical record, discussions with family, consultants, nursing staff, or respiratory therapy, and documentation in the medical record. Stephon Saunders MD Jan 05, 2018 17:02
[2018-01-05] MEDS: SODIUM CHLOR 0.9% 1000 ML INJ 1,000 ML IV SCH ×2 (17:45→23:00)
[2018-01-05] MEDS: INSULIN NovoLIN REGULAR SUPPLEMENTAL SCALE SQ SCH (18:00)
[2018-01-05] MEDS ORDERED: DIATRIZOATE MEGLUM/DIATRIZOATE SOD 9 ML CUP PO ONE (18:00)
[2018-01-05] MEDS: ENOXAPARIN SODIUM 40 MG/0.4 ML SYRINGE SQ SCH (18:12)
[2018-01-05 18:16] LABS: AUTOMATED NEUTROPHIL # 3.6 TH/MM3 (1.8-7.7); BASOPHIL % 0.1 % (0.0-2.0); HEMATOCRIT 31.5 % (35.0-46.0); HEMOGLOBIN 10.3 GM/DL (11.6-15.3); LYMPH % 4.2 % (9.0-44.0); LYMPHOCYTE # 0.2 TH/MM3 (1.0-4.8); MEAN CELL VOLUME 93.9 FL (80.0-100.0); MEAN CORPUSCULAR HEMOGLOBIN 30.7 PG (27.0-34.0); MEAN CORPUSCULAR HGB CONC 32.7 % (32.0-36.0); MEAN PLATELET VOLUME 9.7 FL (7.0-11.0); MONO % 1.8 % (0.0-8.0); MONOCYTE # 0.1 TH/MM3 (0-0.9); NEUT % 93.9 % (16.0-70.0); PLATELET COUNT 152 TH/MM3 (150-450); RED BLOOD COUNT 3.35 MIL/MM3 (4.00-5.30); RED CELL DISTRIBUTION WIDTH 15.1 % (11.6-17.2); WHITE BLOOD COUNT 3.8 TH/MM3 (4.0-11.0)
[2018-01-05 18:19] LABS: INTERNATIONAL NORMALIZED RATIO 1.1 RATIO; PROTHROMBIN TIME - PATIENT 11.5 SEC (9.8-11.6)
[2018-01-05 18:33] LABS: ALBUMIN 2.2 GM/DL (3.4-5.0); ALT (GPT) 16 U/L (10-53); AST (GOT) 11 U/L (15-37); BICARBONATE 17.9 MEQ/L (21.0-32.0); BLOOD UREA NITROGEN 18 MG/DL (7-18); CALCIUM 8.1 MG/DL (8.5-10.1); CHLORIDE 110 MEQ/L (98-107); CREATININE 1.15 MG/DL (0.50-1.00); GLOMERULAR FILTRATION RATE 55 ML/MIN (>89); GLUCOSE,RANDOM 158 MG/DL (74-106); SODIUM (NA) 141 MEQ/L (136-145)
[2018-01-05 18:35] LABS: ALKALINE PHOSPHATASE 100 U/L (45-117); TOTAL BILIRUBIN ADULT 0.2 MG/DL (0.2-1.0)
[2018-01-05 18:40] LABS: LACTIC ACID SEPSIS PROTOCOL 5.1 mmol/L (0.4-2.0)
[2018-01-05] MEDS ORDERED: VANCOMYCIN INJ 1,250 MG in SODIUM CHLOR 0.9% 250 ML INJ 250 ML IV ONE (19:30)
[2018-01-05] MEDS ORDERED: Vancomycin Consult Pharmacy 1 EA OTHER SCH (19:30)
[2018-01-05 19:43] LABS: BACTERIA, URINE OCC /hpf; BILIRUBIN, URINE NEG (NEG); BLOOD, URINE NEG (NEG); GLUCOSE,URINE NEG (NEG); HYALINE CAST, URINE 1 /lpf (RARE); KETONE, URINE NEG (NEG); NITRITE,URINE NEG (NEG); URINE COLOR Amber (YELLW/STRAW); URINE LEUKOCYTE ESTERASE NEG (NEG)
[2018-01-05] MEDS ORDERED: TERBUTALINE INJ 1 MG/ML AMP SQ PRN (19:45)
[2018-01-05] MEDS ORDERED: PHENYLEPHRINE INJ 40 MG in DEXTROSE 5% IN WATE 500 ML INJ 496 ML IV PRN ×2 (19:45)
[2018-01-05] MEDS ORDERED: POTASSIUM CHLOR 40 MEQ PREMIX 100 ML IV-CENTRAL PRN ×2 (19:45)
[2018-01-05] MEDS: DOCUSATE SODIUM 50 MG/SENNA 8.6 MG TAB PO SCH (20:27)
[2018-01-05] MEDS: FAMOTIDINE 20 MG TAB PO SCH (20:27)
[2018-01-05] MEDS: metroNIDAZOLE 500 MG INJ 100 ML IV SCH (20:27)
[2018-01-05] MEDS: CEFEPIME INJ 1,000 MG in SODIUM CHLORIDE 0.9% INJ 100 ML IV SCH (20:27)
[2018-01-05] MEDS ORDERED: IOHEXOL 350 MG/ML 10 ML VIAL (for RAD DIAG) IVCONTRAST ONE (21:31)
--- NOTE | 2018-01-05 21:51 | RADRPT ---
EXAM DATE: 01/05/2018 9:35 PM EDT AGE/SEX: 77 years / Female INDICATIONS: Abdominal pain. CLINICAL DATA: This is the patient's initial encounter. Patient reports that signs and symptoms have been present for 1 day and indicates a pain score of 5/10. MEDICAL/SURGICAL HISTORY: Hypertension. . ORAL CONTRAST: Prescribed oral contrast ingested. RADIATION DOSE: 24.19 CTDI (mGy) COMPARISON: No prior exams available for comparison. TECHNIQUE: Multiple contiguous axial images were obtained through the abdomen and pelvis following b olus infusion of 100 ml Omnipaque 350 (iohexol) nonionic water-soluble contrast as a single exam do se. Prescribed oral contrast ingested. Using automated exposure control and adjustment of the mA and /or kV according to patient size, the radiation dose was kept as low as reasonably achievable to obta in optimal diagnostic quality images. FINDINGS: Lower Lungs: Bibasilar consolidation. 6 mm nodule in the right middle lobe Liver: The liver has a homogeneous density without space-occupying lesion. There is no dilation of th e biliary tree. Spleen: Homogeneous density without enlargement. Pancreas: Unremarkable without mass or calcification. Kidneys: Normal in size and shape. No evidence of mass or hydronephrosis. Bilateral renal low densit ies. Adrenal Glands: Unremarkable. Aorta: The aorta and proximal iliac vessels are grossly unremarkable without aneurysmal dilation. Bowel/Mesentery: Wall thickening throughout the colon but greatest involving the descending and sigm oid colon. No significant inflammatory changes. There is distention of the stomach Abdominal Wall: Intact. Retroperitoneum: No evidence of adenopathy in the retrocrural, para-aortic, or deep pelvic regions. Bladder: Contours are smooth. Reproductive Organs: Uterus is prominent and endometrium appears prominent as well. There are some c alcifications in the uterus probable leiomyomas. Inguinal: The inguinal region is unremarkable without evidence of adenopathy. Bony Structures: Prominent degenerative changes throughout the lumbar spine. Prominent Schmorl node deformity along the superior endplate at L2.. CONCLUSION: 1. Diffuse colitis without perforation. 2. Distention of the stomach. 3. Bilateral renal low densities, likely cysts. 4. Bibasilar consolidation and right middle lobe nodule. 5. Prominent uterus with prominent endometrium. Nonemergent pelvic sonogram recommended. Electronically signed by: Milton Galvan MD 01/05/2018 9:50 PM EDT
[2018-01-05] MEDS: PHENYLEPHRINE INJ 40 MG in DEXTROSE 5% IN WATE 500 ML INJ 496 ML IV PRN ×2 (22:02)
[2018-01-05] MEDS: POTASSIUM CHLOR 20 MEQ PREMIX 100 ML IV PRN (22:02)
[2018-01-05] MEDS: VANCOMYCIN INJ 1,750 MG in SODIUM CHLORID 0.9% 500 ML INJ 500 ML IV SCH (23:08)
[2018-01-06] VITALS (46 sets, daily range): BP systolic 79–156; BP diastolic 38–93; PULSE 96–112; RESP 15–32; TEMP 98; O2SAT 68–100
[2018-01-06] MEDS: POTASSIUM CHLOR 20 MEQ PREMIX 100 ML IV PRN ×2 (00:09→01:58)
[2018-01-06] MEDS: INSULIN NovoLIN REGULAR SUPPLEMENTAL SCALE SQ SCH ×5 (00:26→20:00)
[2018-01-06] MEDS: CHLORHEXIDINE GLUCONATE 2 % 1 PACK (2 CLOTHS) TOP SCH (01:44)
[2018-01-06] MEDS: metroNIDAZOLE 500 MG INJ 100 ML IV SCH ×4 (02:24→20:48)
[2018-01-06] MEDS: CEFEPIME INJ 1,000 MG in SODIUM CHLORIDE 0.9% INJ 100 ML IV SCH ×3 (03:42→20:47)
[2018-01-06 04:42] LABS: HEMATOCRIT 29.5 % (35.0-46.0); HEMOGLOBIN 9.9 GM/DL (11.6-15.3); MEAN CELL VOLUME 92.4 FL (80.0-100.0); MEAN CORPUSCULAR HEMOGLOBIN 31.1 PG (27.0-34.0); MEAN CORPUSCULAR HGB CONC 33.6 % (32.0-36.0); MEAN PLATELET VOLUME 10.6 FL (7.0-11.0); PLATELET COUNT 172 TH/MM3 (150-450); RED BLOOD COUNT 3.19 MIL/MM3 (4.00-5.30); RED CELL DISTRIBUTION WIDTH 14.7 % (11.6-17.2); WHITE BLOOD COUNT 5.1 TH/MM3 (4.0-11.0)
[2018-01-06] MEDS: SODIUM CHLOR 0.9% 1000 ML INJ 1,000 ML IV SCH (04:46)
[2018-01-06] MEDS: PHENYLEPHRINE INJ 40 MG in DEXTROSE 5% IN WATE 500 ML INJ 496 ML IV PRN ×4 (04:47→10:57)
[2018-01-06 05:16] LABS: CALCIUM 8.2 MG/DL (8.5-10.1); CREATININE 1.06 MG/DL (0.50-1.00)
[2018-01-06] MEDS: SODIUM PHOSPHATE INJ 30 MMOL in SODIUM CHLOR 0.9% 250 ML INJ 240 ML IV PRN ×2 (05:57→13:17)
[2018-01-06] MEDS: FAMOTIDINE 20 MG TAB PO SCH ×2 (07:39→20:47)
[2018-01-06] MEDS: DOCUSATE SODIUM 50 MG/SENNA 8.6 MG TAB PO SCH ×2 (07:39→20:47)
[2018-01-06] MEDS: DEXT 5%-NACL 0.9% 1000 ML INJ 1,000 ML IV SCH ×2 (09:00→22:20)
--- NOTE | 2018-01-06 09:14 | HHI.CCPN ---
Subjective Remarks/Hospital Course This is a 77-year-old female with a past medical history significant for schizophrenia and dementia who was residing in the inpatient med/psych unit and being actively treated for failure to thrive and unanticipated weight loss as well as ongoing psychosis. Today she was noted to be acutely hypotensive. She was given 4 L of crystalloid IV fluids which did not improve her blood pressure. Rapid response was called and first blood pressure recorded was 60 systolic. She was emergently transferred to the ICU where I evaluated the patient on arrival. On arrival she had an improving blood pressure 100 systolic , however she was profoundly hypothermic with a core temperature of 29C. I performed bedside critical care echocardiography which demonstrated grossly preserved biventricular function, very collapsible IVC, no pericardial effusion. In addition, the patient appears to have a PEG tube in place. On palpation of her abdomen, the patient grimaces in pain. The patient is quite somnolent and although she is protecting her airway, no additional information is available from the patient. Review systems is unobtainable. The remainder of the history is obtained from prior medical records that we have at our institution, however those records are sparse with past medical history evidence given her degree of dementia and schizophrenia. Laboratory data that we collected once in the ICU demonstrates leukopenia, acute kidney injury. Septic shock would be high in the differential, and given her severe apparent abdominal tenderness, abdominal source of her sepsis would be the highest on the differential. 01/06 Patient is lethargic able to open her eyes to stimuli, started on Neosyn [address] abd/pelvis yesterday showed diffuse colitis. Objective Vital Signs Date Time Temp Pulse Resp B/P (MAP) Pulse Ox O2 Delivery O2 Flow Rate FiO2 01/06/18 07:07 101 83/44 01/06/18 04:00 98.6 28 100 01/05/18 20:47 Nasal Cannula 3.00 Intake and Output 01/06/18 01/06/18 01/07/18 08:00 16:00 00:00 Intake Total 6447.5 ml Output Total 350 ml Balance 6097.5 ml Result Diagram: 01/06/18 0356 01/06/18 0356 Other Results Laboratory Tests Test 01/05/18 17:36 01/05/18 17:49 01/05/18 18:10 01/05/18 20:34 Nasal Screen MRSA (PCR) MRSA NOT DETECTED White Blood Count 3.8 TH/MM3 Red Blood Count 3.35 MIL/MM3 Hemoglobin 10.3 GM/DL Hematocrit 31.5 % Mean Corpuscular Volume 93.9 FL Mean Corpuscular Hemoglobin 30.7 PG Mean Corpuscular Hemoglobin Concent 32.7 % Red Cell Distribution Width 15.1 % Platelet Count 152 TH/MM3 Mean Platelet Volume 9.7 FL Neutrophils (%) (Auto) 93.9 % Lymphocytes (%) (Auto) 4.2 % Monocytes (%) (Auto) 1.8 % Eosinophils (%) (Auto) 0.0 % Basophils (%) (Auto) 0.1 % Neutrophils # (Auto) 3.6 TH/MM3 Lymphocytes # (Auto) 0.2 TH/MM3 Monocytes # (Auto) 0.1 TH/MM3 Eosinophils # (Auto) 0.0 TH/MM3 Basophils # (Auto) 0.0 TH/MM3 CBC Comment DIFF FINAL Differential Comment Prothrombin Time 11.5 SEC Prothromb Time International Ratio 1.1 RATIO Activated Partial Thromboplast Time 37.6 SEC Blood Urea Nitrogen 18 MG/DL Creatinine 1.15 MG/DL Random Glucose 158 MG/DL Total Protein 6.0 GM/DL Albumin 2.2 GM/DL Calcium Level 8.1 MG/DL Alkaline Phosphatase 100 U/L Aspartate Amino Transf (AST/SGOT) 11 U/L Alanine Aminotransferase (ALT/SGPT) 16 U/L Total Bilirubin 0.2 MG/DL Sodium Level 141 MEQ/L Potassium Level 3.0 MEQ/L Chloride Level 110 MEQ/L Carbon Dioxide Level 17.9 MEQ/L Anion Gap 13 MEQ/L Estimat Glomerular Filtration Rate 55 ML/MIN Lactic Acid Level 5.1 mmol/L 6.7 mmol/L Phosphorus Level 1.1 MG/DL Urine Color Lynn Urine Turbidity HAZY Urine pH 5.0 Urine Specific Raymond 1.024 Urine Protein 30 mg/dL Urine Glucose (UA) NEG mg/dL Urine Ketones NEG mg/dL Urine Occult Blood NEG Urine Nitrite NEG Urine Bilirubin NEG Urine Leukocyte Esterase NEG Urine RBC LESS THAN 1 /hpf Urine WBC 2 /hpf Urine Bacteria OCC /hpf Urine Hyaline Casts 1 /lpf Microscopic Urinalysis Comment CATH-CULTURE IND Test 01/06/18 03:56 White Blood Count 5.1 TH/MM3 Red Blood Count 3.19 MIL/MM3 Hemoglobin 9.9 GM/DL Hematocrit 29.5 % Mean Corpuscular Volume 92.4 FL Mean Corpuscular Hemoglobin 31.1 PG Mean Corpuscular Hemoglobin Concent 33.6 % Red Cell Distribution Width 14.7 % Platelet Count 172 TH/MM3 Mean Platelet Volume 10.6 FL Blood Urea Nitrogen 18 MG/DL Creatinine 1.06 MG/DL Random Glucose 73 MG/DL Calcium Level 8.2 MG/DL Sodium Level 134 MEQ/L Potassium Level 4.9 MEQ/L Chloride Level 106 MEQ/L Carbon Dioxide Level 19.0 MEQ/L Anion Gap 9 MEQ/L Estimat Glomerular Filtration Rate 61 ML/MIN Imaging Last Impressions Abdomen/Pelvis CT 01/05/18 0000 Signed Impressions: CONCLUSION: 1. Diffuse colitis without perforation. 2. Distention of the stomach. 3. Bilateral renal low densities, likely cysts. 4. Bibasilar consolidation and right middle lobe nodule. 5. Prominent uterus with prominent endometrium. Nonemergent pelvic sonogram re commended. Objective Remarks GENERAL: elderly cachectic female, lethargic HEENT: Normocephalic. Atraumatic. Pupils equal, round, reactive, conjugate. NECK: Trachea is midline. There is no JVD. CHEST: nc o2. equal chest rise. CARDIOVASCULAR: normal rate, regular rhythm. sinus. ABDOMEN: Soft, apparently tender to palpation as patient grimaces with light touch to the abdomen, nondistended. no overt guarding or rebound. MUSCULOSKELETAL: Pulses 2+. No peripheral edema. NEUROLOGICAL: RASS -3. unclear neurologic baseline. moves all extremities spontaneously. does not follow commands. Lethargic A/P Assessment and Plan Assessment: 77yF with history of schizophrenia and dementia presents with what clinically appears to be septic shock with severe hypothermia and hypotension of unclear source, but suspect intra-abdominal pathology. critically ill. will obtain CT abd/pelvis with iv and po contrast. cover empirically with antibiotics. kelley culture. ivf resuscitate and may need vasopressors. discussed with psych staff: per her family, she remains with aggressive goals and full code status. Plan by systems: Neurologic: Schizophrenia Dementia Acute metabolic encephalopathy Frequent neurochecks Avoid long-acting sedatives Restraints for patient safety Respiratory: Nasal cannula for goal SPO2 greater than 90% Bronchodilators, check ABG Cardiovascular: Septic shock s/p 6L LR and 4L NS given yesterday Continue with Neosyn monitor HR and BP keep MAP> 65mmHg Serial Lactic acid monitoring till clear Add stress dose steroids- HC 50mg IV Q6 Place Central line, Art line, CVP monitoring Renal: Acute kidney injury -- Monitor renal function, I/O's, electrolytes replacement as needed Change IVF D5NS@75ml/hr FEN/GI: Abdominal pain Failure to thrive Severe acute protein calorie malnutrition, PEG tube is in place Possible intra-abdominal sepsis Hold tube feeds- on Jevity 1.5 @60ml/hr via PEG tube Change IVF D5NS@75ml/hr GI eval. CT abd/pelvis: Diffuse colitis without perforation check C-diff PCR, continue abx Heme/ID: Anemia, unclear etiology Septic shock Suspected intra-abdominal sepsis Continue abx ( Cefepime, Flagyl, Vanco) Monitor for signs of infections ( fever , WBC) Follow up on blood and urine cxs ID eval Endocrine: Hypothermia- likely 2nd severe sepsis -- SSI if needed for glycemic control Prophylaxis: GI Prophylaxis Pepcid DVT Prophylaxis -- SCDs Lovenox Lines: Peripheral IV, place central and Art line Ross Palliative care consulted to asses with goals of care Patient is critically ill with septic shock, lactic acidosis, diffuse colitis on CT abdomen. Palliative care consulted to asses with goals of care Reba Lambert MD Jan 06, 2018 09:14
[2018-01-06] MEDS: VASOPRESSIN INJ 40 UNITS in DEXTROSE 5% IN WATER 100ML INJ 98 ML IV SCH ×2 (10:09)
[2018-01-06] MEDS ORDERED: VASOPRESSIN 20 UNITS/ML VIAL ONE ×2 (10:10→10:12)
[2018-01-06 10:26] LABS: MAGNESIUM 1.4 MG/DL (1.5-2.5); PHOSPHORUS 0.3 MG/DL (2.5-4.9)
[2018-01-06 10:28] LABS: AUTOMATED NEUTROPHIL # 8.3 TH/MM3 (1.8-7.7); BASOPHIL % 0.2 % (0.0-2.0); EOSINOPHIL % 0.1 % (0.0-4.0); HEMATOCRIT 27.8 % (35.0-46.0); HEMOGLOBIN 9.4 GM/DL (11.6-15.3); LYMPH % 3.9 % (9.0-44.0); LYMPHOCYTE # 0.4 TH/MM3 (1.0-4.8); MEAN CELL VOLUME 91.5 FL (80.0-100.0); MEAN CORPUSCULAR HEMOGLOBIN 31.1 PG (27.0-34.0); MEAN PLATELET VOLUME 9.5 FL (7.0-11.0); MONO % 3.9 % (0.0-8.0); MONOCYTE # 0.4 TH/MM3 (0-0.9); NEUT % 91.9 % (16.0-70.0); PLATELET COUNT 163 TH/MM3 (150-450); RED BLOOD COUNT 3.04 MIL/MM3 (4.00-5.30); RED CELL DISTRIBUTION WIDTH 15.3 % (11.6-17.2); WHITE BLOOD COUNT 9.1 TH/MM3 (4.0-11.0)
[2018-01-06 10:51] LABS: ALBUMIN 1.8 GM/DL (3.4-5.0); AST (GOT) 11 U/L (15-37); BICARBONATE 17.3 MEQ/L (21.0-32.0); BLOOD UREA NITROGEN 19 MG/DL (7-18); CHLORIDE 106 MEQ/L (98-107); CREATININE 1.14 MG/DL (0.50-1.00); GLOMERULAR FILTRATION RATE 56 ML/MIN (>89); SODIUM (NA) 134 MEQ/L (136-145)
[2018-01-06 10:56] LABS: ALKALINE PHOSPHATASE 99 U/L (45-117); ALT (GPT) 12 U/L (10-53); GLUCOSE,RANDOM 117 MG/DL (74-106); TOTAL BILIRUBIN ADULT 0.2 MG/DL (0.2-1.0); TOTAL PROTEIN 5.5 GM/DL (6.4-8.2)
--- NOTE | 2018-01-06 10:58 | PD.CONS ---
Consult Service Palliative Care Consult Requested By Dr. Saunders Primary Care Physician Unknown Reason for Consultation a. To assist with evaluation and management of symptoms including: agitation , pain, anorexia b. To assist medical decision maker(s) with: better understanding of current medical conditions; weighing benefits/burdens of medical treatment options; making medical treatment decisions. (Alyssa Palma) HPI History of Present Illness Ms Gonzalez is a 77 yo female with schizophrenia, bipolar, dementia who presented to ER under [place] Act on 12/23 because her family had concerns about suicidal thought and her fixation with knives. She was subsequently admitted to [facility]. She was combative upon presentation. Two halicats were called on pt in 36 hours for hypotension. Pt was transferred/admitted to [facility]. She was hypotensive, hypothermic on arrival to [facility] and per photonics engineering technician had abd tenderness. Initial labwork showed leukopenia, NITHIN. CT showed diffuse colitis, distended stomach. ID has been consulted for suspected intraabdominal sepsis. GI has been consulted. Dietary has been consulted. Pt seen in room with SEAN Ireland. RN also present. On my evaluation she is quite somnolent, snoring, appears comfortable. SHe did wake briefly and open eyes when I attempted to examine her pupils, otherwise slept through entire exam and did not awaken to verbal stimulation or abd palpation. She was unable to answer questions or follow commands. She is on 2 pressors. RN reports that she does have diarrhea. C diff pending. Blood cultures show now growth in 1 day. Urine cultures are pending. WBC are WNL but trending up. 01/05 her lactic acid was 6.7 and today is 2.8. She was recently discharged home after a prolonged psychiatric hospitalization to 12/20 for worsening agitation and aggression. Psychiatry deemed her recent discharge home unsuccessful and recommended more restrictive placement. She reportedly was compliant with her antipsychotics. Psych increased seroquel, added depakote. She continued to have outbursts, striking out at patients and staff, throwing her walker. Scheduled thorazine was added as pt was on maximum dose seroquel with no evidence sedation. Pt initially requiring numerous PRN doses of haldol for agitation. Dietary was consulted for poor PO intake. MANAGER DOCUMENT CONTROL placed her on pureed diet with thin liquids. She developed NITHIN thought to be d/ t poor intake, this did resolve. Also had intermittent hypoglycemia 2/2 poor intake. PO intake remained insufficient and GI replaced her g-tube. During prior admission hospitalist service did follow for management of labile blood pressure, thought to be at least in part d/t agitation. Plan to meet pt's daughter @ 1400. See family conference notes. Function/Cognitive Trajectory Pt with worsening agitation, insomnia, reportedly was compliant with meds. Has had numerous hospitalizations in multiple hospitals for exacerbations of psychiatric sx in the past 2 years. Able to ambulate at home with walker and reportedly was primarily independent with ADLs prior to her recent psychiatric and cognitive deterioration. (Alyssa Palma) Review of Systems ROS Limitations: Clinical Condition, Unresponsive (limited ROS as per recent nursing report), Uncooperative Gastrointestinal: COMPLAINS OF: Diarrhea (Alyssa Palma) Past Family Social History Coded Allergies: apple (Unverified Allergy, Severe, Swelling, 03/08/17) Past Medical History schizophrenia bipolar dementia asthma treated 05/2017 for "latent" syphillis at [facility] Past Surgical History cataract surgery bilateral knee replacements PEG tube placement Reported Medications [Megestrol Liq] 400 MG/10 ML Susp 400 Mg PEG DAILY 15 Days Magic Mouthwash Adult Liq (Multi-Ingredient Mouthwash/Gargle) 120 Ml Susp 5 Ml SWISH-SWAL QID 15 Days Quetiapine (Quetiapine Fumarate) 200 Mg Tab 400 Mg PEG BID 15 Days [Chlorpromazine] 100 MG Tab 100 Mg PEG BID@0800,1200 15 Days [chlorproMAZINE] 50 MG Tab 325 Mg PEG HS 15 Days Valproic Acid 250 Mg/5 Ml (5 Ml) Solution 500 Mg PEG BID 15 Days Current Medications Medications (Trade) Dose Ordered Sig/Karyna Route Start Time Stop Time Status Last Admin (Trandate Inj) 20 mg Q15M PRN IV PUSH 01/05/18 17:00 (Apresoline Inj) 10 mg Q30M PRN IV PUSH 01/05/18 17:00 (D50w (Vial) Inj) 25 ml UNSCH PRN IV PUSH 01/05/18 17:00 (Tylenol) 650 mg Q6H PRN PO 01/05/18 17:00 (Pepcid) 20 mg Q12HR PO 01/05/18 21:00 01/06/18 07:39 (Zofran Odt) 4 mg Q6H PRN PO 01/05/18 17:00 (Duoneb Neb) 1 ampule Q2HR NEB PRN INH 01/05/18 17:00 (Lovenox Inj) 40 mg Q24H SQ 01/05/18 17:00 01/05/18 18:12 ([facility] [place] Nursing Information) 1 Q361D XX 01/05/18 17:00 01/05/18 17:00 (Chlorhexidine 2% Cloth) 3 pack Taper DAILY@04 TOP 01/06/18 04:00 01/02/19 03:59 01/06/18 01:44 (Chlorhexidine 2% Cloth) 3 pack UNSCH PRN TOP 01/05/18 17:00 (Ana-Colace) 1 tab BID PO 01/05/18 21:00 (Milk Of Magnesia Liq) 30 ml Q12H PRN PO 01/05/18 17:00 (Senokot) 17.2 mg Q12H PRN PO 01/05/18 17:00 (Dulcolax Supp) 10 mg DAILY PRN RECTAL 01/05/18 17:00 (Lactulose Liq) 30 ml DAILY PRN PO 01/05/18 17:00 Pharmacy Profile Note 0 ml @ 0 mls/hr UNSCH OTHER 01/05/18 19:30 Cefepime HCl 1000 mg/Sodium Chloride 100 ml @ 200 mls/hr Q8H IV 01/05/18 20:00 01/06/18 03:42 Metronidazole 100 ml @ 100 mls/hr Q6H IV 01/05/18 20:30 01/06/18 07:39 Potassium Chloride 100 ml @ 50 mls/hr Q2H PRN IV-CENTRAL 01/05/18 19:45 Potassium Chloride 100 ml @ 50 mls/hr Q2H PRN IV 01/05/18 19:45 01/06/18 01:58 (K-Lyte Cl Eff) 50 meq UNSCH PRN PO 01/05/18 19:45 Potassium Chloride 100 ml @ 25 mls/hr UNSCH PRN IV-CENTRAL 01/05/18 19:45 Potassium Chloride 100 ml @ 50 mls/hr Q2H PRN IV 01/05/18 19:45 Magnesium Sulfate 4 gm/Sodium Chloride 100 ml @ 50 mls/hr UNSCH PRN IV 01/05/18 19:45 (Mag-Ox) 800 mg UNSCH PRN PO 01/05/18 19:45 Magnesium Sulfate 2 gm/Sodium Chloride 100 ml @ 50 mls/hr UNSCH PRN IV 01/05/18 19:45 (K-Phos) 2,000 mg Q4H PRN PO 01/05/18 19:45 Sodium Phosphate 30 mmol/Sodium Chloride 250 ml @ 42 mls/hr UNSCH PRN IV 01/05/18 19:45 01/06/18 05:57 (K-Phos) 2,000 mg UNSCH PRN PO/TUBE 01/05/18 19:45 Potassium Phosphate 30 mmol/ Sodium Chloride 260 ml @ 42 mls/hr UNSCH PRN IV 01/05/18 19:45 (Brethine Inj) 1 mg UNSCH PRN SQ 01/05/18 19:45 Phenylephrine HCl 40 mg/Dextrose 500 ml @ 30 mls/hr TITRATE PRN IV 01/05/18 20:15 01/06/18 04:47 Vancomycin HCl 1750 mg/Sodium Chloride 517.5 ml @ 250 mls/hr Q24H IV 01/05/18 21:00 01/05/18 23:08 (NovoLIN R SUPPLEMENTAL SCALE) 1 Q4HR SQ 01/06/18 12:00 Dextrose/Sodium Chloride 1,000 ml @ 75 mls/hr [id number] IV 01/06/18 09:00 (SoluCORTEF INJ) 50 mg Q6H IV PUSH 01/06/18 10:00 Family History per pts daughter, no family hx mental illness or dementia Substance Use Tobacco: Alcohol: Prescription med abuse: Illicits: Psychosocial History Pt is . Pt living with daughter past yearn and a half. Prior to that she lived in home with family and was independent. Pt has been in an out of hospitals and facilities in the last 2 years, including 4 munson acts in that time. has 5 children. Her primary support is her "Daughter" Joanie Wilde. Pt raised Joanie as a daughter. Pt has a Sister Shaunna Mike. Spiritual/Cultural Factors Faith (Alyssa Palma) Living Will: Never completed Health Care Surrogate: Never completed Durable Power of Welder Gun: Completed, but not made available Health Care Surrogate(s): Pt is incapacitated. Per [employer] Act robotic welding operator apppointed niece Joanie Wilde is appointed as proxy on 12/29/17. Ethical and Legal Issues Pt is incapacitated. Per [employer] Act robotic welding operator appointed niece Joanie Wilde is appointed as proxy on 12/29/17. Joanie reports she is designated as POA, would need to obtain documentation of this once munson act is lifted. (Alyssa Palma) Physical Exam Vital Signs Date Time Temp Pulse Resp B/P (MAP) Pulse Ox O2 Delivery O2 Flow Rate FiO2 01/06/18 08:00 97.9 102 22 91/49 (63) 99 01/06/18 08:00 102 01/06/18 07:07 101 83/44 01/06/18 06:15 102 75/38 01/06/18 06:00 102 01/06/18 05:45 104 82/42 01/06/18 05:30 104 87/42 01/06/18 04:47 109 85/43 01/06/18 04:15 109 81/44 01/06/18 04:00 98.6 109 28 84/43 (57) 100 01/06/18 04:00 109 01/06/18 03:45 98.6 110 29 79/38 (52) 100 01/06/18 03:30 98.6 112 27 97/50 (66) 100 01/06/18 03:15 98.6 109 27 85/41 (56) 100 01/06/18 03:15 109 85/41 01/06/18 03:00 98.6 112 27 92/50 (64) 100 01/06/18 02:45 98.8 110 27 88/47 (61) 100 01/06/18 02:30 98.8 111 26 86/48 (61) 100 01/06/18 02:15 98.6 112 29 94/49 (64) 100 01/06/18 02:15 112 94/49 01/06/18 02:00 98.2 111 29 89/48 (62) 100 01/06/18 02:00 112 01/06/18 01:45 97.9 109 28 91/49 (63) 100 01/06/18 01:42 109 83/45 01/06/18 01:30 97.5 108 28 83/45 (58) 100 01/06/18 01:15 97.0 106 32 89/47 (61) 100 01/06/18 01:00 96.6 104 25 89/45 (60) 100 01/06/18 00:45 96.1 102 28 91/48 (62) 100 01/06/18 00:45 102 91/48 01/06/18 00:30 95.7 101 28 91/50 (64) 100 01/06/18 00:15 95.4 99 31 84/46 (59) 100 01/06/18 00:00 94.8 97 30 83/46 (58) 100 01/06/18 00:00 97 01/05/18 23:45 94.5 96 28 80/44 (56) 100 01/05/18 23:30 93.9 93 29 81/43 (56) 100 01/05/18 23:15 93.6 92 32 84/46 (59) 100 01/05/18 23:11 93.4 91 31 88/48 (61) 100 01/05/18 23:10 91 88/48 01/05/18 23:00 90 78/41 01/05/18 23:00 93.2 90 32 78/41 (53) 100 01/05/18 22:45 92.8 87 30 80/42 (55) 100 01/05/18 22:45 87 80/42 01/05/18 22:35 92.5 87 30 78/43 (55) 100 01/05/18 22:35 87 78/43 01/05/18 22:30 92.5 85 30 78/42 (54) 100 01/05/18 22:30 85 78/42 01/05/18 22:25 92.3 84 28 80/44 (56) 100 18 22:25 84 80/44 01/05/18 22:20 92.1 84 11 74/40 (51) 100 01/05/18 22:20 84 74/40 01/05/18 22:15 92.1 84 29 76/42 (53) 100 01/05/18 22:15 84 75/42 01/05/18 22:02 80 69/38 01/05/18 22:00 91.9 80 27 69/38 (48) 100 01/05/18 22:00 80 01/05/18 21:58 91.9 80 26 67/38 (48) 100 01/05/18 21:45 92.1 80 28 74/42 (53) 100 01/05/18 21:30 92.3 80 31 100 01/05/18 21:15 92.3 83 39 94 01/05/18 21:12 92.3 83 40 91/45 (60) 01/05/18 21:00 92.1 83 39 81/42 (55) 80 01/05/18 20:47 100 Nasal Cannula 3.00 01/05/18 20:45 91.4 86 34 96/51 (66) 100 01/05/18 20:30 90.5 82 31 74/36 (49) 100 01/05/18 20:16 89.8 81 44 95/54 (68) 100 01/05/18 20:15 89.4 81 39 100 01/05/18 20:00 80 01/05/18 20:00 90.7 79 33 82/51 (61) 100 01/05/18 19:45 90.0 76 27 71/47 (55) 100 01/05/18 19:30 89.2 74 29 68/44 (52) 100 01/05/18 19:20 88.9 72 32 69/46 (54) 100 01/05/18 19:19 88.9 72 26 71/43 (52) 100 01/05/18 19:16 88.7 72 27 72/44 (53) 100 01/05/18 19:15 88.7 71 24 94 01/05/18 19:10 88.5 70 28 64/42 (49) 90 01/05/18 19:05 88.3 69 25 67/43 (51) 100 01/05/18 19:03 88.3 68 25 68/41 (50) 100 01/05/18 19:01 88.3 68 26 67/37 (47) 100 01/05/18 19:00 88.3 68 24 100 01/05/18 18:00 62 Exam CONSTITUTIONAL/GENERAL: This is an adequately nourished patient, in no apparent distress. Sleeping TUBES/LINES/DRAINS: central line, mosqueda catheter, PIV SKIN: No jaundice, rashes, or lesions. No wounds seen anteriorly. Skin temperature appropriate. Not diaphoretic. HEAD: Atraumatic. Normocephalic. EYES: PERRL. Extraocular motions intact. No scleral icterus. No injection or drainage. Fundi not examined. ENT: Nose without bleeding or purulent drainage. Dried secretions seen in mouth and pharynx. NECK: Trachea midline. Supple, nontender. CARDIOVASCULAR: tachycardia without murmurs, gallops, or rubs. No JVD. Peripheral pulses symmetric. RESPIRATORY/CHEST: Symmetric, unlabored respirations. Snoring. Breath sounds equal bilaterally. No wheezes, rales, or rhonchi. GASTROINTESTINAL: Abdomen soft, non-tender, nondistended. No hepato-splenomegaly , or palpable masses. No guarding. Bowel sounds present. + G tube GENITOURINARY: Without palpable bladder distension. Mosqueda catheter in place. MUSCULOSKELETAL: trace BLE edema. soft restraints BUE. No mottling or clubbing. NEUROLOGICAL: lethargic. roused minimall to exam. PSYCHIATRIC: unable to assess d/t clinical condition (Alyssa Pamla) Diagnostic Tests Laboratory Laboratory Tests Test 01/05/18 17:36 01/05/18 17:49 01/05/18 18:10 01/05/18 20:34 Nasal Screen MRSA (PCR) MRSA NOT DETECTED (NOT White Blood Count 3.8 TH/MM3 (4.0-11.0) Red Blood Count 3.35 MIL/MM3 (4.00-5.30) Hemoglobin 10.3 GM/DL (11.6-15.3) Hematocrit 31.5 % (35.0-46.0) Mean Corpuscular Volume 93.9 FL (80.0-100.0) Mean Corpuscular Hemoglobin 30.7 PG (27.0-34.0) Mean Corpuscular Hemoglobin Concent 32.7 % (32.0-36.0) Red Cell Distribution Width 15.1 % (11.6-17.2) Platelet Count 152 TH/MM3 (150-450) Mean Platelet Volume 9.7 FL (7.0-11.0) Neutrophils (%) (Auto) 93.9 % (16.0-70.0) Lymphocytes (%) (Auto) 4.2 % (9.0-44.0) Monocytes (%) (Auto) 1.8 % (0.0-8.0) Eosinophils (%) (Auto) 0.0 % (0.0-4.0) Basophils (%) (Auto) 0.1 % (0.0-2.0) Neutrophils # (Auto) 3.6 TH/MM3 (1.8-7.7) Lymphocytes # (Auto) 0.2 TH/MM3 (1.0-4.8) Monocytes # (Auto) 0.1 TH/MM3 (0-0.9) Eosinophils # (Auto) 0.0 TH/MM3 (0-0.4) Basophils # (Auto) 0.0 TH/MM3 (0-0.2) CBC Comment DIFF FINAL Differential Comment Prothrombin Time 11.5 SEC (9.8-11.6) Prothromb Time International Ratio 1.1 RATIO Activated Partial Thromboplast Time 37.6 SEC (24.3-30.1) Blood Urea Nitrogen 18 MG/DL (7-18) Creatinine 1.15 MG/DL (0.50-1.00) Random Glucose 158 MG/DL (74-106) Total Protein 6.0 GM/DL (6.4-8.2) Albumin 2.2 GM/DL (3.4-5.0) Calcium Level 8.1 MG/DL (8.5-10.1) Alkaline Phosphatase 100 U/L (45-117) Aspartate Amino Transf (AST/SGOT) 11 U/L (15-37) Alanine Aminotransferase (ALT/SGPT) 16 U/L (10-53) Total Bilirubin 0.2 MG/DL (0.2-1.0) Sodium Level 141 MEQ/L (136-145) Potassium Level 3.0 MEQ/L (3.5-5.1) Chloride Level 110 MEQ/L (98-107) Carbon Dioxide Level 17.9 MEQ/L (21.0-32.0) Anion Gap 13 MEQ/L (5-15) Estimat Glomerular Filtration Rate 55 ML/MIN (>89) Lactic Acid Level 5.1 mmol/L (0.4-2.0) 6.7 mmol/L (0.4-2.0) Phosphorus Level 1.1 MG/DL (2.5-4.9) Urine Color Lynn (YELLW/STRAW) Urine Turbidity HAZY (CLEAR) Urine pH 5.0 (5.0-8.5) Urine Specific [place] 1.024 (1.002-1.035) Urine Protein 30 mg/dL (NEG-TRACE) Urine Glucose (UA) NEG mg/dL (NEG) Urine Ketones NEG mg/dL (NEG) Urine Occult Blood NEG (NEG) Urine Nitrite NEG (NEG) Urine Bilirubin NEG (NEG) Urine Leukocyte Esterase NEG (NEG) Urine RBC LESS THAN 1 /hpf (0-3) Urine WBC 2 /hpf (0-5) Urine Bacteria OCC /hpf (NONE) Urine Hyaline Casts 1 /lpf (RARE) Microscopic Urinalysis Comment CATH-CULTURE IND Test 01/06/18 03:56 White Blood Count 5.1 TH/MM3 (4.0-11.0) Red Blood Count 3.19 MIL/MM3 (4.00-5.30) Hemoglobin 9.9 GM/DL (11.6-15.3) Hematocrit 29.5 % (35.0-46.0) Mean Corpuscular Volume 92.4 FL (80.0-100.0) Mean Corpuscular Hemoglobin 31.1 PG (27.0-34.0) Mean Corpuscular Hemoglobin Concent 33.6 % (32.0-36.0) Red Cell Distribution Width 14.7 % (11.6-17.2) Platelet Count 172 TH/MM3 (150-450) Mean Platelet Volume 10.6 FL (7.0-11.0) Blood Urea Nitrogen 18 MG/DL (7-18) Creatinine 1.06 MG/DL (0.50-1.00) Random Glucose 73 MG/DL (74-106) Calcium Level 8.2 MG/DL (8.5-10.1) Sodium Level 134 MEQ/L (136-145) Potassium Level 4.9 MEQ/L (3.5-5.1) Chloride Level 106 MEQ/L (98-107) Carbon Dioxide Level 19.0 MEQ/L (21.0-32.0) Anion Gap 9 MEQ/L (5-15) Estimat Glomerular Filtration Rate 61 ML/MIN (>89) (Alyssa Palma) Result Diagram: 01/06/18 0356 01/06/18 0356 Microbiology Microbiology Date/Time Source Procedure Growth Status 01/05/18 17:49 Blood Peripheral Aerobic Blood Culture Pending Received 01/05/18 17:49 Blood Peripheral Anaerobic Blood Culture Pending Received 01/05/18 17:40 Blood Peripheral Aerobic Blood Culture Pending Received 01/05/18 17:40 Blood Peripheral Anaerobic Blood Culture Pending Received 01/05/18 18:10 Urine Catheterized Urine Urine Culture Pending Received Procedures 01/06 central line placement (Alyssa Palma) Patient/Family Conference Present at Family Conference: daughter Joanie Wilde. Family Conference Time (mins): 25 Family Conference Location: Consult Room Issues Discussed: Met with daughter, discussion included following: * Palliative care role, purpose, approach * Additional medical, psychosocial, and spiritual history * Patients general health, functional status, and cognitive changes in the months leading up to the current hospitalization * family understanding of the current medical problems * family understanding of prognosis, extensively reviewed this and that pt is high risk for continued decline and complications * Current medical treatment options and benefits/burdens of those options * discussed code status - benefits, burdens limitation, no decision made, sister will discuss with family. Full code by default * Questions answered to the best of my ability * Palliative care contact information provided Galilea Nair seems to have good understanding, for now wishes to continue available treatments and is hopeful for recovery though she understands possible trajectories. (Alyssa Palma) Assessment and Plan Disease Oriented Problem List: (1) Colitis (2) poor oral intake (3) Dementia (4) Anorexia (5) Pain (6) Bipolar disorder, manic (7) Schizoaffective disorder, bipolar type Symptom Scale: (1) Agitation 0-10 Scale: Unable to quantify (2) Pain 0-10 Scale: Unable to quantify (3) Anorexia 0-10 Scale: Unable to quantify Pertinent Non-Medical Issues Psychosocial:Pt is . Reportedly pt was living with family. Spiritual: Faith, non-sikhism Legal: Pt is incapacitated. Per [employer] Act robotic welding operator apppointed niece Joanie Wilde is appointed as proxy on 12/29/17. Does not appear pt will regain capacity. Ethical issues impacting care: Important Contacts Daughter Joanie Wilde [phone]. Sister Shaunna Mike [phone] Prognosis Pt initially admitted for psychiatric issues and is now having significant medical complications that will likely compound underlying psychiatric issues and dementia and potentially limit full recovery. She remains high risk for ongoing complications and setbacks, though it is possible she could survive and recover to most recent status. Code Status: Full Code Plan * CODE STATUS - full code * GOALS - Daughter Joanie seems to have good understanding, for now wishes to continue available treatments and is hopeful for recovery though she understands possible trajectories. * LEGAL DECISION MAKER - Pt is incapacitated. Per [employer] Act robotic welding operator apppointed niece Joanie Wilde is appointed as proxy on 12/29/17. * SYMPTOMS * pain = abd pain 2/[address] showed distended stomach, diffuse colitis. on abx, ID & GI consulted. nontender on exam. Avoid opiates in light of lethargy and psychiatric condition. * agitation = 2nd admission in 2 months for agitation and aggressive behavior. She was on max dose seroquel per psych, depakote. Required multiple PRN doses haldol on previous admission. these meds d/c'd after admission to [facility] d/t lethargy/ sedation. * anorexia = poor PO intake since prior admission in November. GI replaced her g- tube. TF running 60ml/hr. * Palliative care will continue to follow during hospital course as condition evolves, to assist patient/decision maker with understanding of medical conditions, weighing benefits/burdens of treatment options, for clarification of goals of treatment, and management of symptoms of palliative concern (Alyssa Palma) Time Spent Total Floor Time (mins): 75 (Chart review, PE, discussion with pt's daughter, discussion with RN) (Alyssa Palma) Thank you for the opportunity to participate in the care of Ms. Gonzalez. (Alyssa Palma) Attestation To help prompt me to consider important information that might be impacting today's encounter and assessment, information from prior notes written by myself or my colleagues may have been "brought forward" into today's note. My signature on this note, however, is an attestation that I personally performed the exam, history, and/or decision-making noted today, and, unless otherwise indicated, the interactions with patient, family, and staff as well as the review of records all occurred today. I also attest that the listed assessment and stated plan reflect my best clinical judgment today based on the combination of historical information, prior notes, and today's exam/ interactions. When time spent is documented, it refers only to time spent today by the signer, or if indicated, combined time spent today by collaborating physician/nurse practitioner. (Alyssa Palma) Collaborating MD Comments dual visit kimberly ESTRADA, concur with above assessment, documentation. (Kenyetta Ireland) Alyssa Palma Jan 06, 2018 10:44 Kenyetta Ireland Jan 10, 2018 17:18
[2018-01-06 11:06] LABS: BANDS 34 % (0-6); CORRECTED NUCLEATED RBC 1 /100 WBC (0-0); LYMPHOCYTES 4 % (9-44); MONOCYTES 6 % (0-8); NEUTROPHIL # MANUAL DIFF 8.2 TH/MM3 (1.8-7.7); NUCLEATED RED BLOOD CELL 1 (0-0); POLYS (SEG NEUTROPHILS) 56 % (16-70)
[2018-01-06 11:08] LABS: ACANTHOCYTES OCC (NORMAL); KERATOCYTES OCC (NORMAL)
[2018-01-06] MEDS: HYDROCORTISONE SOD SUCCINATE 100 MG VIAL IV PUSH SCH ×3 (11:26→22:27)
--- NOTE | 2018-01-06 11:33 | RADRPT ---
EXAM DATE: 01/06/2018 11:26 AM EDT AGE/SEX: 77 years / Female INDICATIONS: Central line placement. CLINICAL DATA: This is the patient's subsequent encounter. Patient reports that signs and symptoms h ave been present for 2 days and indicates a pain score of Nonresponsive. MEDICAL/SURGICAL HISTORY: Non-responsive. Non-responsive. COMPARISON: [facility] [place], CHEST SINGLE AP, 01/05/2018. . FINDINGS: Increasing parenchymal changes left base. Location right hemidiaphragm. The heart and pulmonary vascu larity are normal. The portion of the bony skeleton visualized is unremarkable. CONCLUSION: Increasing parenchymal changes left base. Electronically signed by: Bryce Ortiz MD 01/06/2018 11:32 AM EDT
--- NOTE | 2018-01-06 11:48 | PD.PROCEDR ---
Central Line Procedure REASON FOR PROCEDURE Central venous access PROCEDURE PERFORMED Central line placement: Right subclavian CVP CONSENT Procedure was performed emergently for hemodynamic monitoring as patient is on pressors. ANESTHESIA Local injection of 1% Lidocaine DESCRIPTION OF THE PROCEDURE The patient was placed in supine, mild Trendelenburg position. The area was exposed and cleansed with ChloraPrep, times two. Large sterile drape was used to cover the patient, with the site exposed, under sterile conditions including cap, face mask, sterile gown, and sterile gloves. On single attempt, the introducer needle was inserted with negative pressure in syringe and venous flash was obtained. The guide wire was then advanced without any restriction and the needle was removed. The dilator was used without any complications. Using Seldinger technique the [ ] catheter was advanced over the guide wire to a depth of 20 centimeters. The guide wire was removed. All ports were aspirated with dark venous blood return and flushed easily with sterile saline. All ports were capped. Antibiotic disc was placed around central line at puncture site. The central line was secured to the skin with two interrupted 2.0 silk sutures. The area was bandaged with sterile see-through central line bandage. RADIOLOGICAL DATA CXR showed no evidence of PTX post line placement. COMPLICATIONS: No apparent complications ESTIMATED BLOOD LOSS: Less than 1 cc. Reba Lambert MD Jan 06, 2018 11:48
--- NOTE | 2018-01-06 12:37 | PD.CONS ---
HPI History of Present Illness This is a 77 year old female who was admitted to the hospital on 01/05/2018 on the inpatient psych unit being treated for failure to thrive, weight loss and ongoing psychosis. Currently patient is being managed in the intensive care setting and was transferred secondary to rapid response for hypotension. According to the record patient was found to be hypothermic and hypotensive and is currently being managed with vasopressin.. She currently is nonverbal and appears very lethargic with no real response except to painful stimuli. Patient does have a gastric tube with Jevity 1.5 infusing at 60 cc an hour. She is tachycardic with heart rate of 102 and possible first-degree AV block . Her urine per Ross catheter is dark yellow, semi-clear. Patient is been managed with oxygen per nasal cannula 2 L and is mouth breathing; very dry oral cavity. There is no family present and for the note palliative care has been consulted to assist. According to the records she is full code full aggressive care and has a significant history of dementia as well as schizophrenia labs show current hemoglobin 9.4, normal LFTs, PT/INR 1.1. CT scan completed on 01/05 does show diffuse colitis without perforation, distention of her stomach, bilateral renal low densities likely cyst, bilateral consolidation and prominent uterus. (Jael Henley) PFSH Past Medical History Per the record schizophrenia bipolar dementia asthma Failure to thrive Past Surgical History cataract surgery bilateral knee replacements PEG tube placement (Jael Henley) Coded Allergies: apple (Unverified Allergy, Severe, Swelling, 03/08/17) Medications Administered Medications Medications (Trade) Dose Ordered Sig/Karyna Route PRN Reason Start Time Stop Time Status Last Admin Dose Admin Famotidine (Pepcid) 20 mg Q12HR PO 01/05/18 21:00 01/06/18 07:39 Enoxaparin Sodium (Lovenox Inj) 40 mg Q24H SQ 01/05/18 17:00 01/05/18 18:12 Miscellaneous Information ([facility] [place] [facility]) 1 [id number] XX 01/05/18 17:00 01/05/18 17:00 Chlorhexidine Gluconate (Chlorhexidine 2% Cloth) 3 pack Taper DAILY@04 TOP 01/06/18 04:00 01/02/19 03:59 01/06/18 01:44 Cefepime HCl 1000 mg/Sodium Chloride 100 ml @ 200 mls/hr Q8H IV 01/05/18 20:00 01/06/18 11:28 Metronidazole 100 ml @ 100 mls/hr Q6H IV 01/05/18 20:30 01/06/18 07:39 Potassium Chloride 100 ml @ 50 mls/hr Q2H PRN IV For Potassium 2.8 - 3.2 mEq/L 01/05/18 19:45 01/06/18 01:58 Sodium Phosphate 30 mmol/Sodium Chloride 250 ml @ 42 mls/hr UNSCH PRN IV For Phosphorus < 2.5 mg/dL 01/05/18 19:45 01/06/18 05:57 Vancomycin HCl 1750 mg/Sodium Chloride 517.5 ml @ 250 mls/hr Q24H IV 01/05/18 21:00 01/05/18 23:08 Dextrose/Sodium Chloride 1,000 ml @ 75 mls/hr [id number] IV 01/06/18 09:00 01/06/18 09:00 Hydrocortisone Sodium Succinate (SoluCORTEF INJ) 50 mg Q6H IV PUSH 01/06/18 10:00 01/06/18 11:26 Vasopressin 40 units/Dextrose 100 ml @ 6 mls/hr [id number] IV 01/06/18 10:09 01/06/18 10:09 Family History Unknown, but 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 she does have family Social History JESÚS (Jael Henley) GI Exam Vitals I&O Vital Signs Date Time Temp Pulse Resp B/P (MAP) Pulse Ox O2 Delivery O2 Flow Rate FiO2 01/06/18 10:57 102 109/49 01/06/18 10:09 104 78/34 01/06/18 10:00 104 01/06/18 08:00 97.9 102 22 91/49 (63) 99 01/06/18 08:00 102 01/06/18 07:07 101 83/44 01/06/18 06:15 102 75/38 01/06/18 06:00 102 01/06/18 05:45 104 82/42 01/06/18 05:30 104 87/42 01/06/18 04:47 109 85/43 01/06/18 04:15 109 81/44 01/06/18 04:00 98.6 109 28 84/43 (57) 100 01/06/18 04:00 109 01/06/18 03:45 98.6 110 29 79/38 (52) 100 01/06/18 03:30 98.6 112 27 97/50 (66) 100 01/06/18 03:15 98.6 109 27 85/41 (56) 100 01/06/18 03:15 109 85/41 01/06/18 03:00 98.6 112 27 92/50 (64) 100 01/06/18 02:45 98.8 110 27 88/47 (61) 100 01/06/18 02:30 98.8 111 26 86/48 (61) 100 01/06/18 02:15 98.6 112 29 94/49 (64) 100 01/06/18 02:15 112 94/49 01/06/18 02:00 98.2 111 29 89/48 (62) 100 01/06/18 02:00 112 01/06/18 01:45 97.9 109 28 91/49 (63) 100 01/06/18 01:42 109 83/45 01/06/18 01:30 97.5 108 28 83/45 (58) 100 01/06/18 01:15 97.0 106 32 89/47 (61) 100 01/06/18 01:00 96.6 104 25 89/45 (60) 100 01/06/18 00:45 96.1 102 28 91/48 (62) 100 01/06/18 00:45 102 91/48 01/06/18 00:30 95.7 101 28 91/50 (64) 100 01/06/18 00:15 95.4 99 31 84/46 (59) 100 01/06/18 00:00 94.8 97 30 83/46 (58) 100 01/06/18 00:00 97 01/05/18 23:45 94.5 96 28 80/44 (56) 100 01/05/18 23:30 93.9 93 29 81/43 (56) 100 01/05/18 23:15 93.6 92 32 84/46 (59) 100 01/05/18 23:11 93.4 91 31 88/48 (61) 100 01/05/18 23:10 91 88/48 01/05/18 23:00 90 78/41 01/05/18 23:00 93.2 90 32 78/41 (53) 100 01/05/18 22:45 92.8 87 30 80/42 (55) 100 01/05/18 22:45 87 80/42 01/05/18 22:35 92.5 87 30 78/43 (55) 100 01/05/18 22:35 87 78/43 01/05/18 22:30 92.5 85 30 78/42 (54) 100 01/05/18 22:30 85 78/42 01/05/18 22:25 92.3 84 28 80/44 (56) 100 01/05/18 22:25 84 80/44 01/05/18 22:20 92.1 84 11 74/40 (51) 100 01/05/18 22:20 84 74/40 01/05/18 22:15 92.1 84 29 76/42 (53) 100 01/05/18 22:15 84 75/42 01/05/18 22:02 80 69/38 01/05/18 22:00 91.9 80 27 69/38 (48) 100 01/05/18 22:00 80 01/05/18 21:58 91.9 80 26 67/38 (48) 100 01/05/18 21:45 92.1 80 28 74/42 (53) 100 01/05/18 21:30 92.3 80 31 100 01/05/18 21:15 92.3 83 39 94 01/05/18 21:12 92.3 83 40 91/45 (60) 01/05/18 21:00 92.1 83 39 81/42 (55) 80 01/05/18 20:47 100 Nasal Cannula 3.00 01/05/18 20:45 91.4 86 34 96/51 (66) 100 01/05/18 20:30 90.5 82 31 74/36 (49) 100 01/05/18 20:16 89.8 81 44 95/54 (68) 100 01/05/18 20:15 89.4 81 39 100 01/05/18 20:00 80 01/05/18 20:00 90.7 79 33 82/51 (61) 100 01/05/18 19:45 90.0 76 27 71/47 (55) 100 01/05/18 19:30 89.2 74 29 68/44 (52) 100 01/05/18 19:20 88.9 72 32 69/46 (54) 100 01/05/18 19:19 88.9 72 26 71/43 (52) 100 01/05/18 19:16 88.7 72 27 72/44 (53) 100 01/05/18 19:15 88.7 71 24 94 01/05/18 19:10 88.5 70 28 64/42 (49) 90 01/05/18 19:05 88.3 69 25 67/43 (51) 100 01/05/18 19:03 88.3 68 25 68/41 (50) 100 01/05/18 19:01 88.3 68 26 67/37 (47) 100 01/05/18 19:00 88.3 68 24 100 01/05/18 18:00 62 I/O 01/05/18 01/05/18 01/05/18 01/06/18 01/06/18 01/06/18 07:00 15:00 23:00 07:00 15:00 23:00 Intake Total 3300 ml 6447.5 ml 600 ml Output Total 50 ml 350 ml Balance 3250 ml 6097.5 ml 600 ml IV Total 3300 ml 5117.5 ml 600 ml Tube Feeding 330 ml Tube Irrigant 1000 ml Output Urine Total 50 ml 350 ml # Voids 1 # Bowel Movements 5 Imaging Last Impressions Chest X-Ray 01/06/18 0000 Addendum Impressions: CONCLUSION: Increasing parenchymal changes left base. Abdomen/Pelvis CT 01/05/18 0000 Signed Impressions: CONCLUSION: 1. Diffuse colitis without perforation. 2. Distention of the stomach. 3. Bilateral renal low densities, likely cysts. 4. Bibasilar consolidation and right middle lobe nodule. 5. Prominent uterus with prominent endometrium. Nonemergent pelvic sonogram re commended. Laboratory Test 01/05/18 17:36 01/05/18 17:49 01/05/18 18:10 01/05/18 20:34 Nasal Screen MRSA (PCR) MRSA NOT DETECTED White Blood Count 3.8 TH/MM3 Red Blood Count 3.35 MIL/MM3 Hemoglobin 10.3 GM/DL Hematocrit 31.5 % Mean Corpuscular Volume 93.9 FL Mean Corpuscular Hemoglobin 30.7 PG Mean Corpuscular Hemoglobin Concent 32.7 % Red Cell Distribution Width 15.1 % Platelet Count 152 TH/MM3 Mean Platelet Volume 9.7 FL Neutrophils (%) (Auto) 93.9 % Lymphocytes (%) (Auto) 4.2 % Monocytes (%) (Auto) 1.8 % Eosinophils (%) (Auto) 0.0 % Basophils (%) (Auto) 0.1 % Neutrophils # (Auto) 3.6 TH/MM3 Lymphocytes # (Auto) 0.2 TH/MM3 Monocytes # (Auto) 0.1 TH/MM3 Eosinophils # (Auto) 0.0 TH/MM3 Basophils # (Auto) 0.0 TH/MM3 CBC Comment DIFF FINAL Differential Comment Prothrombin Time 11.5 SEC Prothromb Time International Ratio 1.1 RATIO Activated Partial Thromboplast Time 37.6 SEC Blood Urea Nitrogen 18 MG/DL Creatinine 1.15 MG/DL Random Glucose 158 MG/DL Total Protein 6.0 GM/DL Albumin 2.2 GM/DL Calcium Level 8.1 MG/DL Alkaline Phosphatase 100 U/L Aspartate Amino Transf (AST/SGOT) 11 U/L Alanine Aminotransferase (ALT/SGPT) 16 U/L Total Bilirubin 0.2 MG/DL Sodium Level 141 MEQ/L Potassium Level 3.0 MEQ/L Chloride Level 110 MEQ/L Carbon Dioxide Level 17.9 MEQ/L Anion Gap 13 MEQ/L Estimat Glomerular Filtration Rate 55 ML/MIN Lactic Acid Level 5.1 mmol/L 6.7 mmol/L Phosphorus Level 1.1 MG/DL Urine Color [place] Urine Turbidity HAZY Urine pH 5.0 Urine Specific [place] 1.024 Urine Protein 30 mg/dL Urine Glucose (UA) NEG mg/dL Urine Ketones NEG mg/dL Urine Occult Blood NEG Urine Nitrite NEG Urine Bilirubin NEG Urine Leukocyte Esterase NEG Urine RBC LESS THAN 1 /hpf Urine WBC 2 /hpf Urine Bacteria OCC /hpf Urine Hyaline Casts 1 /lpf Microscopic Urinalysis Comment CATH-CULTURE IND Test 01/06/18 03:56 01/06/18 09:50 01/06/18 10:10 01/06/18 10:20 White Blood Count 5.1 TH/MM3 9.1 TH/MM3 Red Blood Count 3.19 MIL/MM3 3.04 MIL/MM3 Hemoglobin 9.9 GM/DL 9.4 GM/DL Hematocrit 29.5 % 27.8 % Mean Corpuscular Volume 92.4 FL 91.5 FL Mean Corpuscular Hemoglobin 31.1 PG 31.1 PG Mean Corpuscular Hemoglobin Concent 33.6 % 34.0 % Red Cell Distribution Width 14.7 % 15.3 % Platelet Count 172 TH/MM3 163 TH/MM3 Mean Platelet Volume 10.6 FL 9.5 FL Blood Urea Nitrogen 18 MG/DL 19 MG/DL Creatinine 1.06 MG/DL 1.14 MG/DL Random Glucose 73 MG/DL 117 MG/DL Calcium Level 8.2 MG/DL 8.0 MG/DL Phosphorus Level 0.3 MG/DL Magnesium Level 1.4 MG/DL Sodium Level 134 MEQ/L 134 MEQ/L Potassium Level 4.9 MEQ/L 4.5 MEQ/L Chloride Level 106 MEQ/L 106 MEQ/L Carbon Dioxide Level 19.0 MEQ/L 17.3 MEQ/L Anion Gap 9 MEQ/L 11 MEQ/L Estimat Glomerular Filtration Rate 61 ML/MIN 56 ML/MIN Blood Gas Puncture Site ART LINE Blood Gas Patient Temperature 98.6 Blood Gas HCO3 17 mmol/L Blood Gas Base Excess -6.6 mmol/L Blood Gas Oxygen Saturation 96 % Arterial Blood pH 7.44 Arterial Blood Partial Pressure CO2 25 mmHg Arterial Blood Partial Pressure O2 103 mmHg Arterial Blood Oxygen Content 12.7 Vol % Arterial Blood Carboxyhemoglobin 0.6 % Arterial Blood Methemoglobin 1.9 % Blood Gas Hemoglobin 9.4 G/DL Oxygen Delivery Device NASAL CANNULA Blood Gas Liter Flow 2 L/M Blood Gas Inspired Oxygen 28 % Lactic Acid Level 2.8 mmol/L Neutrophils (%) (Auto) 91.9 % Lymphocytes (%) (Auto) 3.9 % Monocytes (%) (Auto) 3.9 % Eosinophils (%) (Auto) 0.1 % Basophils (%) (Auto) 0.2 % Neutrophils # (Auto) 8.3 TH/MM3 Lymphocytes # (Auto) 0.4 TH/MM3 Monocytes # (Auto) 0.4 TH/MM3 Eosinophils # (Auto) 0.0 TH/MM3 Basophils # (Auto) 0.0 TH/MM3 CBC Comment AUTO DIFF Differential Total Cells Counted 100 Neutrophils % (Manual) 56 % Band Neutrophils % 34 % Lymphocytes % 4 % Monocytes % 6 % Neutrophils # (Manual) 8.2 TH/MM3 Nucleated Red Blood Cells 1 /100 WBC Differential Comment FINAL DIFF MANUAL Platelet Estimate NORMAL Platelet Morphology Comment ENLARGED Acanthocytes OCC Keratocytes OCC Total Protein 5.5 GM/DL Albumin 1.8 GM/DL Alkaline Phosphatase 99 U/L Aspartate Amino Transf (AST/SGOT) 11 U/L Alanine Aminotransferase (ALT/SGPT) 12 U/L Total Bilirubin 0.2 MG/DL Date/Time Source Procedure Growth Status 01/05/18 17:49 Blood Peripheral Aerobic Blood Culture - Preliminary NO GROWTH IN 1 DAY Resulted 01/05/18 17:49 Blood Peripheral Anaerobic Blood Culture - Preliminary NO GROWTH IN 1 DAY Resulted 01/05/18 18:10 Urine Catheterized Urine Urine Culture Pending Received Physical Examination HEENT: Generalized obese ,normocephalic; atraumatic; no jaundice. Oral cavity very dry NECK: Supple CHEST: Diminished breath sounds, no active cough noted CARDIAC: Tachycardic rhythm, 102 heart sounds distant ABDOMEN: Abdomen is round, soft, obese, no facial grimace to palpation of abdomen, minimal soft bowel sounds, gastric tube with Jevity 1.5 at at 60 cc an hour EXTREMITIES: Mild lower extremity edema SKIN: no rash; no jaundice. 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 Patient had rapid response and was hypotensive sent to the intensive care unit for further evaluation. CT scan done 614 did show diffuse colitis without perforation and distention of the stomach. Patient's currently being managed with gastric tube and Jevity 1.5 at 60 cc an hour. Patient is not responding to verbal stimuli obtunded and appears to be sleeping. Gastroenterology has been consulted to assist in her care and treatment of her diffuse colitis. We will also monitor and assist with her feedings. Patient shows anemia with current hemoglobin 9.4, normal LFTs, INR 1.1. Patient is tachycardic heart rate 102 and being managed with IV fluids vancomycin, Flagyl, and cefepime, vasopressin for her hypotension. Appreciate palliative care input. Will monitor patient's response to treatment regimen. Anemia Diffuse colitis without perforation Plan Continue Jevity 1.5 but check residuals every 4 hours. Current feedings are 60 cc an hour but previous CT scan did note distended stomach. Vancomycin Pepcid Flagyl Cefepime IV hydration Monitor labs with special attention to hemoglobin and transfuse as needed Supportive care Further recommendations to follow She was seen per myself and Dr. Laura, this note was written on his behalf (Jael Henley) Physician Comments Seen and examined, plan as above. Supportive care with full coverage with antibiotics. Will follow up with you. Thank you for the consult. (Irma Laura MD) Jael Henley Jan 06, 2018 12:37 Irma Laura MD Jan 06, 2018 16:16
[2018-01-06] MEDS: PHENYLEPHRINE HCL 160 MG/D5W 484 ML ADMIX IV PRN ×6 (13:17→23:12)
--- NOTE | 2018-01-06 13:24 | PD.CONS ---
History of Present Illness Service Infectious disease Consult Requested By Dr Lambert Reason for Consult Evaluate patient with sepsis and shock Primary Care Physician Unknown Diagnoses: History of Present Illness This is a 77-year-old female with a past medical history significant for schizophrenia and dementia who was residing in the inpatient med/psych unit and being actively treated for failure to thrive and unanticipated weight loss as well as ongoing psychosis. Today she was noted to be acutely hypotensive. She was given 4 L of crystalloid IV fluids which did not improve her blood pressure. Rapid response was called and first blood pressure recorded was 60 systolic. She was emergently transferred to the ICU where I evaluated the patient on arrival. On arrival she had an improving blood pressure 100 systolic , however she was profoundly hypothermic with a core temperature of 29C. I performed bedside critical care echocardiography which demonstrated grossly preserved biventricular function, very collapsible IVC, no pericardial effusion. In addition, the patient appears to have a PEG tube in place. On palpation of her abdomen, the patient grimaces in pain. The patient is quite somnolent and although she is protecting her airway, no additional information is available from the patient. Review systems is unobtainable. The remainder of the history is obtained from prior medical records that we have at our institution, however those records are sparse with past medical history evidence given her degree of dementia and schizophrenia. Laboratory data that we collected once in the ICU demonstrates leukopenia, acute kidney injury. Septic shock would be high in the differential, and given her severe apparent abdominal tenderness, abdominal source of her sepsis would be the highest on the differential. Review of Systems ROS Limitations: Clinical Condition, Altered Mental Status Past Family Social History Allergies: Coded Allergies: apple (Unverified Allergy, Severe, Swelling, 03/08/17) Past Medical History Arthritis Asthma Schizophrenia Past Surgical History Bilateral cataracts Bilateral knee replacements PEG tube placement Active Ordered Medications Current Medications Medications (Trade) Dose Ordered Sig/Karyna Route Start Time Stop Time Status Last Admin (Trandate Inj) 20 mg Q15M PRN IV PUSH 01/05/18 17:00 (Apresoline Inj) 10 mg Q30M PRN IV PUSH 01/05/18 17:00 (D50w (Vial) Inj) 25 ml UNSCH PRN IV PUSH 01/05/18 17:00 (Tylenol) 650 mg Q6H PRN PO 01/05/18 17:00 (Pepcid) 20 mg Q12HR PO 01/05/18 21:00 01/06/18 07:39 (Zofran Odt) 4 mg Q6H PRN PO 01/05/18 17:00 (Duoneb Neb) 1 ampule Q2HR NEB PRN INH 01/05/18 17:00 (Lovenox Inj) 40 mg Q24H SQ 01/05/18 17:00 01/05/18 18:12 [place] [place] [facility] [place] 1 [id number] XX 01/05/18 17:00 01/05/18 17:00 (Chlorhexidine 2% Cloth) 3 pack Taper DAILY@04 TOP 01/06/18 04:00 01/02/19 03:59 01/06/18 01:44 (Chlorhexidine 2% Cloth) 3 pack UNSCH PRN TOP 01/05/18 17:00 (Ana-Colace) 1 tab BID PO 01/05/18 21:00 (Milk Of Magnesia Liq) 30 ml Q12H PRN PO 01/05/18 17:00 (Senokot) 17.2 mg Q12H PRN PO 01/05/18 17:00 (Dulcolax Supp) 10 mg DAILY PRN RECTAL 01/05/18 17:00 (Lactulose Liq) 30 ml DAILY PRN PO 01/05/18 17:00 Pharmacy Profile Note 0 ml @ 0 mls/hr UNSCH OTHER 01/05/18 19:30 Cefepime HCl 1000 mg/Sodium Chloride 100 ml @ 200 mls/hr Q8H IV 01/05/18 20:00 01/06/18 11:28 Metronidazole 100 ml @ 100 mls/hr Q6H IV 01/05/18 20:30 01/06/18 07:39 Potassium Chloride 100 ml @ 50 mls/hr Q2H PRN IV-CENTRAL 01/05/18 19:45 Potassium Chloride 100 ml @ 50 mls/hr Q2H PRN IV 01/05/18 19:45 01/06/18 01:58 (K-Lyte Cl Eff) 50 meq UNSCH PRN PO 01/05/18 19:45 Potassium Chloride 100 ml @ 25 mls/hr UNSCH PRN IV-CENTRAL 01/05/18 19:45 Potassium Chloride 100 ml @ 50 mls/hr Q2H PRN IV 01/05/18 19:45 Magnesium Sulfate 4 gm/Sodium Chloride 100 ml @ 50 mls/hr UNSCH PRN IV 01/05/18 19:45 (Mag-Ox) 800 mg UNSCH PRN PO 01/05/18 19:45 Magnesium Sulfate 2 gm/Sodium Chloride 100 ml @ 50 mls/hr UNSCH PRN IV 01/05/18 19:45 (K-Phos) 2,000 mg Q4H PRN PO 01/05/18 19:45 Sodium Phosphate 30 mmol/Sodium Chloride 250 ml @ 42 mls/hr UNSCH PRN IV 01/05/18 19:45 01/06/18 05:57 (K-Phos) 2,000 mg UNSCH PRN PO/TUBE 01/05/18 19:45 Potassium Phosphate 30 mmol/ Sodium Chloride 260 ml @ 42 mls/hr UNSCH PRN IV 01/05/18 19:45 (Brethine Inj) 1 mg UNSCH PRN SQ 01/05/18 19:45 Vancomycin HCl 1750 mg/Sodium Chloride 517.5 ml @ 250 mls/hr Q24H IV 01/05/18 21:00 01/05/18 23:08 (NovoLIN R SUPPLEMENTAL SCALE) 1 Q4HR SQ 01/06/18 12:00 Dextrose/Sodium Chloride 1,000 ml @ 75 mls/hr [id number] IV 01/06/18 09:00 01/06/18 09:00 (SoluCORTEF INJ) 50 mg Q6H IV PUSH 01/06/18 10:00 01/06/18 11:26 ([facility] [place] Info) SPECIFIC LAB TO BE DRAWN:VANCOMY... ONCE ONCE .XX 01/07/18 20:45 01/07/18 20:46 Vasopressin 40 units/Dextrose 100 ml @ 6 mls/hr [id number] IV 01/06/18 10:09 01/06/18 10:09 Phenylephrine HCl 160 mg/Dextrose 500 ml @ 7.5 mls/hr TITRATE PRN IV 01/06/18 12:00 Family History Not known Social History Heavy smoker quit 30 years ago No history of alcohol use No illicit drugs Physical Exam Vital Signs Vital Signs Date Time Temp Pulse Resp B/P (MAP) Pulse Ox O2 Delivery O2 Flow Rate FiO2 01/06/18 10:57 102 109/49 01/06/18 10:09 104 78/34 01/06/18 10:00 104 01/06/18 08:00 97.9 102 22 91/49 (63) 99 01/06/18 08:00 102 01/06/18 07:07 101 83/44 01/06/18 06:15 102 75/38 01/06/18 06:00 102 01/06/18 05:45 104 82/42 01/06/18 05:30 104 87/42 01/06/18 04:47 109 85/43 01/06/18 04:15 109 81/44 01/06/18 04:00 98.6 109 28 84/43 (57) 100 01/06/18 04:00 109 01/06/18 03:45 98.6 110 29 79/38 (52) 100 01/06/18 03:30 98.6 112 27 97/50 (66) 100 01/06/18 03:15 98.6 109 27 85/41 (56) 100 01/06/18 03:15 109 85/41 01/06/18 03:00 98.6 112 27 92/50 (64) 100 01/06/18 02:45 98.8 110 27 88/47 (61) 100 01/06/18 02:30 98.8 111 26 86/48 (61) 100 01/06/18 02:15 98.6 112 29 94/49 (64) 100 01/06/18 02:15 112 94/49 01/06/18 02:00 98.2 111 29 89/48 (62) 100 01/06/18 02:00 112 01/06/18 01:45 97.9 109 28 91/49 (63) 100 01/06/18 01:42 109 83/45 01/06/18 01:30 97.5 108 28 83/45 (58) 100 01/06/18 01:15 97.0 106 32 89/47 (61) 100 01/06/18 01:00 96.6 104 25 89/45 (60) 100 01/06/18 00:45 96.1 102 28 91/48 (62) 100 01/06/18 00:45 102 91/48 01/06/18 00:30 95.7 101 28 91/50 (64) 100 01/06/18 00:15 95.4 99 31 84/46 (59) 100 01/06/18 00:00 94.8 97 30 83/46 (58) 100 01/06/18 00:00 97 01/05/18 23:45 94.5 96 28 80/44 (56) 100 01/05/18 23:30 93.9 93 29 81/43 (56) 100 01/05/18 23:15 93.6 92 32 84/46 (59) 100 01/05/18 23:11 93.4 91 31 88/48 (61) 100 01/05/18 23:10 91 88/48 01/05/18 23:00 90 78/41 01/05/18 23:00 93.2 90 32 78/41 (53) 100 01/05/18 22:45 92.8 87 30 80/42 (55) 100 01/05/18 22:45 87 80/42 01/05/18 22:35 92.5 87 30 78/43 (55) 100 01/05/18 22:35 87 78/43 01/05/18 22:30 92.5 85 30 78/42 (54) 100 01/05/18 22:30 85 78/42 01/05/18 22:25 92.3 84 28 80/44 (56) 100 01/05/18 22:25 84 80/44 01/05/18 22:20 92.1 84 11 74/40 (51) 100 01/05/18 22:20 84 74/40 01/05/18 22:15 92.1 84 29 76/42 (53) 100 01/05/18 22:15 84 75/42 01/05/18 22:02 80 69/38 01/05/18 22:00 91.9 80 27 69/38 (48) 100 01/05/18 22:00 80 01/05/18 21:58 91.9 80 26 67/38 (48) 100 01/05/18 21:45 92.1 80 28 74/42 (53) 100 01/05/18 21:30 92.3 80 31 100 01/05/18 21:15 92.3 83 39 94 01/05/18 21:12 92.3 83 40 91/45 (60) 01/05/18 21:00 92.1 83 39 81/42 (55) 80 01/05/18 20:47 100 Nasal Cannula 3.00 01/05/18 20:45 91.4 86 34 96/51 (66) 100 01/05/18 20:30 90.5 82 31 74/36 (49) 100 01/05/18 20:16 89.8 81 44 95/54 (68) 100 01/05/18 20:15 89.4 81 39 100 01/05/18 20:00 80 01/05/18 20:00 90.7 79 33 82/51 (61) 100 01/05/18 19:45 90.0 76 27 71/47 (55) 100 01/05/18 19:30 89.2 74 29 68/44 (52) 100 01/05/18 19:20 88.9 72 32 69/46 (54) 100 01/05/18 19:19 88.9 72 26 71/43 (52) 100 01/05/18 19:16 88.7 72 27 72/44 (53) 100 01/05/18 19:15 88.7 71 24 94 01/05/18 19:10 88.5 70 28 64/42 (49) 90 01/05/18 19:05 88.3 69 25 67/43 (51) 100 01/05/18 19:03 88.3 68 25 68/41 (50) 100 01/05/18 19:01 88.3 68 26 67/37 (47) 100 01/05/18 19:00 88.3 68 24 100 01/05/18 18:00 62 Physical Exam GENERAL: Patient is a well-nourished, well-developed female, eyes closed, not following, not in respiratory distress. SKIN: Cool and dry. No generalized rash, no ecchymoses and no evidence of embolic lesions. HEAD: Atraumatic. Normocephalic. No temporal wasting, or tenderness. EYES: [place] conjunctiva. No petechia or hemorrhage. Pupils equal, round and reactive to light. No scleral icterus. No injection or drainage. EARS, NOSE AND THROAT: Nose without bleeding or purulent nasal discharge. Dry oral mucosa NECK: Trachea midline. Supple and not tender, no meningeal signs. No nuchal rigidity, no lymphadenopathy CARDIOVASCULAR: Regular rate and rhythm. No murmurs, rubs or gallops heard RESPIRATORY: Clear to auscultation. Breath sounds equal bilaterally. No rales , wheezing or rhonchi. Decreased breath sounds at the bases ABDOMEN: Soft, obese, no reaction to deep palpation, nondistended. Bowel sounds present and normoactive. No guarding. No organomegaly. EXTREMITIES: No clubbing, cyanosis, or edema. No joint effusion, has good ROM. Cool NEURO: Eyes closed, not following commands. No Babinski, no ankle clonus PSYCHIATRIC: Unable to assess. LINE: RSC No evidence of infection. R radial line ok. PIV ok Laboratory Laboratory Tests Test 01/05/18 17:36 01/05/18 17:49 01/05/18 18:10 01/05/18 20:34 Nasal Screen MRSA (PCR) MRSA NOT DETECTED White Blood Count 3.8 Red Blood Count 3.35 Hemoglobin 10.3 Hematocrit 31.5 Mean Corpuscular Volume 93.9 Mean Corpuscular Hemoglobin 30.7 Mean Corpuscular Hemoglobin Concent 32.7 Red Cell Distribution Width 15.1 Platelet Count 152 Mean Platelet Volume 9.7 Neutrophils (%) (Auto) 93.9 Lymphocytes (%) (Auto) 4.2 Monocytes (%) (Auto) 1.8 Eosinophils (%) (Auto) 0.0 Basophils (%) (Auto) 0.1 Neutrophils # (Auto) 3.6 Lymphocytes # (Auto) 0.2 Monocytes # (Auto) 0.1 Eosinophils # (Auto) 0.0 Basophils # (Auto) 0.0 CBC Comment DIFF FINAL Differential Comment Prothrombin Time 11.5 Prothromb Time International Ratio 1.1 Activated Partial Thromboplast Time 37.6 Blood Urea Nitrogen 18 Creatinine 1.15 Random Glucose 158 Total Protein 6.0 Albumin 2.2 Calcium Level 8.1 Alkaline Phosphatase 100 Aspartate Amino Transf (AST/SGOT) 11 Alanine Aminotransferase (ALT/SGPT) 16 Total Bilirubin 0.2 Sodium Level 141 Potassium Level 3.0 Chloride Level 110 Carbon Dioxide Level 17.9 Anion Gap 13 Estimat Glomerular Filtration Rate 55 Lactic Acid Level 5.1 6.7 Phosphorus Level 1.1 Urine Color [place] Urine Turbidity HAZY Urine pH 5.0 Urine Specific [place] 1.024 Urine Protein 30 Urine Glucose (UA) NEG Urine Ketones NEG Urine Occult Blood NEG Urine Nitrite NEG Urine Bilirubin NEG Urine Leukocyte Esterase NEG Urine RBC LESS THAN 1 Urine WBC 2 Urine Bacteria OCC Urine Hyaline Casts 1 Microscopic Urinalysis Comment CATH-CULTURE IND Test 01/06/18 03:56 01/06/18 09:50 01/06/18 10:10 01/06/18 10:20 White Blood Count 5.1 9.1 Red Blood Count 3.19 3.04 Hemoglobin 9.9 9.4 Hematocrit 29.5 27.8 Mean Corpuscular Volume 92.4 91.5 Mean Corpuscular Hemoglobin 31.1 31.1 Mean Corpuscular Hemoglobin Concent 33.6 34.0 Red Cell Distribution Width 14.7 15.3 Platelet Count 172 163 Mean Platelet Volume 10.6 9.5 Blood Urea Nitrogen 18 19 Creatinine 1.06 1.14 Random Glucose 73 117 Calcium Level 8.2 8.0 Phosphorus Level 0.3 Magnesium Level 1.4 Sodium Level 134 134 Potassium Level 4.9 4.5 Chloride Level 106 106 Carbon Dioxide Level 19.0 17.3 Anion Gap 9 11 Estimat Glomerular Filtration Rate 61 56 Blood Gas Puncture Site ART LINE Blood Gas Patient Temperature 98.6 Blood Gas HCO3 17 Blood Gas Base Excess -6.6 Blood Gas Oxygen Saturation 96 Arterial Blood pH 7.44 Arterial Blood Partial Pressure CO2 25 Arterial Blood Partial Pressure O2 103 Arterial Blood Oxygen Content 12.7 Arterial Blood Carboxyhemoglobin 0.6 Arterial Blood Methemoglobin 1.9 Blood Gas Hemoglobin 9.4 Oxygen Delivery Device NASAL CANNULA Blood Gas Liter Flow 2 Blood Gas Inspired Oxygen 28 Lactic Acid Level 2.8 Neutrophils (%) (Auto) 91.9 Lymphocytes (%) (Auto) 3.9 Monocytes (%) (Auto) 3.9 Eosinophils (%) (Auto) 0.1 Basophils (%) (Auto) 0.2 Neutrophils # (Auto) 8.3 Lymphocytes # (Auto) 0.4 Monocytes # (Auto) 0.4 Eosinophils # (Auto) 0.0 Basophils # (Auto) 0.0 CBC Comment AUTO DIFF Differential Total Cells Counted 100 Neutrophils % (Manual) 56 Band Neutrophils % 34 Lymphocytes % 4 Monocytes % 6 Neutrophils # (Manual) 8.2 Nucleated Red Blood Cells 1 Differential Comment FINAL DIFF MANUAL Platelet Estimate NORMAL Platelet Morphology Comment ENLARGED Acanthocytes OCC Keratocytes OCC Total Protein 5.5 Albumin 1.8 Alkaline Phosphatase 99 Aspartate Amino Transf (AST/SGOT) 11 Alanine Aminotransferase (ALT/SGPT) 12 Total Bilirubin 0.2 Date/Time Source Procedure Growth Status 01/05/18 17:49 Blood Peripheral Aerobic Blood Culture - Preliminary NO GROWTH IN 1 DAY Resulted 01/05/18 17:49 Blood Peripheral Anaerobic Blood Culture - Preliminary NO GROWTH IN 1 DAY Resulted 01/05/18 18:10 Urine Catheterized Urine Urine Culture Pending Received Result Diagram: 01/06/18 1020 01/06/18 1020 Imaging RADIOLOGY STUDIES/FILMS REVIEWED Last Impressions Chest X-Ray 01/06/18 0000 Addendum Impressions: CONCLUSION: Increasing parenchymal changes left base. Abdomen/Pelvis CT 01/05/18 0000 Signed Impressions: CONCLUSION: 1. Diffuse colitis without perforation. 2. Distention of the stomach. 3. Bilateral renal low densities, likely cysts. 4. Bibasilar consolidation and right middle lobe nodule. 5. Prominent uterus with prominent endometrium. Nonemergent pelvic sonogram re commended. Assessment and Plan Assessment and Plan IMPRESSION Sepsis, with shock, fairly acute onset, source? - no problems documented in psych unit prior to development of hypotension - has colitis on CT - no BM recorded until she got her in ICU - she received short course of Abx in November - ok - CXR with L base opacity, ?atelectasis Borderline neutropenia Schizophrenia RECOMMENDATION Agree with current work-up BC, C diff Continue broad spectrum Abx: Vanco, Cefepime and Flagyl GI evaluating patient Follow C/S Monitor progress BP support I will follow along with you Thank you for this consultation Discussed Condition With D/W Alicia Soto MD Jan 06, 2018 13:24
[2018-01-06] MEDS: ENOXAPARIN SODIUM 40 MG/0.4 ML SYRINGE SQ SCH (16:10)
[2018-01-06] MEDS: VANCOMYCIN INJ 1,750 MG in SODIUM CHLORID 0.9% 500 ML INJ 500 ML IV SCH (20:46)
[2018-01-07] VITALS (14 sets, daily range): BP systolic 106–159; BP diastolic 54–94; PULSE 89–102; RESP 13–19; TEMP 95.9–98.5; O2SAT 100
[2018-01-07] MEDS: VASOPRESSIN INJ 40 UNITS in DEXTROSE 5% IN WATER 100ML INJ 98 ML IV SCH ×2 (02:00)
[2018-01-07] MEDS: metroNIDAZOLE 500 MG INJ 100 ML IV SCH ×4 (03:05→21:19)
[2018-01-07] MEDS: INSULIN NovoLIN REGULAR SUPPLEMENTAL SCALE SQ SCH ×6 (04:00→20:00)
[2018-01-07] MEDS: CEFEPIME INJ 1,000 MG in SODIUM CHLORIDE 0.9% INJ 100 ML IV SCH ×3 (04:00→20:44)
[2018-01-07] MEDS: HYDROCORTISONE SOD SUCCINATE 100 MG VIAL IV PUSH SCH ×4 (04:18→21:15)
[2018-01-07 06:40] LABS: AUTOMATED NEUTROPHIL # 7.9 TH/MM3 (1.8-7.7); HEMATOCRIT 31.3 % (35.0-46.0); HEMOGLOBIN 10.6 GM/DL (11.6-15.3); LYMPH % 4.9 % (9.0-44.0); LYMPHOCYTE # 0.4 TH/MM3 (1.0-4.8); MEAN CELL VOLUME 90.8 FL (80.0-100.0); MEAN CORPUSCULAR HEMOGLOBIN 30.7 PG (27.0-34.0); MEAN CORPUSCULAR HGB CONC 33.9 % (32.0-36.0); MEAN PLATELET VOLUME 10.2 FL (7.0-11.0); MONO % 2.6 % (0.0-8.0); MONOCYTE # 0.2 TH/MM3 (0-0.9); NEUT % 92.5 % (16.0-70.0); PLATELET COUNT 131 TH/MM3 (150-450); RED BLOOD COUNT 3.45 MIL/MM3 (4.00-5.30); RED CELL DISTRIBUTION WIDTH 15.1 % (11.6-17.2); WHITE BLOOD COUNT 8.5 TH/MM3 (4.0-11.0)
[2018-01-07 07:17] LABS: ALBUMIN 2.2 GM/DL (3.4-5.0); ALT (GPT) 17 U/L (10-53); AST (GOT) 19 U/L (15-37); BICARBONATE 17.9 MEQ/L (21.0-32.0); BLOOD UREA NITROGEN 12 MG/DL (7-18); CALCIUM 8.1 MG/DL (8.5-10.1); CHLORIDE 102 MEQ/L (98-107); CREATININE 0.83 MG/DL (0.50-1.00); GLOMERULAR FILTRATION RATE 80 ML/MIN (>89); GLUCOSE,RANDOM 166 MG/DL (74-106); MAGNESIUM 1.7 MG/DL (1.5-2.5); PHOSPHORUS 2.7 MG/DL (2.5-4.9); SODIUM (NA) 130 MEQ/L (136-145)
[2018-01-07 07:19] LABS: ALKALINE PHOSPHATASE 90 U/L (45-117); TOTAL BILIRUBIN ADULT 0.2 MG/DL (0.2-1.0); TOTAL PROTEIN 6.6 GM/DL (6.4-8.2)
[2018-01-07 07:24] LABS: BANDS 24 % (0-6); CORRECTED NUCLEATED RBC 2 /100 WBC (0-0); LYMPHOCYTES 2 % (9-44); MONOCYTES 1 % (0-8); NEUTROPHIL # MANUAL DIFF 8.2 TH/MM3 (1.8-7.7); NUCLEATED RED BLOOD CELL 2 (0-0); POLYS (SEG NEUTROPHILS) 73 % (16-70)
[2018-01-07 07:25] LABS: ACANTHOCYTES OCC (NORMAL); BURR CELLS 1+ (NORMAL)
[2018-01-07] MEDS: DOCUSATE SODIUM 50 MG/SENNA 8.6 MG TAB PO SCH ×3 (09:00→20:51)
[2018-01-07] MEDS: FAMOTIDINE 20 MG TAB PO SCH ×2 (09:21→21:15)
[2018-01-07] MEDS: DEXT 5%-NACL 0.9% 1000 ML INJ 1,000 ML IV SCH (14:20)
--- NOTE | 2018-01-07 14:23 | HHI.IDPN ---
Note Infectious Disease Note ID coverage. Notes reviewed. Patient barely opens eyes to voice. Does not focus or track. Afebrile. Remains on phenylephrine and vasopressin. C. difficile toxin positive. This is a 77-year-old female with a past medical history significant for schizophrenia and dementia who was residing in the inpatient med/psych unit and being actively treated for failure to thrive and unanticipated weight loss as well as ongoing psychosis. She was emergently transferred to the ICU because of hypotension. On arrival she had an improving blood pressure 100 systolic, however she was profoundly hypothermic with a core temperature of 29C. ROS - General Review of Systems ROS Limitations: Clinical Condition, Altered Mental Status PFSH Past Family Social History Allergies: Coded Allergies: apple (Unverified Allergy, Severe, Swelling, 03/08/17) Past Medical History Arthritis Asthma Schizophrenia Past Surgical History Bilateral cataracts Bilateral knee replacements PEG tube placement Active Ordered Medications Current Medications Medications (Trade) Dose Ordered Sig/Karyna Route PRN Reason Start Time Stop Time Status Last Admin Dose Admin Labetalol HCl (Trandate Inj) 20 mg Q15M PRN IV PUSH sbp > 160 01/05/18 17:00 Hydralazine HCl (Apresoline Inj) 10 mg Q30M PRN IV PUSH sbp > 160 01/05/18 17:00 Dextrose (D50w (Vial) Inj) 25 ml UNSCH PRN IV PUSH HYPOGLYCEMIA-SEE COMMENTS 01/05/18 17:00 Acetaminophen (Tylenol) 650 mg Q6H PRN PO PAIN 1-10 AND/OR FEVER >101F 01/05/18 17:00 Famotidine (Pepcid) 20 mg Q12HR PO 01/05/18 21:00 01/07/18 09:21 Ondansetron HCl (Zofran Odt) 4 mg Q6H PRN PO NAUSEA OR VOMITING 01/05/18 17:00 Albuterol/ Ipratropium (Duoneb Neb) 1 ampule Q2HR NEB PRN INH WHEEZING 01/05/18 17:00 Enoxaparin Sodium (Lovenox Inj) 40 mg Q24H SQ 01/05/18 17:00 01/06/18 16:10 Miscellaneous Information ([facility] Information) 1 [id number] XX 01/05/18 17:00 01/05/18 17:00 Chlorhexidine Gluconate (Chlorhexidine 2% Cloth) 3 pack Taper DAILY@04 TOP 01/06/18 04:00 01/02/19 03:59 01/06/18 01:44 Chlorhexidine Gluconate (Chlorhexidine 2% Cloth) 3 pack UNSCH PRN TOP HYGIENIC CARE 01/05/18 17:00 Senna/Docusate Sodium (Ana-Colace) 1 tab BID PO 01/05/18 21:00 01/06/18 20:47 Magnesium Hydroxide (Milk Of Magnesia Liq) 30 ml Q12H PRN PO Mild constipation 01/05/18 17:00 Sennosides (Senokot) 17.2 mg Q12H PRN PO Moderate constipation 01/05/18 17:00 Bisacodyl (Dulcolax Supp) 10 mg DAILY PRN RECTAL SEVERE CONSITIPATION 01/05/18 17:00 Lactulose (Lactulose Liq) 30 ml DAILY PRN PO SEVERE CONSITIPATION 01/05/18 17:00 Pharmacy Profile Note 0 ml @ 0 mls/hr UNSCH OTHER 01/05/18 19:30 Cefepime HCl 1000 mg/Sodium Chloride 100 ml @ 200 mls/hr Q8H IV 01/05/18 20:00 01/07/18 12:14 Metronidazole 100 ml @ 100 mls/hr Q6H IV 01/05/18 20:30 01/07/18 09:20 Potassium Chloride 100 ml @ 50 mls/hr Q2H PRN IV-CENTRAL For Potassium 2.8 - 3.2 mEq/L 01/05/18 19:45 Potassium Chloride 100 ml @ 50 mls/hr Q2H PRN IV For Potassium 2.8 - 3.2 mEq/L 01/05/18 19:45 01/06/18 01:58 Potassium Bicarb/ Potassium Chloride (K-Lyte Cl Eff) 50 meq UNSCH PRN PO For Potassium 3.3 - 3.5 mEq/L 01/05/18 19:45 Potassium Chloride 100 ml @ 25 mls/hr UNSCH PRN IV-CENTRAL For Potassium 3.3 - 3.5 mEq/L 01/05/18 19:45 Potassium Chloride 100 ml @ 50 mls/hr Q2H PRN IV For Potassium 3.3 - 3.5 mEq/L 01/05/18 19:45 Magnesium Sulfate 4 gm/Sodium Chloride 100 ml @ 50 mls/hr UNSCH PRN IV For Magnesium 0.9 - 1.1 mg/dL 01/05/18 19:45 Magnesium Oxide (Mag-Ox) 800 mg UNSCH PRN PO For Magnesium 1.2 - 1.6 mg/dL 01/05/18 19:45 Magnesium Sulfate 2 gm/Sodium Chloride 100 ml @ 50 mls/hr UNSCH PRN IV For Magnesium 1.2 - 1.6 mg/dL 01/05/18 19:45 01/06/18 13:17 Potassium Phosphate (K-Phos) 2,000 mg Q4H PRN PO For Phosphorus < 2.5 mg/dL 01/05/18 19:45 Sodium Phosphate 30 mmol/Sodium Chloride 250 ml @ 42 mls/hr UNSCH PRN IV For Phosphorus < 2.5 mg/dL 01/05/18 19:45 01/06/18 13:17 Potassium Phosphate (K-Phos) 2,000 mg UNSCH PRN PO/TUBE SEE LABEL COMMENTS 01/05/18 19:45 Potassium Phosphate 30 mmol/ Sodium Chloride 260 ml @ 42 mls/hr UNSCH PRN IV SEE LABEL COMMENTS 01/05/18 19:45 Terbutaline Sulfate (Brethine Inj) 1 mg UNSCH PRN SQ For Extravasation 01/05/18 19:45 Vancomycin HCl 1750 mg/Sodium Chloride 517.5 ml @ 250 mls/hr Q24H IV 01/05/18 21:00 01/06/18 20:46 Insulin Human Regular (NovoLIN R SUPPLEMENTAL SCALE) 1 Q4HR SQ 01/06/18 12:00 01/07/18 04:00 Dextrose/Sodium Chloride 1,000 ml @ 75 mls/hr [id number] IV 01/06/18 09:00 01/06/18 09:00 Hydrocortisone Sodium Succinate (SoluCORTEF INJ) 50 mg Q6H IV PUSH 01/06/18 10:00 01/07/18 09:21 Miscellaneous Information ([facility] Ordered Lab Info) SPECIFIC LAB TO BE DRAWN:VANCOMY... ONCE ONCE .XX 01/07/18 20:45 01/07/18 20:46 Vasopressin 40 units/Dextrose 100 ml @ 6 mls/hr [id number] IV 01/06/18 10:09 01/07/18 02:00 Phenylephrine HCl 160 mg/Dextrose 500 ml @ 7.5 mls/hr TITRATE PRN IV Blood Pressure Management 01/06/18 12:00 01/06/18 23:12 Objective: Vital Signs Date Time Temp Pulse Resp B/P (MAP) Pulse Ox O2 Delivery O2 Flow Rate FiO2 01/07/18 12:00 98 01/07/18 12:00 96.5 98 13 152/73 (99) 100 147/82 (103) 01/07/18 10:00 99 01/07/18 09:27 100 Nasal Cannula 2.00 01/07/18 08:00 96.8 101 18 153/68 (96) 100 159/94 (115) 01/07/18 08:00 101 01/07/18 07:47 97 162/98 01/07/18 04:14 101 157/93 01/07/18 04:00 95.9 99 17 152/69 (96) 100 145/89 (107) 01/07/18 04:00 98.5 01/07/18 03:45 96.1 98 19 141/74 (96) 100 141/88 (105) 01/07/18 02:01 101 158/93 01/07/18 02:00 105 160/94 01/07/18 01:03 100 146/91 01/07/18 00:15 96.8 100 19 134/90 (105) 100 01/07/18 00:07 99 154/92 01/07/18 00:00 96.8 101 19 149/61 (90) 100 153/91 (111) 01/07/18 00:00 97.7 01/06/18 23:45 96.8 100 18 155/69 (97) 100 156/93 (114) 01/06/18 23:12 100 146/90 01/06/18 20:15 97.2 99 17 145/67 (93) 100 146/84 (104) 01/06/18 20:00 97.2 98 19 140/65 (90) 100 144/83 (103) 01/06/18 20:00 98.0 01/06/18 19:45 97.2 98 20 143/67 (92) 100 144/84 (104) 01/06/18 18:00 97 01/06/18 18:00 97 128/64 01/06/18 18:00 97 128/64 01/06/18 16:00 97.2 96 15 125/61 (82) 100 113/54 (73) 01/06/18 16:00 96 Laboratory Tests Test 01/05/18 17:49 01/06/18 03:56 01/06/18 10:20 01/07/18 06:05 White Blood Count 3.8 TH/MM3 5.1 TH/MM3 9.1 TH/MM3 8.5 TH/MM3 Red Blood Count 3.35 MIL/MM3 3.19 MIL/MM3 3.04 MIL/MM3 3.45 MIL/MM3 Hemoglobin 10.3 GM/DL 9.9 GM/DL 9.4 GM/DL 10.6 GM/DL Hematocrit 31.5 % 29.5 % 27.8 % 31.3 % Mean Corpuscular Volume 93.9 FL 92.4 FL 91.5 FL 90.8 FL Mean Corpuscular Hemoglobin 30.7 PG 31.1 PG 31.1 PG 30.7 PG Mean Corpuscular Hemoglobin Concent 32.7 % 33.6 % 34.0 % 33.9 % Red Cell Distribution Width 15.1 % 14.7 % 15.3 % 15.1 % Platelet Count 152 TH/MM3 172 TH/MM3 163 TH/MM3 131 TH/MM3 Mean Platelet Volume 9.7 FL 10.6 FL 9.5 FL 10.2 FL Neutrophils (%) (Auto) 93.9 % 91.9 % 92.5 % Lymphocytes (%) (Auto) 4.2 % 3.9 % 4.9 % Monocytes (%) (Auto) 1.8 % 3.9 % 2.6 % Eosinophils (%) (Auto) 0.0 % 0.1 % 0.0 % Basophils (%) (Auto) 0.1 % 0.2 % 0.0 % Neutrophils # (Auto) 3.6 TH/MM3 8.3 TH/MM3 7.9 TH/MM3 Lymphocytes # (Auto) 0.2 TH/MM3 0.4 TH/MM3 0.4 TH/MM3 Monocytes # (Auto) 0.1 TH/MM3 0.4 TH/MM3 0.2 TH/MM3 Eosinophils # (Auto) 0.0 TH/MM3 0.0 TH/MM3 0.0 TH/MM3 Basophils # (Auto) 0.0 TH/MM3 0.0 TH/MM3 0.0 TH/MM3 CBC Comment DIFF FINAL AUTO DIFF AUTO DIFF Differential Comment FINAL DIFF MANUAL FINAL DIFF MANUAL Differential Total Cells Counted 100 100 Neutrophils % (Manual) 56 % 73 % Band Neutrophils % 34 % 24 % Lymphocytes % 4 % 2 % Monocytes % 6 % 1 % Neutrophils # (Manual) 8.2 TH/MM3 8.2 TH/MM3 Nucleated Red Blood Cells 1 /100 WBC 2 /100 WBC Platelet Estimate NORMAL LOW Platelet Morphology Comment ENLARGED NORMAL Acanthocytes OCC OCC Keratocytes OCC Funmilayo Cells 1+ Laboratory Tests Test 01/05/18 17:49 01/05/18 20:34 01/06/18 03:56 01/06/18 10:10 Blood Urea Nitrogen 18 MG/DL 18 MG/DL Creatinine 1.15 MG/DL 1.06 MG/DL Random Glucose 158 MG/DL 73 MG/DL Total Protein 6.0 GM/DL Albumin 2.2 GM/DL Calcium Level 8.1 MG/DL 8.2 MG/DL Alkaline Phosphatase 100 U/L Aspartate Amino Transf (AST/SGOT) 11 U/L Alanine Aminotransferase (ALT/SGPT) 16 U/L Total Bilirubin 0.2 MG/DL Sodium Level 141 MEQ/L 134 MEQ/L Potassium Level 3.0 MEQ/L 4.9 MEQ/L Chloride Level 110 MEQ/L 106 MEQ/L Carbon Dioxide Level 17.9 MEQ/L 19.0 MEQ/L Anion Gap 13 MEQ/L 9 MEQ/L Estimat Glomerular Filtration Rate 55 ML/MIN 61 ML/MIN Lactic Acid Level 5.1 mmol/L 6.7 mmol/L 2.8 mmol/L Phosphorus Level 1.1 MG/DL 0.3 MG/DL Magnesium Level 1.4 MG/DL Test 01/06/18 10:20 01/07/18 06:05 Blood Urea Nitrogen 19 MG/DL 12 MG/DL Creatinine 1.14 MG/DL 0.83 MG/DL Random Glucose 117 MG/DL 166 MG/DL Total Protein 5.5 GM/DL 6.6 GM/DL Albumin 1.8 GM/DL 2.2 GM/DL Calcium Level 8.0 MG/DL 8.1 MG/DL Alkaline Phosphatase 99 U/L 90 U/L Aspartate Amino Transf (AST/SGOT) 11 U/L 19 U/L Alanine Aminotransferase (ALT/SGPT) 12 U/L 17 U/L Total Bilirubin 0.2 MG/DL 0.2 MG/DL Sodium Level 134 MEQ/L 130 MEQ/L Potassium Level 4.5 MEQ/L 4.5 MEQ/L Chloride Level 106 MEQ/L 102 MEQ/L Carbon Dioxide Level 17.3 MEQ/L 17.9 MEQ/L Anion Gap 11 MEQ/L 10 MEQ/L Estimat Glomerular Filtration Rate 56 ML/MIN 80 ML/MIN Phosphorus Level 2.7 MG/DL Magnesium Level 1.7 MG/DL Microbiology Date/Time Source Procedure Growth Status 01/05/18 17:49 Blood Peripheral Aerobic Blood Culture - Preliminary NO GROWTH IN 2 DAYS Resulted 01/05/18 17:49 Blood Peripheral Anaerobic Blood Culture - Preliminary NO GROWTH IN 2 DAYS Resulted 01/05/18 17:40 Blood Peripheral Aerobic Blood Culture - Preliminary NO GROWTH IN 2 DAYS Resulted 01/05/18 17:40 Blood Peripheral Anaerobic Blood Culture - Preliminary NO GROWTH IN 2 DAYS Resulted 01/05/18 18:10 Urine Catheterized Urine Urine Culture - Final NO GROWTH IN 48 HOURS. Complete Imaging: Chest X-Ray 01/06/18 0000 Addendum Impressions: CONCLUSION: Increasing parenchymal changes left base. Abdomen/Pelvis CT 01/05/18 0000 Signed Impressions: CONCLUSION: 1. Diffuse colitis without perforation. 2. Distention of the stomach. 3. Bilateral renal low densities, likely cysts. 4. Bibasilar consolidation and right middle lobe nodule. 5. Prominent uterus with prominent endometrium. Nonemergent pelvic sonogram re commended. Physical Exam GENERAL: Extremely lethargic. Barely opens her eyes. HEENT: Pupils reactive to light. No icterus. NECK: Supple without adenopathy. No swelling. LUNGS: Bilateral basilar rhonchi. HEART: Regular S1-S2 with 2/6 systolic murmur at the left sternal border. ABDOMEN: Soft, nontender. EXTREMITIES: No clubbing or cyanosis. Edema of both upper extremities 2+. SKIN: No diffuse rash. NEUROLOGIC: Unable to assess. PSYCH: Unable to assess. LINE: RSC No evidence of infection. R radial line ok. PIV ok IMPRESSION Sepsis, with shock, fairly acute onset, source? - no problems documented in psych unit prior to development of hypotension - has colitis on CT - UA ok - CXR with L base opacity, ?atelectasis Borderline neutropenia on presentation. White blood cell count now up to normal. Schizophrenia RECOMMENDATION Continue vancomycin. Continue Cefepime. Continue Flagyl IV and add vancomycin oral for C. difficile.. Monitor cultures. Follow progress. Aldair Saez MD Jan 07, 2018 14:23
[2018-01-07] MEDS: ENOXAPARIN SODIUM 40 MG/0.4 ML SYRINGE SQ SCH (16:59)
[2018-01-07] MEDS: VANCOMYCIN 500 MG VIAL (FOR ORAL USE ONLY) PO SCH ×2 (17:00→20:44)
--- NOTE | 2018-01-07 17:53 | HHI.CCPN ---
Subjective Remarks/Hospital Course This is a 77-year-old female with a past medical history significant for schizophrenia and dementia who was residing in the inpatient med/psych unit and being actively treated for failure to thrive and unanticipated weight loss as well as ongoing psychosis. Today she was noted to be acutely hypotensive. She was given 4 L of crystalloid IV fluids which did not improve her blood pressure. Rapid response was called and first blood pressure recorded was 60 systolic. She was emergently transferred to the ICU where I evaluated the patient on arrival. On arrival she had an improving blood pressure 100 systolic , however she was profoundly hypothermic with a core temperature of 29C. I performed bedside critical care echocardiography which demonstrated grossly preserved biventricular function, very collapsible IVC, no pericardial effusion. In addition, the patient appears to have a PEG tube in place. On palpation of her abdomen, the patient grimaces in pain. The patient is quite somnolent and although she is protecting her airway, no additional information is available from the patient. Review systems is unobtainable. The remainder of the history is obtained from prior medical records that we have at our institution, however those records are sparse with past medical history evidence given her degree of dementia and schizophrenia. Laboratory data that we collected once in the ICU demonstrates leukopenia, acute kidney injury. Septic shock would be high in the differential, and given her severe apparent abdominal tenderness, abdominal source of her sepsis would be the highest on the differential. 01/06 Patient is lethargic able to open her eyes to stimuli, started on Neosyn [address] abd/pelvis yesterday showed diffuse colitis. 01/07: remains in shock on vasopressors. lactate decreasing. C. Diff + now on PO vanc and iv flagyl. Objective Vital Signs Date Time Temp Pulse Resp B/P (MAP) Pulse Ox O2 Delivery O2 Flow Rate FiO2 01/07/18 16:00 99 01/07/18 16:00 97.7 16 147/77 (100) 100 130/75 (93) 01/07/18 09:27 Nasal Cannula 2.00 Intake and Output 01/07/18 01/07/18 01/08/18 08:00 16:00 00:00 Intake Total 150 ml 200 ml Output Total 100 ml Balance 50 ml 200 ml Result Diagram: 01/07/1860401/07/18604 Other Results Microbiology Date/Time Source Procedure Growth Status 01/05/18 18:10 Urine Catheterized Urine Urine Culture - Final NO GROWTH IN 48 HOURS. Complete Imaging Last Impressions Abdomen/Pelvis CT 01/05/18 0000 Signed Impressions: CONCLUSION: 1. Diffuse colitis without perforation. 2. Distention of the stomach. 3. Bilateral renal low densities, likely cysts. 4. Bibasilar consolidation and right middle lobe nodule. 5. Prominent uterus with prominent endometrium. Nonemergent pelvic sonogram re commended. Objective Remarks GENERAL: elderly cachectic female, lethargic HEENT: Normocephalic. Atraumatic. Pupils equal, round, reactive, conjugate. NECK: Trachea is midline. There is no JVD. CHEST: nc o2. equal chest rise. CARDIOVASCULAR: normal rate, regular rhythm. sinus. ABDOMEN: Soft, apparently tender to palpation as patient grimaces with light touch to the abdomen, nondistended. no overt guarding or rebound. MUSCULOSKELETAL: Pulses 2+. No peripheral edema. NEUROLOGICAL: RASS -3. unclear neurologic baseline. moves all extremities spontaneously. does not follow commands. Lethargic A/P Assessment and Plan Assessment: 77yF with history of schizophrenia and dementia presents with what clinically appears to be septic shock with severe hypothermia and hypotension secondary to C. Diff septic shock. Plan by systems: Neurologic: Schizophrenia Dementia Acute metabolic encephalopathy Frequent neurochecks Avoid long-acting sedatives Restraints for patient safety Respiratory: Nasal cannula for goal SPO2 greater than 90% Bronchodilators, check ABG Cardiovascular: Septic shock s/p significant volume resuscitation Continue with Neosyn monitor HR and BP keep MAP> 65mmHg Serial Lactic acid monitoring till clear stress dose steroids- HC 50mg IV Q6 continue invasive monitors. Renal: Acute kidney injury -- Monitor renal function, I/O's, electrolytes replacement as needed D5NS@75ml/hr FEN/GI: Abdominal pain Failure to thrive Severe acute protein calorie malnutrition, PEG tube is in place C. Diff colitis Hold tube feeds- on Jevity 1.5 @60ml/hr via PEG tube Change IVF D5NS@75ml/hr GI eval. CT abd/pelvis: Diffuse colitis without perforation Heme/ID: Anemia, unclear etiology Septic shock Suspected intra-abdominal sepsis Continue abx ( Cefepime, Flagyl, Vanco) Monitor for signs of infections ( fever , WBC) PO Vanc Follow up on blood and urine cxs ID eval Endocrine: Hypothermia- likely 2nd severe sepsis -- SSI if needed for glycemic control Prophylaxis: GI Prophylaxis Pepcid DVT Prophylaxis -- SCDs Lovenox Lines: Peripheral IV, central and Art line Ross Patient is critically ill with septic shock, lactic acidosis, diffuse colitis on CT abdomen. Palliative care consulted to asses with goals of care Stephon Saunders MD Jan 07, 2018 17:53
[2018-01-07] MEDS: MIDODRINE 5 MG TAB PO SCH (18:03)
[2018-01-07] MEDS ORDERED: PHARMACY ORDERED LAB ONE (20:45)
[2018-01-07] MEDS: VANCOMYCIN INJ 1,750 MG in SODIUM CHLORID 0.9% 500 ML INJ 500 ML IV SCH (22:15)
[2018-01-08] VITALS (11 sets, daily range): BP systolic 111–151; BP diastolic 60–75; PULSE 96–108; RESP 14–16; TEMP 96.4–97.8; O2SAT 100
[2018-01-08] MEDS: MIDODRINE 5 MG TAB PO SCH ×2 (02:42→10:00)
[2018-01-08] MEDS: metroNIDAZOLE 500 MG INJ 100 ML IV SCH ×2 (02:43→08:30)
[2018-01-08] MEDS: DEXT 5%-NACL 0.9% 1000 ML INJ 1,000 ML IV SCH (03:59)
[2018-01-08] MEDS: CHLORHEXIDINE GLUCONATE 2 % 1 PACK (2 CLOTHS) TOP SCH (04:00)
[2018-01-08] MEDS: HYDROCORTISONE SOD SUCCINATE 100 MG VIAL IV PUSH SCH (04:00)
[2018-01-08] MEDS: INSULIN NovoLIN REGULAR SUPPLEMENTAL SCALE SQ SCH ×4 (04:00→12:00)
[2018-01-08] MEDS: CEFEPIME INJ 1,000 MG in SODIUM CHLORIDE 0.9% INJ 100 ML IV SCH (04:00)
[2018-01-08 05:59] LABS: HEMATOCRIT 27.8 % (35.0-46.0); HEMOGLOBIN 9.5 GM/DL (11.6-15.3); MEAN CELL VOLUME 91.2 FL (80.0-100.0); MEAN PLATELET VOLUME 10.6 FL (7.0-11.0); PLATELET COUNT 104 TH/MM3 (150-450); RED BLOOD COUNT 3.05 MIL/MM3 (4.00-5.30); WHITE BLOOD COUNT 6.8 TH/MM3 (4.0-11.0)
[2018-01-08 06:13] LABS: CREATININE 0.71 MG/DL (0.50-1.00)
[2018-01-08] MEDS: DOCUSATE SODIUM 50 MG/SENNA 8.6 MG TAB PO SCH (08:38)
[2018-01-08] MEDS: FAMOTIDINE 20 MG TAB PO SCH (08:38)
[2018-01-08] MEDS: VANCOMYCIN 500 MG VIAL (FOR ORAL USE ONLY) PO SCH (08:38)
[2018-01-08] MEDS ORDERED: FUROSEMIDE 20 MG/2 ML VIAL IV PUSH ONE (11:00)
--- NOTE | 2018-01-08 11:02 | HHI.CCPN ---
Subjective Remarks/Hospital Course This is a 77-year-old female with a past medical history significant for schizophrenia and dementia who was residing in the inpatient med/psych unit and being actively treated for failure to thrive and unanticipated weight loss as well as ongoing psychosis. Today she was noted to be acutely hypotensive. She was given 4 L of crystalloid IV fluids which did not improve her blood pressure. Rapid response was called and first blood pressure recorded was 60 systolic. She was emergently transferred to the ICU where I evaluated the patient on arrival. On arrival she had an improving blood pressure 100 systolic , however she was profoundly hypothermic with a core temperature of 29C. I performed bedside critical care echocardiography which demonstrated grossly preserved biventricular function, very collapsible IVC, no pericardial effusion. In addition, the patient appears to have a PEG tube in place. On palpation of her abdomen, the patient grimaces in pain. The patient is quite somnolent and although she is protecting her airway, no additional information is available from the patient. Review systems is unobtainable. The remainder of the history is obtained from prior medical records that we have at our institution, however those records are sparse with past medical history evidence given her degree of dementia and schizophrenia. Laboratory data that we collected once in the ICU demonstrates leukopenia, acute kidney injury. Septic shock would be high in the differential, and given her severe apparent abdominal tenderness, abdominal source of her sepsis would be the highest on the differential. 01/06 Patient is lethargic able to open her eyes to stimuli, started on Neosyn [address] abd/pelvis yesterday showed diffuse colitis. 01/07: remains in shock on vasopressors. lactate decreasing. C. Diff + now on PO vanc and iv flagyl. 01/08: out of shock. improved hemodynamics. off pressors. somewhat volume overloaded and diuresing. stable for transfer back to med/psych. Objective Vital Signs Date Time Temp Pulse Resp B/P (MAP) Pulse Ox O2 Delivery O2 Flow Rate FiO2 01/08/18 10:00 98 01/08/18 08:30 97.8 15 134/65 (88) 100 137/68 (91) 01/07/18 20:48 Nasal Cannula 2.00 Intake and Output 01/08/18 01/08/18 01/09/18 08:00 16:00 00:00 Intake Total 1461.5 ml Output Total 3050 ml Balance -1588.5 ml Result Diagram: 01/08/18 0410 01/08/18 0410 Other Results Microbiology Date/Time Source Procedure Growth Status 01/05/18 18:10 Urine Catheterized Urine Urine Culture - Final NO GROWTH IN 48 HOURS. Complete Imaging Last Impressions Abdomen/Pelvis CT 01/05/18 0000 Signed Impressions: CONCLUSION: 1. Diffuse colitis without perforation. 2. Distention of the stomach. 3. Bilateral renal low densities, likely cysts. 4. Bibasilar consolidation and right middle lobe nodule. 5. Prominent uterus with prominent endometrium. Nonemergent pelvic sonogram re commended. Objective Remarks GENERAL: elderly cachectic female, lethargic HEENT: Normocephalic. Atraumatic. Pupils equal, round, reactive, conjugate. NECK: Trachea is midline. There is no JVD. CHEST: nc o2. equal chest rise. CARDIOVASCULAR: normal rate, regular rhythm. sinus. ABDOMEN: Soft, apparently tender to palpation as patient grimaces with light touch to the abdomen, nondistended. no overt guarding or rebound. MUSCULOSKELETAL: Pulses 2+. No peripheral edema. NEUROLOGICAL: RASS -2. unclear neurologic baseline. moves all extremities spontaneously. does not follow commands. Lethargic A/P Assessment and Plan Assessment: 77yF with history of schizophrenia and dementia presented with C. Difficile associated septic shock. clinically improving. stable for transfer back to med/psych. Plan by systems: Neurologic: Schizophrenia Dementia Acute metabolic encephalopathy-resolved Frequent neurochecks Avoid long-acting sedatives Restraints for patient safety Respiratory: Nasal cannula for goal SPO2 greater than 90% Bronchodilators, check ABG Cardiovascular: Septic shock- resolved. s/p significant volume resuscitation start weaning stress dose steroids. d/c invasive monitors. lasix 20mg iv x 1. Renal: Acute kidney injury- resolved -- Monitor renal function, I/O's, electrolytes replacement as needed saline lock ivf. d/c mosqueda. FEN/GI: Abdominal pain Failure to thrive Severe acute protein calorie malnutrition, PEG tube is in place C. Diff colitis Hold tube feeds- on Jevity 1.5 @60ml/hr via PEG tube saline lock ivf. GI eval. CT abd/pelvis: Diffuse colitis without perforation Heme/ID: Anemia, unclear etiology Septic shock- resolved Suspected intra-abdominal sepsis C. Difficile colitis Continue iv flagyl, PO vanc. d/c iv vanc and iv cefepime. cultures NGTD x 48h. treat full course for c. diff. ID following. Endocrine: Hypothermia- likely 2nd severe sepsis- resolved -- SSI if needed for glycemic control Prophylaxis: GI Prophylaxis Pepcid DVT Prophylaxis -- SCDs Lovenox Lines: Peripheral IV, remove invasive lines. d/c Mosqueda Palliative care consulted to asses with goals of care Stephon Saunders MD Jan 08, 2018 11:02
[2018-01-08] MEDS ORDERED: HYDROCORTISONE SOD SUCCINATE 100 MG VIAL IV PUSH SCH (18:00)
== END 2018-01-08 12:55 | DRG 871 ==
LOC: HIMW 16:53 → HIME 01-06 19:00
PROVIDERS: ADMIT Internal Medicine Critical Care Medicine; ATTEND Internal Medicine Critical Care Medicine
PROC: 05H533Z Insertion of Infusion Device into Right Subclavian Vein, Percutaneous Approach (ICD-10-PCS; principal; 2018-01-06)
DX: A41.9 Sepsis, unspecified organism (principal); R65.21 Severe sepsis with septic shock; E43 Unspecified severe protein-calorie malnutrition; G93.41 Metabolic encephalopathy; N17.9 Acute kidney failure, unspecified; A04.72 Enterocolitis due to Clostridium difficile, not specified as recurrent; F20.9 Schizophrenia, unspecified; D70.9 Neutropenia, unspecified; F03.90 Unspecified dementia, unspecified severity, without behavioral disturbance, psychotic disturbance, mood disturbance, and anxiety; D64.9 Anemia, unspecified; T68.XXXA Hypothermia, initial encounter; R62.7 Adult failure to thrive; K52.9 Noninfective gastroenteritis and colitis, unspecified; Z96.653 Presence of artificial knee joint, bilateral; Z93.1 Gastrostomy status
CPT/HCPCS: 36556; 71045; 74177; 80048; 80053; 80202; 81001; 82805; 82948; 83605; 83735; 84100; 85007; 85025; 85027; 85610; 85730; 87040; 87086; 87493; 87641; J0692; J1650; J1720; J1940; J2370; J3370; J3475; J3480; J7030; J7040; J7042; J7050; J7060; J7120; Q9963; Q9967

== ENCOUNTER 2018-01-08 13:56 | Inpatient (IN) | payer OTHER, MEDICARE ==
[2018-01-08] MEDS ORDERED: ALUMINUM/MAGNESIUM/SIMETH 30 ML CUP PO PRN (15:30)
[2018-01-08] MEDS ORDERED: LORazepam 2 MG/ML VIAL IM PRN ×2 (15:30)
[2018-01-08] MEDS ORDERED: MAGNESIUM HYDROXIDE SUSP 30 ML CUP PO PRN (15:30)
[2018-01-08] MEDS ORDERED: LORazepam 0.5 MG TAB PO PRN (15:30)
[2018-01-08] MEDS ORDERED: LORazepam 1 MG TAB PO PRN (15:30)
[2018-01-08 18:04] VITALS: BP 129/65; PULSE 95; RESP 18; TEMP 98.7; O2SAT 97
[2018-01-08] MEDS: VALPROIC ACID SYRUP 250 MG/5 ML UDC PEG SCH (21:00)
[2018-01-08] MEDS: QUEtiapine FUMARATE 200 MG TAB PEG SCH (21:00)
[2018-01-09 05:09] VITALS: BP 98/58; PULSE 66; RESP 16; TEMP 97.8; O2SAT 98
[2018-01-09] MEDS: VALPROIC ACID SYRUP 250 MG/5 ML UDC PEG SCH ×2 (08:10→20:47)
[2018-01-09] MEDS: QUEtiapine FUMARATE 200 MG TAB PEG SCH ×2 (08:11→20:47)
[2018-01-09] MEDS ORDERED: NICOTINE 21 MG/24 HR PATCH T-DERMAL SCH (09:00)
[2018-01-09] MEDS ORDERED: hydrOXYzine HCL 50 MG TAB PO PRN (10:00)
--- NOTE | 2018-01-09 10:04 | HHI.HP ---
Provisional Diagnosis Admission Date Jan 08, 2018 at 14:24 [place]. Schizoaffective disorder bipolar type Certification of Person's Competence To Provide Express and Informed Consent I have personally examined Jackelyn Gonzalez , a person being served at [facility] on, Jan 09, 2018 09:52. Express and informed consent means consent voluntarily given in writing, by a competent person, after sufficient explanation and disclosure of the subject matter involved to enable the person to make a knowing and willful decision without any element of force, fraud, deceit, duress, or other form of constraint or coercion. This person is 18 years of age or older, is not now known to be incompetent to consent to treatment with a guardian advocate, and does not have a health care surrogate or proxy currently making medical treatment decisions. I have found this person to be one of the following: [] Competent to provide express and informed consent, as defined above, for voluntary admission to this facility and is competent to provide express and informed consent for treatment. He/she has the consistent capacity to make well reasoned, willful, and knowing decisions concerning his or her medical or mental health treatment. The person fully and consistently understands the purpose of the admission for examination/placement and is fully capable of personally exercising all rights assured [place]xxx] Incompetent to provide express and informed consent to voluntary admission , and this is incompetent to provide express and informed consent to treatment. The person must be transferred to involuntary status and a petition for a guardian advocate filed with the Circuit Court. [] Refusing to provide express and informed consent to voluntary admission but is competent to provide express and informed consent for treatment. The person must be discharged or transferred to involuntary status. Form shall be completed within 24 hours of a person's arrival at the receiving facility and filed in the clinical record of each person: 1. Admitted on a voluntary basis 2. Permitted to provide express and informed consent to his/her own treatment 3. Allowed to transfer from involuntary to voluntary status 4. Prior to permitting a person to consent to his or her own treatment after having been previously found incompetent to consent to treatment. History of Present Illness Capacity: Lacks Capacity HPI Patient is a 77-year-old Afro[place] female none. Multiple prior contacts was admitted to the psychiatric unit on 08/11 through 01/05/18 under visit [id number]. This is under my service. For treatment of her mental illness patient developed hypotensive shock was heavily Did twice and on 01/05/2018 was transferred to the intensive care unit under visit [id number]. She was discharged from there on 01/08/18 at that time the medicine service felt she had stabilized to the point where she could be returned to the 4 E. med psych unit. Patient seen by me. Today patient sedated to arousable to responsive responding and diffusely confused and disorganized mumbling. At this time she still meets criteria under the Munson act for psychiatric assessment though the medical issues are becoming more more prominent. We will continue the medical consults per hour 4 E. protocol. We will work with the medicine service to determine an appropriate placement for this lady will continue all her other orders and consultations Review of Systems Except as stated in HPI: all other systems reviewed are Neg Past Psych History Psychological trauma history None noted at this time Violence risk - others (6 mos) Low Violence risk - self (6 mos) Low Substance Abuse History Drugs/Alcohol past 12 months Unknown at this time Past Family Social History Coded Allergies: apple (Unverified Allergy, Severe, Swelling, 03/08/17) Active Scripts [Megestrol Liq] 400 MG/10 ML SUSP No Conflict Check, 400 MG PEG DAILY for Health for 15 Days, 1 Refill Prov:Hunter Pérez MD 12/20/17 Kxdoshoh-Wrbvzlmqjpylzjv-Qlllfuphv Liq (Magic Mouthwash Adult Liq) 120 Ml Susp, 5 ML SWISH-SWAL QID for Health for 15 Days, ML 1 Refill Prov:Hunter Pérez MD 12/20/17 Quetiapine (Quetiapine) 200 Mg Tab, 400 MG PEG BID for Mental Health for 15 Days , #60 TAB 1 Refill Prov:Hunter Pérez MD 12/20/17 [Chlorpromazine] 100 MG TAB No Conflict Check, 100 MG PEG BID@0800,1200 for Mental Health for 15 Days, 1 Refill Prov:Hunter Pérez MD 12/20/17 [chlorproMAZINE] 50 MG TAB No Conflict Check, 325 MG PEG HS for Mental Health for 15 Days, 1 Refill Prov:Hunter Pérez MD 12/20/17 Valproic Acid (Valproic Acid) 250 Mg/5 Ml (5 Ml) Solution, 500 MG PEG BID for Mental Health for 15 Days, ML 1 Refill Prov:Hunter Pérez MD 12/20/17 Current Medications Medications (Trade) Dose Ordered Sig/Karyna Route Start Time Stop Time Status Last Admin (SEROquel) 400 mg BID PEG 01/08/18 21:00 (Depakene Liq) 500 mg BID PEG 01/08/18 21:00 (Ativan) 0.5 mg Q12H PRN PO 01/08/18 15:30 (Ativan Inj) 0.5 mg Q12H PRN IM 01/08/18 15:30 (Tylenol) 650 mg Q4H PRN PO 01/08/18 15:30 (Milk Of Magnesia Liq) 30 ml DAILY PRN PO 01/08/18 15:30 (Mag-Al Plus Susp Liq) 30 ml Q6H PRN PO 01/08/18 15:30 Family Psych History Patient has supportive family unknown history of mental health issues in family Social History Patient has been living with various family members Patient's Strengths (min. 2) Patient verbal has access to health care and a supportive family Physical Exam Patient transferred back from medical service please see their assessments Vital Signs Vital Signs Date Time Temp Pulse Resp B/P (MAP) Pulse Ox O2 Delivery O2 Flow Rate FiO2 01/09/18 05:09 97.8 66 16 98/58 (71) 98 I/O 01/09/18 01/09/18 01/10/18 08:00 16:00 00:00 Output Total 1700 ml Balance -1700 ml Mental Status Examination Appearance: Other (Patient laying in bed sedated with bed clothing) Consciousness: Somnolent Orientation: Person Motor Activity: Other (Patient laying quietly in bed) Speech: Other (Patient mumbling) Language: Other (Very poor) Fund of Knowledge: Inadequate Attention and Concentration: Easily Distracted Memory: Impaired Mood: Sad Affect: Other (Marked decreased range and intensity) Thought Process & Associations: Disorganized Thought Content: Other (Markedly disorganized) Hallucination Type: None Delusion Type: None Suicidal Ideation: No Suicidal Plan: No Suicidal Intention: No Homicidal Ideation: No Homicidal Plan: No Homicidal Intention: No Insight: Poor Judgment: Poor Assessment & Plan Problem List: (1) Schizoaffective disorder, bipolar type ICD Codes: F25.0 - Schizoaffective disorder, bipolar type Status: Chronic Assessment & Plan Estimated LOS: days so patient sedated though responsive upon stimulation, no behavior problems. For now continue treatment no change placement may be problematic Discharge Planning To be determined Request Surrog/Guard Advoc?: Yes Louie Morales MD Jan 09, 2018 10:04
[2018-01-09] MEDS ORDERED: metroNIDAZOLE 500 MG INJ 100 ML IV SCH (11:00)
--- NOTE | 2018-01-09 11:31 | PD.CONS ---
[facility] Request[facility] By Reason for Consult Medical management Primary Care Physician No Primary Care Physician Diagnoses: History of Present Illness 77-year-old AA female with PMH of dementia, schizophrenia, arthritis, and asthma who was originally admitted to inpatient psychiatry on 12/24 after patient was Munson acted by PD due to aggressive behavior. She was transferred to medical psych unit due to poor p.o. intake. She was followed by [facility] while in med.psych however on 01/05 was transferred to medical ICU as a Haydee-Cat due to sever hypotension despite IVF bolus administration. She was treated with broad spectrum antibiotics including IV Vancomycin, Cefepime, and Flagyl. CT scan of the abdomen/pelvis revealed diffuse colitis without perforation, basilar consolidation and right middle love nodule as well as prominent uterus and endometrium. Her stool was tested and positive for c.diff, she was treated for hypothermia, BC x2 and UA were negative. Patient was treated with IV hydration however due to shock was ultimately place on vasopressors. Palliative care, ID and GI followed patient while she was in ICU. Patient was weaned off pressors, received one time diuresis, and transferred back to medical psych unit on 01/09. [facility] has been consult to assist with ongoing medical management. Spoke with nurse who repots patient continues to be lethargic and psych medications are on hold due to this. Unable to provide patient with a meal try due to how lethargic she is. She reports large amounts of urine output from Ross catheter. Patient is seen and examined in bed resting with eyes closed. She will open eyes very little with sternal rub, and withdraw to pain. She is nonverbal and does not follow any commands. Review of Systems Except as stated in HPI: all other systems reviewed are Neg Past Family Social History Allergies: Coded Allergies: apple (Unverified Allergy, Severe, Swelling, 03/08/17) Past Medical History Obtained from medical record Arthritis Asthma Schizophrenia Dementia Past Surgical History Obtained from medical record Bilateral cataracts Bilateral knee replacements PEG tube placement x2 Reported Medications Reported Meds & Active Scripts Active [Megestrol Liq] 400 MG/10 ML Susp 400 Mg PEG DAILY 15 Days Magic Mouthwash Adult Liq (Multi-Ingredient Mouthwash/Gargle) 120 Ml Susp 5 Ml SWISH-SWAL QID 15 Days Quetiapine (Quetiapine Fumarate) 200 Mg Tab 400 Mg PEG BID 15 Days [Chlorpromazine] 100 MG Tab 100 Mg PEG BID@0800,1200 15 Days [chlorproMAZINE] 50 MG Tab 325 Mg PEG HS 15 Days Valproic Acid 250 Mg/5 Ml (5 Ml) Solution 500 Mg PEG BID 15 Days Active Ordered Medications Current Medications Medications (Trade) Dose Ordered Sig/Karyna Route Start Time Stop Time Status Last Admin (SEROquel) 400 mg BID PEG 01/08/18 21:00 (Depakene Liq) 500 mg BID PEG 01/08/18 21:00 (Ativan) 0.5 mg Q12H PRN PO 01/08/18 15:30 (Ativan Inj) 0.5 mg Q12H PRN IM 01/08/18 15:30 (Tylenol) 650 mg Q4H PRN PO 01/08/18 15:30 (Milk Of Magnesia Liq) 30 ml DAILY PRN PO 01/08/18 15:30 (Mag-Al Plus Susp Liq) 30 ml Q6H PRN PO 01/08/18 15:30 (Atarax) 50 mg Q6H PRN PO 01/09/18 10:00 (VANCOMYCIN for oral use only) 500 mg QID PO 01/09/18 13:00 01/21/18 12:59 01/09/18 13:13 (Proamatine) 10 mg TID@07,12,17 PO 01/09/18 17:00 Family History Unable to obtain Social History Unable to obtain Physical Exam Vital Signs Vital Signs Date Time Temp Pulse Resp B/P (MAP) Pulse Ox O2 Delivery O2 Flow Rate FiO2 01/09/18 05:09 97.8 66 16 98/58 (71) 98 01/08/18 18:04 98.7 95 18 129/65 (86) 97 Physical Exam GENERAL: This is a well-nourished, well-developed patient, AA female, lethargic in bed. SKIN: No rashes, ecchymoses or lesions. Cool and dry. HEAD: Atraumatic. Normocephalic. EYES: Pupils equal round and reactive. No scleral icterus. No injection or drainage. ENT: Nose without bleeding, purulent drainage. Airway patent. NECK: Trachea midline. No JVD. Supple, nontender. CARDIOVASCULAR: Regular rate and rhythm without murmurs, gallops, or rubs. RESPIRATORY: Clear to auscultation. Breath sounds equal bilaterally. No wheezes , rales, or rhonchi. GASTROINTESTINAL: Abdomen soft, non-tender, nondistended. No guarding. No facial grimace with palpation, bowels sounds +4 quadrants. MUSCULOSKELETAL: Extremities without clubbing or cyanosis. No joint tenderness, effusion, or edema noted. No calf tenderness. Bilateral hand trace edema. NEUROLOGICAL: Somnolent, withdraw to pain in all four extremities. Nonverbal. Assessment and Plan Assessment and Plan 77-year-old AA female with PMH of dementia, schizophrenia, arthritis, and asthma who was originally admitted to inpatient psychiatry on 12/24 after patient was Munson acted by PD due to aggressive behavior. She was transferred to medical psych unit due to poor p.o. intake. She was followed by [facility] while in med.psych however on 01/05 was transferred to medical ICU as a Haydee-Cat due to sever hypotension despite IVF bolus administration. She was treated with broad spectrum antibiotics including IV Vancomycin, Cefepime, and Flagyl. CT scan of the abdomen/pelvis revealed diffuse colitis without perforation, basilar consolidation and right middle love nodule as well as prominent uterus and endometrium. Her stool was tested and positive for c.diff, she was treated for hypothermia, BC x2 and UA were negative. Patient was treated with IV hydration however due to shock was ultimately place on vasopressors. Palliative care, ID and GI followed patient while she was in ICU. Patient was weaned off pressors, received one time diuresis, and transferred back to medical psych unit on 01/09. [facility] has been consult to assist with ongoing medical management. Schizophrenia/dementia - Treatment plan per psych, Seroquel and Depakene held as patient is lethargic C.diff colitis - Continue p.o Vancomycin for total of 14 days, end date entered in EMR - IV Flagyl stopped, discussed with Dr. Hewitt via phone on 01/09 - Seen and evaluated by GI on 01/06, okay to restart TF, discussed with nurse in regards to checking for residuals Septic shock w/ hypotension - Suspected secondary to colitis, CT with no perforation. IV Flagyl and Cefepime D/C - s/p IV hydration and pressors - BP stable, on the low side this am, will resume Midodrine - Monitor BP - S/p IV Lasix 6/17 due to fluid overload. Consider D/C Ross tomorrow, monitor for retention. Hypernatremia Hypoglycemia BS 66 poor p.o. intake- secondary to mentation - NA 135--147, TF to start today, check BS Q4hrs, free water flushes - Hypoglycemic protocol, Spoke with RN at 18:40 regarding BS 55. - Recheck labs tomorrow - Dietary consulted for ongoing recommendations. Keep HOB 30 degrees at all times for aspiration precautions. Anemia - ? Dilution as patient did receive IV fluids due to severe shock - Check Hemoccult - Check iron studies DVT prophylaxis- Lovenox (check PLT's tomorrow) Palliative care consulted with assist with ongoing, appreciate assistance. Thank you for this consultation, will continue to follow along. Discussed Condition With Nurse and Dr. Hewitt. Gail Webster Jan 09, 2018 11:31
[2018-01-09] MEDS: VANCOMYCIN 500 MG VIAL (FOR ORAL USE ONLY) PO SCH ×3 (13:13→20:47)
[2018-01-09 14:39] LABS: BICARBONATE 22.1 MEQ/L (21.0-32.0); BLOOD UREA NITROGEN 9 MG/DL (7-18); CALCIUM 8.6 MG/DL (8.5-10.1); CHLORIDE 116 MEQ/L (98-107); CHOLESTEROL 144 MG/DL (120-200); CHOLESTEROL/ HDL RATIO 3.93 RATIO; CREATININE 0.69 MG/DL (0.50-1.00); GLOMERULAR FILTRATION RATE 100 ML/MIN (>89); GLUCOSE,RANDOM 66 MG/DL (74-106); HDL CHOLESTEROL 36.6 MG/DL (40.0-60.0); LDL CHOLESTEROL 96 MG/DL (0-99); SODIUM (NA) 147 MEQ/L (136-145); TRIGLYCERIDES 58 MG/DL (42-150)
--- NOTE | 2018-01-09 14:40 | HHI.HCPN ---
Reason for visit Pt previously seen in [facility] and has been transferred to med psych unit. Palliative care is reconsulted by attending medical physician to continue following. Pt known to palliative, see original consult from 01/06. (Alyssa Palma) Subjective/Interval History Pt previously seen in [facility]. Was hypotensive, in septic shock. Found to have c diff. Started on vanc and flagyl. Shock resolved. No longer in need of pressors and was transferred to med psych unit. Has PRN atarax, ativan ordered. Schedule seroquel and depakene has been withheld today d/t sedation. Dual visit with SEAN Ireland. On our evaluation she is lethargic, nearly catatonic , staring off. She is nonverbal and does not interact. (Alyssa Palma) Advance Directives Living Will: Never completed Health Care Surrogate: Never completed Durable Power of Marketing And Public Relations Manager: Completed, but not made available (Alyssa Palma) Advance Directive Specifics Health Care Surrogate(s): Pt is incapacitated. Per [place] Act category development manager apppointed granddaughter Joanie Wilde is appointed as proxy on 12/29/17. (Alyssa Palma) Objective Vital Signs Date Time Temp Pulse Resp B/P (MAP) Pulse Ox O2 Delivery O2 Flow Rate FiO2 01/09/18 05:09 97.8 66 16 98/58 (71) 98 01/08/18 18:04 98.7 95 18 129/65 (86) 97 Intake & Output 01/09/18 01/09/18 07:00 19:00 Intake Total 145 ml Output Total 2400 ml Balance -2400 ml 145 ml Tube Feeding 80 ml Tube Irrigant 5 ml Other 60 ml Output Urine Total 2400 ml Physical Exam CONSTITUTIONAL/GENERAL: This is an adequately nourished patient, in no apparent distress. TUBES/LINES/DRAINS: mosqueda catheter, PIV SKIN: No jaundice, rashes, or lesions. No wounds seen anteriorly. Skin temperature appropriate. Not diaphoretic. HEAD: Atraumatic. Normocephalic. EYES: PERRL. No scleral icterus. No injection or drainage. Fundi not examined. ENT: Nose without bleeding or purulent drainage. Dried secretions seen in mouth and pharynx. NECK: Trachea midline. Supple, nontender. CARDIOVASCULAR: irr HR, tachycardia without murmurs, gallops, or rubs. No JVD. Peripheral pulses symmetric. RESPIRATORY/CHEST: CTA, respirations shallow, unlabored GASTROINTESTINAL: Abdomen soft, non-tender, nondistended. No guarding. Bowel sounds present. + G tube GENITOURINARY: Without palpable bladder distension. Mosqueda catheter in place. MUSCULOSKELETAL: trace extremity edema. No mottling or clubbing. NEUROLOGICAL: lethargic. eyes open, nonverbal, does not follow commands PSYCHIATRIC: unable to assess d/t clinical condition (Alyssa Palma) Diagnostic Tests Laboratory Laboratory Tests Test 01/09/18 13:41 (Alyssa Palma) Assessment and Plan Disease Oriented Problem List: (1) Clostridium difficile colitis (2) Bipolar disorder, manic (3) Schizoaffective disorder, bipolar type Symptom Scale: (1) Agitation 0-10 Scale: Unable to quantify (2) Pain 0-10 Scale: Unable to quantify (3) Anorexia 0-10 Scale: Unable to quantify Pertinent Non-Medical Issues Psychosocial:Pt is . Reportedly pt was living with family. Spiritual: [employer], non-synagogue Legal: Pt is incapacitated. Per [employer] category development manager apppointed niadriana Wilde is appointed as proxy on 12/29/17. Does not appear pt will regain capacity. Ethical issues impacting care: non identified Important Contacts Daughter/granddaughter Joanie Wilde [phone]. Sister Shaunna Mike [phone] Prognosis Pt initially admitted for psychiatric issues and subsequently developed significant medical complications, septic shock, c diff colitis, that will likely compound underlying psychiatric issues and dementia and potentially limit full recovery. She has had numerous hospitalizations for exacerbations of psychiatric symptoms in the last 2 years. She remains high risk for ongoing complications and setbacks. Unclear if she will return to her baseline. Code Status: Full Code Plan * CODE STATUS - full code * GOALS - Daughter Joanie seems to have good understanding, for now wishes to continue available treatments and is hopeful for recovery though she understands possible trajectories. * LEGAL DECISION MAKER - Pt is incapacitated. Per [employer] Act category development manager apppointed marco Wilde is appointed as proxy on 12/29/17. Munson act continued. * SYMPTOMS * pain = abd pain 2/[address]. [address] found to have C diff. on flagyl, vanc. nontender on my exam. Avoid opiates in light of lethargy and psychiatric condition. * agitation = 2nd admission in 2 months for agitation and aggressive behavior. Has PRN atarax, ativan, scheduled seroquel, depakene. seroquel and depakene being withheld d/t lethargy/sedation at this time. on my eval she is nearly catatonic. continue to monitor, antipsychotics per psych * anorexia = poor PO intake since prior admission in November. GI replaced her g- tube. TF running 40 ml/hr. CABLE INSTALLATION MANAGER recommending use of g tube for nutrition, ok for pureed diet with honey thick liquid. continue TF. * Palliative care will continue to follow during hospital course as condition evolves, to assist patient/decision maker with understanding of medical conditions, weighing benefits/burdens of treatment options, for clarification of goals of treatment, and management of symptoms of palliative concern (Alyssa Palma) Time Spent Total Floor Time (mins): 25 (chart review, PE, discussion with RN) (Alyssa Palma) Attestation To help prompt me to consider important information that might be impacting today's encounter and assessment, information from prior notes written by myself or my colleagues may have been "brought forward" into today's note. My signature on this note, however, is an attestation that I personally performed the exam, history, and/or decision-making noted today, and, unless otherwise indicated, the interactions with patient, family, and staff as well as the review of records all occurred today. I also attest that the listed assessment and stated plan reflect my best clinical judgment today based on the combination of historical information, prior notes, and today's exam/ interactions. When time spent is documented, it refers only to time spent today by the signer, or if indicated, combined time spent today by collaborating physician/nurse practitioner. (Alyssa Palma) Collaborating MD Comments dual visit kimberly ESTRADA, concur with above assessment, documentation. (Kenyetta Ireland) Alyssa Palma Jan 09, 2018 14:40 Kenyetta Ireland Jan 10, 2018 17:24
[2018-01-09 15:57] LABS: HEMOGLOBIN A1C 5.6 % (4.3-6.0)
[2018-01-09 18:00] VITALS: BP 138/94; PULSE 110; TEMP 97.6; O2SAT 97
[2018-01-09] MEDS: MIDODRINE 5 MG TAB PO SCH (18:03)
[2018-01-09] MEDS: ENOXAPARIN SODIUM 40 MG/0.4 ML SYRINGE SQ SCH (18:03)
[2018-01-09] MEDS: FREE WATER G-TUBE SCH (18:04)
[2018-01-09] MEDS ORDERED: GLUCAGON 1 MG/ML VIAL IM PRN (18:45)
[2018-01-09] MEDS: DEXTROSE 50% IN WATER 50 ML VIAL(D50) IV PUSH PRN (21:14)
[2018-01-09] MEDS: DEXTROSE 5% IN WATE 1000ML INJ 1,000 ML IV SCH (22:30)
[2018-01-10 05:40] VITALS: BP 148/90; PULSE 107; RESP 16; TEMP 99.1; O2SAT 98
[2018-01-10] MEDS: FREE WATER G-TUBE SCH ×2 (06:00)
[2018-01-10] MEDS: MIDODRINE 5 MG TAB PO SCH (06:56)
[2018-01-10] MEDS: VANCOMYCIN 500 MG VIAL (FOR ORAL USE ONLY) PO SCH ×3 (09:00→18:00)
[2018-01-10] MEDS: VALPROIC ACID SYRUP 250 MG/5 ML UDC PEG SCH ×2 (09:00→21:34)
[2018-01-10] MEDS: QUEtiapine FUMARATE 200 MG TAB PEG SCH ×2 (09:00→21:34)
[2018-01-10 10:04] LABS: HEMATOCRIT 30.4 % (35.0-46.0); HEMOGLOBIN 10.1 GM/DL (11.6-15.3); MEAN CELL VOLUME 91.3 FL (80.0-100.0); MEAN CORPUSCULAR HEMOGLOBIN 30.4 PG (27.0-34.0); MEAN CORPUSCULAR HGB CONC 33.3 % (32.0-36.0); MEAN PLATELET VOLUME 8.6 FL (7.0-11.0); PLATELET COUNT 114 TH/MM3 (150-450); RED BLOOD COUNT 3.32 MIL/MM3 (4.00-5.30); RED CELL DISTRIBUTION WIDTH 15.1 % (11.6-17.2); WHITE BLOOD COUNT 6.2 TH/MM3 (4.0-11.0)
[2018-01-10 10:33] LABS: BICARBONATE 25.5 MEQ/L (21.0-32.0); BLOOD UREA NITROGEN 9 MG/DL (7-18); CALCIUM 8.1 MG/DL (8.5-10.1); CHLORIDE 109 MEQ/L (98-107); CREATININE 0.65 MG/DL (0.50-1.00); GLOMERULAR FILTRATION RATE 107 ML/MIN (>89); GLUCOSE,RANDOM 110 MG/DL (74-106); IRON (FE) 51 MCG/DL (50-170); SODIUM (NA) 142 MEQ/L (136-145)
[2018-01-10 10:37] LABS: % SATURATION IRON PROFILE 29.9 % (20-50); FERRITIN 1878 NG/ML (8-252); TOTAL IRON BINDING CAPACITY 171 MCG/DL (250-450)
[2018-01-10 11:28] LABS: ALT (GPT) 23 U/L (10-53); AST (GOT) 24 U/L (15-37); MAGNESIUM 1.7 MG/DL (1.5-2.5); PHOSPHORUS 1.6 MG/DL (2.5-4.9)
[2018-01-10 11:30] LABS: ALKALINE PHOSPHATASE 89 U/L (45-117); TOTAL BILIRUBIN ADULT 0.4 MG/DL (0.2-1.0); TOTAL PROTEIN 5.9 GM/DL (6.4-8.2)
[2018-01-10] MEDS: DEXTROSE 50% IN WATER 50 ML VIAL(D50) IV PUSH PRN (11:50)
--- NOTE | 2018-01-10 12:51 | PD.CONS ---
History of Present Illness Service Infectious disease Consult Requested By Dr Avila Reason for Consult Evaluate patient known to me with C. difficile colitis Primary Care Physician No Primary Care Physician Diagnoses: History of Present Illness Patient seen and examined. Records reviewed. Patient is a 69-year-old female, who I initially saw January 06 when she was transferred to the ICU from the psychiatric unit. She has known neutropenia and dementia, and has had multiple admissions to the psychiatric unit. She has been in the psych unit when she developed an acute onset of hypotension, so she was transferred to the ICU for further management. She was given IV fluids, and she clinically improved. She was found to have colitis on her abdominal CT , and her stool came back positive for C. difficile colitis. She was initially on IV Flagyl, and oral vancomycin was added. Her hemodynamics improved, and she was transferred to the medical psych unit on January 08. She has been fairly nonverbal, and keeps her eyes closed, and I am not able to get any further information. She has only had one bowel movement recorded in the last 24 hours. Infectious disease consultation has been requested to assist with management of her C. difficile colitis. She has not been febrile. Her WBC is within normal limits. Review of Systems ROS Limitations: Clinical Condition, Altered Mental Status, Unresponsive Past Family Social History Allergies: Coded Allergies: apple (Unverified Allergy, Severe, Swelling, 03/08/17) Past Medical History History of schizophrenia Asthma Arthritis Past Surgical History Bilateral cataract surgery Bilateral knee replacement PEG tube placement Active Ordered Medications Tylenol Antacids Lovenox Atarax Ativan MOM ProAmatine Seroquel Valproic acid Oral vancomycin Family History Noncontributory to current ID problem Social History Ex-smoker No alcohol abuse No illicit drug Physical Exam Vital Signs Vital Signs Date Time Temp Pulse Resp B/P (MAP) Pulse Ox O2 Delivery O2 Flow Rate FiO2 01/10/18 05:40 99.1 107 16 148/90 (109) 98 01/09/18 18:00 97.6 110 138/94 (109) 97 Physical Exam GENERAL: Patient is a well-nourished, well-developed female, eyes closed, not responding, not in respiratory distress. SKIN: Cool and dry. No generalized rash, no ecchymoses and no evidence of embolic lesions. HEAD: Atraumatic. Normocephalic. No temporal wasting, or tenderness. EYES: [place] conjunctiva. No petechia or hemorrhage. Pupils equal, round and reactive to light. No scleral icterus. No injection or drainage. EARS, NOSE AND THROAT: Nose without bleeding or purulent nasal discharge. Dry oral mucosa NECK: Trachea midline. Supple and not tender, no meningeal signs. No nuchal rigidity, no lymphadenopathy CARDIOVASCULAR: Regular rate and rhythm. No murmurs, rubs or gallops heard RESPIRATORY: Clear to auscultation. Breath sounds equal bilaterally. No rales , wheezing or rhonchi. Decreased breath sounds at the bases ABDOMEN: Soft, obese, no reaction to deep palpation, nondistended. Bowel sounds present and normoactive. No guarding. No organomegaly. EXTREMITIES: No clubbing, cyanosis, or edema. No joint effusion, has good ROM. Cool NEURO: Eyes closed, not responding, No Babinski, no ankle clonus PSYCHIATRIC: Unable to assess. LINE: PIV no evidence of infection Laboratory Laboratory Tests Test 01/09/18 13:41 01/10/18 09:45 01/10/18 12:30 Blood Urea Nitrogen 9 9 Creatinine 0.69 0.65 Random Glucose 66 110 Calcium Level 8.6 8.1 Sodium Level 147 142 Potassium Level 3.5 3.3 Chloride Level 116 109 Carbon Dioxide Level 22.1 25.5 Anion Gap 9 8 Estimat Glomerular Filtration Rate 100 107 Hemoglobin A1c 5.6 Triglycerides Level 58 Cholesterol Level 144 LDL Cholesterol 96 HDL Cholesterol 36.6 Cholesterol/HDL Ratio 3.93 White Blood Count 6.2 Red Blood Count 3.32 Hemoglobin 10.1 Hematocrit 30.4 Mean Corpuscular Volume 91.3 Mean Corpuscular Hemoglobin 30.4 Mean Corpuscular Hemoglobin Concent 33.3 Red Cell Distribution Width 15.1 Platelet Count 114 Mean Platelet Volume 8.6 Total Protein 5.9 Albumin 2.0 Phosphorus Level 1.6 Magnesium Level 1.7 Alkaline Phosphatase 89 Aspartate Amino Transf (AST/SGOT) 24 Alanine Aminotransferase (ALT/SGPT) 23 Total Bilirubin 0.4 Iron Level 51 Total Iron Binding Capacity 171 Percent Iron Saturation 29.9 Ferritin 1878 Result Diagram: 01/10/1845 01/10/1845 Assessment and Plan Assessment and Plan IMPRESSION C difficile colitis Recent episode of shock, resolved after fluid resuscitation Known schizophrenia Encephalopathy RECOMMENDATION Neuro consultation has been ordered to evaluate her mental status Complete 14 day sof Rx for c difficile colitis Clinically she seems stable from Id standpoint Thank you for this consultation Alicia Hewitt MD Jan 10, 2018 12:51
[2018-01-10] MEDS: POTASSIUM CHLOR 20 MEQ PREMIX 100 ML IV SCH ×2 (13:30→15:30)
--- NOTE | 2018-01-10 13:55 | RADRPT ---
EXAM DATE: 01/10/2018 1:39 PM EDT AGE/SEX: 77 years / Female INDICATIONS: Short of breath, evaluate infiltrates CLINICAL DATA: This is the patient's subsequent encounter. Patient reports that signs and symptoms h ave been present for 2 weeks and indicates a pain score of Nonresponsive. MEDICAL/SURGICAL HISTORY: Hypertension. Non-responsive. COMPARISON: [facility] [place], CHEST SINGLE AP, 01/06/2018. . FINDINGS: Rotated and underinflated AP views of the chest demonstrate normal size cardiac silhouette with calci fication of the aorta. There are bibasilar pleural-parenchymal opacities, stable on the left, and new on the right. No pneumothorax is identified. Bones demonstrate no acute finding. CONCLUSION: 1. Stable left basilar pleural-parenchymal opacity likely representing pleural effusion with associa ruba airspace consolidation and/or atelectasis. 2. New opacity at the right lung base representing either atelectasis or consolidation. Electronically signed by: Louie Nice MD 01/10/2018 1:53 PM EDT
[2018-01-10] MEDS ORDERED: POTASSIUM PHOSPHATE/SODIUM PHOSPHATE 250 MG TAB PO SCH (14:00)
--- NOTE | 2018-01-10 14:20 | HHI.PR ---
Subjective Remarks Follow-up of patient with dementia, schizophrenia, C. difficile colitis, recent episode of shock. Patient seen and examined. Patient is nonverbal. She does not follow commands. Discussed with nursing staff, patient with low blood sugars started on D5. Patient also with poor oral intake on tube feedings with Jevity however pump was not turned on this morning. Still with multiple loose stools. Objective Vitals Vital Signs Date Time Temp Pulse Resp B/P (MAP) Pulse Ox O2 Delivery O2 Flow Rate FiO2 01/10/18 05:40 99.1 107 16 148/90 (109) 98 01/09/18 18:00 97.6 110 138/94 (109) 97 I/O 01/09/18 01/09/18 01/09/18 01/10/18 01/10/18 01/10/18 07:00 15:00 23:00 07:00 15:00 23:00 Intake Total 145 ml 1216 ml Output Total 1700 ml 1150 ml 900 ml Balance -1700 ml -1005 ml 316 ml IV Total 336 ml Tube Feeding 80 ml 480 ml Tube Irrigant 5 ml Other 60 ml 400 ml Output Urine Total 1700 ml 1150 ml 900 ml # Bowel Movements 1 Result Diagram: 01/10/18 0945 01/10/18 0945 Objective Remarks GENERAL: This is a well-nourished, well-developed female patient, INAD. Awake. Nonverbal. Does not follow commands. ?left side neglect SKIN: No rashes, ecchymoses or lesions. Warm and dry. HEAD: Atraumatic. Normocephalic. Right sided facial droop. EYES: Pupils equal round and reactive. No scleral icterus. No injection or drainage. ENT: Nose without bleeding, purulent drainage. Airway patent. NECK: Trachea midline. CARDIOVASCULAR: Irregular without murmurs, gallops, or rubs. RESPIRATORY: Clear to auscultation anteriorly. Breath sounds equal bilaterally. No wheezes, rales, or rhonchi. GASTROINTESTINAL: Abdomen soft, non-tender, nondistended. No guarding. Bowels sounds +4 quadrants. PEG tube in place, site C/D/I. MUSCULOSKELETAL: Extremities without clubbing or cyanosis. No joint tenderness, effusion, or edema noted. No calf tenderness. BUE with diffuse edema. NEUROLOGICAL: Awake, nonresponsive. Nonverbal. Does not follow commands. Procedures None A/P Assessment and Plan 77-year-old AA female with PMH of dementia, schizophrenia, arthritis, and asthma who was originally admitted to inpatient psychiatry on 12/24 after patient was [place] acted by PD due to aggressive behavior. She was transferred to medical psych unit due to poor p.o. intake. She was followed by [facility] while in med.psych however on 01/05 was transferred to medical ICU as a [place]-Cat due to sever hypotension despite IVF bolus administration. She was treated with broad spectrum antibiotics including IV Vancomycin, Cefepime, and Flagyl. CT scan of the abdomen/pelvis revealed diffuse colitis without perforation, basilar consolidation and right middle love nodule as well as prominent uterus and endometrium. Her stool was tested and positive for c.diff, she was treated for hypothermia, BC x2 and UA were negative. Patient was treated with IV hydration however due to shock was ultimately place on vasopressors. Palliative care, ID and GI followed patient while she was in ICU. Patient was weaned off pressors, received one time diuresis, and transferred back to medical psych unit on 01/09. [facility] has been consult to assist with ongoing medical management. Schizophrenia/dementia -Management per psychiatric team -Seroquel and Depakene currently on hold due to lethargy Acute metabolic encephalopathy Patient is normally much more awake, interactive, verbal. Concern for possible TIA/CVA, ?seizure Temp 99.1, WBC WNL TSH 5.190 12/23/17 -Consult Neurology, appreciate assistance -Obtain CT head -neuro checks -EEG ordered -check RPR, B12 and ammonia level -check CXR and UA -PT/OT/ST -fall/seizure/aspiration precautions Bilateral UE edema -obtain bilateral doppler US to r/o DVT -possible fluid overload, hold free water flushes while on IV fluids -monitor C.diff colitis -Continue p.o Vancomycin for total of 14 days, end date entered in EMR -ID following, appreciate assistance -Seen and evaluated by GI on 01/06, okay to restart TF, discussed with nurse in regards to checking for residuals Septic shock w/ hypotension, resolved, suspect secondary to colitis s/p IV hydration and pressors 01/10 BP elevated, tachycardic, irregular on exam -hold Midodrine -monitor BP -obtain EKG -obtain 2D echo Hypokalemia Hypophosphatemia -repletion ordered -repeat BMP in am to monitor response Hypoglycemia, BS 43 overnight poor p.o. intake- secondary to mentation -continue TF per distributor operator recommendation, Jevity 1.5 @ 60ml/hr and bolus feedings with Vital 1.5 1 can(240ml)@ 8am, 11am, 2pm, 5pm and 8pm -d/c pureed diet. Consult ST for swallow evaluation. -Keep HOB 30 degrees at all times for aspiration precautions. -continue on D5NS -continue on q2h accucheks Anemia, normocytic, normochromic Thrombocytopenia No e/o active bleeding Iron studies reviewed -? Dilution as patient did receive IV fluids due to severe shock -Check Hemoccult/pending -obtain B12 and folate levels -continue to monitor Sacral ulcer -wound care consult -frequent turns q2h, float heels off bed -monitor DVT prophylaxis- Carol Haddad Jan 10, 2018 14:20
[2018-01-10 15:26] LABS: INTERNATIONAL NORMALIZED RATIO 1.1 RATIO; PROTHROMBIN TIME - PATIENT 11.6 SEC (9.8-11.6)
--- NOTE | 2018-01-10 16:36 | PD.CONS ---
History of Present Illness Service Neurology Consult Requested By Medical for neuro evaluation Primary Care Physician No Primary Care Physician History of Present Illness 77-year-old AA female with PMH of dementia, schizophrenia, [place] acted due to aggressive behavior. Apparently was in the intensive care unit was on pressors for septic shock. Noted be more lethargic is on antipsychotics. According to nursing staff they state she is more alert 2 days ago somewhat more conversant now has become more nonverbal however looking at previous medical notes it appears she has had lethargy decreased interaction. Is also being followed by palliative care and infectious disease service. CT brain scan performed no acute lesion identified Review of Systems Except as stated in HPI: all other systems reviewed are Neg Past Family Social History Allergies: Coded Allergies: apple (Unverified Allergy, Severe, Swelling, 03/08/17) Past Medical History Obtained from medical record Arthritis Asthma Schizophrenia Dementia Past Surgical History Obtained from medical record Bilateral cataracts Bilateral knee replacements PEG tube placement x2 Reported Medications Family History Unable to obtain Social History Unable to obtain Review of Systems All other ROS: ROS reviewed as documented in chart Past Family Social History Allergies: Coded Allergies: apple (Unverified Allergy, Severe, Swelling, 03/08/17) Active Ordered Medications Current Medications Medications (Trade) Dose Ordered Sig/Karyna Route Start Time Stop Time Status Last Admin (SEROquel) 400 mg BID PEG 01/08/18 21:00 (Depakene Liq) 500 mg BID PEG 01/08/18 21:00 01/10/18 09:00 (Ativan) 0.5 mg Q12H PRN PO 01/08/18 15:30 (Ativan Inj) 0.5 mg Q12H PRN IM 01/08/18 15:30 (Tylenol) 650 mg Q4H PRN PO 01/08/18 15:30 (Milk Of Magnesia Liq) 30 ml DAILY PRN PO 01/08/18 15:30 (Mag-Al Plus Susp Liq) 30 ml Q6H PRN PO 01/08/18 15:30 (Atarax) 50 mg Q6H PRN PO 01/09/18 10:00 (VANCOMYCIN for oral use only) 500 mg QID PO 01/09/18 13:00 01/21/18 12:59 01/10/18 09:00 (Proamatine) 10 mg TID@07,12,17 PO 01/09/18 17:00 Future Hold 01/10/18 06:56 (Lovenox Inj) 40 mg Q24H SQ 01/09/18 17:00 01/09/18 18:03 (Free Water) VOLUME OF WATER: 200 ML Q6HR G-TUBE 01/09/18 18:00 Future Hold 01/10/18 06:00 (D50w (Vial) Inj) 50 ml UNSCH PRN IV PUSH 01/09/18 18:45 01/10/18 11:50 (Glucagon Inj) 1 mg STAT PRN IM 01/09/18 18:45 01/09/18 19:29 Dextrose 1,000 ml @ 42 mls/hr [id number] IV 01/09/18 22:30 01/09/18 22:30 Potassium Chloride 100 ml @ 50 mls/hr Q2H IV 01/10/18 13:30 01/10/18 17:29 01/10/18 13:30 (K-Phos Neutral) 250 mg Q8HR PEG 01/10/18 14:00 Exam I&O / VS Vital Signs Date Time Temp Pulse Resp B/P (MAP) Pulse Ox O2 Delivery O2 Flow Rate FiO2 01/10/18 05:40 99.1 107 16 148/90 (109) 98 01/09/18 18:00 97.6 110 138/94 (109) 97 Exam Comments Patient lying in bed awake nonverbal not following appears to track some blink to threat reduced left nasolabial fold left lower facial weakness no involuntary movements. Resist pupillary exam. Open mouth breathing. No respiratory distress however. Localizes better with the right compared to left side mild withdrawal of the lower extremities upper extremities limited movement reflexes trace plantarflex her no clonus. Review/Management Diagnosis/Plan: (1) Acute encephalopathy ICD Codes: G93.40 - Encephalopathy, unspecified Status: Acute Plan: Etiology; antipsychotics versus toxic metabolic versus right hemispheric stroke She demonstrates mild left facial and lower extremity weakness Ammonia levels minimally elevated Recommendations MRI brain EEG Hold Seroquel. She had been receiving 400 mg twice daily Check Depakote level Follow exam (2) Bipolar disorder, manic ICD Codes: F31.10 - Bipolar disorder, current episode manic without psychotic features, unspecified Status: Chronic (3) Hypertension ICD Codes: I10 - Essential (primary) hypertension Status: Chronic (4) Schizoaffective disorder, bipolar type ICD Codes: F25.0 - Schizoaffective disorder, bipolar type Status: Chronic (5) Dementia ICD Codes: F03.90 - Unspecified dementia without behavioral disturbance Status: Chronic Problem Qualifiers (1) Hypertension: Qualified Codes: I10 - Essential (primary) hypertension Harley Vasquez MD Jan 10, 2018 16:36
--- NOTE | 2018-01-10 16:42 | RADRPT ---
EXAM DATE: 01/10/2018 4:37 PM EDT AGE/SEX: 77 years / Female INDICATIONS: Encephalopathy, altered mental status. CLINICAL DATA: This is the patient's initial encounter. Patient reports that signs and symptoms have been present for 1 day and indicates a pain score of 3/10. MEDICAL/SURGICAL HISTORY: Hypertension. Dementia. None. RADIATION DOSE: 56.35 CTDI (mGy) COMPARISON: [facility] [place]RA[place]/O [place]AST, 02/04/2016. . TECHNIQUE: CT of the head without contrast. Using automated exposure control and adjustment of the mA and/or kV according to patient size, radiation dose was kept as low as reasonably achievable to ob tain optimal diagnostic quality images. DICOM format image data is available electronically for revi ew and comparison. FINDINGS: Cerebrum: Mild to moderate diffuse cerebral atrophy. The ventricles are normal for degree of atrophy . No evidence of midline shift, mass lesion, hemorrhage or acute infarction. No extraaxial fluid col lections are seen. Posterior Fossa: The cerebellum and brainstem are intact. The 4th ventricle is midline. The cerebe llopontine angle is unremarkable. Extracranial: The visualized portion of the orbits is intact. Skull: The calvaria is intact. No evidence of skull fracture. CONCLUSION: 1. No acute intracranial abnormality or significant interval change. Electronically signed by: Gerry Velasquez MD 01/10/2018 4:41 PM EDT
[2018-01-10] MEDS: ENOXAPARIN SODIUM 40 MG/0.4 ML SYRINGE SQ SCH (17:00)
--- NOTE | 2018-01-10 17:06 | HHI.PYPN ---
Subjective Remarks Patient seen on a return from CT of the head which was read as no acute problems , patient seen with nurse mildly, chart reviewed, patient somewhat drowsy and sedated though arousable to diffusely confused and disoriented. For now continue treatment Review of Systems Except as stated in HPI: all other systems reviewed are Neg Mental Status Examination Appearance: Other (Patient laying in bed sedated with bed clothing) Consciousness: Somnolent Orientation: Person Motor Activity: Other (Patient laying quietly in bed) Speech: Other (Patient mumbling) Language: Other (Very poor) Fund of Knowledge: Inadequate Attention and Concentration: Easily Distracted Memory: Impaired Mood: Sad Affect: Other (Marked decreased range and intensity) Thought Process & Associations: Disorganized Thought Content: Other (Markedly disorganized) Hallucination Type: None Delusion Type: None Suicidal Ideation: No Suicidal Plan: No Suicidal Intention: No Homicidal Ideation: No Homicidal Plan: No Homicidal Intention: No Insight: Poor Judgment: Poor Results Labs Test 01/10/18 09:45 01/10/18 12:30 01/10/18 14:47 White Blood Count 6.2 TH/MM3 Red Blood Count 3.32 MIL/MM3 Hemoglobin 10.1 GM/DL Hematocrit 30.4 % Mean Corpuscular Volume 91.3 FL Mean Corpuscular Hemoglobin 30.4 PG Mean Corpuscular Hemoglobin Concent 33.3 % Red Cell Distribution Width 15.1 % Platelet Count 114 TH/MM3 Mean Platelet Volume 8.6 FL Blood Urea Nitrogen 9 MG/DL Creatinine 0.65 MG/DL Random Glucose 110 MG/DL Total Protein 5.9 GM/DL Albumin 2.0 GM/DL Calcium Level 8.1 MG/DL Phosphorus Level 1.6 MG/DL Magnesium Level 1.7 MG/DL Alkaline Phosphatase 89 U/L Aspartate Amino Transf (AST/SGOT) 24 U/L Alanine Aminotransferase (ALT/SGPT) 23 U/L Total Bilirubin 0.4 MG/DL Sodium Level 142 MEQ/L Potassium Level 3.3 MEQ/L Chloride Level 109 MEQ/L Carbon Dioxide Level 25.5 MEQ/L Anion Gap 8 MEQ/L Estimat Glomerular Filtration Rate 107 ML/MIN Iron Level 51 MCG/DL Total Iron Binding Capacity 171 MCG/DL Percent Iron Saturation 29.9 % Ferritin 1878 NG/ML Vitamin B12 Level 1393 PG/ML Ammonia 34 MCMOL/L Prothrombin Time 11.6 SEC Prothromb Time International Ratio 1.1 RATIO Lactic Acid Level 1.1 mmol/L Vitals/IOs Vital Signs Date Time Temp Pulse Resp B/P (MAP) Pulse Ox O2 Delivery O2 Flow Rate FiO2 01/10/18 05:40 99.1 107 16 148/90 (109) 98 Intake and Output 01/10/18 01/10/18 01/11/18 08:00 16:00 00:00 Intake Total 1216 ml Output Total 650 ml Balance 566 ml Assessment & Plan Problem List: (1) Schizoaffective disorder, bipolar type ICD Codes: F25.0 - Schizoaffective disorder, bipolar type Status: Chronic Assessment & Plan Estimated LOS: days patient continues somewhat confused sedated at this time after returning from CT of the head. For now continue treatment Justification for Cont. Inpt. At this time patient would decompensate a place to a lower level of care Discharge Planning To be determined Request HC Surrog/Guard Advoc?: Yes Louie Morales MD Jan 10, 2018 17:06
--- NOTE | 2018-01-10 17:13 | PD.WCN.NOT ---
Wound Consult Description: Consult for PRESSURE ULCER to sacrum per Juan. Communicated with: RN Recommendation: Continue current treatment of Calazime skin protectant paste BID and PRN for moisture and Q2H turns from left to right sides only for pressure relief from sacral/coccyx area. Additional Information: Patient seen on for evaluation of sacral wound. Patient was positioned to her right side for assessment. Remnants of Calazime skin protectant are noted making it difficult to visualize wound bed and periwound. Wound measures 3cm x 1.5cm x ~0.1cm of red non granulating tissue with jagged wound margins and what appears to be an unremarkable periwound. Given the wound location and margins, the etiology appears to be mixed with moisture, friction, and pressure indicating a Stage 2 pressure injury. Patient is incontinent with bm noted. Recommend to continue Calazime BID and PRN and reposition patient Q2H for offloading and pressure relief from sacral area. Agueda Mix [facility] Jan 10, 2018 17:13
[2018-01-10 17:40] LABS: BACTERIA, URINE RARE /hpf; BILIRUBIN, URINE NEG (NEG); BLOOD, URINE SMALL (NEG); GLUCOSE,URINE NEG (NEG); KETONE, URINE NEG (NEG); NITRITE,URINE NEG (NEG); URINE COLOR Straw (YELLW/STRAW); URINE LEUKOCYTE ESTERASE TRACE (NEG)
[2018-01-10 18:09] VITALS: BP_SYST 156; PULSE 90; RESP 16; TEMP 99.5; O2SAT 98
--- NOTE | 2018-01-10 18:19 | RADRPT ---
EXAM DATE: 01/10/2018 6:04 PM EDT AGE/SEX: 77 years / Female INDICATIONS: CVA. CLINICAL DATA: This is the patient's subsequent encounter. Patient reports that signs and symptoms h ave been present for 2 days and indicates a pain score of 0/10. MEDICAL/SURGICAL HISTORY: None. Total knee replacement, left. Total knee replacement, right. C ataracts. PEG tube. COMPARISON: No prior exams available for comparison. TECHNIQUE: Multiplanar, multisequence examination of the brain was performed without contrast. FINDINGS: Cerebrum: Mild to moderate diffuse cerebral atrophy. The ventricles are normal for age. There are sm all bilateral basal ganglia lacunar infarcts. No evidence of midline shift, mass lesion, hemorrhage o r acute infarction. No extraaxial fluid collections are seen. The pituitary gland and suprasellar c istern are normal in configuration. White Matter: Mild periventricular and deep white matter T2 prolongation. Posterior Fossa: The cerebellum and brainstem are intact. The 4th ventricle is midline. The cerebel lopontine angle is unremarkable. The cerebellar tonsils are normal in position. Diffusion Imaging: No focal areas of restricted diffusion are seen. No evidence of acute infarction . Extracranial: The visualized portions of the orbits and paranasal sinuses are unremarkable. CONCLUSION: 1. Senescent changes with old small bilateral basal ganglia lacunar infarcts. 2. Mild periventricular small vessel ischemic white matter demyelination. 3. No acute abnormality. Specifically, no acute infarction. Electronically signed by: Gerry Velasquez MD 01/10/2018 6:17 PM EDT
[2018-01-10] MEDS: POTASSIUM PHOSPHATE/SODIUM PHOSPHATE 250 MG TAB PEG SCH (21:34)
--- NOTE | 2018-01-10 22:00 | MG ---
cc: Gavino Galo MD, PhD Gavino Galo MD PhD TEST NUMBER [id number] TECHNIQUE: This is a 17-channel EEG. DESCRIPTION: The background rhythm showed generalized slowing in the delta frequency at 3-4 Hz. Amplitude is about 10-20 microvolts. There is some eye movement artifact and muscle artifact. There are no lateralizing features seen. There are no epileptiform discharges present. Photic results in a poor driving response. INTERPRETATION: Abnormal study. Gavino Galo MD, PhD MUNIR/ , 09:44 PM , 09:58 PM
--- NOTE | 2018-01-10 22:01 | MG ---
cc: Gavino Galo MD, PhD Gavino Galo MD PhD ADDENDUM: INTERPRETATION: Abnormal study consistent with a severe encephalopathy. Gavino Galo MD, PhD MUNIR/ , 09:45 PM , 09:59 PM
[2018-01-10] MEDS: DEXTROSE 5% IN WATE 1000ML INJ 1,000 ML IV SCH (22:18)
[2018-01-11 05:22] VITALS: BP 117/72; PULSE 104; RESP 17; TEMP 98.4; O2SAT 98
[2018-01-11] MEDS: POTASSIUM PHOSPHATE/SODIUM PHOSPHATE 250 MG TAB PEG SCH ×3 (05:25→20:28)
--- NOTE | 2018-01-11 07:37 | EKG ---
Date Performed: 01/10/2018 Time Performed: 14:50:14 PTAGE: 77 years EKG: ATRIAL FIBRILLATION WITH RAPID VENTRICULAR RESPONSE SEPTAL MYOCARDIAL INFARCTION , OF INDET ERMINATE AGE ABNORMAL ECG PREVIOUS TRACING : 12/04/2017 17.17 DOCTOR: Vadim Barrios Interpretating Date/Time 01/11/2018 07:33:15
--- NOTE | 2018-01-11 08:18 | HHI.PR ---
Subjective Remarks Follow-up of patient with dementia, schizophrenia, C. difficile colitis, recent episode of shock. Patient seen and examined. Patient appears much improved. She is much more alert, talkative, babbling nonsensically and smiling. Discussed with RN, no stooling overnight or so far today. New onset afib with RVR. Objective Vitals Vital Signs Date Time Temp Pulse Resp B/P (MAP) Pulse Ox O2 Delivery O2 Flow Rate FiO2 01/11/18 05:22 98.4 104 17 117/72 (87) 98 01/10/18 18:09 99.5 90 16 156/ 98 I/O 01/10/18 01/10/18 01/10/18 01/11/18 01/11/18 01/11/18 07:00 15:00 23:00 07:00 15:00 23:00 Intake Total 1216 ml 0 ml Output Total 900 ml 1850 ml Balance 316 ml 0 ml -1850 ml Intake Oral 0 ml IV Total 336 ml Tube Feeding 480 ml Other 400 ml Output Urine Total 900 ml 1850 ml # Bowel Movements 1 Result Diagram: 01/10/18 0945 01/10/18 0945 Imaging Last Impressions Upper Extremity Ultrasound 01/11/18 0000 Signed Impressions: CONCLUSION: 1. Small area of thrombus at the insertion site of the patient's IV in the rig ht forearm. The remainder of the venous system of the right upper extremity is widely patent. 2. The venous system of the left upper extremity is widely patent. Head CT 01/10/18 1547 Signed Impressions: CONCLUSION: 1. No acute intracranial abnormality or significant interval change. Chest X-Ray 01/10/18 0000 Signed Impressions: CONCLUSION: 1. Stable left basilar pleural-parenchymal opacity likely representing pleural effusion with associated airspace consolidation and/or atelectasis. 2. New opacity at the right lung base representing either atelectasis or conso lidation. Brain MRI 01/10/18 0000 Signed Impressions: CONCLUSION: 1. Senescent changes with old small bilateral basal ganglia lacunar infarcts. 2. Mild periventricular small vessel ischemic white matter demyelination. 3. No acute abnormality. Specifically, no acute infarction. Objective Remarks GENERAL: This is a well-nourished, well-developed female patient, INAD. Much more awake and alert. Following simple commands. Tracking. SKIN: No rashes, ecchymoses or lesions. Warm and dry. HEAD: Atraumatic. Normocephalic. Right sided facial droop. EYES: Pupils equal round and reactive. No scleral icterus. No injection or drainage. ENT: Nose without bleeding, purulent drainage. Airway patent. NECK: Trachea midline. CARDIOVASCULAR: Irregular without murmurs, gallops, or rubs. RESPIRATORY: Clear to auscultation anteriorly. Breath sounds equal bilaterally. No wheezes, rales, or rhonchi. GASTROINTESTINAL: Abdomen soft, non-tender, nondistended. No guarding. Bowels sounds +4 quadrants. PEG tube in place, site C/D/I. MUSCULOSKELETAL: Extremities without clubbing or cyanosis. No joint tenderness, effusion, or edema noted. No calf tenderness. BUE with diffuse edema. NEUROLOGICAL: Awake and alert. Babbling nonsensically. Able to move all extremities. Follows simple commands. PSYCHIATRIC: Poor judgement and insight Procedures None A/P Assessment and Plan 77-year-old AA female with PMH of dementia, schizophrenia, arthritis, and asthma who was originally admitted to inpatient psychiatry on 12/24 after patient was [place] acted by PD due to aggressive behavior. She was transferred to medical psych unit due to poor p.o. intake. She was followed by [facility] while in med.psych however on 01/05 was transferred to medical ICU as a Haydee-Cat due to sever hypotension despite IVF bolus administration. She was treated with broad spectrum antibiotics including IV Vancomycin, Cefepime, and Flagyl. CT scan of the abdomen/pelvis revealed diffuse colitis without perforation, basilar consolidation and right middle love nodule as well as prominent uterus and endometrium. Her stool was tested and positive for c.diff, she was treated for hypothermia, BC x2 and UA were negative. Patient was treated with IV hydration however due to shock was ultimately place on vasopressors. Palliative care, ID and GI followed patient while she was in ICU. Patient was weaned off pressors, received one time diuresis, and transferred back to medical psych unit on 01/09. [facility] has been consult to assist with ongoing medical management. Schizophrenia/dementia -Management per psychiatric team -Seroquel and Depakene currently on hold due to lethargy Acute metabolic encephalopathy, improved Patient much more improved. She is afebrile. TSH 5.190 12/23/17 Chest x-ray shows stable left basilar opacity, new opacity right lung base possibly atelectasis versus consolidation CT the head unremarkable MRI brain no acute abnormality EEG shows severe encephalopathy, no epileptiform activity RPR nonreactive, ammonia level 34, B12 elevated -Neurology following, appreciate assistance -neuro checks -continue with PT/OT -keep NPO, ST following -fall/seizure/aspiration precautions Bilateral UE edema Doppler reveals small area of superficial thrombosis from patient's IV site right forearm otherwise no evidence of DVT -possible fluid overload, hold free water flushes while on IV fluids -monitor C.diff colitis, improving -Continue p.o Vancomycin for total of 14 days, end date entered in EMR -ID following, appreciate assistance -Seen and evaluated by GI on 01/06, okay to restart TF, discussed with nurse in regards to checking for residuals New onset afib with RVR -d/c Midodrine -2D echocardiogram ordered, results pending -Start on low-dose metoprolol BID with parameters -Begin Eliquis 5 mg twice daily -Monitor heart rate Hypokalemia Hypophosphatemia -repletion ordered -repeat BMP in am to monitor response Hypoglycemia, BS 43 overnight poor p.o. intake- secondary to mentation Blood sugars improved, blood sugar 123 this am -continue TF per supervising film or videotape editor recommendation, Jevity 1.5 @ 60ml/hr and bolus feedings with Vital 1.5 1 can(240ml)@ 8am, 11am, 2pm, 5pm and 8pm -Keep HOB 30 degrees at all times for aspiration precautions. -continue on D5NS -continue on q2h accucheks Anemia, normocytic, normochromic Thrombocytopenia No e/o active bleeding Iron studies reviewed -? Dilution as patient did receive IV fluids due to severe shock -Check Hemoccult/pending -continue to monitor - repeat CBC in am Sacral ulcer -wound care consulted -frequent turns q2h, float heels off bed -monitor DVT prophylaxis- Carol Haddad Jan 11, 2018 08:18
[2018-01-11] MEDS: VANCOMYCIN 500 MG VIAL (FOR ORAL USE ONLY) PO SCH ×4 (09:00→20:29)
[2018-01-11] MEDS: VALPROIC ACID SYRUP 250 MG/5 ML UDC PEG SCH ×2 (10:28→20:28)
[2018-01-11] MEDS: QUEtiapine FUMARATE 200 MG TAB PEG SCH ×2 (10:28→20:28)
[2018-01-11] MEDS ORDERED: APIXABAN 5 MG TABLET PO SCH ×2 (11:15→21:00)
--- NOTE | 2018-01-11 11:31 | RADRPT ---
EXAM DATE: 01/11/2018 10:52 AM EDT AGE/SEX: 77 years / Female INDICATIONS: Bilateral arm edema. CLINICAL DATA: This is the patient's initial encounter. Patient reports that signs and symptoms have been present for 1 day and indicates a pain score of 0/10. MEDICAL/SURGICAL HISTORY: Hypertension. Arthritis. Asthma. Diabetes. Dementia. Schizophrenia. Total knee replacement, left. Total knee replacement, right. PEG tub placement. COMPARISON: No prior exams available for comparison. FINDINGS: Right Upper Extremity: The examination demonstrates thrombus within the cephalic vein at the inserti on site of the IV and extending several centimeters proximal. Centrally, the cephalic is patent. The remainder the deep venous system of the right upper extremity is widely patent. Left Upper Extremity: The vessels are compressible and augmentation response is documented. No filli ng defects are seen. The flow is phasic with respiration. Other: None. CONCLUSION: 1. Small area of thrombus at the insertion site of the patient's IV in the right forearm. The remain silas of the venous system of the right upper extremity is widely patent. 2. The venous system of the left upper extremity is widely patent. Electronically signed by: Jake Ortiz MD 01/11/2018 11:30 AM EDT
--- NOTE | 2018-01-11 15:40 | HHI.PYPN ---
Subjective Remarks Patient seen in her room with nurse Sapna, chart reviewed, patient complaint medications. Patient more alert today though now she just speaks and babbling gibberish. She is alert at times feisty and irritable with interventions. We will continue to work on placement issues Review of Systems Except as stated in HPI: all other systems reviewed are Neg Mental Status Examination Appearance: Other (Patient laying in bed sedated with bed clothing) Consciousness: Somnolent Orientation: Person Motor Activity: Other (Patient laying quietly in bed) Speech: Other (Patient mumbling) Language: Other (Very poor) Fund of Knowledge: Inadequate Attention and Concentration: Easily Distracted Memory: Impaired Mood: Sad Affect: Other (Marked decreased range and intensity) Thought Process & Associations: Disorganized Thought Content: Other (Markedly disorganized) Hallucination Type: None Delusion Type: None Suicidal Ideation: No Suicidal Plan: No Suicidal Intention: No Homicidal Ideation: No Homicidal Plan: No Homicidal Intention: No Insight: Poor Judgment: Poor Results Labs Test 01/10/18 16:37 01/10/18 17:20 01/11/18 13:31 Urine Color Straw Urine Turbidity CLEAR Urine pH 7.0 Urine Specific [place] 1.003 Urine Protein NEG mg/dL Urine Glucose (UA) NEG mg/dL Urine Ketones NEG mg/dL Urine Occult Blood SMALL Urine Nitrite NEG Urine Bilirubin NEG Urine Urobilinogen LESS THAN 2 mg/dL Urine Leukocyte Esterase TRACE Urine RBC 5 /hpf Urine WBC 3 /hpf Urine Bacteria RARE /hpf Urine Yeast (Budding) MOD Microscopic Urinalysis Comment CATH-CULTURE IND Free Thyroxine 0.93 NG/DL Total Triiodothyronine 66 NG/DL Date/Time Source Procedure Growth Status 01/10/18 16:37 Urine Catheterized Urine Urine Culture - Preliminary NO GROWTH IN 24 HOURS. Resulted Vitals/IOs Vital Signs Date Time Temp Pulse Resp B/P (MAP) Pulse Ox O2 Delivery O2 Flow Rate FiO2 01/11/18 05:22 98.4 104 17 117/72 (87) 98 Intake and Output 01/11/18 01/11/18 01/12/18 08:00 16:00 00:00 Intake Total 0 ml Output Total 600 ml 1225 ml Balance -600 ml -1225 ml Assessment & Plan Problem List: (1) Schizoaffective disorder, bipolar type ICD Codes: F25.0 - Schizoaffective disorder, bipolar type Status: Chronic Assessment & Plan Estimated LOS: days patient continues confused disoriented with unintelligible speech Justification for Cont. Inpt. At this time patient would decompensate a place to a lower level of care Discharge Planning To be determined Request HC Surrog/Guard Advoc?: Yes Louie Morales MD Jan 11, 2018 15:40
[2018-01-11] MEDS ORDERED: PILL SPLITTER OTHER PRN (17:15)
[2018-01-11 18:26] VITALS: BP 118/70; PULSE 74; RESP 18; TEMP 98.3; O2SAT 96
[2018-01-11] MEDS ORDERED: METOPROLOL TARTRATE 25 MG TAB PO SCH (21:00)
[2018-01-11] MEDS: DEXTROSE 5% IN WATE 1000ML INJ 1,000 ML IV SCH (22:08)
[2018-01-12] MEDS: POTASSIUM PHOSPHATE/SODIUM PHOSPHATE 250 MG TAB PEG SCH ×3 (05:27→23:27)
[2018-01-12 06:37] VITALS: BP 117/57; PULSE 92; RESP 20; TEMP 98.9; O2SAT 97
--- NOTE | 2018-01-12 08:24 | HHI.PR ---
Subjective Remarks Follow-up of patient with dementia, schizophrenia, C. difficile colitis, recent episode of septic shock. Patient seen and examined. Patient is much more lethargic today. She will not open her eyes. She will not follow simple commands. In response to sternal rub, she moves her head from side to side and moans. Discussed with nursing staff. Patient had family visit last night. She is afebrile. Vital signs are stable. Blood sugars 102. O2 sats 97% on 2 L. Objective Vitals Vital Signs Date Time Temp Pulse Resp B/P (MAP) Pulse Ox O2 Delivery O2 Flow Rate FiO2 01/12/18 06:37 98.9 92 20 117/57 (77) 97 01/11/18 18:26 98.3 74 18 118/70 (86) 96 I/O 01/11/18 01/11/18 01/11/18 01/12/18 01/12/18 01/12/18 07:00 15:00 23:00 07:00 15:00 23:00 Intake Total 0 ml Output Total 1850 ml 1225 ml 300 ml Balance -1850 ml -1225 ml -300 ml Intake Oral 0 ml Output Urine Total 1850 ml 1225 ml 300 ml Result Diagram: 01/10/18 0945 01/10/18 0945 Imaging Last Impressions Upper Extremity Ultrasound 01/11/18 0000 Signed Impressions: CONCLUSION: 1. Small area of thrombus at the insertion site of the patient's IV in the rig ht forearm. The remainder of the venous system of the right upper extremity is widely patent. 2. The venous system of the left upper extremity is widely patent. Head CT 01/10/18 1547 Signed Impressions: CONCLUSION: 1. No acute intracranial abnormality or significant interval change. Chest X-Ray 01/10/18 0000 Signed Impressions: CONCLUSION: 1. Stable left basilar pleural-parenchymal opacity likely representing pleural effusion with associated airspace consolidation and/or atelectasis. 2. New opacity at the right lung base representing either atelectasis or conso lidation. Brain MRI 01/10/18 0000 Signed Impressions: CONCLUSION: 1. Senescent changes with old small bilateral basal ganglia lacunar infarcts. 2. Mild periventricular small vessel ischemic white matter demyelination. 3. No acute abnormality. Specifically, no acute infarction. Objective Remarks GENERAL: This is a well-nourished, well-developed female patient, INAD. Much more lethargic. Will not open her eyes or follow simple commands. SKIN: Warm and dry. + 3cm sacral decubitus per nursing report. HEAD: Atraumatic. Normocephalic. EYES: No scleral icterus. No injection or drainage. ENT: Nose without bleeding or purulent drainage. Airway patent. NECK: Trachea midline. CARDIOVASCULAR: Irregular without murmurs, gallops, or rubs. RESPIRATORY: Clear to auscultation anteriorly. Breath sounds equal bilaterally. No wheezes, rales, or rhonchi. GASTROINTESTINAL: Abdomen soft, non-tender, nondistended. No guarding. Bowels sounds +4 quadrants. PEG tube in place, site C/D/I. MUSCULOSKELETAL: Extremities without clubbing or cyanosis. No calf tenderness. BUE with diffuse edema. NEUROLOGICAL: Lethargic. Will not open her eyes. Will not follow simple commands. Moves her head and moans in response to sternal rub. PSYCHIATRIC: Unable to assess secondary to lethargy Procedures None A/P Assessment and Plan 77-year-old AA female with PMH of dementia, schizophrenia, arthritis, and asthma who was originally admitted to inpatient psychiatry on 12/24 after patient was [place] acted by PD due to aggressive behavior. She was transferred to medical psych unit due to poor p.o. intake. She was followed by [facility] while in med.psych however on 01/05 was transferred to medical ICU as a Haydee-Cat due to sever hypotension despite IVF bolus administration. She was treated with broad spectrum antibiotics including IV Vancomycin, Cefepime, and Flagyl. CT scan of the abdomen/pelvis revealed diffuse colitis without perforation, basilar consolidation and right middle love nodule as well as prominent uterus and endometrium. Her stool was tested and positive for c.diff, she was treated for hypothermia, BC x2 and UA were negative. Patient was treated with IV hydration however due to shock was ultimately place on vasopressors. Palliative care, ID and GI followed patient while she was in ICU. Patient was weaned off pressors, received one time diuresis, and transferred back to medical psych unit on 01/09. [facility] has been consult to assist with ongoing medical management. Schizophrenia/dementia -Management per psychiatric team -Seroquel and Depakene currently on hold due to lethargy Acute metabolic encephalopathy, worse today with increased lethargy, nonresponsive afebrile today's labs pending satting 92% on 2L TSH 5.190 12/23/17 Chest x-ray shows stable left basilar opacity, new opacity right lung base possibly atelectasis versus consolidation CT the head unremarkable MRI brain no acute abnormality EEG shows severe encephalopathy, no epileptiform activity RPR nonreactive, ammonia level 34, B12 elevated -Neurology following, appreciate assistance -neuro checks -continue with PT/OT -keep NPO, ST following -fall/seizure/aspiration precautions -await today's lab results. Monitor BS closely. recheck ammonia level. Obtain ABG. Bilateral UE edema Doppler reveals small area of superficial thrombosis from patient's IV site right forearm otherwise no evidence of DVT -possible fluid overload, hold free water flushes while on IV fluids -elevate arms -monitor C.diff colitis, improving -Continue p.o Vancomycin per PEG for total of 14 days, end date entered in EMR -ID following, appreciate assistance -Seen and evaluated by GI on 01/06, okay to restart TF, discussed with nurse in regards to checking for residuals New onset afib with RVR Rate controlled -2D echocardiogram ordered, results pending -continue on low-dose metoprolol BID with parameters -continue on Eliquis 5 mg twice daily -Monitor heart rate Hypokalemia Hypophosphatemia -repletion ordered -repeat BMP in am to monitor response - labs pending Hypoglycemia, BS 43 overnight poor p.o. intake- secondary to mentation Blood sugars improved but still running low while on D5 -continue TF per payroll auditor recommendation, Vital 1.5 @ 50ml/hr and bolus feedings with Vital 1.5 1 can(240ml)@ 8am, 11am, 2pm, 5pm and 8pm. Discussed with nursing staff, no residuals. -Keep HOB 30 degrees at all times for aspiration precautions. -continue on D5NS. Obtain insulin and C-peptide levels. -continue on q2h accucheks Anemia, normocytic, normochromic Thrombocytopenia No e/o active bleeding Iron studies reviewed -? Dilution as patient did receive IV fluids due to severe shock -Check Hemoccult/pending -continue to monitor - repeat CBC in am - today's lab pending Sacral ulcer -wound care consulted, orders placed -frequent turns q2h, float heels off bed -monitor DVT prophylaxis- Carol Proctor Jan 12, 2018 08:24
[2018-01-12] MEDS: QUEtiapine FUMARATE 200 MG TAB PEG SCH (08:25)
[2018-01-12] MEDS: VALPROIC ACID SYRUP 250 MG/5 ML UDC PEG SCH ×2 (08:25→23:26)
[2018-01-12] MEDS: METOPROLOL TARTRATE 25 MG TAB PEG SCH ×2 (08:27→23:28)
[2018-01-12] MEDS: VANCOMYCIN 500 MG VIAL (FOR ORAL USE ONLY) PEG SCH ×4 (08:28→23:27)
[2018-01-12] MEDS ORDERED: APIXABAN 5 MG TABLET G-TUBE SCH (09:00)
[2018-01-12 09:39] LABS: AUTOMATED NEUTROPHIL # 5.7 TH/MM3 (1.8-7.7); BASOPHIL % 0.2 % (0.0-2.0); EOSINOPHIL # 0.3 TH/MM3 (0-0.4); EOSINOPHIL % 3.8 % (0.0-4.0); HEMATOCRIT 26.8 % (35.0-46.0); HEMOGLOBIN 8.9 GM/DL (11.6-15.3); LYMPH % 12.8 % (9.0-44.0); LYMPHOCYTE # 0.9 TH/MM3 (1.0-4.8); MEAN CELL VOLUME 92.9 FL (80.0-100.0); MEAN CORPUSCULAR HEMOGLOBIN 30.7 PG (27.0-34.0); MEAN CORPUSCULAR HGB CONC 33.1 % (32.0-36.0); MEAN PLATELET VOLUME 8.7 FL (7.0-11.0); MONO % 5.3 % (0.0-8.0); MONOCYTE # 0.4 TH/MM3 (0-0.9); NEUT % 77.9 % (16.0-70.0); PLATELET COUNT 75 TH/MM3 (150-450); RED BLOOD COUNT 2.89 MIL/MM3 (4.00-5.30); RED CELL DISTRIBUTION WIDTH 15.2 % (11.6-17.2); WHITE BLOOD COUNT 7.3 TH/MM3 (4.0-11.0)
--- NOTE | 2018-01-12 09:42 | HHI.PR ---
Review/Management Diagnosis/Plan: (1) Acute encephalopathy ICD Codes: G93.40 - Encephalopathy, unspecified Status: Acute Plan: Etiology; antipsychotics versus toxic metabolic versus right hemispheric stroke She demonstrates mild left facial and lower extremity weakness Ammonia levels minimally elevated Recommendations mri brain- no acute stroke eeg- no sz trial of provigil limit heavy sedatives if possible Follow exam (2) Bipolar disorder, manic ICD Codes: F31.10 - Bipolar disorder, current episode manic without psychotic features, unspecified Status: Chronic (3) Hypertension ICD Codes: I10 - Essential (primary) hypertension Status: Chronic (4) Schizoaffective disorder, bipolar type ICD Codes: F25.0 - Schizoaffective disorder, bipolar type Status: Chronic (5) Dementia ICD Codes: F03.90 - Unspecified dementia without behavioral disturbance Status: Chronic Subjective Subjective Comments No acute events reported Active Medications Current Medications Medications (Trade) Dose Ordered Sig/Karyna Route Start Time Stop Time Status Last Admin (SEROquel) 400 mg BID PEG 01/08/18 21:00 01/12/18 08:25 (Depakene Liq) 500 mg BID PEG 01/08/18 21:00 01/12/18 08:25 (Ativan) 0.5 mg Q12H PRN PO 01/08/18 15:30 (Ativan Inj) 0.5 mg Q12H PRN IM 01/08/18 15:30 (Tylenol) 650 mg Q4H PRN PO 01/08/18 15:30 (Milk Of Magnesia Liq) 30 ml DAILY PRN PO 01/08/18 15:30 (Mag-Al Plus Susp Liq) 30 ml Q6H PRN PO 01/08/18 15:30 (Atarax) 50 mg Q6H PRN PO 01/09/18 10:00 (Free Water) VOLUME OF WATER: 200 ML Q6HR G-TUBE 01/09/18 18:00 Future Hold 01/10/18 06:00 (D50w (Vial) Inj) 50 ml UNSCH PRN IV PUSH 01/09/18 18:45 01/10/18 11:50 (Glucagon Inj) 1 mg STAT PRN IM 01/09/18 18:45 01/09/18 19:29 Dextrose 1,000 ml @ 42 mls/hr [id number] IV 01/09/18 22:30 01/11/18 22:08 (K-Phos Neutral) 250 mg Q8HR PEG 01/10/18 14:00 01/12/18 05:27 (Pill Splitter) 1 ea UNSCH PRN OTHER 01/11/18 17:15 (Eliquis) 5 mg BID G-TUBE 01/12/18 09:00 01/12/18 08:27 (Lopressor) 12.5 mg Q12HR PEG 01/12/18 09:00 01/12/18 08:27 (VANCOMYCIN for oral use only) 500 mg QID PEG 01/12/18 09:00 01/12/18 08:28 Allergies Allergies Coded Allergies apple (Unverified Allergy, Severe, Swelling, 03/08/17) Review of Systems All other ROS: ROS reviewed as documented in chart Exam I&O / VS Vital Signs Date Time Temp Pulse Resp B/P (MAP) Pulse Ox O2 Delivery O2 Flow Rate FiO2 01/12/18 06:37 98.9 92 20 117/57 (77) 97 01/11/18 18:26 98.3 74 18 118/70 (86) 96 Exam Comments resting, arousable, mumbles a few words, not following, no gaze deviation, resists pupillary exam, Localizes better with the right compared to left side Objective Micro and Labs Laboratory Tests Test 01/11/18 13:31 01/12/18 09:12 Free Thyroxine 0.93 Total Triiodothyronine 66 Date/Time Source Procedure Growth Status 01/10/18 16:37 Urine Catheterized Urine Urine Culture - Preliminary NO GROWTH IN 24 HOURS. Resulted Problem Qualifiers (1) Hypertension: Qualified Codes: I10 - Essential (primary) hypertension Harley Vasquez MD Jan 12, 2018 09:42
[2018-01-12] MEDS: MODAFINIL 200 MG TAB PO SCH (09:45)
--- NOTE | 2018-01-12 09:56 | ECHRPT ---
Indication: CVA/TIA CONCLUSIONS Normal left ventricular size. Mild concentric left ventricular hypertrophy. The left ventricular systolic function is hyperdynamic with an estimated ejection fraction in the ra nge of 65- 70%. Mild mitral annular calcification. Mild mitral valve regurgitation. Aortic valve sclerosis is present. There is mild to moderate tricuspid valve regurgitation. The estimated pulmonary arterial pressure is 45 mmHg. BP: / HR: Rhythm: Sinus MEASUREMENTS (Male / Female) Normal Values Technical Quality:Fair 2D ECHO LV Diastolic Diameter PLAX 4.4 cm 4.2 - 5.9 / 3.9 - 5.3 cm LV Systolic Diameter PLAX 3.0 cm IVS Diastolic Thickness 1.1 cm 0.6 - 1.0 / 0.6 - 0.9 cm LVPW Diastolic Thickness 1.1 cm 0.6 - 1.0 / 0.6 - 0.9 cm LV Relative Wall Thickness 0.5 RV Internal Dim ED PLAX 2.0 cm LVOT Diameter 1.8 cm Aortic Root Diameter 3.0 cm LA Systolic Diameter LX 3.5 cm 3.0 - 4.0 / 2.7 - 3.8 cm M-MODE AV Cusp Separation MM 1.5 cm DOPPLER AV Peak Velocity 216.0 cm/s AV Peak Gradient 18.7 mmHg AV Mean Gradient 11.0 mmHg AV Velocity Time Integral 29.1 cm LVOT Peak Velocity 92.8 cm/s LVOT Peak Gradient 3.4 mmHg LVOT Velocity Time Integral 13.0 cm AV Area Cont Eq vti 1.1 cm AV Area Cont Eq pk 1.1 cm Mitral E Point Velocity 109.5 cm/s LV E' Lateral Velocity 11.9 cm/s Mitral E to LV E' Lateral Ratio 9.2 LV E' Septal Velocity 9.5 cm/s Mitral E to LV E' Septal Ratio 11.5 TR Peak Velocity 297.3 cm/s TR Peak Gradient 35.4 mmHg Right Atrial Pressure 10.0 mmHg Pulmonary Artery Systolic Pressu 45.4 mmHg Right Ventricular Systolic Press 45.4 mmHg PV Peak Velocity 85.0 cm/s PV Peak Gradient 2.9 mmHg FINDINGS LEFT VENTRICLE Normal left ventricular size. Mild concentric left ventricular hypertrophy. The left ventricular systolic function is hyperdynamic with an estimated ejection fraction in the ra nge of 65- 70%. RIGHT VENTRICLE Normal right ventricular size and systolic function. LEFT ATRIUM The left atrial size is normal. RIGHT ATRIUM The right atrial size is normal. ATRIAL SEPTUM No atrial level shunt is demonstrated by color flow Doppler interrogation. AORTA The aortic root and proximal ascending aorta are not well visualized. MITRAL VALVE Mild mitral annular calcification. Mild mitral valve regurgitation. AORTIC VALVE Aortic valve sclerosis is present. TRICUSPID VALVE There is mild to moderate tricuspid valve regurgitation. The estimated pulmonary arterial pressure is 45.4 mmHg. PULMONARY VALVE The pulmonary valve is not well visualized. VESSELS The inferior vena cava is normal in size. PERICARDIUM No pericardial effusion. John Freeman MD, FACC (Electronically Signed) Final Date:11 January 2018 16:42
[2018-01-12 12:26] LABS: ALBUMIN 1.8 GM/DL (3.4-5.0); ALT (GPT) 26 U/L (10-53); AST (GOT) 23 U/L (15-37); BLOOD UREA NITROGEN 10 MG/DL (7-18); CALCIUM 7.9 MG/DL (8.5-10.1); CHLORIDE 110 MEQ/L (98-107); CREATININE 0.63 MG/DL (0.50-1.00); GLOMERULAR FILTRATION RATE 111 ML/MIN (>89); GLUCOSE,RANDOM 87 MG/DL (74-106); SODIUM (NA) 145 MEQ/L (136-145)
[2018-01-12 12:28] LABS: ALKALINE PHOSPHATASE 83 U/L (45-117); TOTAL BILIRUBIN ADULT 0.5 MG/DL (0.2-1.0); TOTAL PROTEIN 5.7 GM/DL (6.4-8.2)
--- NOTE | 2018-01-12 14:37 | HHI.PYPN ---
Subjective Remarks Patient seen in her room with nurse Bhakta and floor staff, chart reviewed, patient complaint medications patient continues confused basically babbling speech. She also continues incontinent bowel and bladder. For now continue treatment Review of Systems Except as stated in HPI: all other systems reviewed are Neg Mental Status Examination Appearance: Other (Patient laying in bed sedated with bed clothing) Consciousness: Somnolent Orientation: Person Motor Activity: Other (Patient laying quietly in bed) Speech: Other (Patient mumbling) Language: Other (Very poor) Fund of Knowledge: Inadequate Attention and Concentration: Easily Distracted Memory: Impaired Mood: Sad Affect: Other (Marked decreased range and intensity) Thought Process & Associations: Disorganized Thought Content: Other (Markedly disorganized) Hallucination Type: None Delusion Type: None Suicidal Ideation: No Suicidal Plan: No Suicidal Intention: No Homicidal Ideation: No Homicidal Plan: No Homicidal Intention: No Insight: Poor Judgment: Poor Results Labs Test 01/12/18 09:12 01/12/18 11:43 01/12/18 13:12 White Blood Count 7.3 TH/MM3 Red Blood Count 2.89 MIL/MM3 Hemoglobin 8.9 GM/DL Hematocrit 26.8 % Mean Corpuscular Volume 92.9 FL Mean Corpuscular Hemoglobin 30.7 PG Mean Corpuscular Hemoglobin Concent 33.1 % Red Cell Distribution Width 15.2 % Platelet Count 75 TH/MM3 Mean Platelet Volume 8.7 FL Neutrophils (%) (Auto) 77.9 % Lymphocytes (%) (Auto) 12.8 % Monocytes (%) (Auto) 5.3 % Eosinophils (%) (Auto) 3.8 % Basophils (%) (Auto) 0.2 % Neutrophils # (Auto) 5.7 TH/MM3 Lymphocytes # (Auto) 0.9 TH/MM3 Monocytes # (Auto) 0.4 TH/MM3 Eosinophils # (Auto) 0.3 TH/MM3 Basophils # (Auto) 0.0 TH/MM3 CBC Comment AUTO DIFF Differential Comment AUTO DIFF CONFIRMED Platelet Estimate LOW Platelet Morphology Comment NORMAL Phosphorus Level 2.8 MG/DL Valproic Acid (Depakene) Level 35 MCG/ML Blood Urea Nitrogen 10 MG/DL Creatinine 0.63 MG/DL Random Glucose 87 MG/DL Total Protein 5.7 GM/DL Albumin 1.8 GM/DL Calcium Level 7.9 MG/DL Alkaline Phosphatase 83 U/L Aspartate Amino Transf (AST/SGOT) 23 U/L Alanine Aminotransferase (ALT/SGPT) 26 U/L Total Bilirubin 0.5 MG/DL Sodium Level 145 MEQ/L Potassium Level 3.8 MEQ/L Chloride Level 110 MEQ/L Carbon Dioxide Level 29.0 MEQ/L Anion Gap 6 MEQ/L Estimat Glomerular Filtration Rate 111 ML/MIN Ammonia 46 MCMOL/L Blood Gas Puncture Site LT RADIAL Blood Gas Patient Temperature 98.6 Blood Gas HCO3 28 mmol/L Blood Gas Base Excess 4.7 mmol/L Blood Gas Oxygen Saturation 96 % Arterial Blood pH 7.49 Arterial Blood Partial Pressure CO2 38 mmHg Arterial Blood Partial Pressure O2 120 mmHg Arterial Blood Oxygen Content 16.7 Vol % Arterial Blood Carboxyhemoglobin 1.0 % Arterial Blood Methemoglobin 1.3 % Blood Gas Hemoglobin 12.2 G/DL Oxygen Delivery Device NASAL CANNULA Blood Gas Liter Flow 2 L/M Date/Time Source Procedure Growth Status 01/10/18 16:37 Urine Catheterized Urine Urine Culture - Preliminary Yeast-Id To Follow Resulted Vitals/IOs Vital Signs Date Time Temp Pulse Resp B/P (MAP) Pulse Ox O2 Delivery O2 Flow Rate FiO2 01/12/18 06:37 98.9 92 20 117/57 (10) 97 Assessment & Plan Problem List: (1) Schizoaffective disorder, bipolar type ICD Codes: F25.0 - Schizoaffective disorder, bipolar type Status: Chronic Assessment & Plan Estimated LOS: days patient continues psychotic confusion disorientation, compliant medications Justification for Cont. Inpt. At this time patient would decompensate a place to the lower level of care Discharge Planning Placement remains problematic Request HC Surrog/Guard Advoc?: Yes Louie Morales MD Jan 12, 2018 14:37
[2018-01-12 18:00] VITALS: BP 133/80; PULSE 86; RESP 20; TEMP 99.7; O2SAT 100
[2018-01-12] MEDS ORDERED: LACTULOSE SYRUP 20 GM/30 ML CUP PEG ONE (19:30)
[2018-01-12 20:02] LABS: INTERNATIONAL NORMALIZED RATIO 1.1 RATIO; PROTHROMBIN TIME - PATIENT 11.4 SEC (9.8-11.6)
[2018-01-12] MEDS: ACETAMINOPHEN 325 MG TAB PO PRN (23:26)
[2018-01-13] MEDS: DEXTROSE 5% IN WATE 1000ML INJ 1,000 ML IV SCH ×2 (04:20→20:51)
[2018-01-13 06:50] VITALS: BP 118/60; PULSE 81; RESP 20; TEMP 98.9; O2SAT 95
[2018-01-13] MEDS: POTASSIUM PHOSPHATE/SODIUM PHOSPHATE 250 MG TAB PEG SCH (07:03)
--- NOTE | 2018-01-13 08:32 | HHI.PR ---
Review/Management Diagnosis/Plan: (1) Acute encephalopathy ICD Codes: G93.40 - Encephalopathy, unspecified Status: Acute Plan: Etiology; antipsychotics, sedatives She demonstrates mild left facial and lower extremity weakness Ammonia levels minimally elevated Recommendations Much more alert and oriented to self. Lethargy appears to be related to antipsychotics, sedatives mri brain- no acute stroke eeg- no sz Continue Provigil (2) Bipolar disorder, manic ICD Codes: F31.10 - Bipolar disorder, current episode manic without psychotic features, unspecified Status: Chronic (3) Hypertension ICD Codes: I10 - Essential (primary) hypertension Status: Chronic (4) Schizoaffective disorder, bipolar type ICD Codes: F25.0 - Schizoaffective disorder, bipolar type Status: Chronic (5) Dementia ICD Codes: F03.90 - Unspecified dementia without behavioral disturbance Status: Chronic Subjective Subjective Comments No acute events reported No headache No chest pain No dyspnea Active Medications Current Medications Medications (Trade) Dose Ordered Sig/Karyna Route Start Time Stop Time Status Last Admin (SEROquel) 400 mg BID PEG 01/08/18 21:00 Future Hold 01/12/18 08:25 (Depakene Liq) 500 mg BID PEG 01/08/18 21:00 01/12/18 23:26 (Ativan) 0.5 mg Q12H PRN PO 01/08/18 15:30 (Ativan Inj) 0.5 mg Q12H PRN IM 01/08/18 15:30 (Tylenol) 650 mg Q4H PRN PO 01/08/18 15:30 01/12/18 23:26 (Milk Of Magnesia Liq) 30 ml DAILY PRN PO 01/08/18 15:30 (Mag-Al Plus Susp Liq) 30 ml Q6H PRN PO 01/08/18 15:30 (Atarax) 50 mg Q6H PRN PO 01/09/18 10:00 (Free Water) VOLUME OF WATER: 200 ML Q6HR G-TUBE 01/09/18 18:00 Future Hold 01/10/18 06:00 (D50w (Vial) Inj) 50 ml UNSCH PRN IV PUSH 01/09/18 18:45 01/10/18 11:50 (Glucagon Inj) 1 mg STAT PRN IM 01/09/18 18:45 01/09/18 19:29 Dextrose 1,000 ml @ 42 mls/hr [id number] IV 01/09/18 22:30 01/13/18 04:20 (K-Phos Neutral) 250 mg Q8HR PEG 01/10/18 14:00 01/13/18 09:00 01/13/18 07:03 (Pill Splitter) 1 ea UNSCH PRN OTHER 01/11/18 17:15 (Eliquis) 5 mg BID G-TUBE 01/12/18 09:00 Future Hold 01/12/18 08:27 (Lopressor) 12.5 mg Q12HR PEG 01/12/18 09:00 01/12/18 23:28 (VANCOMYCIN for oral use only) 500 mg QID PEG 01/12/18 09:00 01/12/18 23:27 (Provigil) 100 mg DAILY PO 01/12/18 09:45 01/12/18 09:45 Allergies Allergies Coded Allergies apple (Unverified Allergy, Severe, Swelling, 03/08/17) Review of Systems All other ROS: ROS reviewed as documented in chart Exam I&O / VS Vital Signs Date Time Temp Pulse Resp B/P (MAP) Pulse Ox O2 Delivery O2 Flow Rate FiO2 01/13/18 06:50 98.9 81 20 118/60 (79) 95 01/12/18 18:00 99.7 86 20 133/80 (97) 100 Exam Comments Awake alert oriented to self follow some simple requests it was a 4-5 words, no facial asymmetry visual slade grossly full mild left hemiparesis but able raise all 4 extremities gravity no nuchal rigidity no temporal tenderness plantarflex response no clonus elicited Objective Micro and Labs Laboratory Tests Test 01/12/18 09:12 01/12/18 11:43 01/12/18 13:12 01/12/18 18:47 White Blood Count 7.3 Red Blood Count 2.89 Hemoglobin 8.9 Hematocrit 26.8 Mean Corpuscular Volume 92.9 Mean Corpuscular Hemoglobin 30.7 Mean Corpuscular Hemoglobin Concent 33.1 Red Cell Distribution Width 15.2 Platelet Count 75 Mean Platelet Volume 8.7 Neutrophils (%) (Auto) 77.9 Lymphocytes (%) (Auto) 12.8 Monocytes (%) (Auto) 5.3 Eosinophils (%) (Auto) 3.8 Basophils (%) (Auto) 0.2 Neutrophils # (Auto) 5.7 Lymphocytes # (Auto) 0.9 Monocytes # (Auto) 0.4 Eosinophils # (Auto) 0.3 Basophils # (Auto) 0.0 CBC Comment AUTO DIFF Differential Comment AUTO DIFF CONFIRMED Platelet Estimate LOW Platelet Morphology Comment NORMAL Phosphorus Level 2.8 Magnesium Level 2.0 Valproic Acid (Depakene) Level 35 Blood Urea Nitrogen 10 Creatinine 0.63 Random Glucose 87 Total Protein 5.7 Albumin 1.8 Calcium Level 7.9 Alkaline Phosphatase 83 Aspartate Amino Transf (AST/SGOT) 23 Alanine Aminotransferase (ALT/SGPT) 26 Total Bilirubin 0.5 Sodium Level 145 Potassium Level 3.8 Chloride Level 110 Carbon Dioxide Level 29.0 Anion Gap 6 Estimat Glomerular Filtration Rate 111 Ammonia 46 Blood Gas Puncture Site LT RADIAL Blood Gas Patient Temperature 98.6 Blood Gas HCO3 28 Blood Gas Base Excess 4.7 Blood Gas Oxygen Saturation 96 Arterial Blood pH 7.49 Arterial Blood Partial Pressure CO2 38 Arterial Blood Partial Pressure O2 120 Arterial Blood Oxygen Content 16.7 Arterial Blood Carboxyhemoglobin 1.0 Arterial Blood Methemoglobin 1.3 Blood Gas Hemoglobin 12.2 Oxygen Delivery Device NASAL CANNULA Blood Gas Liter Flow 2 Prothrombin Time 11.4 Prothromb Time International Ratio 1.1 Test 01/13/18 03:49 Random Glucose 104 Date/Time Source Procedure Growth Status 01/12/18 23:30 Stool Stool Stool Occult Blood (SHANIA) - Final HEMOCCULT NEGATIVE Complete 01/10/18 16:37 Urine Catheterized Urine Urine Culture - Preliminary Yeast-Id To Follow Resulted Problem Qualifiers (1) Hypertension: Qualified Codes: I10 - Essential (primary) hypertension Harley Vasquez MD Jan 13, 2018 08:32
[2018-01-13] MEDS: ACETAMINOPHEN 325 MG TAB PO PRN (10:01)
[2018-01-13] MEDS: VALPROIC ACID SYRUP 250 MG/5 ML UDC PEG SCH ×2 (10:02→20:51)
[2018-01-13] MEDS: VANCOMYCIN 500 MG VIAL (FOR ORAL USE ONLY) PEG SCH ×4 (10:03→20:51)
[2018-01-13] MEDS: METOPROLOL TARTRATE 25 MG TAB PEG SCH ×2 (10:03→20:51)
[2018-01-13] MEDS: MODAFINIL 200 MG TAB PO SCH (10:03)
--- NOTE | 2018-01-13 10:11 | HHI.PR ---
Subjective Remarks Follow-up on patient with dementia, schizophrenia, C. difficile colitis, recent episode of septic shock. Patient seen and examined. Patient's more alert today but still somewhat sedated. She will open her eyes and follow simple commands. Discussed with nursing staff, patient continues to have loose stools although slightly more formed. Objective Vitals Vital Signs Date Time Temp Pulse Resp B/P (MAP) Pulse Ox O2 Delivery O2 Flow Rate FiO2 01/13/18 06:50 98.9 81 20 118/60 (79) 95 01/12/18 18:00 99.7 86 20 133/80 (97) 100 I/O 01/12/18 01/12/18 01/12/18 01/13/18 01/13/18 01/13/18 07:00 15:00 23:00 07:00 15:00 23:00 Intake Total 1910 ml 0 ml Output Total 400 ml 1850 ml Balance 1510 ml -1850 ml Intake Oral 0 ml IV Total 710 ml Tube Feeding 1200 ml Output Urine Total 400 ml 1850 ml # Bowel Movements 3 Result Diagram: 01/12/18 0912 01/13/18 0349 Imaging Last Impressions Upper Extremity Ultrasound 01/11/18 0000 Signed Impressions: CONCLUSION: 1. Small area of thrombus at the insertion site of the patient's IV in the rig ht forearm. The remainder of the venous system of the right upper extremity is widely patent. 2. The venous system of the left upper extremity is widely patent. Head CT 01/10/18 1547 Signed Impressions: CONCLUSION: 1. No acute intracranial abnormality or significant interval change. Chest X-Ray 01/10/18 0000 Signed Impressions: CONCLUSION: 1. Stable left basilar pleural-parenchymal opacity likely representing pleural effusion with associated airspace consolidation and/or atelectasis. 2. New opacity at the right lung base representing either atelectasis or conso lidation. Brain MRI 01/10/18 0000 Signed Impressions: CONCLUSION: 1. Senescent changes with old small bilateral basal ganglia lacunar infarcts. 2. Mild periventricular small vessel ischemic white matter demyelination. 3. No acute abnormality. Specifically, no acute infarction. Objective Remarks GENERAL: This is a well-nourished, well-developed female patient, INAD. Appears more awake today. Will open her eyes to touch. Able to track. Follows simple commands. SKIN: Warm and dry. + 3cm sacral decubitus per nursing report. HEAD: Atraumatic. Normocephalic. EYES: No scleral icterus. No injection or drainage. ENT: Nose without bleeding or purulent drainage. Airway patent. NECK: Trachea midline. CARDIOVASCULAR: Irregular without murmurs, gallops, or rubs. RESPIRATORY: Clear to auscultation anteriorly. Breath sounds equal bilaterally. No wheezes, rales, or rhonchi. GASTROINTESTINAL: Abdomen soft, non-tender, nondistended. No guarding. Bowels sounds +4 quadrants. PEG tube in place, site C/D/I. MUSCULOSKELETAL: Extremities without clubbing or cyanosis. BUE with diffuse edema, with slight improvement noted. +bilateral calf tenderness. Both calves supple. NEUROLOGICAL: More awake. Able to follow simple commands. Nonverbal for me today. PSYCHIATRIC: Calm and cooperative. Poor judgment and insight. Procedures None A/P Assessment and Plan 77-year-old AA female with PMH of dementia, schizophrenia, arthritis, and asthma who was originally admitted to inpatient psychiatry on 12/24 after patient was [place] acted by PD due to aggressive behavior. She was transferred to medical psych unit due to poor p.o. intake. She was followed by [facility] while in med.psych however on 01/05 was transferred to medical ICU as a [place] due to sever hypotension despite IVF bolus administration. She was treated with broad spectrum antibiotics including IV Vancomycin, Cefepime, and Flagyl. CT scan of the abdomen/pelvis revealed diffuse colitis without perforation, basilar consolidation and right middle love nodule as well as prominent uterus and endometrium. Her stool was tested and positive for c.diff, she was treated for hypothermia, BC x2 and UA were negative. Patient was treated with IV hydration however due to shock was ultimately place on vasopressors. Palliative care, ID and GI followed patient while she was in ICU. Patient was weaned off pressors, received one time diuresis, and transferred back to medical psych unit on 01/09. [facility] has been consult to assist with ongoing medical management. Schizophrenia/dementia -Management per psychiatric team -Seroquel and Depakene currently on hold due to lethargy Acute metabolic encephalopathy, suspect secondary to antipsychotic side effects Patient is more alert today after holding Seroquel dose and started on Provigil per neurology Chest x-ray shows stable left basilar opacity, new opacity right lung base possibly atelectasis versus consolidation CT the head unremarkable MRI brain no acute abnormality EEG shows severe encephalopathy, no epileptiform activity RPR nonreactive, ammonia level 34, B12 elevated ABG reviewed -Neurology following, appreciate assistance. Per their recommendations, continue to hold Seroquel. Continue Provigil. -neuro checks -continue with PT/OT -keep NPO, ST following -fall/seizure/aspiration precautions Candidal UTI Urine culture positive for greater than 100,000 Leonor glabrata -Begin fluconazole 100 mg daily. Last EKG 01/10 no QTC prolongation. LFTs within normal limits. Continue to monitor. Hyperammonemia -Patient given dose of lactulose yesterday -Continue to monitor ammonia level as indicated Bilateral UE edema, improving Doppler reveals small area of superficial thrombosis from patient's IV site right forearm otherwise no evidence of DVT -possible fluid overload, hold free water flushes while on IV fluids -elevate arms -monitor Bilateral LE pain -Obtain Doppler studies rule out DVT C.diff colitis, improving -Continue p.o Vancomycin per PEG for total of 14 days -Lactobacillus TID -ID following, appreciate assistance New onset afib with RVR Rate controlled Echocardiogram shows EF 65-70% -continue on low-dose metoprolol BID with parameters -continue on Eliquis 5 mg twice daily -Eliquis held secondary to worsening anemia and thrombocytopenia. Repeat CBC ordered/pending. -Monitor heart rate Hypokalemia Hypophosphatemia -Resolved status post repletion Hypoglycemia, still having significantly low blood sugars overnight poor p.o. intake- secondary to mentation Blood sugars improved but still running low while on D5. BS currently 125. Erroneous BS recording of 29, discussed with nursing staff -continue TF per sporting goods sales associate recommendation, Vital 1.5 @ 50ml/hr and bolus feedings with Vital 1.5 1 can(240ml)@ 8am, 11am, 2pm, 5pm and 8pm. Discussed with nursing staff, no residuals. -Keep HOB 30 degrees at all times for aspiration precautions. -continue on D5NS. Obtain insulin and C-peptide levels/pending -continue on q2h accucheks Anemia, normocytic, normochromic Thrombocytopenia, worsening No e/o active bleeding Iron studies reviewed Hemoccult neg -hgb dropped from 10.1 to 8.9, repeat CBC ordered at 6:00 this morning not drawn. Discussed with nursing staff. -Continue to hold Eliquis for now -continue to monitor - repeat CBC in am Sacral ulcer -wound care consulted, orders placed -frequent turns q2h, float heels off bed -monitor Incidental finding of prominent uterus with prominent endometrium on CT abd/ pelvis Pelvic US shows Mildly thickened endometrium. Underlying neoplasm, hyperplasia or polyp could be present. Suspected uterine leiomyoma. -recommend patient follow up with gynecology as outpatient for further evaluation and treatment DVT prophylaxis- Eliquis on hold Carol Martinez Jan 13, 2018 10:10
--- NOTE | 2018-01-13 10:24 | HHI.PYPN ---
Subjective Remarks Patient seen in her room with floor staff, and nurse eMsha, chart reviewed, patient compliant medication patient somewhat sedated today but arousable to diffusely confused babbling speech Review of Systems Except as stated in HPI: all other systems reviewed are Neg Mental Status Examination Appearance: Other (Patient laying in bed sedated with bed clothing) Consciousness: Somnolent Orientation: Person Motor Activity: Other (Patient laying quietly in bed) Speech: Other (Patient mumbling) Language: Other (Very poor) Fund of Knowledge: Inadequate Attention and Concentration: Easily Distracted Memory: Impaired Mood: Sad Affect: Other (Marked decreased range and intensity) Thought Process & Associations: Disorganized Thought Content: Other (Markedly disorganized) Hallucination Type: None Delusion Type: None Suicidal Ideation: No Suicidal Plan: No Suicidal Intention: No Homicidal Ideation: No Homicidal Plan: No Homicidal Intention: No Insight: Poor Judgment: Poor Results Labs Test 01/12/18 11:43 01/12/18 13:12 01/12/18 18:47 01/13/18 03:49 Blood Urea Nitrogen 10 MG/DL Creatinine 0.63 MG/DL Random Glucose 87 MG/DL 104 MG/DL Total Protein 5.7 GM/DL Albumin 1.8 GM/DL Calcium Level 7.9 MG/DL Alkaline Phosphatase 83 U/L Aspartate Amino Transf (AST/SGOT) 23 U/L Alanine Aminotransferase (ALT/SGPT) 26 U/L Total Bilirubin 0.5 MG/DL Sodium Level 145 MEQ/L Potassium Level 3.8 MEQ/L Chloride Level 110 MEQ/L Carbon Dioxide Level 29.0 MEQ/L Anion Gap 6 MEQ/L Estimat Glomerular Filtration Rate 111 ML/MIN Ammonia 46 MCMOL/L Blood Gas Puncture Site LT RADIAL Blood Gas Patient Temperature 98.6 Blood Gas HCO3 28 mmol/L Blood Gas Base Excess 4.7 mmol/L Blood Gas Oxygen Saturation 96 % Arterial Blood pH 7.49 Arterial Blood Partial Pressure CO2 38 mmHg Arterial Blood Partial Pressure O2 120 mmHg Arterial Blood Oxygen Content 16.7 Vol % Arterial Blood Carboxyhemoglobin 1.0 % Arterial Blood Methemoglobin 1.3 % Blood Gas Hemoglobin 12.2 G/DL Oxygen Delivery Device NASAL CANNULA Blood Gas Liter Flow 2 L/M Prothrombin Time 11.4 SEC Prothromb Time International Ratio 1.1 RATIO Date/Time Source Procedure Growth Status 01/12/18 23:30 Stool Stool Stool Occult Blood (SHANIA) - Final HEMOCCULT NEGATIVE Complete 01/10/18 16:37 Urine Catheterized Urine Urine Culture - Preliminary Yeast-Id To Follow Resulted Vitals/IOs Vital Signs Date Time Temp Pulse Resp B/P (MAP) Pulse Ox O2 Delivery O2 Flow Rate FiO2 01/13/18 06:50 98.9 81 20 118/60 (79) 95 Intake and Output 01/13/18 01/13/18 01/13/18 07:59 15:59 23:59 Intake Total 0 ml Output Total 1850 ml Balance -1850 ml Assessment & Plan Problem List: (1) Schizoaffective disorder, bipolar type ICD Codes: F25.0 - Schizoaffective disorder, bipolar type Status: Chronic Assessment & Plan Estimated LOS: days patient continues confused psychotic babbling speech, complaint medications Justification for Cont. Inpt. At this time patient would decompensate if placed in a lower level of care Discharge Planning To be determined Request HC Surrog/Guard Advoc?: Yes Louie Morales MD Jan 13, 2018 10:24
--- NOTE | 2018-01-13 16:53 | RADRPT ---
EXAM DATE: 01/13/2018 4:41 PM EDT AGE/SEX: 77 years / Female INDICATIONS: Thickened endometrium on CT. CLINICAL DATA: This is the patient's initial encounter. Patient reports that signs and symptoms have been present for 1 week and indicates a pain score of Nonresponsive. MEDICAL/SURGICAL HISTORY: . Arthritis. Asthma. Diabetes. Dementia. Schizophrenia. . Total knee replacement, left. Total knee replacement, right. PEG tub placement. COMPARISON: [facility] [place], CT ABDOMEN & PELVIS W CONTRAST, 01/05/2018. . MEASUREMENTS: Uterus:__11.2 x 6.4 x 4.2 cm Endometrial Stripe:__8 mm Right Ovary:__ Not visualized. Not visualized. Left Ovary:__ Not visualized. Not visualized. FINDINGS: Uterus: There is a 2.6 x 2.4 x 2.9 cm mass at the anterior uterine body system consistent with a lei omyoma. Endometrial Stripe: The endometrium appears mildly prominent at 8 mm. Right Ovary: Not visualized. Left Ovary: Not visualized. Fluid: No free fluid. Other: None. CONCLUSION: 1. Mildly thickened endometrium. Underlying neoplasm, hyperplasia or polyp could be present. 2. Suspected uterine leiomyoma. 3. The ovaries are not seen. No adnexal mass is seen. Electronically signed by: Louie Delarosa MD 01/13/2018 4:51 PM EDT
[2018-01-13] MEDS: LACTOBACILLUS ACIDOPHILUS TAB PEG SCH (17:05)
--- NOTE | 2018-01-13 17:57 | RADRPT ---
EXAM DATE: 01/13/2018 5:47 PM EDT AGE/SEX: 77 years / Female INDICATIONS: Bilateral lower extremity pain. CLINICAL DATA: This is the patient's initial encounter. Patient reports that signs and symptoms have been present for 1 day and indicates a pain score of Nonresponsive. MEDICAL/SURGICAL HISTORY: Arthritis. Asthma. Diabetes. Dementia. Schizophrenia. Total knee replacement, left. Total knee replacement, right. Peg tube placement. COMPARISON: No prior exams available for comparison. TECHNIQUE: Venous ultrasound of both lower extremities was performed from the inguinal ligament to t he proximal calf. Real-time, color Doppler and spectral tracing, compression and augmentation techni ques were used. FINDINGS: Right Leg: This is the patient's underlying clinical condition we are unable to do compression of th e venous system. The deep venous system was patent by color flow throughout. Left Leg: This is the patient's underlying clinical condition we are unable to do compression of the venous system. The deep venous system was patent by color flow throughout. CONCLUSION: 1. Limited examination. No DVT identified within either lower extremity. Electronically signed by: Jake Ortiz MD 01/13/2018 5:56 PM EDT
[2018-01-13 18:50] VITALS: BP 153/87; PULSE 87; RESP 16; TEMP 98; O2SAT 98
[2018-01-14 06:45] VITALS: BP 122/54; PULSE 87; RESP 16; TEMP 98.6; O2SAT 99
[2018-01-14 06:54] LABS: HEMATOCRIT 26.2 % (35.0-46.0); HEMOGLOBIN 8.7 GM/DL (11.6-15.3); MEAN CELL VOLUME 93.7 FL (80.0-100.0); MEAN CORPUSCULAR HEMOGLOBIN 31.2 PG (27.0-34.0); MEAN CORPUSCULAR HGB CONC 33.3 % (32.0-36.0); MEAN PLATELET VOLUME 9.7 FL (7.0-11.0); PLATELET COUNT 117 TH/MM3 (150-450); RED CELL DISTRIBUTION WIDTH 15.1 % (11.6-17.2); WHITE BLOOD COUNT 6.4 TH/MM3 (4.0-11.0)
--- NOTE | 2018-01-14 07:19 | HHI.PR ---
Subjective Remarks Follow-up on patient with dementia, schizophrenia, C. difficile colitis, recent episode of septic shock. Patient seen and examined. Patient is so much more improved today, the best I have seen her. She is awake and alert. She is able to hold a conversation. She states that she feels very good. She denies any new medical complaints. Discussed with nursing staff, patient with 3-4 loose stools yesterday but none so far today. No evidence of bleeding. Objective Vitals Vital Signs Date Time Temp Pulse Resp B/P (MAP) Pulse Ox O2 Delivery O2 Flow Rate FiO2 01/14/18 06:45 98.6 87 16 122/54 (76) 99 01/13/18 18:50 98.0 87 16 153/87 (109) 98 I/O 01/13/18 01/13/18 01/13/18 01/14/18 01/14/18 01/14/18 07:00 15:00 23:00 07:00 15:00 23:00 Intake Total 0 ml 0 ml 0 ml Output Total 1850 ml 1250 ml 2550 ml 550 ml Balance -1850 ml -1250 ml -2550 ml -550 ml Intake Oral 0 ml 0 ml 0 ml Output Urine Total 1850 ml 1250 ml 2550 ml 550 ml # Bowel Movements 3 3 1 1 Result Diagram: 01/14/18 0633 01/13/18 0349 Imaging Last Impressions Pelvis Ultrasound 01/13/18 0000 Signed Impressions: CONCLUSION: 1. Mildly thickened endometrium. Underlying neoplasm, hyperplasia or polyp cou ld be present. 2. Suspected uterine leiomyoma. 3. The ovaries are not seen. No adnexal mass is seen. Lower Extremity Ultrasound 01/13/18 0000 Signed Impressions: CONCLUSION: 1. Limited examination. No DVT identified within either lower extremity. Upper Extremity Ultrasound 01/11/18 0000 Signed Impressions: CONCLUSION: 1. Small area of thrombus at the insertion site of the patient's IV in the rig ht forearm. The remainder of the venous system of the right upper extremity is widely patent. 2. The venous system of the left upper extremity is widely patent. Head CT 01/10/18 2387 Signed Impressions: CONCLUSION: 1. No acute intracranial abnormality or significant interval change. Chest X-Ray 01/10/18 0000 Signed Impressions: CONCLUSION: 1. Stable left basilar pleural-parenchymal opacity likely representing pleural effusion with associated airspace consolidation and/or atelectasis. 2. New opacity at the right lung base representing either atelectasis or conso lidation. Brain MRI 01/10/18 0000 Signed Impressions: CONCLUSION: 1. Senescent changes with old small bilateral basal ganglia lacunar infarcts. 2. Mild periventricular small vessel ischemic white matter demyelination. 3. No acute abnormality. Specifically, no acute infarction. Objective Remarks GENERAL: This is a well-nourished, well-developed female patient, INAD. Patient is awake and alert. Able to hold conversation. SKIN: Warm and dry. + 3cm sacral decubitus per nursing report. HEAD: Atraumatic. Normocephalic. EYES: No scleral icterus. No injection or drainage. ENT: Nose without bleeding or purulent drainage. Airway patent. NECK: Trachea midline. CARDIOVASCULAR: Irregular without murmurs, gallops, or rubs. RESPIRATORY: Clear to auscultation anteriorly. Breath sounds equal bilaterally. No wheezes, rales, or rhonchi. GASTROINTESTINAL: Abdomen soft, non-tender, nondistended. No guarding. Bowels sounds +4 quadrants. PEG tube in place, site C/D/I. MUSCULOSKELETAL: Extremities without clubbing or cyanosis. BUE with diffuse edema, improving. NEUROLOGICAL: Awake and alert. Moving all extremities. No focal neurologic finding. Normal speech. PSYCHIATRIC: Calm and cooperative. Poor judgment and insight. Procedures None A/P Assessment and Plan 77-year-old AA female with PMH of dementia, schizophrenia, arthritis, and asthma who was originally admitted to inpatient psychiatry on 12/24 after patient was [place] acted by PD due to aggressive behavior. She was transferred to medical psych unit due to poor p.o. intake. She was followed by [facility] while in med.psych however on 01/05 was transferred to medical ICU as a [place]-Cat due to sever hypotension despite IVF bolus administration. She was treated with broad spectrum antibiotics including IV Vancomycin, Cefepime, and Flagyl. CT scan of the abdomen/pelvis revealed diffuse colitis without perforation, basilar consolidation and right middle love nodule as well as prominent uterus and endometrium. Her stool was tested and positive for c.diff, she was treated for hypothermia, BC x2 and UA were negative. Patient was treated with IV hydration however due to shock was ultimately place on vasopressors. Palliative care, ID and GI followed patient while she was in ICU. Patient was weaned off pressors, received one time diuresis, and transferred back to medical psych unit on 01/09. [facility] has been consult to assist with ongoing medical management. Schizophrenia/dementia -Management per psychiatric team -Seroquel and Depakene currently on hold due to lethargy Acute metabolic encephalopathy, suspect secondary to antipsychotic side effects. Patient much more awake and alert since Seroquel dose held and started on Provigil. Chest x-ray shows stable left basilar opacity, new opacity right lung base possibly atelectasis versus consolidation CT the head unremarkable MRI brain no acute abnormality EEG shows severe encephalopathy, no epileptiform activity RPR nonreactive, ammonia level 34, B12 elevated ABG reviewed -Neurology following, appreciate assistance. Per their recommendations, continue to hold Seroquel. Continue Provigil. -neuro checks -continue with PT/OT -keep NPO, ST following -the patient is more awake and alert she may be able to tolerate a pured diet. Will follow up with ST recommendations. -fall/seizure/aspiration precautions Candidal UTI Urine culture positive for greater than 100,000 Leonor glabrata -Begin fluconazole 100 mg daily. Last EKG 01/10 no QTC prolongation. LFTs within normal limits. Continue to monitor. Hyperammonemia -Patient given dose of lactulose x 1 -Continue to monitor ammonia level as indicated Bilateral UE edema, improving Doppler reveals small area of superficial thrombosis from patient's IV site right forearm otherwise no evidence of DVT -possible fluid overload, hold free water flushes while on IV fluids -elevate arms -monitor Bilateral LE pain Doppler studies neg -continue to monitor C.diff colitis, improving -Continue p.o Vancomycin per PEG for total of 14 days -Lactobacillus TID -ID following, appreciate assistance New onset afib with RVR Rate controlled Echocardiogram shows EF 65-70% -continue on low-dose metoprolol BID with parameters -Started on Eliquis but held secondary to dropping hemoglobin and thrombocytopenia. Will consult cardiology if this is new onset atrial fibrillation to help assist with anticoagulation recommendations, appreciate assistance -Monitor heart rate Hypokalemia Hypophosphatemia -Resolved status post repletion Hypoglycemia, still having significantly low blood sugars overnight poor p.o. intake- secondary to mentation Blood sugars improved but still running low while on D5. BS currently 125. Erroneous BS recording of 29, discussed with nursing staff -continue TF per manager pharmacy recommendation, Vital 1.5 @ 50ml/hr and bolus feedings with Vital 1.5 1 can(240ml)@ 8am, 11am, 2pm, 5pm and 8pm. Discussed with nursing staff, no residuals. -Keep HOB 30 degrees at all times for aspiration precautions. -continue on D5NS. Obtain insulin and C-peptide levels/pending -continue on q2h accucheks Anemia, normocytic, normochromic Thrombocytopenia, improving No e/o active bleeding Iron studies reviewed Hemoccult neg -hgb dropped from 10.1 to 8.7 -Continue to hold Eliquis for now. Await cardiology recs. -continue to monitor - repeat CBC in am Sacral ulcer -wound care consulted, orders placed -frequent turns q2h, float heels off bed -monitor Incidental finding of prominent uterus with prominent endometrium on CT abd/ pelvis Pelvic US shows Mildly thickened endometrium. Underlying neoplasm, hyperplasia or polyp could be present. Suspected uterine leiomyoma. -recommend patient follow up with gynecology as outpatient for further evaluation and treatment DVT prophylaxis- Eliquis on hold. Lovenox sq while Eliquis on hold Carol Martinez Jan 14, 2018 07:19
[2018-01-14 07:31] LABS: CALCIUM 8.3 MG/DL (8.5-10.1); CREATININE 0.65 MG/DL (0.50-1.00)
--- NOTE | 2018-01-14 10:26 | HHI.PYPN ---
Subjective Remarks Patient seen for follow, chart reviewed. Discussion nursing staff reported the patient more alert now after Seroquel has been held, no behavioral issues. Patient found lying hospital bed able to wake up to interact with interview although noted to be somewhat irritable but not yelling but noted to have good rapport with nurse. Patient states that she is feeling "great" reports sleeping well, denies any physical pain at this time, denying any auditory or visual hallucinations. Patient noted to be somewhat dismissive with quality analyst/technical writer. Review of Systems Except as stated in HPI: all other systems reviewed are Neg Mental Status Examination Appearance: Other (Patient laying in bed sedated with bed clothing) Consciousness: Somnolent Orientation: Person Motor Activity: Other (Patient laying quietly in bed) Speech: Other (Patient mumbling) Language: Other (Very poor) Fund of Knowledge: Inadequate Attention and Concentration: Easily Distracted Memory: Impaired Mood: Sad Affect: Other (Marked decreased range and intensity) Thought Process & Associations: Disorganized, Other ([place]) Thought Content: Other (Markedly disorganized) Hallucination Type: None Delusion Type: None Suicidal Ideation: No Suicidal Plan: No Suicidal Intention: No Homicidal Ideation: No Homicidal Plan: No Homicidal Intention: No Insight: Poor Judgment: Poor Results Labs Test 01/14/18 06:33 White Blood Count 6.4 TH/MM3 Red Blood Count 2.80 MIL/MM3 Hemoglobin 8.7 GM/DL Hematocrit 26.2 % Mean Corpuscular Volume 93.7 FL Mean Corpuscular Hemoglobin 31.2 PG Mean Corpuscular Hemoglobin Concent 33.3 % Red Cell Distribution Width 15.1 % Platelet Count 117 TH/MM3 Mean Platelet Volume 9.7 FL Blood Urea Nitrogen 8 MG/DL Creatinine 0.65 MG/DL Random Glucose 98 MG/DL Calcium Level 8.3 MG/DL Sodium Level 142 MEQ/L Potassium Level 4.0 MEQ/L Chloride Level 107 MEQ/L Carbon Dioxide Level 27.0 MEQ/L Anion Gap 8 MEQ/L Estimat Glomerular Filtration Rate 107 ML/MIN CA 125 Antigen 35.2 U/ML Date/Time Source Procedure Growth Status 01/12/18 23:30 Stool Stool Stool Occult Blood (SHANIA) - Final HEMOCCULT NEGATIVE Complete 01/10/18 16:37 Urine Catheterized Urine Urine Culture - Final Leonor Glabrata Complete Vitals/IOs Vital Signs Date Time Temp Pulse Resp B/P (MAP) Pulse Ox O2 Delivery O2 Flow Rate FiO2 01/14/18 06:45 98.6 87 16 122/54 (76) 99 Intake and Output 01/14/18 01/14/18 01/15/18 08:00 16:00 00:00 Intake Total 0 ml Output Total 550 ml Balance -550 ml Assessment & Plan Problem List: (1) Schizoaffective disorder, bipolar type ICD Codes: F25.0 - Schizoaffective disorder, bipolar type Status: Chronic Assessment & Plan Patient this time noted to be alert and responsive, not noted to be lethargic. Patient denying any perceptual disturbances, noted to be somewhat irritable or dismissive of the quality analyst/technical writer but no behavioral disturbances recently. Continue current treatment. Continue to monitor mood and behavior. Discharge planning in progress. Justification for Cont. Inpt. At risk for further decompensation if at lower level of care Request HC Surrog/Guard Advoc?: Yes Milton Strickland MD Jan 14, 2018 10:26
[2018-01-14] MEDS: VANCOMYCIN 500 MG VIAL (FOR ORAL USE ONLY) PEG SCH ×4 (12:01→22:35)
[2018-01-14] MEDS: VALPROIC ACID SYRUP 250 MG/5 ML UDC PEG SCH ×2 (12:01→22:35)
[2018-01-14] MEDS: METOPROLOL TARTRATE 25 MG TAB PEG SCH ×2 (12:02→22:35)
[2018-01-14] MEDS: LACTOBACILLUS ACIDOPHILUS TAB PEG SCH ×3 (12:02→17:53)
[2018-01-14] MEDS: FLUCONAZOLE 100 MG TAB PEG SCH (12:02)
[2018-01-14] MEDS: MODAFINIL 200 MG TAB PO SCH (12:02)
[2018-01-14] MEDS: ENOXAPARIN SODIUM 40 MG/0.4 ML SYRINGE SQ SCH (14:00)
--- NOTE | 2018-01-14 15:21 | MB ---
cc: Jhoan Alberts MD DATE: 01/14/2018 REASON FOR CONSULTATION: New onset atrial fibrillation. HISTORY OF PRESENT ILLNESS: The patient is a 77-year-old woman with a history of dementia and schizophrenia, who was Munson acted due to aggressive behavior. Her EKG 4 days ago was found to be in atrial fibrillation. Today, I was consulted to evaluate for anticoagulation. The patient was unable to provide any history due to her severe psychiatric disease. Her family at bedside states no known history of any cardiac problems. PAST MEDICAL HISTORY: Dementia, schizophrenia, asthma, arthritis PEG tube placement. CURRENT MEDICATIONS: 1. Lovenox. 2. Diflucan. 3. Lactinex. 4. Provigil. 5. Lopressor 12.5 every 12 hours. 6. Vancomycin. 7. Hydralazine. 8. Depakote. ALLERGIES: APPLE. PHYSICAL EXAMINATION: VITAL SIGNS: Afebrile, pulse 87, respiratory rate 60, BP 122/54, saturating 99 on room air. GENERAL: A somewhat agitated woman. NECK: No JVD, but difficult exam due to patient verbalizations and movement. LUNGS: Difficult exam, but no obvious abnormal breath sounds. CARDIOVASCULAR: Irregularly irregular rhythm. No significant murmurs appreciated. ABDOMEN: Benign. EXTREMITIES: No edema. LABORATORY DATA: White count 6.4, hematocrit 26.2, platelets 117. Sodium 142, potassium 4.0, chloride 107, bicarbonate 27, BUN 8, creatinine 0.65. EKG from 01/10/2018 was read as atrial fibrillation with rapid ventricular response. The patient is not currently on telemetry, but by exam has a rate controlled atrial fibrillation. Echocardiogram from 01/11/2018 was notable for a normal ejection fraction, mild LVH and mild to moderate tricuspid regurgitation. IMPRESSION AND RECOMMENDATIONS: New onset atrial fibrillation. The patient has newly discovered atrial fibrillation. Her treatment is very complicated due to her advanced/severe psychiatric and neurologic disease. I discussed the pros and cons of anticoagulation with the family. At this point, they wish for conservative care and want to hold off on anticoagulation, but they are going to discuss amongst themselves. Likely warfarin would be the anticoagulant of choice given her PEG tube. She is likely a significant fall risk and I explained this to the family. Again, the patient would be at a stroke risk without anticoagulation, but given her severe mental and cognitive disability, she may not be an anticoagulation candidate. She appears to be rate controlled by exam. Her echocardiogram shows normal ejection fraction. At this point, I will be available as needed, but again, the family was advised to let the nurse know if they decide to pursue anticoagulation. Thank you again for the opportunity to participate in this patient's care. MD ELLI Rachel/JOSE , 02:52 PM , 03:18 PM
[2018-01-14 18:17] VITALS: BP 137/63; PULSE 80; RESP 16; TEMP 98.1; O2SAT 98
[2018-01-14] MEDS: DEXTROSE 5% IN WATE 1000ML INJ 1,000 ML IV SCH (22:37)
[2018-01-15 06:12] VITALS: BP 140/63; PULSE 86; RESP 16; TEMP 97.8; O2SAT 98
[2018-01-15] MEDS: MODAFINIL 200 MG TAB PO SCH (09:00)
--- NOTE | 2018-01-15 09:24 | PD.CARD.PN ---
Subjective Subjective Remarks Rates better, pt less agitated but still confused Objective Medications Current Medications Medications (Trade) Dose Ordered Sig/Karyna Route Start Time Stop Time Status Last Admin (SEROquel) 400 mg BID PEG 01/08/18 21:00 Future Hold 01/12/18 08:25 (Depakene Liq) 500 mg BID PEG 01/08/18 21:00 01/14/18 22:35 (Ativan) 0.5 mg Q12H PRN PO 01/08/18 15:30 (Ativan Inj) 0.5 mg Q12H PRN IM 01/08/18 15:30 (Tylenol) 650 mg Q4H PRN PO 01/08/18 15:30 01/13/18 10:01 (Milk Of Magnesia Liq) 30 ml DAILY PRN PO 01/08/18 15:30 (Mag-Al Plus Susp Liq) 30 ml Q6H PRN PO 01/08/18 15:30 (Atarax) 50 mg Q6H PRN PO 01/09/18 10:00 (Free Water) VOLUME OF WATER: 200 ML Q6HR G-TUBE 01/09/18 18:00 Future Hold 01/10/18 06:00 (D50w (Vial) Inj) 50 ml UNSCH PRN IV PUSH 01/09/18 18:45 01/10/18 11:50 (Glucagon Inj) 1 mg STAT PRN IM 01/09/18 18:45 01/09/18 19:29 Dextrose 1,000 ml @ 42 mls/hr [id number] IV 01/09/18 22:30 01/14/18 22:37 (Pill Splitter) 1 ea UNSCH PRN OTHER 01/11/18 17:15 (Eliquis) 5 mg BID G-TUBE 01/12/18 09:00 Future Hold 01/12/18 08:27 (Lopressor) 12.5 mg Q12HR PEG 01/12/18 09:00 01/14/18 22:35 (VANCOMYCIN for oral use only) 500 mg QID PEG 01/12/18 09:00 01/14/18 22:35 (Provigil) 100 mg DAILY PO 01/12/18 09:45 01/14/18 12:02 (Diflucan) 100 mg DAILY PEG 6/23/18 09:00 01/14/18 12:02 (Lactinex) 1 tab TID PEG 01/13/18 18:00 01/14/18 17:53 (Lovenox Inj) 40 mg Q24H SQ 01/14/18 14:00 01/14/18 14:00 Vital Signs / I&O Vital Signs Date Time Temp Pulse Resp B/P (MAP) Pulse Ox O2 Delivery O2 Flow Rate FiO2 01/15/18 06:12 97.8 86 16 140/63 (88) 98 01/14/18 18:17 98.1 80 16 137/63 (87) 98 I/O 01/14/18 01/14/18 01/14/18 01/15/18 01/15/18 01/15/18 07:00 15:00 23:00 07:00 15:00 23:00 Intake Total 0 ml 0 ml 8625 ml Output Total 550 ml 3300 ml 2000 ml Balance -550 ml -3300 ml 6625 ml Intake Oral 0 ml 0 ml IV Total 4954 ml Tube Feeding 3671 ml Output Urine Total 550 ml 3300 ml 2000 ml Stool Total 0 ml # Bowel Movements 1 1 Physical Exam GENERAL: agitated, mildly CARDIOVASCULAR: Regular rate and irregular rhythm without murmurs, gallops, or rubs. RESPIRATORY: Clear to auscultation. Breath sounds equal bilaterally. No wheezes , rales, or rhonchi. GASTROINTESTINAL: Abdomen soft, non-tender, nondistended. Normal, active bowel sounds MUSCULOSKELETAL: Extremities without clubbing, cyanosis, or edema. NEURO: not alert Imaging Last Impressions Pelvis Ultrasound 01/13/18 Signed Impressions: CONCLUSION: 1. Mildly thickened endometrium. Underlying neoplasm, hyperplasia or polyp cou ld be present. 2. Suspected uterine leiomyoma. 3. The ovaries are not seen. No adnexal mass is seen. Lower Extremity Ultrasound 01/13/18 Signed Impressions: CONCLUSION: 1. Limited examination. No DVT identified within either lower extremity. Upper Extremity Ultrasound 01/11/18 Signed Impressions: CONCLUSION: 1. Small area of thrombus at the insertion site of the patient's IV in the rig ht forearm. The remainder of the venous system of the right upper extremity is widely patent. 2. The venous system of the left upper extremity is widely patent. Head CT 01/10/18 2059 Signed Impressions: CONCLUSION: 1. No acute intracranial abnormality or significant interval change. Chest X-Ray 01/10/18 0000 Signed Impressions: CONCLUSION: 1. Stable left basilar pleural-parenchymal opacity likely representing pleural effusion with associated airspace consolidation and/or atelectasis. 2. New opacity at the right lung base representing either atelectasis or conso lidation. Brain MRI 01/10/18 0000 Signed Impressions: CONCLUSION: 1. Senescent changes with old small bilateral basal ganglia lacunar infarcts. 2. Mild periventricular small vessel ischemic white matter demyelination. 3. No acute abnormality. Specifically, no acute infarction. Assessment and Plan Problem List: (1) Atrial fibrillation ICD Codes: I48.91 - Unspecified atrial fibrillation Plan: currently rate controlled, not a great anticoagulation candidate due to all of the below and associated fall risk; gave choice to family regarding anticoagulation, risks and benefits both ways explained, for now they wish to hold off, they understand stroke risk. (2) Schizoaffective disorder, bipolar type ICD Codes: F25.0 - Schizoaffective disorder, bipolar type Status: Chronic (3) Bipolar disorder, manic ICD Codes: F31.10 - Bipolar disorder, current episode manic without psychotic features, unspecified Status: Chronic (4) Dementia ICD Codes: F03.90 - Unspecified dementia without behavioral disturbance Status: Chronic Assessment and Plan Will sign off, please call with questions. Jhoan Alberts MD Jan 15, 2018 09:24
[2018-01-15] MEDS: VANCOMYCIN 500 MG VIAL (FOR ORAL USE ONLY) PEG SCH ×3 (09:57→21:45)
[2018-01-15] MEDS: METOPROLOL TARTRATE 25 MG TAB PEG SCH ×2 (09:58→21:45)
[2018-01-15] MEDS: LACTOBACILLUS ACIDOPHILUS TAB PEG SCH ×2 (09:58→13:00)
[2018-01-15] MEDS: FLUCONAZOLE 100 MG TAB PEG SCH (09:58)
[2018-01-15] MEDS: ACETAMINOPHEN 325 MG TAB PO PRN (09:59)
[2018-01-15] MEDS: VALPROIC ACID SYRUP 250 MG/5 ML UDC PEG SCH ×2 (10:01→21:45)
--- NOTE | 2018-01-15 11:56 | HHI.PR ---
Subjective Remarks Follow-up on patient with dementia, schizophrenia, C. difficile colitis, recent episode of septic shock. Patient seen and examined. Patient continues to remain much more alert. She is in good spirits. She denies any acute medical complaints. Discussed with nursing staff, stooling improving, no BMs today and one small loose stool yesterday. Objective Vitals Vital Signs Date Time Temp Pulse Resp B/P (MAP) Pulse Ox O2 Delivery O2 Flow Rate FiO2 01/15/18 06:12 97.8 86 16 140/63 (88) 98 01/14/18 18:17 98.1 80 16 137/63 (87) 98 I/O 01/14/18 01/14/18 01/14/18 01/15/18 01/15/18 01/15/18 07:00 15:00 23:00 07:00 15:00 23:00 Intake Total 0 ml 0 ml 8625 ml Output Total 550 ml 3300 ml 2000 ml Balance -550 ml -3300 ml 6625 ml Intake Oral 0 ml 0 ml IV Total 4954 ml Tube Feeding 3671 ml Output Urine Total 550 ml 3300 ml 2000 ml Stool Total 0 ml # Bowel Movements 1 1 Result Diagram: 01/14/18 0633 01/14/18 0633 Imaging Last Impressions Pelvis Ultrasound 01/13/18 0000 Signed Impressions: CONCLUSION: 1. Mildly thickened endometrium. Underlying neoplasm, hyperplasia or polyp cou ld be present. 2. Suspected uterine leiomyoma. 3. The ovaries are not seen. No adnexal mass is seen. Lower Extremity Ultrasound 01/13/18 0000 Signed Impressions: CONCLUSION: 1. Limited examination. No DVT identified within either lower extremity. Upper Extremity Ultrasound 01/11/18 0000 Signed Impressions: CONCLUSION: 1. Small area of thrombus at the insertion site of the patient's IV in the rig ht forearm. The remainder of the venous system of the right upper extremity is widely patent. 2. The venous system of the left upper extremity is widely patent. Head CT 01/10/18 4897 Signed Impressions: CONCLUSION: 1. No acute intracranial abnormality or significant interval change. Chest X-Ray 01/10/18 0000 Signed Impressions: CONCLUSION: 1. Stable left basilar pleural-parenchymal opacity likely representing pleural effusion with associated airspace consolidation and/or atelectasis. 2. New opacity at the right lung base representing either atelectasis or conso lidation. Brain MRI 01/10/18 0000 Signed Impressions: CONCLUSION: 1. Senescent changes with old small bilateral basal ganglia lacunar infarcts. 2. Mild periventricular small vessel ischemic white matter demyelination. 3. No acute abnormality. Specifically, no acute infarction. Objective Remarks GENERAL: This is a well-nourished, well-developed female patient, INAD. Patient is awake and alert. Conversant. SKIN: Warm and dry. + 3cm sacral decubitus per nursing report. HEAD: Atraumatic. Normocephalic. EYES: No scleral icterus. No injection or drainage. ENT: Nose without bleeding or purulent drainage. Airway patent. MMM. NECK: Trachea midline. CARDIOVASCULAR: Irregular without murmurs, gallops, or rubs. RESPIRATORY: Clear to auscultation anteriorly. Breath sounds equal bilaterally. No wheezes, rales, or rhonchi. GASTROINTESTINAL: Abdomen soft, non-tender, nondistended. No guarding. Bowels sounds +4 quadrants. PEG tube in place, site C/D/I. MUSCULOSKELETAL: Extremities without clubbing or cyanosis. BUE with diffuse edema, improving. NEUROLOGICAL: Awake and alert. Moving all extremities. No focal neurologic finding. Normal speech. PSYCHIATRIC: Calm and cooperative. Poor judgment and insight. Procedures None A/P Assessment and Plan 77-year-old AA female with PMH of dementia, schizophrenia, arthritis, and asthma who was originally admitted to inpatient psychiatry on 12/24 after patient was [place] acted by PD due to aggressive behavior. She was transferred to medical psych unit due to poor p.o. intake. She was followed by [facility] while in med.psych however on 01/05 was transferred to medical ICU as a [place]-Cat due to sever hypotension despite IVF bolus administration. She was treated with broad spectrum antibiotics including IV Vancomycin, Cefepime, and Flagyl. CT scan of the abdomen/pelvis revealed diffuse colitis without perforation, basilar consolidation and right middle love nodule as well as prominent uterus and endometrium. Her stool was tested and positive for c.diff, she was treated for hypothermia, BC x2 and UA were negative. Patient was treated with IV hydration however due to shock was ultimately place on vasopressors. Palliative care, ID and GI followed patient while she was in ICU. Patient was weaned off pressors, received one time diuresis, and transferred back to medical psych unit on 01/09. [facility] has been consult to assist with ongoing medical management. Schizophrenia/dementia -Management per psychiatric team -Seroquel and Depakene currently on hold due to lethargy Acute metabolic encephalopathy, suspect secondary to antipsychotic side effects. Patient much more awake and alert since Seroquel dose held and started on Provigil. Chest x-ray shows stable left basilar opacity, new opacity right lung base possibly atelectasis versus consolidation CT the head unremarkable MRI brain no acute abnormality EEG shows severe encephalopathy, no epileptiform activity RPR nonreactive, ammonia level 34, B12 elevated ABG reviewed -Neurology following, appreciate assistance. Per their recommendations, continue to hold Seroquel. Continue Provigil. Patient much improved while Seroquel on hold. Will discontinue for now. Will defer resuming Seroquel possibly at lower dose if needed per psychiatry. -neuro checks -continue with PT/OT - reconsulted -keep NPO, ST following -the patient is more awake and alert she may be able to tolerate a pured diet. Will follow up with ST recommendations. -fall/seizure/aspiration precautions Candidal UTI Urine culture positive for greater than 100,000 Leonor glabrata -continue fluconazole 100 mg daily. Last EKG 01/10 no QTC prolongation. LFTs within normal limits. Continue to monitor. Hyperammonemia -Patient given dose of lactulose x 1 -Continue to monitor ammonia level as indicated Bilateral UE edema, improving Doppler reveals small area of superficial thrombosis from patient's IV site right forearm otherwise no evidence of DVT -possible fluid overload, hold free water flushes while on IV fluids -elevate arms -monitor Bilateral LE pain Doppler studies neg -continue to monitor C.diff colitis, improving -Continue p.o Vancomycin per PEG for total of 14 days -Lactobacillus TID -ID following, appreciate assistance. Will check with ID tomorrow if vancomycin dose can be reduced. New onset afib with RVR Rate controlled Echocardiogram shows EF 65-70% -continue on low-dose metoprolol BID with parameters -Cardiology consulted, appreciate assistance. Not a good candidate for anticoagulation. Cardiology discussed as much with family who wishes to hold off and understands stroke risk. -Monitor heart rate Hypokalemia Hypophosphatemia -Resolved status post repletion Hypoglycemia Blood sugars improved but still running low while on D5. BS currently 94. -continue TF per investment specialist recommendation, Vital 1.5 @ 50ml/hr and bolus feedings with Vital 1.5 1 can(240ml)@ 8am, 11am, 2pm, 5pm and 8pm. Discussed with nursing staff, no residuals. -Keep HOB 30 degrees at all times for aspiration precautions. -continue on D5NS. Consult endocrinology for assistance, appreciate recommendations. -continue on q2h accucheks Anemia, normocytic, normochromic Thrombocytopenia, improving No e/o active bleeding Iron studies reviewed Hemoccult neg -hgb dropped from 10.1 to 8.7 -repeat CBC for today pending -continue to monitor - repeat CBC in am Sacral ulcer -wound care consulted, orders placed -frequent turns q2h, float heels off bed -monitor Incidental finding of prominent uterus with prominent endometrium on CT abd/ pelvis Pelvic US shows Mildly thickened endometrium. Underlying neoplasm, hyperplasia or polyp could be present. Suspected uterine leiomyoma. -recommend patient follow up with gynecology as outpatient for further evaluation and treatment DVT prophylaxis-Lovenox sq Carol Martinez Jan 15, 2018 11:56
[2018-01-15] MEDS: ENOXAPARIN SODIUM 40 MG/0.4 ML SYRINGE SQ SCH (14:00)
--- NOTE | 2018-01-15 16:55 | HHI.PYPN ---
Subjective Remarks Patient seen for follow, chart reviewed. Discussion nursing staff reported the patient now more alert and more interactive after cervical have been held, slept well, noted to be interacting with family upon visitation. Patient was found lying hospital bed noted to be alert and answering questions appropriately at times but continues to have moments of nonsensical verbal expression but able to maintain attention toward interview. Patient definitely noted to be more animated today and less irritable. Review of Systems Except as stated in HPI: all other systems reviewed are Neg Mental Status Examination Appearance: Other (Patient laying in bed sedated with bed clothing) Consciousness: Somnolent Orientation: Person Motor Activity: Other (Patient laying quietly in bed) Speech: Other (Patient mumbling) Language: Other (Very poor) Fund of Knowledge: Inadequate Attention and Concentration: Easily Distracted Memory: Impaired Mood: Other ("Great") Affect: Other (Increase range of affect now) Thought Process & Associations: Disorganized, Other ([place]) Thought Content: Other (Markedly disorganized) Hallucination Type: None Delusion Type: None Suicidal Ideation: No Suicidal Plan: No Suicidal Intention: No Homicidal Ideation: No Homicidal Plan: No Homicidal Intention: No Insight: Poor Judgment: Poor Results Labs Date/Time Source Procedure Growth Status 01/12/18 23:30 Stool Stool Stool Occult Blood (SHANIA) - Final HEMOCCULT NEGATIVE Complete 01/10/18 16:37 Urine Catheterized Urine Urine Culture - Final Leonor Glabrata Complete Vitals/IOs Vital Signs Date Time Temp Pulse Resp B/P (MAP) Pulse Ox O2 Delivery O2 Flow Rate FiO2 01/15/18 06:12 97.8 86 16 140/63 (88) 98 Intake and Output 01/15/18 01/15/18 01/16/18 08:00 16:00 00:00 Intake Total 8625 ml Output Total 2000 ml Balance 6625 ml Assessment & Plan Problem List: (1) Schizoaffective disorder, bipolar type ICD Codes: F25.0 - Schizoaffective disorder, bipolar type Status: Chronic Assessment & Plan Patient this time now noted to be more alert and interactive, continues with some disorganization but not noted to be agitated or aggressive but continues to have some irritability noted. We will continue current treatment. Continue to monitor mood and behavior. Discharge planning a progress. Justification for Cont. Inpt. At risk for further decompensation if at lower level of care Request HC Surrog/Guard Advoc?: Yes Milton Strickland MD Jan 15, 2018 16:55
[2018-01-15 18:09] VITALS: BP 138/69; PULSE 88; RESP 16; TEMP 98.3; O2SAT 97
[2018-01-15] MEDS: DEXTROSE 5% IN WATE 1000ML INJ 1,000 ML IV SCH (21:46)
[2018-01-16 05:14] VITALS: BP 178/93; PULSE 106; RESP 18; TEMP 98.5
[2018-01-16] MEDS: MODAFINIL 200 MG TAB PO SCH (09:00)
[2018-01-16] MEDS: LACTOBACILLUS ACIDOPHILUS TAB PEG SCH ×3 (09:00→13:00)
[2018-01-16] MEDS: VANCOMYCIN 500 MG VIAL (FOR ORAL USE ONLY) PEG SCH ×2 (10:03→13:00)
[2018-01-16] MEDS: FLUCONAZOLE 100 MG TAB PEG SCH (10:04)
[2018-01-16] MEDS: METOPROLOL TARTRATE 25 MG TAB PEG SCH (10:04)
[2018-01-16] MEDS: VALPROIC ACID SYRUP 250 MG/5 ML UDC PEG SCH (10:04)
[2018-01-16] MEDS ORDERED: VALP250UDC PEG (10:18)
--- NOTE | 2018-01-16 10:23 | HHI.DS ---
Psychiatry Discharge Summary Inpatient Psychiatric care?: Yes Advance Directive: No Reason Not Provided: DOES NOT HAVE Mental Health AdvanceDirective: No Health Care Proxy: No Admission Admission Date Jan 08, 2018 at 14:24 Admission Diagnosis: (1) Schizoaffective disorder, bipolar type ICD Code: F25.0 - Schizoaffective disorder, bipolar type Brief History Patient is a 77-year-old Afro-[place]angl[place]hi female none. Multiple prior contacts was admitted to the psychiatric unit on 08/11 through 01/05/18 under visit [id number]. This is under my service. For treatment of her mental illness patient developed hypotensive shock was heavily Did twice and on 01/05/2018 was transferred to the intensive care unit under visit [id number]. She was discharged from there on 01/08/18 at that time the medicine service felt she had stabilized to the point where she could be returned to the 4 E. med psych unit. Patient seen by me. Today patient sedated to arousable to responsive responding and diffusely confused and disorganized mumbling. At this time she still meets criteria under the Munson act for psychiatric assessment though the medical issues are becoming more more prominent. We will continue the medical consults per hour 4 E. protocol. We will work with the medicine service to determine an appropriate placement for this lady will continue all her other orders and consultations Tobacco Use In Past 30 Days: No Tobacco Past 30 Days Alcohol Use: Never Hospital Course Patient's hospital course was emotional for various medical issues that compromised her recovery. Along with the standard intensive care unit during this hospitalization. However patient's medical condition is stabilized though she continues with PEG tubing. She continues somewhat psychotic though exemplified more by her willingness to talk to certain staff members and to babbling comprehensively to others. There is no significant behavioral problems noted she is compliant with her medications. At this . She has reached maximum benefit of this inpatient psychiatric hospitalization. There is a bed available and [facility] alf today. Patient has been medically cleared, the medical service arrived to her various medical medications the only psychotropic she is currently being prescribed his for Depakote which I will write for. Patient to follow up with both the medical and mental health services through that facility Results Blood Pressure 178 / 93 Vital Signs Date Time Temp Pulse Resp B/P (MAP) Pulse Ox O2 Delivery O2 Flow Rate FiO2 01/16/18 05:14 98.5 106 18 178/93 (121) 01/15/18 18:09 97 Laboratory Tests Test 01/14/18 06:33 Red Blood Count 2.80 MIL/MM3 (4.00-5.30) Hemoglobin 8.7 GM/DL (11.6-15.3) Hematocrit 26.2 % (35.0-46.0) Platelet Count 117 TH/MM3 (150-450) Calcium Level 8.3 MG/DL (8.5-10.1) CA 125 Antigen 35.2 U/ML (0.0-30.2) Laboratory Results Test 01/09/18 13:41 01/12/18 09:12 Cholesterol Level 144 MG/DL (120-200) HDL Cholesterol 36.6 MG/DL (40.0-60.0) Hemoglobin A1c 5.6 % (4.3-6.0) LDL Cholesterol 96 MG/DL (0-99) Triglycerides Level 58 MG/DL (42-150) Valproic Acid (Depakene) Level 35 MCG/ML (50-100) Summary of Procedures None done Imaging Last Impressions Pelvis Ultrasound 01/13/18 Signed Impressions: CONCLUSION: 1. Mildly thickened endometrium. Underlying neoplasm, hyperplasia or polyp cou ld be present. 2. Suspected uterine leiomyoma. 3. The ovaries are not seen. No adnexal mass is seen. Lower Extremity Ultrasound 01/13/18 Signed Impressions: CONCLUSION: 1. Limited examination. No DVT identified within either lower extremity. Upper Extremity Ultrasound 01/11/18 Signed Impressions: CONCLUSION: 1. Small area of thrombus at the insertion site of the patient's IV in the rig ht forearm. The remainder of the venous system of the right upper extremity is widely patent. 2. The venous system of the left upper extremity is widely patent. Head CT 01/10/18 3477 Signed Impressions: CONCLUSION: 1. No acute intracranial abnormality or significant interval change. Chest X-Ray 01/10/18 Signed Impressions: CONCLUSION: 1. Stable left basilar pleural-parenchymal opacity likely representing pleural effusion with associated airspace consolidation and/or atelectasis. 2. New opacity at the right lung base representing either atelectasis or conso lidation. Brain MRI 01/10/18 Signed Impressions: CONCLUSION: 1. Senescent changes with old small bilateral basal ganglia lacunar infarcts. 2. Mild periventricular small vessel ischemic white matter demyelination. 3. No acute abnormality. Specifically, no acute infarction. Pending results at discharge: No Medications # of Antipsychotic meds at D/C: 0 Approp Antipsych med options 1 - Minimum of three failed multiple trials of monotherapy. 2 - Documented plan to taper to monotherapy due to previous use of multiple meds OR cross-taper in progress at D/C. 3 - Documentation of augmentation of Clozapine. 4 - Justification other than those listed in allowable values 1-3, document here : Discharge Discharge Date: Jan 16, 2018 Discharge Diagnosis: (1) Schizoaffective disorder, bipolar type ICD Code: F25.0 - Schizoaffective disorder, bipolar type Status: Chronic Pt Condition on Discharge: Stable Discharge Disposition: Discharge to SNF Discharge Instructions Diet Instructions: As Tolerated, No Restrictions Additional Diet Instructions: Please see medical instructions for PEG tube feeding and any oral supplement Activities you can perform: Regular-No Restrictions Other Activity Instructions: Please see medical instructions 4 PEG tube feeding and any oral supplement Scheduled Appointment: Follow-up through [facility] Discharge Time > 30 minutes Mental Status Examination Appearance: Other (Patient laying in bed sedated with bed clothing) Consciousness: Somnolent Orientation: Person Motor Activity: Other (Patient laying quietly in bed) Speech: Other (Patient mumbling) Language: Other (Very poor) Fund of Knowledge: Inadequate Attention and Concentration: Easily Distracted Memory: Impaired Mood: Other ("Great") Affect: Other (Increase range of affect now) Thought Process & Associations: Disorganized, Other ([place]) Thought Content: Other (Markedly disorganized) Hallucination Type: None Delusion Type: None Suicidal Ideation: No Suicidal Plan: No Suicidal Intention: No Homicidal Ideation: No Homicidal Plan: No Homicidal Intention: No Insight: Poor Judgment: Poor Discharge/Advance Care Plan Health Problems: (1) Schizoaffective disorder, bipolar type Goals to promote your health * To prevent worsening of your condition and complications * To maintain your health at the optimal level Directions to meet your goals Take your medications as prescribed Follow your dietary instruction Follow activity as directed Keep your appointments as scheduled Take your immunizations and boosters as scheduled If your symptoms worsen call your PCP, if no PCP go to Urgent Care Center or Emergency Room For 14/02 questions related to your inpatient stay or results of tests pending at discharge, please contact Dr. Louie Morales at Smoking is Dangerous to Your Health. Avoid second hand smoking Louie Morales MD Jan 16, 2018 10:23
[2018-01-16] MEDS ORDERED: DIFL100T PEG (11:37)
[2018-01-16] MEDS ORDERED: LACT PEG (11:37)
[2018-01-16] MEDS ORDERED: VANC125C3 PO (11:37)
[2018-01-16] MEDS ORDERED: METO25TA3 PEG (11:37)
--- NOTE | 2018-01-16 11:41 | HHI.PR ---
Subjective Remarks Follow-up on patient with dementia, schizophrenia, C. difficile colitis, recent episode of septic shock. Patient seen and examined. Patient remains alert. Appears more agitated today. Discussed with nursing staff, two small loose stools overnight, none today. No other issues noted. To be discharged to [facility] today. Objective Vitals Vital Signs Date Time Temp Pulse Resp B/P (MAP) Pulse Ox O2 Delivery O2 Flow Rate FiO2 01/16/18 05:14 98.5 106 18 178/93 (121) 01/15/18 18:09 98.3 88 16 138/69 (92) 97 I/O 01/15/18 01/15/18 01/15/18 01/16/18 01/16/18 01/16/18 07:00 15:00 23:00 07:00 15:00 23:00 Intake Total 8625 ml 0 ml 3422 ml Output Total 2000 ml 4251 ml 1700 ml Balance 6625 ml -4251 ml 1722 ml Intake Oral 0 ml IV Total 4954 ml 1984 ml Tube Feeding 3671 ml 1438 ml Output Urine Total 2000 ml 4250 ml 1700 ml Stool Total 1 ml # Bowel Movements 1 2 Result Diagram: 01/14/18 0633 01/14/18 0633 Imaging Last Impressions Pelvis Ultrasound 01/13/18 0000 Signed Impressions: CONCLUSION: 1. Mildly thickened endometrium. Underlying neoplasm, hyperplasia or polyp cou ld be present. 2. Suspected uterine leiomyoma. 3. The ovaries are not seen. No adnexal mass is seen. Lower Extremity Ultrasound 01/13/18 0000 Signed Impressions: CONCLUSION: 1. Limited examination. No DVT identified within either lower extremity. Upper Extremity Ultrasound 01/11/18 0000 Signed Impressions: CONCLUSION: 1. Small area of thrombus at the insertion site of the patient's IV in the rig ht forearm. The remainder of the venous system of the right upper extremity is widely patent. 2. The venous system of the left upper extremity is widely patent. Head CT 01/10/18 9097 Signed Impressions: CONCLUSION: 1. No acute intracranial abnormality or significant interval change. Chest X-Ray 01/10/18 0000 Signed Impressions: CONCLUSION: 1. Stable left basilar pleural-parenchymal opacity likely representing pleural effusion with associated airspace consolidation and/or atelectasis. 2. New opacity at the right lung base representing either atelectasis or conso lidation. Brain MRI 01/10/18 0000 Signed Impressions: CONCLUSION: 1. Senescent changes with old small bilateral basal ganglia lacunar infarcts. 2. Mild periventricular small vessel ischemic white matter demyelination. 3. No acute abnormality. Specifically, no acute infarction. Objective Remarks GENERAL: This is a well-nourished, well-developed female patient, INAD. Patient is awake and alert. Slightly agitated. SKIN: Warm and dry. + 3cm sacral decubitus per nursing report. HEAD: Atraumatic. Normocephalic. EYES: No scleral icterus. No injection or drainage. ENT: Nose without bleeding or purulent drainage. Airway patent. MMM. NECK: Trachea midline. CARDIOVASCULAR: Irregular without murmurs, gallops, or rubs. RESPIRATORY: Clear to auscultation anteriorly. Breath sounds equal bilaterally. No wheezes, rales, or rhonchi. GASTROINTESTINAL: Abdomen soft, non-tender, nondistended. No guarding. Bowels sounds +4 quadrants. PEG tube in place, site C/D/I. MUSCULOSKELETAL: Extremities without clubbing or cyanosis. BUE with diffuse edema, improving. NEUROLOGICAL: Awake and alert. Moving all extremities. No focal neurologic finding. Normal speech. PSYCHIATRIC: Calm and cooperative. Poor judgment and insight. Procedures None A/P Assessment and Plan 77-year-old AA female with PMH of dementia, schizophrenia, arthritis, and asthma who was originally admitted to inpatient psychiatry on 12/24 after patient was [place] acted by PD due to aggressive behavior. She was transferred to medical psych unit due to poor p.o. intake. She was followed by [facility] while in med.psych however on 01/05 was transferred to medical ICU as a [place] due to sever hypotension despite IVF bolus administration. She was treated with broad spectrum antibiotics including IV Vancomycin, Cefepime, and Flagyl. CT scan of the abdomen/pelvis revealed diffuse colitis without perforation, basilar consolidation and right middle love nodule as well as prominent uterus and endometrium. Her stool was tested and positive for c.diff, she was treated for hypothermia, BC x2 and UA were negative. Patient was treated with IV hydration however due to shock was ultimately place on vasopressors. Palliative care, ID and GI followed patient while she was in ICU. Patient was weaned off pressors, received one time diuresis, and transferred back to medical psych unit on 01/09. [facility] has been consult to assist with ongoing medical management. Schizophrenia/dementia -Management per psychiatric team -Seroquel and Depakene currently on hold due to lethargy Acute metabolic encephalopathy, suspect secondary to antipsychotic side effects. Patient much more awake and alert since Seroquel dose held and started on Provigil. Chest x-ray shows stable left basilar opacity, new opacity right lung base possibly atelectasis versus consolidation CT the head unremarkable MRI brain no acute abnormality EEG shows severe encephalopathy, no epileptiform activity RPR nonreactive, ammonia level 34, B12 elevated ABG reviewed -Neurology following, appreciate assistance. Per their recommendations, continue to hold Seroquel. Continue Provigil. Patient much improved while Seroquel on hold. Will discontinue for now. Will defer resuming Seroquel possibly at lower dose if needed per psychiatry. -neuro checks -continue with PT/OT - reconsulted -keep NPO, ST following - attempted re-eval today but patient was too uncooperative for assessment. -fall/seizure/aspiration precautions Candidal UTI Urine culture positive for greater than 100,000 Leonor glabrata -continue fluconazole 100 mg daily. Last EKG 01/10 no QTC prolongation. LFTs within normal limits. Continue to monitor. Hyperammonemia -Patient given dose of lactulose x 1 -Continue to monitor ammonia level as indicated Bilateral UE edema, improving Doppler reveals small area of superficial thrombosis from patient's IV site right forearm otherwise no evidence of DVT -possible fluid overload, hold free water flushes while on IV fluids -elevate arms -monitor Bilateral LE pain Doppler studies neg -continue to monitor C.diff colitis, improving -Continue p.o Vancomycin per PEG for total of 14 days -discussed with Dr. Saez of ID, will decrease dose for remainder of treatment to 125 mg 4 times daily -Lactobacillus TID -ID following, appreciate assistance. New onset afib with RVR Rate controlled Echocardiogram shows EF 65-70% -continue on low-dose metoprolol BID with parameters -Cardiology consulted, appreciate assistance. Not a good candidate for anticoagulation. Cardiology discussed as much with family who wishes to hold off and understands stroke risk. -Monitor heart rate Hypokalemia Hypophosphatemia -Resolved status post repletion Hypoglycemia Blood sugars improved but still running low while on D5. BS currently 94. -continue TF per [employer] dean recommendation, Vital 1.5 @ 50ml/hr and bolus feedings with Vital 1.5 1 can(240ml)@ 8am, 11am, 2pm, 5pm and 8pm. Discussed with nursing staff, no residuals. -Keep HOB 30 degrees at all times for aspiration precautions. -continue on D5NS. Consult endocrinology for assistance, appreciate recommendations. -continue on q2h accucheks Anemia, normocytic, normochromic Thrombocytopenia, improving No e/o active bleeding Iron studies reviewed Hemoccult neg -hgb dropped from 10.1 to 8.7 -repeat CBC for today pending -continue to monitor Sacral ulcer -wound care consulted, orders placed -frequent turns q2h, float heels off bed -monitor Incidental finding of prominent uterus with prominent endometrium on CT abd/ pelvis Pelvic US shows Mildly thickened endometrium. Underlying neoplasm, hyperplasia or polyp could be present. Suspected uterine leiomyoma. -recommend patient follow up with gynecology as outpatient for further evaluation and treatment DVT prophylaxis-Lovenox sq Carol Martinez Jan 16, 2018 11:41
--- NOTE | 2018-01-16 12:28 | PD.TTN ---
Patient Problems 1. Discharge planning 2. Medication compliance 3. Knowledge deficit 4. Lack of coping skills Progress Toward Goals Provider Present: Dr. Janusz Morales Provider Input: Family to be consulted as to discharge environment options; home vs residential facility. Nurse(s) Input: not present Psychiatric Counselors Present: Fara Keene LCSW, Trina Whipple, [facility], [place] Mi Jr., [facility], Meg Spencer, [facility] Psych Therapist Input: Meg. Group Spec/RT/OT/ORTEGA Present: JORDAN Diego, Juan Shearer OT Group Spec/RT/OT/ORTEGA Input: Juan Rodas Occupational Therapist Input: Pt requires max to dep. assist with self care and ADLs Documentation Scribe: Juan Goldstein OTR Jan 16, 2018 12:28
[2018-01-16 13:20] VITALS: BP 162/81; PULSE 94
[2018-01-16] MEDS: ENOXAPARIN SODIUM 40 MG/0.4 ML SYRINGE SQ SCH (14:00)
== END 2018-01-16 16:03 | DRG 885 ==
LOC: H4EA 14:24
PROVIDERS: ADMIT Psychiatry & Neurology Psychiatry; ATTEND Psychiatry & Neurology Psychiatry
DX: F25.0 Schizoaffective disorder, bipolar type (principal); G93.41 Metabolic encephalopathy; L89.152 Pressure ulcer of sacral region, stage 2; A04.72 Enterocolitis due to Clostridium difficile, not specified as recurrent; E87.0 Hyperosmolality and hypernatremia; E72.20 Disorder of urea cycle metabolism, unspecified; F03.90 Unspecified dementia, unspecified severity, without behavioral disturbance, psychotic disturbance, mood disturbance, and anxiety; D69.6 Thrombocytopenia, unspecified; I48.91 Unspecified atrial fibrillation; B37.49 Other urogenital candidiasis; I82.611 Acute embolism and thrombosis of superficial veins of right upper extremity; I97.89 Other postprocedural complications and disorders of the circulatory system, not elsewhere classified; E83.39 Other disorders of phosphorus metabolism; J45.909 Unspecified asthma, uncomplicated; M19.90 Unspecified osteoarthritis, unspecified site; E16.2 Hypoglycemia, unspecified; D64.9 Anemia, unspecified; I10 Essential (primary) hypertension; Z93.1 Gastrostomy status; E87.6 Hypokalemia; Z96.653 Presence of artificial knee joint, bilateral; Z87.891 Personal history of nicotine dependence
CPT/HCPCS: 36600; 70450; 70551; 71045; 76856; 76937; 80048; 80053; 80061; 80164; 81001; 82140; 82272; 82607; 82728; 82747; 82805; 82947; 82948; 83036; 83525; 83540; 83550; 83605; 83735; 84100; 84439; 84443; 84480; 84681; 85025; 85027; 85610; 86304; 86592; 87086; 87106; 93005; 93306; 93970; 95819; J1610; J1650; J3480; J7070